=== PATIENT | male | born 1950 | race Caucasian/White ===

== ENCOUNTER → 2023-10-20 14:00 | Outpatient (REF) | payer MEDICARE, OTHER, SELFPAY | LOC: RAD 14:00 | PROVIDERS: ATTENDING PHYSICIAN Surgery Vascular Surgery | DX: I73.9 Peripheral vascular disease, unspecified (principal) | CPT/HCPCS: 93922; 93925 ==

== ENCOUNTER 2024-04-04 21:30 | Inpatient (IN) | payer MEDICARE, OTHER, SELFPAY ==
[2024-04-04] VITALS (8 sets, daily range): BP systolic 96–128; BP diastolic 46–104; BMI 31.3
[2024-04-04 17:29] LABS: ALT (SGPT) 15 U/L (0-50); AST (SGOT) 16 U/L (17-59); Albumin 4.1 g/dl (3.5-5.0); Alkaline Phosphatase 263 U/L (38-126); Calcium 9.1 mg/dl (8.4-10.2); Carbon Dioxide 21 mmol/L (22-30); Chloride 96 mmol/L (98-107); Glucose 169 mg/dl (70-99); NT-proBNP > 27000 pg/ml; Potassium 3.6 mmol/L (3.5-5.1); Sodium 134 mmol/L (135-145); Total Bilirubin 1.3 mg/dl (0.2-1.3); Total Protein 6.2 g/dl (6.3-8.2); eGFR 18.97
[2024-04-04 17:42] LABS: Blood Urea Nitrogen 172 mg/dl (9-20)
[2024-04-04 17:44] LABS: % Basophils 0.2 % (0-2); % Eosinophils 0.4 % (0-6); % Immature Granulocytes 0.4 % (0-0.5); % Lymphocytes 4.7 % (20.5-51.1); % Monocytes 7.8 % (1.7-9.3); % Neutrophils 86.5 % (42.2-75.2); Absolute Lymphocytes 0.2 10^3/uL (1.2-3.4); Absolute Monocytes 0.4 10^3/uL (0.1-0.6); Absolute Neutrophils 4.5 10^3/uL (1.4-6.5); Hematocrit 26.1 % (39.0-52.0); Hemoglobin 8.6 g/dL (13.0-18.0); Nucleated Red Blood Cells % 0 % (-); Red Blood Cell Count 2.69 10^6/uL (4.70-6.10); Red Cell Dist. Width 13.7 % (11.5-14.5); White Blood Cell Count 5.2 10^3/uL (4.8-10.8)
--- NOTE | 2024-04-04 17:53 | ED.GENMED ---
History of Present Illness
General
Chief Complaint: Breathing Problem
Source: patient and previous hospital records
Exam Limitations: none
Time Seen by Provider: 04/04/24 17:34
Nursing documentation reviewed up to this point in time: agreed with
History of Present Illness
History of Present Illness:
73-year-old male presents with fatigue shortness of breath weight gain of 12 to 15 pounds abdominal distention cough
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 Vieira
Past History
Past History
ED Past Medical History: COPD, HTN, IDDM and Other (Mild cardiomyopathy, arthritis, pneumonia, testicular cancer)
ED Past Surgical History: None
Social History
Tobacco: Former smoker
Alcohol: Occasional
Drug: None
Personal:
Living: with family
Employment: Employed
Family History
Family History: Hypertension
Review of Systems
Review of Systems
All Other Systems: Not applicable
Constitutional: Reports weight gain and fatigue; Denies fever
Respiratory: Reports cough and trouble breathing
ABD/GI: Reports no symptoms
: Reports no symptoms
Musculoskeletal: Reports no symptoms
Skin: Reports no symptoms
Neurological: Reports dizzy and weakness
Endocrine: Reports no symptoms
Hematologic/Lymphatic: Reports no symptoms
Phy Exam
Physical Exam
Physical Exam:
Physical Exam
General: 73-year-old male coughing chronically ill-appearing
Neck: No jaw
Heart: Regular with murmur
Lungs: Crackles in the base
Abdomen: Distended not
Neuro: alert and oriented. no focal neurological deficits
Skin: no rash
Psychiatric: Cooperative
Extremities: Pitting edema edema
Scores
Heart Failure Risk
Heart Failure Risk Score: Not Applicable
Course
Orders/Labs/Results
Orders:
Orders
04/04/24 Dinner
Cholesterol Lowering
At Your Request: Limited Participation
Does patient need a safe tray?: No
Cholesterol Lowering: Sodium, 2 Gram
04/04/24 16:41
Electrocardiogram (*1) Urgent
Reason for Study: Shortness of Breath
EKG- Treatment ONCE
04/04/24 16:55
Complete Blood Count/With Diff Urgent
Comprehensive Metabolic Panel Urgent
NT-proBNP Urgent
04/04/24 17:34
CR Chest - 2 Views Urgent
Comment:
Reason For Exam: sib
04/04/24 17:49
Bladder Scan- Treatment ONCE
Furosemide [Lasix] 80 mg IV NOW STA
04/04/24 20:32
Admit/Transfer Patient As Directed
Co-Sign Provider:
Level of Care: Inpatient admission
Assign to:: Telemetry
Physician / Group: Robin Zepeda
Diagnosis: acute on chronic heart failure
Reason for Telemetry: Acute Heart Failure
Date to Stop Telemetry: 04/07/24
Time to Stop Telemetry: 11:00
Reason for Hospitalization: acute on chronic heart failure
Expected length of stay greater than two midnights?: Yes
ELOS- Estimated Length of Stay in days: 3
I certify the patient meets the requirements for IP care: Yes
PRN Pain Medication Management As Directed
May give lesser potent ordered pain med per pt: Yes
preference::
Protocol:: Medication orders for pain may be administered in a
manner that supports deferring to patient preference
when the pt is:
- Requesting an ordered lesser potent pain medication.
Least to most potent pain medications are defined
as: acetaminophen < NSAID < tramadol < opioids
(morphine, oxycodone, hydromorphone).
- Requesting a lesser dose of the same medication IF
ORDERED.
- Requesting a less intrusive route of administration
if both routes are prescribed by the provider (PO <
IV).
04/04/24 20:35
Code Status As Directed
Resuscitation Status: Full Code
04/04/24 21:51
Albuterol Nebs [Ventolin Nebules] 2.5 mg INH R Q6HPRN PRN
04/04/24 21:51
CARDIOLOGY CONSULT Routine
Consulting Provider: Chrissy Vega
Was physician already notified: Yes
HF DIETARY CONSULT Routine
HF EDUCATOR CONSULT Routine
Comment:
Accucheck [Bedside Glucose Monitoring] As Directed
Frequency: AC&HS
Activity As Directed
Activity Level: Ambulate
Intake/ Output As Directed
Frequency: Per unit guidelines
Patient Education As Directed
Type: CHF folder
Comment: give on admission. Document in Interdisciplinary Education record
Sleep Apnea Assessment by RN As Directed
Comment:
Physician Instructions:
Vital Signs As Directed
Frequency: Other
Additional Instructions:: Q12 or per unit guidelines if more frequent.
Weight As Directed
Frequency: Daily
Type of Scale: Standing Scale
Comment: Daily morning weight. If unable to stand, use balanced bed scale.
Weight As Directed
Frequency: Once
Type of Scale: Standing Scale
Comment: Upon Admission. If unable to stand, use balanced bed scale.
Pulse Ox/cont/shift [RESP] Routine
Quantity: 1
Special Instructions: Daily pulse oximetry at rest. If greater than 92% at rest also obtain pulse oximetry
while ambulating as tolerated.
04/04/24 22:00
Digoxin [Lanoxin] 62.5 mcg PO HS
04/04/24 22:46
Hemoglobin A1c [Glycohemoglobin (HgbA1c)] Routine
04/05/24 06:00
Echo 2D MMode Color/Doppler IN AM
Reason for Study: heart failure
Basic Metabolic Panel IN AM
Cardiovascular Evaluation IN AM
Complete Blood Count/With Diff IN AM
04/05/24 08:00
Allopurinol [Zyloprim] 100 mg PO DAILY
Apixaban [Eliquis] 5 mg PO BID
Ascorbic Acid [Vitamin C] 500 mg PO DAILY
Carvedilol [Coreg] 25 mg PO BID
Cholecalciferol (Vitamin D3) [VITAMIN D3 (cholecalciferol)] 50 mcg PO BID
Furosemide [Lasix] 80 mg PO BID@0800,1600
Sacubitril 97/Valsartan 103 [Entresto 97 mg/103 mg] 1 tab PO BID
Zinc 50mg (Zinc Sulfate 220mg) [Zinc] 50 mg PO DAILY
[id number] [Breztri Aerosphere] 2 inh INH R BID
04/06/24 06:00
Basic Metabolic Panel IN AM
Complete Blood Count/With Diff IN AM
04/07/24 06:00
Basic Metabolic Panel IN AM
Complete Blood Count/With Diff IN AM
04/07/24 11:00
DC Protocol for Telemetry ONCE
Abnormal Lab Results
04/04/24
16:55
RBC 2.69 L 10^6/uL
(4.70-6.10)
Hgb 8.6 L g/dL
(13.0-18.0)
Hct 26.1 L %
(39.0-52.0)
MCV 97.0 H fL
(80.0-94.0)
MCH 32.0 H pg
(27.0-31.0)
Plt Count 85 L 10^3/uL
(130-400)
MPV 10.7 H fL
(7.4-10.4)
Absolute Lymphs (auto) 0.2 L 10^3/uL
(1.2-3.4)
Neutrophils % 86.5 H %
(42.2-75.2)
Lymphocytes % 4.7 L %
(20.5-51.1)
Sodium 134 L mmol/L
(135-145)
Chloride 96 L mmol/L
(98-107)
Carbon Dioxide 21 L mmol/L
(22-30)
BUN 172 H* mg/dl
(9-20)
Creatinine 3.3 H mg/dL
(0.7-1.3)
Glucose 169 H mg/dl
(70-99)
AST 16 L U/L
(17-59)
Alkaline Phosphatase 263 H U/L
(38-126)
Total Protein 6.2 L g/dl
(6.3-8.2)
04/04/24 16:55
04/04/24 16:55
Vital Signs
Initial and Last Documented VS:
Initial Vital Signs
Temp Pulse Resp BP Pulse Ox
98.6 F 80 18 112/52 93
04/04/24 16:38 04/04/24 16:38 04/04/24 16:38 04/04/24 16:38 04/04/24 16:38
Last Documented Vital Signs
Temp Pulse Resp BP Pulse Ox
97.9 F 80 20 96/58 100
04/04/24 21:55 04/04/24 22:50 04/04/24 21:55 04/04/24 21:55 04/04/24 21:55
MDM/Problems Addressed
Differential Diagnosis Includes:
Heart failure pneumonia symptomatic anemia renal insufficiency
MDM/Problems Addressed:
Shortness of breath weight gain
Chronic conditions affecting care: HTN, Cardiomyopathy, Arrhythmia and COPD
Acute Exacerbation and/or Progression of Chronic Illness: Cardiomyopathy, Arrhythmia and COPD
*Radiology
Radiology exam reviewed: preliminary read by ED provider
*Pulse Oximetry
Patient hypoxic: no
*EKG
Interpreted by ED Provider?: Yes
Interpretation: abnormal
Comparison EKG: no comparison EKG present
Heart Rate: 78
Rate: normal
Ischemia: non-specific ST changes
*School Of Nursing Director Interpretation
Rate: normal
Interpretation: normal
Heart Rate: 78
Rhythm: ventricular paced
*Critical Care Note
Total Time (30-74mins, 75-104mins- exclusive of procedures): 12
Data Reviewed
Review of Other/Old Records Reveals: Labs
Source: patient
Prescriptions/Medications Considered But Not Given:
Packed cells
Further Testing Considered But Not Given:
CT scan
Update Note
Update Note:
Update medically complex male presents volume overloaded labs are noted does have anemia, renal insufficiency, elevated proBNP chest x-ray pending will start diuretic, will require admission
Chest x-ray noted prior labs noted bladder scan noted
ED Attending Note
-
Portions of this chart may have been created with voice recognition software.� Occasional wrong word or��sound alike� substitutions may have occurred due to the inherent limitations of voice recognition software.
Discharge Plan
Departure
Patient Disposition: Admit
Date of Disposition: 04/04/24
Time of Disposition: 19:25
Admit to: Telemetry
Presentation/result/management discussed w/ accepting MD/DO: Hospitalist
Patient with high blood pressure during this ER visit?: Yes
Condition: Fair
Covid-19: Not Applicable
Discharge Problem:
HTN (hypertension), CKD (chronic kidney disease), Cardiomyopathy, Hyperlipidemia, Type 2 diabetes mellitus without complications, CKD (chronic kidney disease) stage 4, GFR 15-29 ml/min, Gout, Hypertensive heart and chronic kidney disease with heart
failure and stage 1 through stage 4 chronic kidney disease, or unspecified chronic kidney disease, Chronic systolic CHF (congestive heart failure), NICM (nonischemic cardiomyopathy), Anemia
Interventions
Interventions:
*Risk Screen - Suicide Last Done: 04/04/24 16:38
*General Assessment Last Done: 04/04/24 16:38
*Neglect/Abuse Screening Last Done: 04/04/24 16:38
*ED COVID-19 Vaccine History Last Done: 04/04/24 22:30
*Nursing Disposition Last Done: 04/04/24 22:00
ED- Cardiac Assessment Last Done: 04/04/24 17:18
ED- Pulmonary Assessment Last Done: 04/04/24 17:18
Discharge Date and Time
Discharge Date/Time: 04/04/24 22:01
[2024-04-04 17:56] LABS: Mean Platelet Volume 10.7 fL (7.4-10.4); Platelet Count 85 10^3/uL (130-400)
[2024-04-04] MEDS: LASIX 80 MG IV (18:01)
--- NOTE | 2024-04-04 19:44 | HPS.HSE ---
Addendum entered and electronically signed by Robin Zepeda DO 04/04/24 21:44:
Patient seen and examined independently. Agree with findings and plan as set forth by USHA Sarkar.
Patient is a 73y M with PMH significant for CHF, DM-II and CKD III who presents to ED complaining of 2-3 weeks of progressive shortness of breath, edema, abdominal distention and weight gain. Patient takes Lasix 80mg BID at home and has noted
that he is urinating less over the past few weeks. He is currently followed by a Issuing Operator in [place], [place] - though he was previously followed here by Dr. Vieira.
Ass:
Acute on Chronic HFrEF
Non-Ischemic Cardiomyopathy
KAYLEIGH on CKD III
Acute on Chronic Anemia
Benign Hypertension
Persistent Atrial Fibrillation
Ventricular Tachycardia
COPD
DM-II
Plan:
Admit for further evaluation and treatment.
IV Lasix BID and follow for effective diuresis.
Update Echo.
Cardiology evaluation for additional recommendations.
Continue other outpatient medications.
Follow glucose and cover with SSI as needed.
Update A1C.
Original Note:
Family Physician
-
Family Physician: NOT KNOW UNKNOWN - PT DOES
Chief Complaint
-
shortness of breath with exertion
History of Present Illness
Patient is a 73-year-old male with past medical history significant for type 2 diabetes, hyperlipidemia, chronic kidney disease stage 3, hypertension, hyperparathyroidism, a-fib, and gout who presented to [place] ED for shortness of breath on
exertion. Patient reports a 12-13 pound weight gain over the past 2 weeks and has noticed an increase in his abdominal girth. Patient denies any fever, chills, nausea, vomiting, chest pain, cough, constipation, diarrhea or urinary symptoms.
Medical History
Past Medical History
Past Medical History: Reports Other
Additional Past Medical History:
type 2 diabetes
hyperlipidemia
chronic kidney disease stage 3
hypertension
hyperparathyroidism
a-fib
gout
Past Surgical History: Reports Other
Additional Past Surgical History:
Cardiac ablation
Implanted medtronic ICD
partial colectomy
Social History
Tobacco: Former Smoker (40 pack year history, quit 30 years ago)
Alcohol: None
Drug: None
Personal:
Living: With Family
Employment: Retired
Family History
Family History: Not pertinent
Allergies / Home Medications
Allergies reflects when Allergies were last updated in [facility].
Home Medications with original date entered in [facility]
Allergy/Medication List:
Allergies
Allergy/AdvReac Type Severity Reaction Status Date / Time
No Known Allergies Allergy Verified 06/19/22 18:05
Home Medications
cholecalciferol (vitamin D3) 50 mcg (2,000 unit) tablet 2,000 unit PO BID Supplement 07/28/14
albuterol sulfate 2.5 mg/3 mL (0.083 %) solution for nebulization 2.5 mg inhalation Q6HPRN PRN sob 08/07/20
ascorbic acid (vitamin C) 500 mg tablet (Vitamin C) 500 mg PO DAILY Supplement 08/07/20
zinc sulfate 50 mg zinc (220 mg) tablet 50 mg PO DAILY Supplement ##0 08/07/20
carvedilol 25 mg tablet (Coreg) 25 mg PO BID Heart disease/condition 09/07/20
budesonide 160 mcg-glycopyr 9 mcg-formot 4.8 mcg/actuation HFA inhaler (Breztri Aerosphere) 2 inh inhalation R BID 08/19/22
albuterol sulfate 90 mcg/actuation aerosol inhaler 2 puff inhalation R BID 04/04/24
allopurinol 100 mg tablet 100 mg PO DAILY 04/04/24
apixaban 5 mg tablet (Eliquis) 5 mg PO BID 04/04/24
digoxin 62.5 mcg (0.0625 mg) tablet (Lanoxin) 62.5 mcg PO HS 04/04/24
flunisolide 25 mcg (0.025 %) nasal spray 1 spray intranasal DAILYPRN PRN allergy symptoms 04/04/24
furosemide 80 mg tablet 40 mg PO BID Fluid retention/Swelling 04/04/24
metolazone 5 mg tablet 5 mg PO DAILYPRN PRN edema/symptoms 04/04/24
sacubitril 97 mg-valsartan 103 mg tablet (Entresto) 1 tab PO BID 04/04/24
Review of Systems
-
History Source: Patient
Constitutional: Reports Weight Gain (12-13 pounds in 2 weeks)
EENT: Reports No Symptoms
Respiratory: Reports Trouble Breathing (shortness of breath)
Cardiac: Reports No Symptoms
Abdomen/GI: Reports No Symptoms
: Reports No Symptoms
Musculoskeletal: Reports No Symptoms
Skin: Reports No Symptoms
Neurological: Reports No Symptoms
Endocrine: Reports No Symptoms
Hematologic/Lymphatic: Reports No Symptoms
Psych: Reports No Symptoms
Physical Exam
Vital Signs
Vital Signs
Temp Pulse Resp BP Pulse Ox
98.6 F 73 19 119/104 98
04/04/24 16:38 04/04/24 19:00 04/04/24 19:00 04/04/24 19:00 04/04/24 18:45
Physical Exam
General: Well Developed, Well Nourished, No Apparent Distress and Conversant
HEENT: NormoCephalic, Moist mucous membranes, Atraumatic, [place] Conjunctivae, Nose Appears Normal and Ears Appear Normal
Respiratory: Clear, Wheezes, Crackles and Non Labored Respirations
Cardiac: S1/S2 and Regular Rhythm; No Murmur, Rub or Gallop
Breast: Deferred by me
GI: Soft, Non Tender, Non Distended and Normal Bowel Sounds; No Organomegaly
Rectal: Deferred by Provider
Genito-urinary: Deferred by me
Musculoskeletal: No Clubbing, No Cyanosis and No Edema
Skin: Warm and IV/Catheter Site; No Rash
Neuro: Awake, Alert, AO x 3 and Nonfocal/grossly intact
Hematologic/Lymphatic: No Lymphadenopathy
Psych: Calm and Intact Judgment/Insight
Laboratory Results
-
04/04/24 16:55
04/04/24 16:55
Laboratory Results
Total Bilirubin 1.3 mg/dl (0.2-1.3) 04/04/24 16:55
AST 16 U/L (17-59) L 04/04/24 16:55
ALT 15 U/L (0-50) 04/04/24 16:55
Alkaline Phosphatase 263 U/L (38-126) H 04/04/24 16:55
Data Reviewed
-
Diagnostic Radiology: Report Reviewed by me (CXR: Mild right basilar atelectasis and/or pneumonia.)
Medical Tests (Nuc Med, Echo, EKG etc): Report Reviewed by me (EKG: Ventricular-paced rhythm ABNORMAL ECG)
Lab Data: Labs Reviewed by me (hgb 8.6, Hct 26.1, BUN 172, Creat 3.3, BNP >02414)
Impression/Plan
-
IMPRESSION/PLAN:
#Acute on chronic heart failure
ECHO (11/08/2022) - Severely reduced left ventricular systolic function. Left ventricular ejection
fraction is 25-30% by visual estimate.
Stage III diastolic dysfunction suggestive of restrictive filling pattern and
increased filling pressures.
CXR: Mild right basilar atelectasis and/or pneumonia.
Patient reports 12-13 pound weight gain in last 2 weeks and increased abdominal girth
- Admit to telemetry
- Consult cardiology
- IV Lasix
- continue carvedilol, digoxin, and Entresto
#anemia
Hgb 8.6/Hct 26.1
denies any bleeding
- monitor BMP
#chronic kidney disease stage 3
BUN 172, Creat 3.3
#hypertension
- continue carvedilol
- hold PO furosemide
- IV furosemide
#a-fib
EKG: Ventricular-paced rhythm
ABNORMAL ECG
Medtronic ICD
- continue Eliquis, and carvedilol
#gout
- continue allopurinol
#type 2 diabetes
Patient reports used to be on insulin and corrected with weight loss and diet now
#hyperparathyroidism
#hyperlipidemia
Code Status: Full Code
DVT Prophylaxis: Eliquis
[2024-04-04 21:58] LABS: Glucose - Point of Care 145 mg/dl (70-99)
[2024-04-04] MEDS: LANOXIN 62.5 MCG PO (22:50)
[2024-04-04] MEDS: ELIQUIS 5 MG PO (23:02)
[2024-04-05] VITALS (9 sets, daily range): BP systolic 60–130; BP diastolic 43–69; BMI 31.3
[2024-04-05] MEDS: VENTOLIN NEBULES 2.5 MG INH ×2 (00:02→20:11)
--- NOTE | 2024-04-05 01:25 | TRANSFER ---
pt arrived from ED via stretcher accompanied by ED staff. pt ambulated from stretcher to bed with RW. pt AAOx3 upon arrival. BP soft at 96/58, other vital signs stable. oriented to room, call gabriel within reach. accompanied by spouse at bedside. POC
ongoing.
[2024-04-05 07:32] LABS: Glucose - Point of Care 107 mg/dl (70-99)
[2024-04-05] MEDS: SPIRIVA RESPIMAT 2.5 MCG 2 PUFF INH (07:41)
[2024-04-05] MEDS: SYMBICORT 160/4.5 MCG INHALER 2 PUFF INH ×2 (07:41→20:11)
--- NOTE | 2024-04-05 09:03 | CON.CAR ---
Addendum entered and electronically signed by Chrissy Vega MD 04/05/24 11:34:
I saw and examined the patient.
The CHEMICAL ENGINEERING PROFESSOR's note was reviewed and I agree with the note.
Comment: It was my pleasure to meet Mr. Downing who has a history of longstanding heart failure with reduced ejection fraction due to nonischemic cardiomyopathy, prior history of VT status post ICD, persistent atrial fibrillation that is
paroxysmal, intolerance to amiodarone, CKD 3B, COPD and PVCs who presents for worsening shortness of breath and weight gain. He endorses orthopnea, increased abdominal distention, poor appetite and lower extremity edema. He states he was taking
his home regimen of Lasix and even metolazone without any improvement. On physical exam he has wheezes at the bases bilaterally but a normal respiratory effort, regular rate and rhythm with a normal S1-S2, abdominal distention, nontender, 2-3+
pitting edema in the lower extremities.EKG shows sinus rhythm with ventricular pacing, chest x-ray shows cephalization of the pulmonary vasculature, labs shows acute on chronic kidney injury with a markedly elevated BUN and creatinine. proBNP is
elevated. Overall, he is in acute on chronic heart failure exacerbation with massive volume overload. We will attempt to mobilize fluid, but he is already likely in cardiorenal syndrome. Will need IV diuresis with close monitoring of his kidney
function. Will update an echo to ensure no changes Would recommend nephrology evaluation given rising creatinine and such markedly elevated BUN as may need to start preparing for HD for volume control. Will hold Entresto. He reports he was told
he was going in and out of atrial for fibrillation. Unfortunately he is intolerant to amiodarone. Kidney disease makes Tikosyn a poor option. Could consider an ablation as an outpatient. For now we will continue with rate controlling agents.
Will check a digoxin level and hold further dosing at this time given KAYLEIGH. Overall, this is a high risk situation given his severe cardiomyopathy and acute on chronic renal disease. .
Original Note:
Consultation
Consultation Request
Date/Time Consultation Requested: 04/04/24 10p
Date/Time Consultation Performed: 04/05/24 8:30a
Requesting Provider: USHA Sarkar
Performing Provider: USHA Nelson for Dr. Vega
Reason for Consultation: sob
Medical History
-
Chief Complaint: sob, weight gain
History of Present Illness:
Mr. 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
(director software Dr. Blaine Sanderson in [place]), COPD (former smoker), and PVCs s/p ablations, who presents to the ER with c/o worsened SOB and weight gain. He is admitted to the hospitalist service and we are consulted for SOB/HFrEF. He lives in [facility]
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 Vieira (last seen 08/2023). He has been taking Lasix 40mg BID at home w/o improvement of symptoms or weight, he also tried PRN Metolazone without improvement. He notes decreased urinary output as well.
Creatinine is 3.7 today. Last echo 10/2022 with LVEF 25 to 30%, mild-mod MR/AR, mod TR, PASP 60 to 65 mmHg. GDMT is limited by CKD3b/KAYLEIGH, hyperkalemia with aldosterone antagonists, he did not tolerate SGLT2 inhibitors, and he could not afford
Verquovo.
Past Medical History
Past Medical History: Other (as above)
Past Surgical History: Other (as above)
Social History
Tobacco: Former Smoker
Personal:
Living: With Family
Employment: Retired
Family History
Family History: Reviewed & Not Pertinent
Allergies / Home Medications
Allergy/AdvReac Type Severity Reaction Status Date / Time
No Known Allergies Allergy Verified 06/19/22 18:05
�Medication �Instructions �Recorded �Confirmed �Type
cholecalciferol (vitamin D3) 50 2,000 unit PO BID Supplement 07/28/14 04/04/24 History
mcg (2,000 unit) tablet
albuterol sulfate 2.5 mg/3 mL 2.5 mg inhalation Q6HPRN PRN sob 08/07/20 04/04/24 History
(0.083 %) solution for nebulization
ascorbic acid (vitamin C) 500 mg 500 mg PO DAILY Supplement 08/07/20 04/04/24 History
tablet (Vitamin C)
zinc sulfate 50 mg zinc (220 mg) 50 mg PO DAILY Supplement ##0 08/07/20 04/04/24 History
tablet
carvedilol 25 mg tablet (Coreg) 25 mg PO BID Heart 09/07/20 04/04/24 History
disease/condition
budesonide 160 mcg-glycopyr 9 2 inh inhalation R BID 08/19/22 04/04/24 History
mcg-formot 4.8 mcg/actuation HFA
inhaler (Breztri Aerosphere)
albuterol sulfate 90 mcg/actuation 2 puff inhalation R BID 04/04/24 04/04/24 History
aerosol inhaler
allopurinol 100 mg tablet 100 mg PO DAILY 04/04/24 04/04/24 History
apixaban 5 mg tablet (Eliquis) 5 mg PO BID 04/04/24 04/04/24 History
digoxin 62.5 mcg (0.0625 mg) 62.5 mcg PO HS 04/04/24 04/04/24 History
tablet (Lanoxin)
flunisolide 25 mcg (0.025 %) nasal 1 spray intranasal DAILYPRN PRN 04/04/24 04/04/24 History
spray allergy symptoms
furosemide 80 mg tablet 40 mg PO BID Fluid 04/04/24 04/04/24 History
retention/Swelling
metolazone 5 mg tablet 5 mg PO DAILYPRN PRN edema/symptoms 04/04/24 04/04/24 History
sacubitril 97 mg-valsartan 103 mg 1 tab PO BID 04/04/24 04/04/24 History
tablet (Entresto)
Review of Systems
-
History Source: Patient
All other systems: Negative unless noted
Physical Exam
Vital Signs
Temp Pulse Resp BP Pulse Ox
98.0 F 67 16 123/51 98
04/05/24 07:15 04/05/24 07:45 04/05/24 07:45 04/05/24 07:15 04/05/24 07:45
Lab Results
Ofq-B-Ntasogkybcl Pept > 06845 pg/ml 04/04/24 16:55
Physical Exam
General: Well Developed, Well Nourished and No Apparent Distress
HEENT: Normocephalic and Moist Mucous Membranes
Respiratory: Non Labored Respirations
Cardiac: S1/S2 and Regular Rhythm
Breast: Deferred by me
GI: Soft, Non Tender and Normal Bowel Sounds
Rectal: Deferred by Provider
Genito-urinary: No Costovertebral Tender
Musculoskeletal: No Clubbing, No Cyanosis and Edema (+2 edema b/l LE )
Skin: Warm
Neuro: AO x 3
Hematologic/Lymphatic: No Lymphadenopathy
Psych: Calm
Impression / Plan
-
HFrEF - acute on chronic.
- volume overloaded, LE edema, abdominal distention, weight gain, proBNP >27,000.
- agree with gentle IV diuresis due to KAYLEIGH/CKD3b (labs pending this am).
- fluid sodium restrictions, daily weights, I&Os.
- he was on Lasix 40mg PO BID at home with PRN Metolazone w/o improvement and c/o decreased urinary output.
NIDCM - EF 35%.
- volume overloaded, agree with gentle diuresis.
- MDT ICD in place.
COPD - acute exacerbation.
- per primary.
Afib - persistent.
- Vpaced on tele.
- stable on Coreg, digoxin, continue.
- did not tolerating Amiodarone previously.
- on Eliquis, continue.
CKD3b - acute KAYLEIGH on chronic.
- creatinine 3.3 on admit and labs pending for today.
- monitor closely.
Data Reviewed
-
EKG: Tracing Personally Visualized and interpreted (Vpaced 78 bpm )
Radiology: Report Reviewed by me (COPD exacerbation)
Medical Tests (Nuc Med, Echo etc): Report Reviewed by me (echo 10/2022 with LVEF 25 to 30%, mild-mod MR/AR, mod TR, PASP 60 to 65 mmHg)
Labs: Labs Reviewed by me
Old Records: Reviewed
[2024-04-05 09:47] LABS: % Basophils 0.2 % (0-2); % Eosinophils 0.7 % (0-6); % Immature Granulocytes 0.5 % (0-0.5); % Lymphocytes 6.5 % (20.5-51.1); % Monocytes 10.2 % (1.7-9.3); % Neutrophils 81.9 % (42.2-75.2); Absolute Lymphocytes 0.3 10^3/uL (1.2-3.4); Absolute Monocytes 0.4 10^3/uL (0.1-0.6); Absolute Neutrophils 3.6 10^3/uL (1.4-6.5); Hemoglobin 8.7 g/dL (13.0-18.0); Mean Corp Hgb Conc. 32.2 g/dL (33.0-37.0); Mean Corpuscular Hgb 31.6 pg (27.0-31.0); Mean Corpuscular Volume 98.2 fL (80.0-94.0); Mean Platelet Volume 11.2 fL (7.4-10.4); Nucleated Red Blood Cells % 0 % (-); Platelet Count 94 10^3/uL (130-400); Red Blood Cell Count 2.75 10^6/uL (4.70-6.10); Red Cell Dist. Width 13.9 % (11.5-14.5); White Blood Cell Count 4.3 10^3/uL (4.8-10.8)
[2024-04-05] MEDS: VITAMIN D3 (cholecalciferol) 50 MCG PO ×2 (10:07→20:35)
[2024-04-05] MEDS: ENTRESTO 97 MG/103 MG 1 TAB PO (10:07)
[2024-04-05] MEDS: ELIQUIS 5 MG PO ×2 (10:09→20:35)
[2024-04-05] MEDS: COREG 25 MG PO ×2 (10:09→20:35)
[2024-04-05] MEDS: ZYLOPRIM 100 MG PO (10:09)
[2024-04-05] MEDS: ZINC 50 MG PO (10:09)
[2024-04-05] MEDS: VITAMIN C 500 MG PO (10:09)
[2024-04-05] MEDS: FLUSH (NSS) 1 FLUSH IV (10:10)
[2024-04-05 10:46] LABS: Calcium 9.5 mg/dl (8.4-10.2); Carbon Dioxide 23 mmol/L (22-30); Chloride 95 mmol/L (98-107); Estimated Creatinine Clearance 21 ml/min; Glucose 148 mg/dl (70-99); HDL Cholesterol 26 mg/dl; LDL Cholesterol, Calculated 73 mg/dl; Potassium 3.8 mmol/L (3.5-5.1); Sodium 137 mmol/L (135-145); Total Cholesterol 117 mg/dl (50-199); Triglyceride 93 mg/dl (10-149); Very Low Density Lipoprotein 18 mg/dl (0-30); eGFR 17.67
[2024-04-05 11:03] LABS: Blood Urea Nitrogen 172 mg/dl (9-20)
--- NOTE | 2024-04-05 11:21 | W.PN.HOSP.TC ---
Today's Communication/Plan
-
HD preparations as per Nephro
cont diuresis, hold digoxin Entresto as per Cardio
daily weight I/O
duoneb R QID
Assessment / Plan
Assessment / Plan
Physical Exam
General: Well Developed, Well Nourished, No Apparent Distress and Conversant
HEENT: NormoCephalic, Moist mucous membranes, Atraumatic, [place] Conjunctivae, Nose Appears Normal and Ears Appear Normal
Respiratory: Non Labored Respirations, some mild wheezing noted on auscultation
Cardiac: S1/S2 and Regular Rhythm; No Murmur, Rub or Gallop
GI: Soft, Non Tender, Non Distended and Normal Bowel Sounds; No Organomegaly
Musculoskeletal: +2 pitting edema lower ext's
Neuro: AOx3
Psych: Calm and Intact Judgment/Insight
73y M with PMH significant for CHF, DM-II and CKD III who presents to ED complaining of 2-3 weeks of progressive shortness of breath, edema, abdominal distention and weight gain. Patient takes Lasix 80mg BID at home and has noted that he is
urinating less over the past few weeks. He is currently followed by a Stranding Machine Operator in [place], [place] - though he was previously followed here by Dr. Vieira.
#Acute on chronic heart failure
ECHO appreciated EF 30% mod severe TR ascending aorta dilatation 4.2 cm, per report ECHO largely unchanged from prior October 2022
CXR: Mild right basilar atelectasis and/or pneumonia.
Patient reports 12-13 pound weight gain in last 2 weeks and increased abdominal girth
- cont telemetry
- Consult cardiology appreciated cont coreg, hold digoxin Entresto d/t KAYLEIGH as below
- IV Lasix
#COPD
stable resp status on room air at rest
some wheezing noted on auscultation
Duoneb R QID
#anemia
H&H stable cont to monitor
#KAYLEIGH on CKD3
Nephro eval appreciated patient to start HD tomorrow IR to place catheter
#hypertension
- continue carvedilol
- hold PO furosemide
- IV furosemide
#a-fib
EKG: Ventricular-paced rhythm
ABNORMAL ECG
Medtronic ICD
- continue Eliquis, and carvedilol
#gout
- continue allopurinol
#type 2 diabetes
A1c 7.0
Low dose sliding scale
#hyperparathyroidism
#hyperlipidemia
Code Status: Full Code
DVT Prophylaxis: Eliquis
discussed with patient and his Sri
I spent a total of 50 minutes with the patient or on the floor. More than 50% of this time involved counseling and coordination of care.
Anticipated Discharge: 24 - 48 hours
Subjective/Interval History
-
Date of Service: April 05, 2024
No acute distress sitting up comfortably in chair. present during evaluation. Dyspnea with exertion persists
Objective Data
-
Labs:
Laboratory Results
04/05/24
08:45
WBC 4.3 L
Hgb 8.7 L
Hct 27.0 L
Plt Count 94 L
Sodium 137
Potassium 3.8
Chloride 95 L
Carbon Dioxide 23
BUN 172 H*
Creatinine 3.5 H
Glucose 148 H
Calcium 9.5
Vital Signs:
Vital Signs
Temp Pulse Resp BP Pulse Ox
98.0 F 67 16 123/51 98
04/05/24 07:15 04/05/24 07:45 04/05/24 07:45 04/05/24 07:15 04/05/24 07:45
I&O
04/04/24 04/05/24 04/06/24
06:59 06:59 06:59
Intake Total 240 / 240
Output Total 325 / 325
Balance -85 / -85
--- NOTE | 2024-04-05 12:01 | W.CON.NEPH ---
Consultation
-
Date/Time Consultation Requested: 04/05/2024 12:00
Date/Time Consultation Performed: 04/05/2024 12:00
Requesting Provider: Dr. Lee
Performing Provider: Dr. Teague
Reason for Consultation: Acute renal failure
Medical History
-
Chief Complaint: Acute kidney injury
History of Present Illness:
Mr. 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 Blaine Sanderson in [place]), COPD (former smoker), and PVCs s/p ablations, who presents to the ER with c/o worsened SOB and weight gain. He is admitted to the hospitalist service and we are consulted for SOB/HFrEF. He lives in [facility]
and has a careers counsellor there, but also sees Dr. Vieira (last seen 08/2023). He has been taking Lasix 40mg BID at home w/o improvement of symptoms or weight, he also tried PRN Metolazone without improvement. He notes decreased urinary output as well.
Creatinine is 3.5 today with associated BUN of 172.. Last echo 10/2022 with LVEF 25 to 30%, mild-mod MR/AR, mod TR, PASP 60 to 65 mmHg. Nephrology was asked to see the patient for his acute on chronic renal failure.
Past Medical History
CKD stage IV
COPD
Atrial fibrillation
Gout
Nonischemic cardiomyopathy with EF of 35 percent
History of ventricular tachycardia
Diabetes
Social History
Tobacco: Former Smoker
Alcohol: Occasional
Family History
No CKD
Allergies / Home Medications
Allergy/AdvReac Type Severity Reaction Status Date / Time
No Known Allergies Allergy Verified 06/19/22 18:05
�Medication �Instructions �Recorded �Confirmed �Type
cholecalciferol (vitamin D3) 50 2,000 unit PO BID Supplement 07/28/14 04/04/24 History
mcg (2,000 unit) tablet
albuterol sulfate 2.5 mg/3 mL 2.5 mg inhalation Q6HPRN PRN sob 08/07/20 04/04/24 History
(0.083 %) solution for nebulization
ascorbic acid (vitamin C) 500 mg 500 mg PO DAILY Supplement 08/07/20 04/04/24 History
tablet (Vitamin C)
zinc sulfate 50 mg zinc (220 mg) 50 mg PO DAILY Supplement ##0 08/07/20 04/04/24 History
tablet
carvedilol 25 mg tablet (Coreg) 25 mg PO BID Heart 09/07/20 04/04/24 History
disease/condition
budesonide 160 mcg-glycopyr 9 2 inh inhalation R BID 08/19/22 04/04/24 History
mcg-formot 4.8 mcg/actuation HFA
inhaler (Breztri Aerosphere)
albuterol sulfate 90 mcg/actuation 2 puff inhalation R BID 04/04/24 04/04/24 History
aerosol inhaler
allopurinol 100 mg tablet 100 mg PO DAILY 04/04/24 04/04/24 History
apixaban 5 mg tablet (Eliquis) 5 mg PO BID 04/04/24 04/04/24 History
digoxin 62.5 mcg (0.0625 mg) 62.5 mcg PO HS 04/04/24 04/04/24 History
tablet (Lanoxin)
flunisolide 25 mcg (0.025 %) nasal 1 spray intranasal DAILYPRN PRN 04/04/24 04/04/24 History
spray allergy symptoms
furosemide 80 mg tablet 40 mg PO BID Fluid 04/04/24 04/04/24 History
retention/Swelling
metolazone 5 mg tablet 5 mg PO DAILYPRN PRN edema/symptoms 04/04/24 04/04/24 History
sacubitril 97 mg-valsartan 103 mg 1 tab PO BID 04/04/24 04/04/24 History
tablet (Entresto)
Review of Systems
-
History Source: Patient
All other systems: Negative unless noted
Constitutional: Weight Gain
Respiratory: Other (Shortness of breath)
Abdomen/GI: Other (Abdominal distention)
: Other (Decreased urine output )
Physical Exam
Vital Signs
Vital Signs
Temp Pulse Resp BP Pulse Ox
98.0 F 67 16 123/51 98
04/05/24 07:15 04/05/24 07:45 04/05/24 07:45 04/05/24 07:15 04/05/24 07:45
Lab Results
04/05/24 08:45
04/05/24 08:45
WBC 4.3 10^3/uL (4.8-10.8) L 04/05/24 08:45
RBC 2.75 10^6/uL (4.70-6.10) L 04/05/24 08:45
Hgb 8.7 g/dL (13.0-18.0) L 04/05/24 08:45
Hct 27.0 % (39.0-52.0) L 04/05/24 08:45
Plt Count 94 10^3/uL (130-400) L 04/05/24 08:45
Sodium 137 mmol/L (135-145) 04/05/24 08:45
Potassium 3.8 mmol/L (3.5-5.1) 04/05/24 08:45
Chloride 95 mmol/L (98-107) L 04/05/24 08:45
Carbon Dioxide 23 mmol/L (22-30) 04/05/24 08:45
BUN 172 mg/dl (9-20) H* 04/05/24 08:45
Creatinine 3.5 mg/dL (0.7-1.3) H 04/05/24 08:45
eGFR 17.67 04/05/24 08:45
Glucose 148 mg/dl (70-99) H 04/05/24 08:45
Calcium 9.5 mg/dl (8.4-10.2) 04/05/24 08:45
Inb-A-Hatvxkadsxu Pept > 67323 pg/ml 04/04/24 16:55
Albumin 4.1 g/dl (3.5-5.0) 04/04/24 16:55
Physical Exam
General: AOx3, Nontoxic , NAD
HEENT: PERRL, EOMI, Anicteric, Conjunctivae Clear, Ear/Nose Intact, Hearing Normal, Oropharynx Clear/Moist, Dentition Intact, Facial Symmetry, Neck Supple, Neck: Trachea Midline, No JVD and No Thyromegaly, no Bruits
Respiratory: coarse to auscultation, wheezes bilaterally and with decreased breath sounds towards the bases bilaterally with normal lung excursion
Cardiac: S1/S2 and Regular Rate/Rhythm
Breast: Deferred by me
Abdomen: Soft, Nontender, distended, Normal Bowel Sounds and No Hepatosplenomegaly
Rectal: Deferred by Provider
Genito-urinary: No Costovertebral Tenderness
Extremities: No Clubbing, No Cyanosis and 2 plus pitting Edema
Skin: No Rash or open lesions
Neuro: Nonfocal/Grossly Intact, CN II-XII (Intact) and Strength (Musculoskeletal exam 5 out of 5 both upper and lower extremities), no asterixis
Hematologic/Lymphatic: No Cervical Lymphadenopathy, No Submandibular Lymphadenopathy and No Supraclavicular Lymphadenopathy
Psych: Mood/afflect pleasant, Insight/judgement good and Appropriate
Vascular: plus 1 pedal and radial pulses
Data Reviewed
-
Radiology: Image Personally Visualized and interpreted (Chest x-ray with no overt congestive heart failure right lower lobe consolidation versus atelectasis)
Labs: Labs Reviewed by me (BMP CBC)
Old Records: Reviewed (Reviewed previous creatinine of 2.0 from June 10, 2022)
Assessment/Plan
-
Impression:
Acute kidney
Congestive heart failure decompensation
Nonischemic cardiomyopathy with EF of 30%
History of ventricular tachycardia/ICD
Diabetes
COPD
CKD stage IV
Anemia
Plan
Patient with profound volume overload and uremia in setting of worsening renal failure
We can attempt IV diuresis but I do not have confidence that this will help enough
check bladder scah
Patient will require more urgent dialysis as patient is actively in congestive heart failure with renal failure and BUN in excess of 1 7
Will obtain stat INR and kidney and bladder ultrasound just in case he is obstructed
Will consult IR to place catheter today and dialyze first thing in the morning
[2024-04-05 12:05] LABS: Glucose - Point of Care 134 mg/dl (70-99)
[2024-04-05 12:37] LABS: Digoxin 0.6 ng/ml (0.8-2.0)
[2024-04-05] MEDS: LASIX 80 MG IV ×2 (13:01→17:34)
[2024-04-05] MEDS: DUONEB INH ×3 (13:33→20:10)
[2024-04-05 14:23] LABS: INR 1.75; PT 20.6 Sec (11.4-14.6)
--- NOTE | 2024-04-05 16:21 | PTCARENOTE ---
received from [facility] post HD cath placement. assisted to chair. dressing dry and intact to right neck. about 15 minutes later patient called nurse into room reporting nausea and noted to be dry heaving. blood noted on right neck dressing. dressing
reinforced. episode lasting about 5 minutes. call gabriel in reach and instructed to call if feeling nausea again. plan of care on going.
[2024-04-05 16:48] LABS: Glucose - Point of Care 121 mg/dl (70-99)
[2024-04-05] MEDS: FLUSH (NSS) 2 FLUSH IV (17:36)
[2024-04-05 18:06] LABS: Hepatitis B Surface Antigen Negative (Negative)
[2024-04-05 18:25] LABS: Hepatitis B Core Ab, Total Negative (Negative); Hepatitis B Surface Antibody Negative; Hepatitis C Antibody Negative (Negative)
[2024-04-05 21:59] LABS: Glucose - Point of Care 229 mg/dl (70-99)
[2024-04-06] VITALS (7 sets, daily range): BP systolic 109–143; BP diastolic 45–69; BMI 31.5
[2024-04-06] MEDS: ATIVAN 0.5 MG PO ×2 (01:23→13:04)
[2024-04-06 07:09] LABS: % Basophils 0.3 % (0-2); % Eosinophils 1.6 % (0-6); % Immature Granulocytes 0.5 % (0-0.5); % Lymphocytes 7.9 % (20.5-51.1); % Monocytes 11.1 % (1.7-9.3); % Neutrophils 78.6 % (42.2-75.2); Absolute Eosinophils 0.1 10^3/uL (0-0.7); Absolute Lymphocytes 0.3 10^3/uL (1.2-3.4); Absolute Monocytes 0.4 10^3/uL (0.1-0.6); Hemoglobin 8.1 g/dL (13.0-18.0); Mean Corp Hgb Conc. 32.4 g/dL (33.0-37.0); Mean Corpuscular Hgb 31.9 pg (27.0-31.0); Mean Corpuscular Volume 98.4 fL (80.0-94.0); Mean Platelet Volume 10.8 fL (7.4-10.4); Nucleated Red Blood Cells % 0 % (-); Platelet Count 82 10^3/uL (130-400); Red Blood Cell Count 2.54 10^6/uL (4.70-6.10); Red Cell Dist. Width 13.8 % (11.5-14.5); White Blood Cell Count 3.8 10^3/uL (4.8-10.8)
--- NOTE | 2024-04-06 07:19 | W.PN.HOSP.TC ---
Today's Communication/Plan
-
HD as per Nephro
ativan prn
glycemic control
scheduled Duoneb reduced to R BID, cont prn
Assessment / Plan
Assessment / Plan
Physical Exam
General: Well Developed, Well Nourished, No Apparent Distress and Conversant
HEENT: NormoCephalic, Moist mucous membranes, Atraumatic, [place] Conjunctivae, Nose Appears Normal and Ears Appear Normal
Respiratory: Non Labored Respirations, some mild wheezing noted on auscultation
Cardiac: S1/S2 and Regular Rhythm; No Murmur, Rub or Gallop
GI: Soft, Non Tender, Non Distended and Normal Bowel Sounds; No Organomegaly
Musculoskeletal: +2 pitting edema lower ext's
Neuro: AOx3
Psych: Calm and Intact Judgment/Insight
73y M with PMH significant for CHF, DM-II and CKD III who presents to ED complaining of 2-3 weeks of progressive shortness of breath, edema, abdominal distention and weight gain. Patient takes Lasix 80mg BID at home and has noted that he is
urinating less over the past few weeks. He is currently followed by a Chemist Organic in [place], [place] - though he was previously followed here by Dr. Vieira.
#Acute on chronic heart failure
ECHO appreciated EF 30% mod severe TR ascending aorta dilatation 4.2 cm, per report ECHO largely unchanged from prior October 2022
CXR: Mild right basilar atelectasis and/or pneumonia.
Patient reports 12-13 pound weight gain in last 2 weeks and increased abdominal girth
- cont telemetry
- Consult cardiology appreciated cont coreg, hold digoxin Entresto d/t KAYLEIGH as below
- IV Lasix
#COPD
stable resp status on room air at rest
wheezing resolved
cont duoneb prn
Duoneb R QID reduced to BID
#anemia
H&H stable cont to monitor
#KAYLEIGH on CKD3
Nephro eval appreciated patient started on dialysis 04/06
#hypertension
- continue carvedilol
-HD as above
#a-fib
EKG: Ventricular-paced rhythm
ABNORMAL ECG
Medtronic ICD
- continue Eliquis, and carvedilol
#gout
- continue allopurinol
#type 2 diabetes
A1c 7.0
Low dose sliding scale
#hyperparathyroidism
#hyperlipidemia
#Anxiety/insomnia
prn ativan
Code Status: Full Code
DVT Prophylaxis: Eliquis
discussed with patient and his Sri
I spent a total of 50 minutes with the patient or on the floor. More than 50% of this time involved counseling and coordination of care.
Anticipated Discharge: 24 - 48 hours
Subjective/Interval History
-
Date of Service: April 06, 2024
Anxious during dialysis. Otherwise reports improvement in breathing. Wheezing resolved.
Objective Data
-
Labs:
Laboratory Results
04/06/24
06:34
WBC 3.8 L
Hgb 8.1 L
Hct 25.0 L
Plt Count 82 L
Sodium Pending
Potassium Pending
Chloride Pending
Carbon Dioxide Pending
BUN Pending
Creatinine Pending
Glucose Pending
Calcium Pending
Vital Signs:
Vital Signs
Temp Pulse Resp BP Pulse Ox
97.9 F 62 20 125/69 97
04/06/24 03:12 04/06/24 03:12 04/06/24 03:12 04/06/24 03:12 04/06/24 03:12
I&O
04/05/24 04/06/24 04/07/24
06:59 06:59 06:59
Intake Total 240 / 240 500 / 500 480 / 480
Output Total 325 / 325 200 / 200 245 / 245
Balance -85 / -85 300 / 300 235 / 235
[2024-04-06 07:21] LABS: Calcium 9.3 mg/dl (8.4-10.2); Carbon Dioxide 21 mmol/L (22-30); Chloride 95 mmol/L (98-107); Estimated Creatinine Clearance 21 ml/min; Glucose 122 mg/dl (70-99); Magnesium 2.3 mg/dl (1.6-2.3); Phosphorus 8.4 mg/dl (2.5-4.5); Potassium 4.1 mmol/L (3.5-5.1); Sodium 135 mmol/L (135-145); eGFR 17.09
[2024-04-06] MEDS: SYMBICORT 160/4.5 MCG INHALER 2 PUFF INH ×2 (07:28→20:42)
[2024-04-06] MEDS: DUONEB 3 ML INH ×3 (07:28→20:41)
[2024-04-06 07:34] LABS: Blood Urea Nitrogen 177 mg/dl (9-20)
[2024-04-06 07:40] LABS: Glucose - Point of Care 135 mg/dl (70-99)
[2024-04-06] MEDS: NOVOLOG FLEXPEN-LOW RESISTANCE SC ×2 (08:27→16:46)
[2024-04-06] MEDS: ZINC 50 MG PO (08:34)
[2024-04-06] MEDS: VITAMIN C 500 MG PO (08:34)
[2024-04-06] MEDS: VITAMIN D3 (cholecalciferol) 50 MCG PO ×2 (08:34→20:22)
[2024-04-06] MEDS: COREG 25 MG PO ×2 (08:34→20:22)
[2024-04-06] MEDS: ELIQUIS 5 MG PO ×2 (08:34→20:22)
[2024-04-06] MEDS: ZYLOPRIM 100 MG PO (08:34)
[2024-04-06] MEDS: LASIX 80 MG IV (08:35)
--- NOTE | 2024-04-06 09:20 | PTCARENOTE ---
Pt assessed and medicated this morning. On assessment pt is AAOx3, VSS. Sitting in the chair, no respiratory distress sitting, distress only on ambulation per pt. Expiratory wheeze heard on auscultation. Heart rate regular, +2 edema on b/l LEs.
abdomen round/distended. Right IJ cath intact. Pt transferred to room 327 for HD today. Report given to FAHAD Figueroa.
[2024-04-06] MEDS: DUONEB INH (11:19)
[2024-04-06 11:21] LABS: Glucose - Point of Care 236 mg/dl (70-99)
[2024-04-06] MEDS: NOVOLOG FLEXPEN-LOW RESISTANCE 2 UNITS SC (11:48)
--- NOTE | 2024-04-06 12:16 | W.PN.NEPH.HD ---
Assessment
-
Patient seen on dialysis
Mannitol x 2 to be provided for disequilibrium prophylaxis
Low QB 200
Dialysis again tomorrow
Will try to ultrafiltrate as hemodynamically tolerated in setting of hypervolemia
Lasix discontinued
Progress Note - Hemodialysis
-
Date of Service: April 06, 2024
Duration: 30 minutes and 2 hours
Potassium Bath: 3
Calcium Bath: 2.5
Opti-Dialyzer: 160
Ultrafiltration: Other (1 kg as hemodynamically tolerated)
Blood Flow: 200
Dialysate Flow: Other (400)
Heparin: None
EPO: 4000
--- NOTE | 2024-04-06 12:34 | W.PN.CD ---
Addendum entered and electronically signed by Chrissy Vega MD 04/06/24 17:00:
I saw and examined the patient.
The MANAGER PEOPLE's note was reviewed and I agree with the note.
Comment: He had his first HD session today, only was able to tolerate 1 kg removal. He is quite anxious required some Ativan. Currently feeling much better. He thinks his breathing is feeling better. He is lethargic. He has a regular rate and
rhythm, CTA b/l, 2+ pitting edema b/l, abd distended but soft.
HFrEF, Acute on Chronic Kidney injury, COPD, AF: continue HD for volume control, continue BB, hold Entresto, continue Eliquis.
Original Note:
Today's Communication / Plan
-
Dialysis per nephrology
GDMT limited by his renal dysfunction
Impression / Plan
-
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
Dr. Blaine Sanderson in [place]), COPD (former smoker), and PVCs s/p ablations, who presents to the ER with c/o worsened SOB and weight gain.
Primary model home sales greeter: Dr. Vieira
HFrEF - acute on chronic
NIDCM (EF 35%)
-Volume overloaded, LE edema, abdominal distention, weight gain, proBNP >27,000.
-Volume will now be managed by nephrology, hemodialysis started today, 04/06/2024
-GDMT is limited in the setting of his renal disease
-Medtronic ICD in place
-Trend daily weight and I/O
-Heart failure education
COPD - acute exacerbation.
- per primary.
Afib - persistent.
-Vpaced on tele.
-Continue carvedilol, digoxin discontinued
-He did not tolerate amiodarone in the past
-On apixaban, 5 mg twice daily, he denies missed doses and abnormal bleeding
KAYLEIGH on CKD versus progression of CKD, now on hemodialysis in the setting of hypervolemia
SUBJECTIVE:
Denies chest pain, dizziness.
Seen on HD.
Physical Exam
Vital Signs/Labs
Vital Signs
Temp Pulse Resp BP Pulse Ox
98.6 F 60 18 109/45 94
04/06/24 11:07 04/06/24 11:07 04/06/24 11:07 04/06/24 11:07 04/06/24 11:07
04/05/24 04/06/24 04/07/24
06:59 06:59 06:59
Actual Weight 95.963 kg 96.757 kg
04/06/24 06:34
04/06/24 06:34
PT 20.6 Sec (11.4-14.6) H 04/05/24 12:57
INR 1.75 04/05/24 12:57
Magnesium 2.3 mg/dl (1.6-2.3) 04/06/24 06:34
Triglycerides 93 mg/dl (10-149) 04/05/24 08:45
LDL Cholesterol, Calc 73 mg/dl 04/05/24 08:45
VLDL Cholesterol, Calc 18 mg/dl (0-30) 04/05/24 08:45
HDL Cholesterol 26 mg/dl 04/05/24 08:45
Digoxin Cancelled 04/05/24 11:36
04/04/24
16:55
Sou-P-Dpkxnnvwrfd Pept > 30690
Physical Exam
Constitutional: No acute distress and Comfortable
EENT: Anicteric and Moist mucous membranes
Cardiovascular: Rhythm/rate is irregular, Pedal edema present and S1S2 is normal
Respiratory: Respiratory effort normal and Crackles Present
GI: Soft, Distention absent, Non tender and Normal bowel sounds
Neuro/Psych: AO x 3
Other: Skin (Warm and dry with bilateral lower extremity edema)
Data Reviewed
-
Date of Service: April 06, 2024
[2024-04-06] MEDS: MANNITOL 25% 12.5 GRAMS IV ×2 (12:57→13:58)
[2024-04-06] MEDS: RETACRIT 4000 UNITS IV (12:57)
[2024-04-06] MEDS: HEPARIN 2500 UNITS INTRACATH (14:25)
[2024-04-06] MEDS: ATIVAN 0.5 MG IV (14:33)
[2024-04-06 16:45] LABS: Glucose - Point of Care 109 mg/dl (70-99)
[2024-04-06 21:36] LABS: Glucose - Point of Care 172 mg/dl (70-99)
[2024-04-07 03:33] VITALS: BP 136/58
[2024-04-07 06:23] VITALS: BMI 30.9
[2024-04-07 07:00] VITALS: BP 112/48
[2024-04-07 07:12] LABS: % Basophils 0.3 % (0-2); % Eosinophils 1.8 % (0-6); % Immature Granulocytes 0.3 % (0-0.5); % Lymphocytes 9.5 % (20.5-51.1); % Monocytes 11.9 % (1.7-9.3); % Neutrophils 76.2 % (42.2-75.2); Absolute Eosinophils 0.1 10^3/uL (0-0.7); Absolute Lymphocytes 0.3 10^3/uL (1.2-3.4); Absolute Monocytes 0.4 10^3/uL (0.1-0.6); Absolute Neutrophils 2.5 10^3/uL (1.4-6.5); Hematocrit 24.8 % (39.0-52.0); Hemoglobin 8.2 g/dL (13.0-18.0); Mean Corp Hgb Conc. 33.1 g/dL (33.0-37.0); Mean Corpuscular Hgb 31.8 pg (27.0-31.0); Mean Corpuscular Volume 96.1 fL (80.0-94.0); Mean Platelet Volume 11.7 fL (7.4-10.4); Nucleated Red Blood Cells % 0 % (-); Platelet Count 90 10^3/uL (130-400); Red Blood Cell Count 2.58 10^6/uL (4.70-6.10); Red Cell Dist. Width 13.8 % (11.5-14.5); White Blood Cell Count 3.3 10^3/uL (4.8-10.8)
--- NOTE | 2024-04-07 07:15 | W.PN.HOSP.TC ---
Today's Communication/Plan
-
HD as per Nephro
ativan prn
Trazodone HS
OK to discontinue routine FS
Assessment / Plan
Assessment / Plan
Physical Exam
General: No acute distress, appears comfortable
HEENT: NormoCephalic, Moist mucous membranes, Atraumatic
Respiratory: Non Labored Respirations, clear to auscultation
Cardiac: S1/S2 and Regular Rhythm; No Murmur, Rub or Gallop
GI: Soft, Non Tender, Non Distended and Normal Bowel Sounds; No Organomegaly
Musculoskeletal: +2 pitting edema lower ext's
Neuro: AOx3
Psych: Calm and Intact Judgment/Insight
73y M with PMH significant for CHF, DM-II and CKD III who presents to ED complaining of 2-3 weeks of progressive shortness of breath, edema, abdominal distention and weight gain. Patient takes Lasix 80mg BID at home and has noted that he is
urinating less over the past few weeks. He is currently followed by a Balance Wheel Screw Hole Driller in [place], [place] - though he was previously followed here by Dr. Vieira.
#Acute on chronic heart failure
ECHO appreciated EF 30% mod severe TR ascending aorta dilatation 4.2 cm, per report ECHO largely unchanged from prior October 2022
CXR: Mild right basilar atelectasis and/or pneumonia.
Patient reports 12-13 pound weight gain in last 2 weeks and increased abdominal girth
- cont telemetry
- Consult cardiology appreciated cont coreg, hold digoxin Entresto d/t KAYLEIGH as below
- IV Lasix discontinued with start of HD, coreg to be held AM dialysis days as per Nephro (to support BP during UF)
#COPD
stable resp status on room air at rest
wheezing resolved
cont duoneb prn
Duoneb R QID reduced to BID
#anemia
H&H stable cont to monitor
#KAYLEIGH on CKD3
Nephro eval appreciated patient started on dialysis 04/06, daily back to back sessions so far
Tunnnel cath planned for 04/09
#hypertension
- continue carvedilol
-HD as above
#a-fib
EKG: Ventricular-paced rhythm
ABNORMAL ECG
Medtronic ICD
- continue Eliquis, and carvedilol
#gout
- continue allopurinol
#type 2 diabetes
A1c 7.0
Ok to discontinue routine Fingersticks and sliding scale.
#hyperparathyroidism
#hyperlipidemia
#Anxiety/insomnia
prn ativan anxiety
trazodone bedtime for sleep
PT/OT
Code Status: Full Code
DVT Prophylaxis: Eliquis
discussed with patient and his Sri
I spent a total of 50 minutes with the patient or on the floor. More than 50% of this time involved counseling and coordination of care.
Anticipated Discharge: 24 - 48 hours
Subjective/Interval History
-
Date of Service: April 07, 2024
Seen and examined at bedside in no acute distress resting comfortably in bed undergoing dialysis. Reported a significant amount of coughing at start of dialysis since improved as dialysis progresses. Further reports improvement in shortness of
breath. Poor sleep overnight. Sri present during evaluation.
Objective Data
-
Labs:
Laboratory Results
04/07/24
06:40
WBC 3.3 L
Hgb 8.2 L
Hct 24.8 L
Plt Count 90 L
Sodium Pending
Potassium Pending
Chloride Pending
Carbon Dioxide Pending
BUN Pending
Creatinine Pending
Glucose Pending
Calcium Pending
Vital Signs:
Vital Signs
Temp Pulse Resp BP Pulse Ox
99.1 F 61 18 136/58 97
04/07/24 03:33 04/07/24 03:33 04/07/24 03:33 04/07/24 03:33 04/07/24 03:33
I&O
04/06/24 04/07/24 04/08/24
06:59 06:59 06:59
Intake Total 500 / 500 1700 / 1700
Output Total 200 / 200 295 / 295
Balance 300 / 300 1405 / 1405
[2024-04-07 07:32] LABS: Calcium 9.3 mg/dl (8.4-10.2); Carbon Dioxide 23 mmol/L (22-30); Chloride 96 mmol/L (98-107); Estimated Creatinine Clearance 22 ml/min; Glucose 117 mg/dl (70-99); Magnesium 2.2 mg/dl (1.6-2.3); Potassium 4.4 mmol/L (3.5-5.1); Sodium 135 mmol/L (135-145)
[2024-04-07 07:36] LABS: Glucose - Point of Care 120 mg/dl (70-99)
[2024-04-07] MEDS: ATIVAN 0.5 MG PO (07:42)
[2024-04-07 07:44] LABS: Blood Urea Nitrogen 130 mg/dl (9-20)
[2024-04-07] MEDS: DUONEB 3 ML INH ×2 (07:52→19:21)
[2024-04-07] MEDS: SYMBICORT 160/4.5 MCG INHALER 2 PUFF INH ×2 (07:52→19:22)
[2024-04-07] MEDS: MANNITOL 25% 12.5 GRAMS IV ×2 (08:10→09:13)
[2024-04-07] MEDS: NOVOLOG FLEXPEN-LOW RESISTANCE SC ×3 (09:20→17:01)
--- NOTE | 2024-04-07 09:27 | W.PN.NEPH.HD ---
Assessment
-
Patient seen on dialysis
Systolic blood pressure around 100 at current UF
Mannitol x 2 given for disequilibrium prevention
Dialysis will be done again tomorrow
Will hold a.m. carvedilol on mornings of dialysis to support blood pressure during UF
Will likely have tunneled catheter placed on Monday
Progress Note - Hemodialysis
-
Date of Service: April 07, 2024
Duration: 30 minutes and 2 hours
Potassium Bath: 3
Calcium Bath: 2.5
Opti-Dialyzer: 160
Ultrafiltration: Other (1.5 kg as tolerated)
Blood Flow: 300
Dialysate Flow: Other (400)
Heparin: None
EPO: None
[2024-04-07] MEDS: COREG PO (10:07)
[2024-04-07] MEDS: HEPARIN 2500 UNITS INTRACATH (10:35)
[2024-04-07 11:15] VITALS: BP 137/76
[2024-04-07] MEDS: ELIQUIS 5 MG PO ×2 (11:19→22:03)
[2024-04-07] MEDS: ZINC 50 MG PO (11:20)
[2024-04-07] MEDS: ZYLOPRIM 100 MG PO (11:20)
[2024-04-07] MEDS: VITAMIN D3 (cholecalciferol) 50 MCG PO ×2 (11:20→22:04)
[2024-04-07] MEDS: VITAMIN C 500 MG PO (11:20)
[2024-04-07 11:36] LABS: Glucose - Point of Care 166 mg/dl (70-99)
--- NOTE | 2024-04-07 13:10 | W.PN.CD ---
Today's Communication / Plan
-
continue current medications
HD continues
planning for tunnel cath
Impression / Plan
-
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
Dr. Blaine Sanderson in [place]), COPD (former smoker), and PVCs s/p ablations, who presents to the ER with c/o worsened SOB and weight gain.
Primary musculoskeletal physiotherapist: Dr. Vieira
HFrEF - acute on chronic
NIDCM (EF 35%)
-Volume overloaded, LE edema, abdominal distention, weight gain, proBNP >27,000.
-Volume will now be managed by nephrology, hemodialysis started 04/06/2024
-GDMT is limited in the setting of his renal disease
-Medtronic ICD in place
-Trend daily weight and I/O
-Heart failure education
KAYLEIGH on CKD versus progression of CKD, now on hemodialysis in the setting of hypervolemia
-Some improvement in BUN and
Afib - persistent.
-Vpaced on tele.
-Continue carvedilol, digoxin discontinued
-He did not tolerate amiodarone in the past
-On apixaban, 5 mg twice daily, he denies missed doses and abnormal bleeding
copd
SUBJECTIVE:
Denies chest pain, dizziness. Neck hurts where line is in and from bed
Physical Exam
Vital Signs/Labs
Vital Signs
Temp Pulse Resp BP Pulse Ox
98.7 F 90 20 137/76 98
04/07/24 11:15 04/07/24 11:15 04/07/24 11:15 04/07/24 11:15 04/07/24 11:15
04/06/24 04/07/24 04/08/24
06:59 06:59 06:59
Actual Weight 96.757 kg 94.943 kg
04/07/24 06:40
04/07/24 06:40
PT 20.6 Sec (11.4-14.6) H 04/05/24 12:57
INR 1.75 04/05/24 12:57
Magnesium 2.2 mg/dl (1.6-2.3) 04/07/24 06:40
Triglycerides 93 mg/dl (10-149) 04/05/24 08:45
LDL Cholesterol, Calc 73 mg/dl 04/05/24 08:45
VLDL Cholesterol, Calc 18 mg/dl (0-30) 04/05/24 08:45
HDL Cholesterol 26 mg/dl 04/05/24 08:45
Digoxin Cancelled 04/05/24 11:36
04/04/24
16:55
Dfs-B-Xmhfxmyjtcp Pept > [id number]
Physical Exam
Constitutional: No acute distress
Cardiovascular: Rhythm & rate is regular, JVD pressure is normal, Systolic murmur absent, Diastolic murmur absent and Pedal edema present ( 1+ bl)
Respiratory: Respiratory effort normal, Crackles Absent, Rhonchi Absent and Wheeze Present (mild diffuse)
Neuro/Psych: AO x 3
Data Reviewed
-
Date of Service: April 07, 2024
EKG: Other (tele vpaced)
[2024-04-07 15:00] VITALS: BP 129/57
[2024-04-07 16:47] LABS: Glucose - Point of Care 145 mg/dl (70-99)
[2024-04-07 19:18] VITALS: BP 119/49
[2024-04-07 20:32] LABS: Glucose - Point of Care 211 mg/dl (70-99)
[2024-04-07] MEDS: DESYREL 25 MG PO (22:04)
[2024-04-07] MEDS: COREG 25 MG PO (22:05)
[2024-04-07] MEDS: ROBITUSSIN DM 5 ML PO (22:14)
[2024-04-07 23:41] VITALS: BP 124/52
[2024-04-08] VITALS (8 sets, daily range): BP systolic 113–134; BP diastolic 43–57; PULSE 69–72; O2SAT 97; BMI 31.4
[2024-04-08] MEDS: ATIVAN 0.5 MG PO (00:36)
[2024-04-08] MEDS: DUONEB 3 ML INH ×2 (07:29→20:08)
[2024-04-08] MEDS: SYMBICORT 160/4.5 MCG INHALER 2 PUFF INH ×2 (07:29→20:08)
[2024-04-08] MEDS: ZINC 50 MG PO (08:28)
[2024-04-08] MEDS: VITAMIN D3 (cholecalciferol) 50 MCG PO ×2 (08:29→20:37)
[2024-04-08] MEDS: VITAMIN C 500 MG PO (08:29)
[2024-04-08] MEDS: ZYLOPRIM 100 MG PO (08:29)
[2024-04-08] MEDS: ELIQUIS 5 MG PO ×2 (08:29→20:37)
[2024-04-08] MEDS: COREG PO (08:44)
--- NOTE | 2024-04-08 10:37 | CM ---
Patient seen at bedside.
IA completed.
Patient now on HD-dialysis today.
chemistry pending
planning for tunneled cath
DX: acute on chronic heart failure.
PMH: CHF, CKIII, anemia, HTN, AFIB
Patient lives in [place], [place] since 2019 with his and dog in a 2nd floor condo with 12 steps to enter
States that his is here now in the hospital.
PLOF: states he ambulated without a device, drives
DME: electric scooter (just received about 10 days ago), walker, nebulizer (does not recall vendor)
Await PT/OT evals
PCP: Federico Balderrama [place]
Pharmacy: [facility] --- [facility]
PLAN: Await PT/OT evals, will need to set up for outpatient dialysis
[2024-04-08] MEDS: MANNITOL 25% 12.5 GRAMS IV ×2 (12:22→13:50)
[2024-04-08 12:44] LABS: Hematocrit 24.4 % (39.0-52.0)
--- NOTE | 2024-04-08 12:57 | W.PN.CD ---
Today's Communication / Plan
-
Agree with renal replacement therapy
Continue meds
Will consider elective cardioversion, likely in 1 month
Impression / Plan
-
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
Primary production coordinator: Dr. Vieira; also has production coordinator in [place]
Acute on chronic HFrEF from a non-ischemic cardiomyopathy, LVEF 30% this admit (not too different than his baseline)
- Improving with HD
- Weight 99 kg => 96.5 kg, needs more fluid off
ESRD
- Renal replacement underway
Afib - persistent.
- Single cardioversion 08/20/2023
- Pt tells me that his [place] Card (who follows his ICD now) just informed him recently of the recurrence of AFib
- Tele and EKG is c/w underlying AFib
- Intolerant to Amio
- I am willing to proceed with elective cardioversion, likely in a month
- If 1-2 cardioversions per year hold sinus that is acceptable but if not I have asked him to see Dr. Gonsales to discuss AFib ablation
COPD
BiV ICD, secondary prevention as his ICD has treated rapid VT in the past
Subjective:
No CP, dyspnea, or palps
Physical Exam
Vital Signs/Labs
Vital Signs
Temp Pulse Resp BP Pulse Ox
98.0 F 63 16 117/43 97
04/08/24 07:30 04/08/24 07:34 04/08/24 07:34 04/08/24 07:30 04/08/24 07:34
04/07/24 04/08/24 04/09/24
06:59 06:59 06:59
Actual Weight 94.943 kg 96.479 kg
04/08/24 12:27
PT 20.6 Sec (11.4-14.6) H 04/05/24 12:57
INR 1.75 04/05/24 12:57
Magnesium 2.2 mg/dl (1.6-2.3) 04/07/24 06:40
Triglycerides 93 mg/dl (10-149) 04/05/24 08:45
LDL Cholesterol, Calc 73 mg/dl 04/05/24 08:45
VLDL Cholesterol, Calc 18 mg/dl (0-30) 04/05/24 08:45
HDL Cholesterol 26 mg/dl 04/05/24 08:45
Digoxin Cancelled 04/05/24 11:36
04/04/24
16:55
Rcw-H-Lusrgprwmdf Pept > [id number]
Physical Exam
Constitutional: No acute distress
Cardiovascular: Rhythm & rate is regular and Pedal edema present
Respiratory: Respiratory effort normal and Lungs clear to auscul.
GI: Soft and Distention absent
Neuro/Psych: AO x 3
Data Reviewed
-
Date of Service: April 08, 2024
[2024-04-08] MEDS: ROBITUSSIN DM 5 ML PO ×2 (13:01→20:37)
[2024-04-08 13:07] LABS: Blood Urea Nitrogen 97 mg/dl (9-20); Calcium 9.5 mg/dl (8.4-10.2); Carbon Dioxide 26 mmol/L (22-30); Chloride 96 mmol/L (98-107); Estimated Creatinine Clearance 22 ml/min; Glucose 140 mg/dl (70-99); Potassium 4.1 mmol/L (3.5-5.1); Sodium 135 mmol/L (135-145)
[2024-04-08] MEDS: RETACRIT 10000 UNITS IV (14:12)
--- NOTE | 2024-04-08 14:27 | W.PN.HOSP.TC ---
Today's Communication/Plan
-
cont hd
tunnel cath likely joyce
Assessment / Plan
Assessment / Plan
Physical Exam
General: No acute distress, appears comfortable
HEENT: NormoCephalic, Moist mucous membranes, Atraumatic
Respiratory: Non Labored Respirations, clear to auscultation
Cardiac: S1/S2 and Regular Rhythm; No Murmur, Rub or Gallop
GI: Soft, Non Tender, Non Distended and Normal Bowel Sounds; No Organomegaly
Musculoskeletal: +2 pitting edema lower ext's
Neuro: AOx3
Psych: Calm and Intact Judgment/Insight
73y M with PMH significant for CHF, DM-II and CKD III who presents to ED complaining of 2-3 weeks of progressive shortness of breath, edema, abdominal distention and weight gain. Patient takes Lasix 80mg BID at home and has noted that he is
urinating less over the past few weeks. He is currently followed by a Unit Operator in [place], [place] - though he was previously followed here by Dr. Vieira.
#Acute on chronic heart failure
ECHO appreciated EF 30% mod severe TR ascending aorta dilatation 4.2 cm, per report ECHO largely unchanged from prior October 2022
CXR: Mild right basilar atelectasis and/or pneumonia.
Patient reports 12-13 pound weight gain in last 2 weeks and increased abdominal girth
- cont telemetry
- Consult cardiology appreciated cont coreg, hold digoxin Entresto d/t KAYLEIGH as below
- IV Lasix discontinued with start of HD, coreg to be held AM dialysis days as per Nephro (to support BP during UF)
#COPD
stable resp status on room air at rest
wheezing resolved
cont duoneb prn
Duoneb R QID reduced to BID
#anemia
H&H stable cont to monitor
#KAYLEIGH on CKD3
Nephro eval appreciated patient started on dialysis 04/06, daily back to back sessions so far
Tunnnel cath planned for 04/09
#hypertension
- continue carvedilol
-HD as above
#a-fib
EKG: Ventricular-paced rhythm
ABNORMAL ECG
Medtronic ICD
- continue Eliquis, and carvedilol
-Will consider elective cardioversion, likely in 1 month
#gout
- continue allopurinol
#type 2 diabetes
A1c 7.0
Ok to discontinue routine Fingersticks and sliding scale.
#hyperparathyroidism
#hyperlipidemia
#Anxiety/insomnia
prn ativan anxiety
trazodone bedtime for sleep
PT/OT
Code Status: Full Code
DVT Prophylaxis: Eliquis
discussed with patient and his Sri
Anticipated Discharge: > 48 hours
Subjective/Interval History
-
Date of Service: April 08, 2024
no acute events
Objective Data
-
Labs:
Laboratory Results
04/08/24
12:27
Hgb 8.0 L
Hct 24.4 L
Sodium 135
Potassium 4.1
Chloride 96 L
Carbon Dioxide 26
BUN 97 H
Creatinine 3.4 H
Glucose 140 H
Calcium 9.5
Vital Signs:
Vital Signs
Temp Pulse Resp BP Pulse Ox
98.0 F 65 16 122/52 98
04/08/24 11:30 04/08/24 11:30 04/08/24 11:30 04/08/24 11:30 04/08/24 11:30
I&O
04/07/24 04/08/24 04/09/24
06:59 06:59 06:59
Intake Total 1700 / 1700 720 / 720
Output Total 295 / 295 200 / 200
Balance 1405 / 1405 520 / 520
Review of Systems
-
History Source: Patient
All other systems: Not reviewed unless documented
Data Reviewed
-
Labs: Labs Reviewed by me
[2024-04-08] MEDS: FERRLECIT 125 MG IV (15:07)
[2024-04-08] MEDS: HEPARIN 2500 UNITS INTRACATH (15:07)
--- NOTE | 2024-04-08 15:09 | W.PN.NEPH.HD ---
Assessment
-
tolerating treatment next treatment plan for Monday
will need a permcath with IR order for tomorrow
Progress Note - Hemodialysis
-
Date of Service: April 08, 2024
Duration: 2 hours ( two hours 45 minutes)
Potassium Bath: 3
Calcium Bath: 2.5
Opti-Dialyzer: 160
Blood Flow: 350
Dialysate Flow: 600
Heparin: bolus
EPO: 10,000 units
[2024-04-08] MEDS: COREG 25 MG PO (20:37)
--- NOTE | 2024-04-08 23:00 | PTCARENOTE ---
Patient with R IJ nontunnel HD cath, dressing previously changed by IV team. Patient with bleeding noted from insertion site, down body and onto gown. Patient previously had quick clot applied for same reason. IV team notified and at bedside for
quick clot and dressing change.
--- NOTE | 2024-04-08 23:02 | VATNOTE ---
right HD catheter bleeding from site down pt's chest. Bio patch that was applied earlier this miroslava was 1/2 soaked with blood. Dsg changed with 2 - Quik Clot applied this time.
[2024-04-09] VITALS (8 sets, daily range): BP systolic 60–123; BP diastolic 47–73; BMI 30.8
--- NOTE | 2024-04-09 | PTCARENOTE ---
~0000 Patient with 13 beat run of V. Tach on tele monitor, asymptomatic, vitals stable. PORTABLE MACHINE CUTTER made aware and order placed to check Mag in AM.
~0030 Patient ordered COVID swab from previous shift, attempted to obtain swab with HS medications but patient adamantly refused. Education about swab and rationale provided. Patient states he 'doesn't do that or any shots'.
[2024-04-09] MEDS: ATIVAN 0.5 MG PO (00:10)
[2024-04-09] MEDS: DESYREL 25 MG PO (00:10)
[2024-04-09] MEDS: ROBITUSSIN DM 5 ML PO ×2 (04:17→18:27)
[2024-04-09] MEDS: VENTOLIN NEBULES 2.5 MG INH (04:24)
[2024-04-09 06:33] LABS: Hematocrit 25.1 % (39.0-52.0); Hemoglobin 8.1 g/dL (13.0-18.0); Mean Corp Hgb Conc. 32.3 g/dL (33.0-37.0); Mean Corpuscular Volume 99.2 fL (80.0-94.0); Platelet Count 80 10^3/uL (130-400); Red Blood Cell Count 2.53 10^6/uL (4.70-6.10); Red Cell Dist. Width 13.7 % (11.5-14.5); White Blood Cell Count 3.2 10^3/uL (4.8-10.8)
[2024-04-09 06:56] LABS: ALT (SGPT) 15 U/L (0-50); AST (SGOT) 16 U/L (17-59); Albumin 3.7 g/dl (3.5-5.0); Alkaline Phosphatase 265 U/L (38-126); Blood Urea Nitrogen 63 mg/dl (9-20); Calcium 9.1 mg/dl (8.4-10.2); Carbon Dioxide 25 mmol/L (22-30); Chloride 97 mmol/L (98-107); Estimated Creatinine Clearance 27 ml/min; Glucose 118 mg/dl (70-99); Magnesium 2.1 mg/dl (1.6-2.3); Potassium 4.1 mmol/L (3.5-5.1); Sodium 136 mmol/L (135-145); Total Bilirubin 1.1 mg/dl (0.2-1.3); Total Protein 5.9 g/dl (6.3-8.2)
[2024-04-09] MEDS: SYMBICORT 160/4.5 MCG INHALER 2 PUFF INH ×2 (07:48→19:23)
[2024-04-09] MEDS: DUONEB 3 ML INH ×2 (07:48→19:23)
[2024-04-09] MEDS: COREG 25 MG PO ×2 (08:29→20:23)
[2024-04-09] MEDS: VITAMIN D3 (cholecalciferol) 50 MCG PO ×2 (08:30→20:22)
[2024-04-09] MEDS: ZINC 50 MG PO (08:30)
[2024-04-09] MEDS: VITAMIN C 500 MG PO (08:30)
[2024-04-09] MEDS: ZYLOPRIM 100 MG PO (08:30)
[2024-04-09] MEDS: ELIQUIS 5 MG PO ×2 (08:30→20:22)
--- NOTE | 2024-04-09 12:34 | W.PN.CD ---
Today's Communication / Plan
-
Agree with renal replacement therapy
Continue meds
Will consider elective cardioversion, likely in 1 month
Impression / Plan
-
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
Primary machine printer hose: Dr. Vieira; also has machine printer hose in [place]
Acute on chronic HFrEF from a non-ischemic cardiomyopathy, LVEF 30% this admit (not too different than his baseline)
- Improving with HD
- Weight 99 kg => 96.5 kg => 94.5 kg, needs more fluid off
ESRD
- Renal replacement therapy is underway
Afib - persistent.
- Single cardioversion 08/20/2023
- Pt tells me that his [place] Card (who follows his ICD now) just informed him recently of the recurrence of AFib
- Tele and EKG is c/w underlying AFib
- Intolerant to Amio
- I am willing to proceed with elective cardioversion, likely in a month
- If 1-2 cardioversions per year hold sinus that is acceptable but if not I have asked him to see Dr. Gonsales to discuss AFib ablation
COPD
BiV ICD, secondary prevention as his ICD has treated rapid VT in the past
Subjective:
No CP, dyspnea, or palps
Physical Exam
Vital Signs/Labs
Vital Signs
Temp Pulse Resp BP Pulse Ox
97.6 F 63 17 109/48 98
04/09/24 11:17 04/09/24 11:17 04/09/24 11:17 04/09/24 11:17 04/09/24 11:17
04/08/24 04/09/24 04/10/24
06:59 06:59 06:59
Actual Weight 96.479 kg 94.546 kg
04/09/24 05:38
04/09/24 05:38
PT 20.6 Sec (11.4-14.6) H 04/05/24 12:57
INR 1.75 04/05/24 12:57
Magnesium 2.1 mg/dl (1.6-2.3) 04/09/24 05:38
Triglycerides 93 mg/dl (10-149) 04/05/24 08:45
LDL Cholesterol, Calc 73 mg/dl 04/05/24 08:45
VLDL Cholesterol, Calc 18 mg/dl (0-30) 04/05/24 08:45
HDL Cholesterol 26 mg/dl 04/05/24 08:45
Digoxin Cancelled 04/05/24 11:36
04/04/24
16:55
Lqo-J-Hhumvueowah Pept > [id number]
Physical Exam
Constitutional: No acute distress
EENT: Anicteric
Cardiovascular: Rhythm & rate is regular and Pedal edema present
Respiratory: Respiratory effort normal and Crackles Absent
GI: Soft and Distention absent
Neuro/Psych: AO x 3
Data Reviewed
-
Date of Service: April 09, 2024
--- NOTE | 2024-04-09 14:20 | W.PN.HOSP.TC ---
Today's Communication/Plan
-
tunnel cath placement today
Assessment / Plan
Assessment / Plan
Physical Exam
General: No acute distress, appears comfortable
HEENT: NormoCephalic, Moist mucous membranes, Atraumatic
Respiratory: Non Labored Respirations, clear to auscultation
Cardiac: S1/S2 and Regular Rhythm; No Murmur, Rub or Gallop
GI: Soft, Non Tender, Non Distended and Normal Bowel Sounds; No Organomegaly
Musculoskeletal: +2 pitting edema lower ext's
Neuro: AOx3
Psych: Calm and Intact Judgment/Insight
73y M with PMH significant for CHF, DM-II and CKD III who presents to ED complaining of 2-3 weeks of progressive shortness of breath, edema, abdominal distention and weight gain. Patient takes Lasix 80mg BID at home and has noted that he is
urinating less over the past few weeks. He is currently followed by a Truck Driver Heavy in [place], [place] - though he was previously followed here by Dr. Vieira.
#Acute on chronic heart failure
ECHO appreciated EF 30% mod severe TR ascending aorta dilatation 4.2 cm, per report ECHO largely unchanged from prior October 2022
CXR: Mild right basilar atelectasis and/or pneumonia.
Patient reports 12-13 pound weight gain in last 2 weeks and increased abdominal girth
- cont telemetry
- Consult cardiology appreciated cont coreg, hold digoxin Entresto d/t KAYLEIGH as below
- IV Lasix discontinued with start of HD, coreg to be held AM dialysis days as per Nephro (to support BP during UF)
#COPD
stable resp status on room air at rest
wheezing resolved
cont duoneb prn
Duoneb R QID reduced to BID
#anemia
H&H stable cont to monitor
#KAYLEIGH on CKD3
Nephro eval appreciated patient started on dialysis 04/06, daily back to back sessions so far
Tunnnel cath planned for 04/09
#hypertension
- continue carvedilol
-HD as above
#a-fib
EKG: Ventricular-paced rhythm
ABNORMAL ECG
Medtronic ICD
- continue Eliquis, and carvedilol
-Will consider elective cardioversion, likely in 1 month
#gout
- continue allopurinol
#type 2 diabetes
A1c 7.0
Ok to discontinue routine Fingersticks and sliding scale.
#hyperparathyroidism
#hyperlipidemia
#Anxiety/insomnia
prn ativan anxiety
trazodone bedtime for sleep
PT/OT
Code Status: Full Code
DVT Prophylaxis: Eliquis
discussed with patient and his Sri
Anticipated Discharge: Within 24 hours
Subjective/Interval History
-
Date of Service: April 09, 2024
No acute events overnight
Objective Data
-
Labs:
Laboratory Results
04/09/24
05:38
WBC 3.2 L
Hgb 8.1 L
Hct 25.1 L
Plt Count 80 L
Sodium 136
Potassium 4.1
Chloride 97 L
Carbon Dioxide 25
BUN 63 H
Creatinine 2.8 H
Glucose 118 H
Calcium 9.1
Total Bilirubin 1.1
AST 16 L
ALT 15
Alkaline Phosphatase 265 H
Vital Signs:
Vital Signs
Temp Pulse Resp BP Pulse Ox
97.6 F 63 17 109/48 98
04/09/24 11:17 04/09/24 11:17 04/09/24 11:17 04/09/24 11:17 04/09/24 11:17
I&O
04/08/24 04/09/24 04/10/24
06:59 06:59 06:59
Intake Total 720 / 720 720 / 720
Output Total 200 / 200 100 / 100
Balance 520 / 520 620 / 620
Review of Systems
-
History Source: Patient
All other systems: Not reviewed unless documented
Data Reviewed
-
Diagnostic Radiology: Report Reviewed by me
Labs: Labs Reviewed by me
--- NOTE | 2024-04-09 15:52 | PTCARENOTE ---
Patient with a 9bt run of VT while in [facility] pre-procedure, asymptomatic. Dilip VÁSQUEZ made aware. As per Dr. Hill, no antibiotic needed at this time.
--- NOTE | 2024-04-09 16:19 | W.PN.NEPH.PH ---
Today's Communication / Plan
-
pc pending
Assessment/Plan
-
Impression:
Acute kidney
Congestive heart failure decompensation
Nonischemic cardiomyopathy with EF of 30%
History of ventricular tachycardia/ICD
Diabetes
COPD
CKD stage IV
Anemia
Plan
Patient with profound volume overload and uremia in setting of worsening renal failure
Completed third dialysis treatment on Monday
next treatment will be Monday
pc pending
see dialysis orders
-
-
Date of Service: April 09, 2024
CC / HPI / ROS
-
Chief Complaint:
acute kidney injury
History of Present Illness:
initiated hemodialysis
Review of Systems:
no chest pain or shortness of breath
Labs
-
Labs:
WBC 3.2 10^3/uL (4.8-10.8) L 04/09/24 05:38
RBC 2.53 10^6/uL (4.70-6.10) L 04/09/24 05:38
Hgb 8.1 g/dL (13.0-18.0) L 04/09/24 05:38
Hct 25.1 % (39.0-52.0) L 04/09/24 05:38
Plt Count 80 10^3/uL (130-400) L 04/09/24 05:38
Sodium 136 mmol/L (135-145) 04/09/24 05:38
Potassium 4.1 mmol/L (3.5-5.1) 04/09/24 05:38
Chloride 97 mmol/L (98-107) L 04/09/24 05:38
Carbon Dioxide 25 mmol/L (22-30) 04/09/24 05:38
BUN 63 mg/dl (9-20) H 04/09/24 05:38
Creatinine 2.8 mg/dL (0.7-1.3) H 04/09/24 05:38
eGFR 23.10 04/09/24 05:38
Glucose 118 mg/dl (70-99) H 04/09/24 05:38
Calcium 9.1 mg/dl (8.4-10.2) 04/09/24 05:38
Phosphorus 7.0 mg/dl (2.5-4.5) H 04/07/24 06:40
Dqx-U-Lgbuzsssxnm Pept > 07911 pg/ml 04/04/24 16:55
Albumin 3.7 g/dl (3.5-5.0) 04/09/24 05:38
Physical Exam
-
Vital Signs:
Vital Signs
Temp Pulse Resp BP Pulse Ox
98.0 F 70 17 123/55 96
04/09/24 16:07 04/09/24 16:07 04/09/24 16:07 04/09/24 16:07 04/09/24 16:07
Respiratory:: Bilateral: Coarse
Lung Excursion:: Normal
Abdomen:: Soft
Bowel Sounds:: Normal
Extremity Edema:: +2: Bilateral:
Lawson Catheter: Yes
[2024-04-10] VITALS (7 sets, daily range): BP systolic 107–127; BP diastolic 43–57; BMI 31.1
[2024-04-10] MEDS: DESYREL PO (00:05)
[2024-04-10] MEDS: ROBITUSSIN DM 5 ML PO ×3 (02:48→20:12)
[2024-04-10] MEDS: VENTOLIN NEBULES 2.5 MG INH ×2 (05:18→13:27)
[2024-04-10] MEDS: COREG PO (07:10)
[2024-04-10] MEDS: SYMBICORT 160/4.5 MCG INHALER 2 PUFF INH ×2 (07:18→19:38)
[2024-04-10] MEDS: DUONEB 3 ML INH ×2 (07:19→19:38)
[2024-04-10] MEDS: ELIQUIS 5 MG PO ×2 (07:31→20:12)
[2024-04-10] MEDS: ZYLOPRIM 100 MG PO (07:31)
[2024-04-10] MEDS: ZINC 50 MG PO (07:31)
[2024-04-10] MEDS: VITAMIN C 500 MG PO (07:31)
[2024-04-10] MEDS: VITAMIN D3 (cholecalciferol) 50 MCG PO ×2 (07:31→20:12)
[2024-04-10 09:04] LABS: Hematocrit 24.6 % (39.0-52.0); Hemoglobin 8.1 g/dL (13.0-18.0); Mean Corp Hgb Conc. 32.9 g/dL (33.0-37.0); Mean Corpuscular Hgb 32.3 pg (27.0-31.0); Mean Platelet Volume 11.5 fL (7.4-10.4); Platelet Count 94 10^3/uL (130-400); Red Blood Cell Count 2.51 10^6/uL (4.70-6.10); Red Cell Dist. Width 13.6 % (11.5-14.5); White Blood Cell Count 4.2 10^3/uL (4.8-10.8)
--- NOTE | 2024-04-10 09:23 | W.PN.CD ---
Today's Communication / Plan
-
Agree with renal replacement therapy
Continue meds
Will consider elective cardioversion, likely in 1 month
If 1-2 cardioversions per year hold sinus that is acceptable but if not I have asked him to see Dr. Gonsales to discuss AFib ablation
Impression / Plan
-
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
Primary tile conduit layer: Dr. Vieira; also has tile conduit layer in [place]
Acute on chronic HFrEF from a non-ischemic cardiomyopathy, LVEF 30% this admit (not too different than his baseline)
- Improving with HD
- Weight 99 kg => 96.5 kg => 94.5 kg, needs more fluid/volume off
ESRD => Renal replacement therapy is underway
Afib - persistent.
- Single cardioversion 08/20/2023
- Pt tells me that his [place] Card (who follows his ICD now) just informed him recently of the recurrence of AFib
- Tele and EKG is c/w underlying AFib
- Intolerant to Amio
- I am willing to proceed with elective cardioversion, likely in a month
- If 1-2 cardioversions per year hold sinus that is acceptable but if not I have asked him to see Dr. Gonsales to discuss AFib ablation
COPD
BiV ICD, secondary prevention as his ICD has treated rapid VT in the past
Subjective:
No CP, dyspnea, or palps
Physical Exam
Vital Signs/Labs
Vital Signs
Temp Pulse Resp BP Pulse Ox
98.9 F 65 14 124/55 97
04/10/24 07:10 04/10/24 07:23 04/10/24 07:23 04/10/24 07:10 04/10/24 07:10
04/09/24 04/10/24 04/11/24
06:59 06:59 06:59
Actual Weight 94.546 kg 95.436 kg
04/10/24 08:37
PT 20.6 Sec (11.4-14.6) H 04/05/24 12:57
INR 1.75 04/05/24 12:57
Magnesium 2.1 mg/dl (1.6-2.3) 04/09/24 05:38
Triglycerides 93 mg/dl (10-149) 04/05/24 08:45
LDL Cholesterol, Calc 73 mg/dl 04/05/24 08:45
VLDL Cholesterol, Calc 18 mg/dl (0-30) 04/05/24 08:45
HDL Cholesterol 26 mg/dl 04/05/24 08:45
Digoxin Cancelled 04/05/24 11:36
04/04/24
16:55
Vbb-V-Wgdxladbamj Pept > [id number]
Physical Exam
Constitutional: No acute distress
Cardiovascular: Rhythm & rate is regular and Pedal edema present
Respiratory: Respiratory effort normal and Lungs clear to auscul.
GI: Soft and Distention absent
Neuro/Psych: AO x 3
Data Reviewed
-
Date of Service: April 10, 2024
[2024-04-10 09:46] LABS: ALT (SGPT) 16 U/L (0-50); AST (SGOT) 21 U/L (17-59); Albumin 4.1 g/dl (3.5-5.0); Alkaline Phosphatase 254 U/L (38-126); Blood Urea Nitrogen 79 mg/dl (9-20); Calcium 9.6 mg/dl (8.4-10.2); Carbon Dioxide 22 mmol/L (22-30); Chloride 95 mmol/L (98-107); Estimated Creatinine Clearance 21 ml/min; Glucose 177 mg/dl (70-99); Potassium 4.3 mmol/L (3.5-5.1); Sodium 134 mmol/L (135-145); Total Bilirubin 1.1 mg/dl (0.2-1.3); Total Protein 6.5 g/dl (6.3-8.2); eGFR 17.67
--- NOTE | 2024-04-10 09:51 | W.PN.NEPH.HD ---
Assessment
-
Patient seen on dialysis
Systolic blood pressure 108 at current UF
Mannitol provided to support blood pressure
Next dialysis will be planned for Monday
Progress Note - Hemodialysis
-
Date of Service: April 10, 2024
Duration: 30 minutes and 3 hours
Potassium Bath: 3
Calcium Bath: 2.5
Opti-Dialyzer: 160
Ultrafiltration: Other (2 kg as hemodynamically tolerate)
Blood Flow: 400
Dialysate Flow: 600
Heparin: None
EPO: 10,000
[2024-04-10] MEDS: RETACRIT 10000 UNITS IV (11:28)
[2024-04-10] MEDS: HEPARIN 4300 UNITS INTRACATH (11:54)
--- NOTE | 2024-04-10 15:21 | CM ---
Spoke with patient bedside.
New HD to be set up.
Patient lives in [facility], however will be gong to sons home in [place] so he will have support with transportation.
Son: Scooby Downing
Address: [address] [place] [id number]
Discussed HD locations and options goal is to get back [facility].
Will fax clinicals to [facility] to obtain HD chair in the [place] area and eventual transfer to [place].
Clinicals faxed to [phone]
PT/OT recommending skilled rehab vs Home with services.
Patient would prefer home with home care.
Options discussed, would like [facility],referral via [facility]
Plan: home with VN and outptient HD once arranged
--- NOTE | 2024-04-10 16:04 | W.PN.HOSP.TC ---
Today's Communication/Plan
-
dc planning
Assessment / Plan
Assessment / Plan
Physical Exam
General: No acute distress, appears comfortable
HEENT: NormoCephalic, Moist mucous membranes, Atraumatic
Respiratory: Non Labored Respirations, clear to auscultation
Cardiac: S1/S2 and Regular Rhythm; No Murmur, Rub or Gallop
GI: Soft, Non Tender, Non Distended and Normal Bowel Sounds; No Organomegaly
Musculoskeletal: +2 pitting edema lower ext's
Neuro: AOx3
Psych: Calm and Intact Judgment/Insight
73y M with PMH significant for CHF, DM-II and CKD III who presents to ED complaining of 2-3 weeks of progressive shortness of breath, edema, abdominal distention and weight gain. Patient takes Lasix 80mg BID at home and has noted that he is
urinating less over the past few weeks. He is currently followed by a Energy Professional in [place], [place] - though he was previously followed here by Dr. Vieira.
#Acute on chronic heart failure
ECHO appreciated EF 30% mod severe TR ascending aorta dilatation 4.2 cm, per report ECHO largely unchanged from prior October 2022
CXR: Mild right basilar atelectasis and/or pneumonia.
Patient reports 12-13 pound weight gain in last 2 weeks and increased abdominal girth
- cont telemetry
- Consult cardiology appreciated cont coreg, hold digoxin Entresto d/t KAYLEIGH as below
- IV Lasix discontinued with start of HD, coreg to be held AM dialysis days as per Nephro (to support BP during UF)
#COPD
stable resp status on room air at rest
wheezing resolved
cont duoneb prn
Duoneb R QID reduced to BID
#anemia
H&H stable cont to monitor
#KAYLEIGH on CKD3
Nephro eval appreciated patient started on dialysis 04/06, daily back to back sessions so far
Tunnnel cathplaced 04/09
#hypertension
- continue carvedilol
-HD as above
#a-fib
EKG: Ventricular-paced rhythm
ABNORMAL ECG
Medtronic ICD
- continue Eliquis, and carvedilol
-Will consider elective cardioversion, likely in 1 month
#gout
- continue allopurinol
#type 2 diabetes
A1c 7.0
Ok to discontinue routine Fingersticks and sliding scale.
#hyperparathyroidism
#hyperlipidemia
#Anxiety/insomnia
prn ativan anxiety
trazodone bedtime for sleep
PT/OT
Code Status: Full Code
DVT Prophylaxis: Eliquis
discussed with patient and his Sri
Anticipated Discharge: Within 24 hours
Subjective/Interval History
-
Date of Service: April 10, 2024
no acute events
Objective Data
-
Labs:
Laboratory Results
04/10/24
08:37
WBC 4.2 L
Hgb 8.1 L
Hct 24.6 L
Plt Count 94 L
Sodium 134 L
Potassium 4.3
Chloride 95 L
Carbon Dioxide 22
BUN 79 H
Creatinine 3.5 H
Glucose 177 H
Calcium 9.6
Total Bilirubin 1.1
AST 21
ALT 16
Alkaline Phosphatase 254 H
Vital Signs:
Vital Signs
Temp Pulse Resp BP Pulse Ox
97.9 F 67 18 117/52 98
04/10/24 15:07 04/10/24 15:07 04/10/24 15:07 04/10/24 15:07 04/10/24 15:07
I&O
04/09/24 04/10/24 04/11/24
06:59 06:59 06:59
Intake Total 720 / 720 580 / 580
Output Total 100 / 100 50 / 50
Balance 620 / 620 530 / 530
Review of Systems
-
History Source: Patient
All other systems: Not reviewed unless documented
Data Reviewed
-
Diagnostic Radiology: Report Reviewed by me
Labs: Labs Reviewed by me
[2024-04-10] MEDS: TYLENOL 650 MG PO (17:00)
[2024-04-10] MEDS: COREG 25 MG PO (20:12)
[2024-04-10] MEDS: DESYREL 25 MG PO (21:27)
[2024-04-11] VITALS (7 sets, daily range): BP systolic 103–128; BP diastolic 40–60; PULSE 61; O2SAT 96; BMI 30.7
[2024-04-11] MEDS: ROBITUSSIN DM 5 ML PO ×3 (03:25→17:41)
[2024-04-11] MEDS: VENTOLIN NEBULES 2.5 MG INH (03:34)
--- NOTE | 2024-04-11 05:00 | PTCARENOTE ---
0435 patient with 11 beat run of VTach on tele monitoring, asymptomatic. BARREL COOPER made aware, order place to check mag in AM.
[2024-04-11 07:22] LABS: ALT (SGPT) 16 U/L (0-50); AST (SGOT) 16 U/L (17-59); Albumin 3.8 g/dl (3.5-5.0); Alkaline Phosphatase 294 U/L (38-126); Blood Urea Nitrogen 48 mg/dl (9-20); Calcium 9.4 mg/dl (8.4-10.2); Carbon Dioxide 28 mmol/L (22-30); Chloride 96 mmol/L (98-107); Estimated Creatinine Clearance 28 ml/min; Glucose 116 mg/dl (70-99); Magnesium 2.1 mg/dl (1.6-2.3); Sodium 136 mmol/L (135-145); Total Bilirubin 1.1 mg/dl (0.2-1.3); eGFR 24.13
[2024-04-11 07:25] LABS: Hematocrit 26.5 % (39.0-52.0); Hemoglobin 8.6 g/dL (13.0-18.0); Mean Corp Hgb Conc. 32.5 g/dL (33.0-37.0); Mean Corpuscular Hgb 31.7 pg (27.0-31.0); Mean Corpuscular Volume 97.8 fL (80.0-94.0); Mean Platelet Volume 11.2 fL (7.4-10.4); Platelet Count 92 10^3/uL (130-400); Red Blood Cell Count 2.71 10^6/uL (4.70-6.10); Red Cell Dist. Width 13.8 % (11.5-14.5); White Blood Cell Count 4.5 10^3/uL (4.8-10.8)
[2024-04-11] MEDS: ELIQUIS 5 MG PO ×2 (08:10→20:00)
[2024-04-11] MEDS: COREG 25 MG PO ×2 (08:11→20:00)
[2024-04-11] MEDS: ZYLOPRIM 100 MG PO (08:11)
[2024-04-11] MEDS: ZINC 50 MG PO (08:11)
[2024-04-11] MEDS: VITAMIN C 500 MG PO (08:11)
[2024-04-11] MEDS: VITAMIN D3 (cholecalciferol) 50 MCG PO ×2 (08:11→19:59)
[2024-04-11] MEDS: TYLENOL 650 MG PO ×2 (08:17→17:41)
[2024-04-11] MEDS: SYMBICORT 160/4.5 MCG INHALER 2 PUFF INH ×2 (08:18→19:19)
[2024-04-11] MEDS: DUONEB 3 ML INH ×2 (08:18→19:19)
--- NOTE | 2024-04-11 09:54 | CM ---
Addendum [facility] by [facility] 04/11/24 15:48:
[facility] called and reported that patient has received medical clearance for outpatient HD therapy
Addendum entered by [facility] 04/11/24 14:27:
Letter from [facility] HD Admissions given to patient. Letter identifies HD facility information and appointment time
Copy of letter placed in chart
Addendum entered by [facility] 04/11/24 14:12:
Texted Attending; requested a script for a Rolling Walker; PT will provide device at discharge
Addendum entered by [facility] 04/11/24 11:59:
Per Attending; patient can discharge after tomorrow's HD treatment pending [facility] medical clearance
Addendum entered by [facility] 04/11/24 11:26:
Received a call from Rama @ [facility] Admissions # [id number]; she reported that an HD chair is available @ [place], [place] location [address] CM discussed change in current HD schedule with patient
and is agreeable.
If Tray Room Worker approves short run of HD tomorrow, [facility] location, they can schedule HD treatment on Monday. Attending notified to address plan with Tray Room Worker
Plan: Possible discharge to son's home tomorrow after HD treatment; Home Health referral accepted by [facility]
Original Note:
Scene Painter spoke laura Matson @ [facility] HD via phone # [phone]; he has not reviewed the faxed clinicals yet; will follow up as soon as he can with an update on HD Chair placement
--- NOTE | 2024-04-11 11:01 | W.PN.NEPH.PH ---
Today's Communication / Plan
-
Dialysis tomorrow orders provided
Assessment/Plan
-
Impression:
Acute kidney
Congestive heart failure decompensation
Nonischemic cardiomyopathy with EF of 30%
History of ventricular tachycardia/ICD
Diabetes
COPD
CKD stage IV
Anemia
Plan
Discharge planning in progress possibly today or tomorrow
Will provide dialysis orders for tomorrow if patient is still here
Continuing to reduce dry weight as hemodynamically tolerate in setting of congestive heart failure decompensation
-
-
Date of Service: April 11, 2024
CC / HPI / ROS
-
Chief Complaint:
acute kidney injury
History of Present Illness:
initiated hemodialysis now on Monday schedule
Hemodynamically stable (am coreg in am)
Review of Systems:
no chest pain or shortness of breath
complains of cough
Labs
-
Labs:
WBC 4.5 10^3/uL (4.8-10.8) L 04/11/24 06:28
RBC 2.71 10^6/uL (4.70-6.10) L 04/11/24 06:28
Hgb 8.6 g/dL (13.0-18.0) L 04/11/24 06:28
Hct 26.5 % (39.0-52.0) L 04/11/24 06:28
Plt Count 92 10^3/uL (130-400) L 04/11/24 06:28
Sodium 136 mmol/L (135-145) 04/11/24 06:28
Potassium 4.0 mmol/L (3.5-5.1) 04/11/24 06:28
Chloride 96 mmol/L (98-107) L 04/11/24 06:28
Carbon Dioxide 28 mmol/L (22-30) 04/11/24 06:28
BUN 48 mg/dl (9-20) H 04/11/24 06:28
Creatinine 2.7 mg/dL (0.7-1.3) H 04/11/24 06:28
eGFR 24.13 04/11/24 06:28
Glucose 116 mg/dl (70-99) H 04/11/24 06:28
Calcium 9.4 mg/dl (8.4-10.2) 04/11/24 06:28
Phosphorus 7.0 mg/dl (2.5-4.5) H 04/07/24 06:40
Wvd-Z-Akgpyhexnzr Pept > 21121 pg/ml 04/04/24 16:55
Albumin 3.8 g/dl (3.5-5.0) 04/11/24 06:28
Physical Exam
-
Vital Signs:
Vital Signs
Temp Pulse Resp BP Pulse Ox
98.4 F 76 16 120/49 97
04/11/24 07:30 04/11/24 08:19 04/11/24 08:19 04/11/24 07:30 04/11/24 08:19
Cardiovascular:: Regular rate and rhythm
Respiratory:: Bilateral: Coarse
Lung Excursion:: Normal
Abdomen:: Nontender and Soft
Bowel Sounds:: Normal
Extremity Edema:: +1: Bilateral:
Lawson Catheter: No
--- NOTE | 2024-04-11 13:35 | W.PN.HOSP.TC ---
Today's Communication/Plan
-
hd tomorrow then clear for dc
Assessment / Plan
Assessment / Plan
Physical Exam
General: No acute distress, appears comfortable
HEENT: NormoCephalic, Moist mucous membranes, Atraumatic
Respiratory: Non Labored Respirations, clear to auscultation
Cardiac: S1/S2 and Regular Rhythm; No Murmur, Rub or Gallop
GI: Soft, Non Tender, Non Distended and Normal Bowel Sounds; No Organomegaly
Musculoskeletal: +2 pitting edema lower ext's
Neuro: AOx3
Psych: Calm and Intact Judgment/Insight
73y M with PMH significant for CHF, DM-II and CKD III who presents to ED complaining of 2-3 weeks of progressive shortness of breath, edema, abdominal distention and weight gain. Patient takes Lasix 80mg BID at home and has noted that he is
urinating less over the past few weeks. He is currently followed by a [employer] in [place], [place] - though he was previously followed here by Dr. Vieira.
#Acute on chronic heart failure
ECHO appreciated EF 30% mod severe TR ascending aorta dilatation 4.2 cm, per report ECHO largely unchanged from prior October 2022
CXR: Mild right basilar atelectasis and/or pneumonia.
Patient reports 12-13 pound weight gain in last 2 weeks and increased abdominal girth
- cont telemetry
- Consult cardiology appreciated cont coreg, hold digoxin Entresto d/t KAYLEIGH as below
- IV Lasix discontinued with start of HD, coreg to be held AM dialysis days as per Nephro (to support BP during UF)
#COPD
stable resp status on room air at rest
wheezing resolved
cont duoneb prn
Duoneb R QID reduced to BID
#anemia
H&H stable cont to monitor
#KAYLEIGH on CKD3
Nephro eval appreciated patient started on dialysis 04/06, daily back to back sessions so far
Tunnnel cathplaced Tue 04/09
#hypertension
- continue carvedilol
-HD as above
#a-fib
EKG: Ventricular-paced rhythm
ABNORMAL ECG
Medtronic ICD
- continue Eliquis, and carvedilol
-Will consider elective cardioversion, likely in 1 month
#gout
- continue allopurinol
#type 2 diabetes
A1c 7.0
Ok to discontinue routine Fingersticks and sliding scale.
#hyperparathyroidism
#hyperlipidemia
#Anxiety/insomnia
prn ativan anxiety
trazodone bedtime for sleep
PT/OT
Code Status: Full Code
DVT Prophylaxis: Eliquis
discussed with patient and his Sri
Anticipated Discharge: Within 24 hours
Subjective/Interval History
-
Date of Service: April 11, 2024
No acute events overnight
Objective Data
-
Labs:
Laboratory Results
04/11/24
06:28
WBC 4.5 L
Hgb 8.6 L
Hct 26.5 L
Plt Count 92 L
Sodium 136
Potassium 4.0
Chloride 96 L
Carbon Dioxide 28
BUN 48 H
Creatinine 2.7 H
Glucose 116 H
Calcium 9.4
Total Bilirubin 1.1
AST 16 L
ALT 16
Alkaline Phosphatase 294 H
Vital Signs:
Vital Signs
Temp Pulse Resp BP Pulse Ox
98.3 F 61 16 107/48 96
04/11/24 11:45 04/11/24 11:45 04/11/24 11:45 04/11/24 11:45 04/11/24 11:45
I&O
04/10/24 04/11/24 04/12/24
06:59 06:59 06:59
Intake Total 580 / 580 1440 / 1440
Output Total 50 / 50 400 / 400
Balance 530 / 530 1040 / 1040
Review of Systems
-
History Source: Patient
All other systems: Not reviewed unless documented
Data Reviewed
-
Diagnostic Radiology: Report Reviewed by me
Labs: Labs Reviewed by me
--- NOTE | 2024-04-11 16:21 | W.PN.CD ---
Today's Communication / Plan
-
- HD tomorrow
- Will try to optimize the QRS with reprogramming.
Impression / Plan
-
Background: 73M with longstanding HFrEF from a nonischemic dilated cardiomyopathy, previously treated for rapid VT by his defibrillator, MDT ICD, persistent atrial fibrillation on Eliquis (he did not tolerate amiodarone), CKD3b (perinatology physician
Blaine Sanderson in [place]), COPD (former smoker), and PVCs s/p ablations, who presents to the ER with c/o worsened SOB and weight gain.
Primary food service sales representatives: Dr. Vieira; also has food service sales representatives in [place]
Acute on chronic HFrEF from a non-ischemic cardiomyopathy, LVEF 30% this admit (not too different than his baseline)
- Improving with HD
- Weight 99 kg => 96.5 kg => 94.5 kg,
- HD plan for tomorrow
ESRD => Renal replacement therapy is underway
Afib - persistent.
- Single cardioversion 08/20/2023
- Pt tells me that his [place] Card (who follows his ICD now) just informed him recently of the recurrence of AFib
- Tele and EKG is c/w underlying AFib
- Intolerant to Amio
- with his HFrEF, he should consider AF ablation for additional atrial kick and ablation of the AVJ.
- AF ablation is shown to reduce the mortality and hospitalization to half in CHF group. Discuss with primary food service sales representatives. can be done by local food service sales representatives or by us.
COPD
BiV ICD, secondary prevention as his ICD has treated rapid VT in the past
- Can try to optimize with change in LV pacing timing to narrow the QRS.
Subjective:
No CP, dyspnea, or palps
Physical Exam
Vital Signs/Labs
Vital Signs
Temp Pulse Resp BP Pulse Ox
97.8 F 81 16 128/57 95
04/11/24 15:20 04/11/24 15:20 04/11/24 15:20 04/11/24 15:20 04/11/24 15:20
04/10/24 04/11/24 04/12/24
06:59 06:59 06:59
Actual Weight 95.436 kg 94.347 kg
04/11/24 06:28
04/11/24 06:28
PT 20.6 Sec (11.4-14.6) H 04/05/24 12:57
INR 1.75 04/05/24 12:57
Magnesium 2.1 mg/dl (1.6-2.3) 04/11/24 06:28
Triglycerides 93 mg/dl (10-149) 04/05/24 08:45
LDL Cholesterol, Calc 73 mg/dl 04/05/24 08:45
VLDL Cholesterol, Calc 18 mg/dl (0-30) 04/05/24 08:45
HDL Cholesterol 26 mg/dl 04/05/24 08:45
Digoxin Cancelled 04/05/24 11:36
04/04/24
16:55
Dyd-Y-Bwyyausojeg Pept > 92088
Physical Exam
Constitutional: No acute distress and Comfortable
EENT: Anicteric and Moist mucous membranes
Cardiovascular: Pedal edema is absent, JVD pressure is normal and Rhythm/rate is irregular (paced with frequent ventricular response to AF)
Respiratory: Respiratory effort normal and Crackles Present
GI: Soft, Non tender and Normal bowel sounds
Neuro/Psych: Alert, Oriented and AO x 3
Data Reviewed
-
Date of Service: April 11, 2024
Medical Decision Making: Reviewed Test Results, Independent Historian Assessment, Test Interpretation and Review of Case with other Provider
EKG: Tracing Personally Visualized and interpreted
Echo: Report Reviewed by me
Medical Tests (PFT, Pathology etc): Discussed with Patient and Discussed with Family
Labs: Labs Reviewed by me
Old Records: Reviewed
[2024-04-11] MEDS: DESYREL 25 MG PO (21:35)
[2024-04-11] MEDS: ATIVAN 0.5 MG PO (22:31)
[2024-04-12 03:52] VITALS: BP 114/54
[2024-04-12 06:00] VITALS: BMI 31.1
[2024-04-12] MEDS: DUONEB 3 ML INH (07:12)
[2024-04-12] MEDS: SYMBICORT 160/4.5 MCG INHALER 2 PUFF INH (07:12)
[2024-04-12 07:50] VITALS: BP 109/51
[2024-04-12] MEDS: VITAMIN C 500 MG PO (07:50)
[2024-04-12] MEDS: COREG 25 MG PO (07:50)
[2024-04-12] MEDS: ZINC 50 MG PO (07:52)
[2024-04-12] MEDS: VITAMIN D3 (cholecalciferol) 50 MCG PO (07:52)
[2024-04-12] MEDS: ZYLOPRIM 100 MG PO (07:52)
[2024-04-12] MEDS: ELIQUIS 5 MG PO (07:52)
[2024-04-12] MEDS: ROBITUSSIN DM 5 ML PO (08:00)
--- NOTE | 2024-04-12 10:23 | W.PN.NEPH.PH ---
Today's Communication / Plan
-
Abbreviated dialysis treatment today then okay for discharge with dialysis again tomorrow outpatient
Assessment/Plan
-
Impression:
Acute kidney
Congestive heart failure decompensation
Nonischemic cardiomyopathy with EF of 30%
History of ventricular tachycardia/ICD
Diabetes
COPD
CKD stage IV
Anemia
Plan
Discharge planning in progress possibly today
Dialysis today abbreviated treatment 2 hours then okay for discharge
-
-
Date of Service: April 12, 2024
CC / HPI / ROS
-
Chief Complaint:
acute kidney injury
History of Present Illness:
initiated hemodialysis now on Monday schedule
Hemodynamically stable (am coreg in am)
Review of Systems:
no chest pain or shortness of breath
complains of cough
Labs
-
Labs:
eGFR 24.13 04/11/24 06:28
Phosphorus 7.0 mg/dl (2.5-4.5) H 04/07/24 06:40
Rcd-I-Upqnmqsqiat Pept > 37984 pg/ml 04/04/24 16:55
Albumin 3.8 g/dl (3.5-5.0) 04/11/24 06:28
Physical Exam
-
Vital Signs:
Vital Signs
Temp Pulse Resp BP Pulse Ox
97.8 F 62 18 109/51 98
04/12/24 07:50 04/12/24 07:50 04/12/24 07:50 04/12/24 07:50 04/12/24 07:50
Cardiovascular:: Regular rate and rhythm
Respiratory:: Bilateral: Coarse
Lung Excursion:: Normal
Abdomen:: Nontender and Soft
Bowel Sounds:: Normal
Extremity Edema:: +1: Bilateral:
Lawson Catheter: No
[2024-04-12 10:56] VITALS: BP 138/69
--- NOTE | 2024-04-12 11:46 | W.PN.HOSP.TC ---
Addendum entered and electronically signed by Shay Whitfield MD 04/13/24 16:26:
[id number]
Original Note:
Today's Communication/Plan
-
short session HD today
HD tomorrow
F/u PCP, Cards, Nephro outpt
Assessment / Plan
Assessment / Plan
Physical Exam
General: No acute distress, appears comfortable
HEENT: NormoCephalic, Moist mucous membranes, Atraumatic
Respiratory: Non Labored Respirations, clear to auscultation
Cardiac: S1/S2 and Regular Rhythm; No Murmur, Rub or Gallop
GI: Soft, Non Tender, Non Distended and Normal Bowel Sounds; No Organomegaly
Musculoskeletal: +2 pitting edema lower ext's
Neuro: AOx3
Psych: Calm and Intact Judgment/Insight
73y M with PMH significant for CHF, DM-II and CKD III who presents to ED complaining of 2-3 weeks of progressive shortness of breath, edema, abdominal distention and weight gain. Patient takes Lasix 80mg BID at home and has noted that he is
urinating less over the past few weeks. He is currently followed by a [facility] in [place], [place] - though he was previously followed here by Dr. Vieira.
#Acute on chronic heart failure
ECHO appreciated EF 30% mod severe TR ascending aorta dilatation 4.2 cm, per report ECHO largely unchanged from prior October 2022
CXR: Mild right basilar atelectasis and/or pneumonia.
Patient reports 12-13 pound weight gain in last 2 weeks and increased abdominal girth
- cont telemetry
- Consult cardiology appreciated cont coreg, hold digoxin Entresto d/t KAYLEIGH as below
- IV Lasix discontinued with start of HD
-coreg
-hold entresto - defer outpatient cards
#COPD
stable resp status on room air at rest
wheezing resolved
cont duoneb prn
Duoneb R QID reduced to BID
#anemia
H&H stable cont to monitor
#KAYLEIGH on CKD3, now ESRD on HD
Nephro eval appreciated patient started on dialysis 04/06, daily back to back sessions so far
Tunnnel cathplaced Tue 04/09
#hypertension
- continue carvedilol
-HD as above
#a-fib
EKG: Ventricular-paced rhythm
ABNORMAL ECG
Medtronic ICD
- continue Eliquis, and carvedilol
-Will consider elective cardioversion, likely in 1 month
-F/u Dr. Vieira outpatient - confirmed with Dr. Gonsales today 04/12
#gout
- continue allopurinol
#type 2 diabetes
A1c 7.0
Ok to discontinue routine Fingersticks and sliding scale.
#hyperparathyroidism
#hyperlipidemia
#Anxiety/insomnia
prn ativan anxiety
trazodone bedtime for sleep
PT/OT
Code Status: Full Code
DVT Prophylaxis: Eliquis
More than 30 minutes spent in discharge including
Final examination of the patient
Summarizing hospital stay
Instructions for continuing care to all relevant caregivers
Preparation of discharge records, prescriptions, and referral forms
Total time spent (in minutes):
Anticipated Discharge: Today
Subjective/Interval History
-
Date of Service: April 12, 2024
No acute events overnight
Objective Data
-
Labs:
Laboratory Results
04/12/24
06:00
WBC Pending
Hgb Pending
Hct Pending
Plt Count Pending
Sodium Pending
Potassium Pending
Chloride Pending
Carbon Dioxide Pending
BUN Pending
Creatinine Pending
Glucose Pending
Calcium Pending
Vital Signs:
Vital Signs
Temp Pulse Resp BP Pulse Ox
98.0 F 69 18 138/69 98
04/12/24 10:56 04/12/24 10:56 04/12/24 10:56 04/12/24 10:56 04/12/24 10:56
I&O
04/11/24 04/12/24 04/13/24
06:59 06:59 06:59
Intake Total 1440 / 1440 1080 / 1080
Output Total 400 / 400 150 / 150
Balance 1040 / 1040 930 / 930
Review of Systems
-
History Source: Patient
All other systems: Not reviewed unless documented
Data Reviewed
-
Diagnostic Radiology: Report Reviewed by me
Labs: Labs Reviewed by me
[2024-04-12] MEDS: TYLENOL 650 MG PO (11:47)
--- NOTE | 2024-04-12 11:49 | W.DS.TRANS ---
DC Summary - Bag Builder
-
Discharge Instructions:
Sleep Apnea Risk Intermediate
Discharge Diagnosis/Procedures
#Acute on chronic heart failure
#ESRD with HD
Diet Low Cholesterol,Low Fat
Activity As tolerated
Blood Work blood work as per Renal
Instructions: *CBC Heart Failure Instructions
Stand-Alone Forms:
Changes to Home Medications: Yes
Discharge Medications:
DC Medications w/original date entered in [employer]
cholecalciferol (vitamin D3) 50 mcg (2,000 unit) tablet 2,000 unit PO BID Supplement 07/28/14
albuterol sulfate 2.5 mg/3 mL (0.083 %) solution for nebulization 2.5 mg inhalation Q6HPRN PRN sob 08/07/20
ascorbic acid (vitamin C) 500 mg tablet (Vitamin C) 500 mg PO DAILY Supplement 08/07/20
zinc sulfate 50 mg zinc (220 mg) tablet 50 mg PO DAILY Supplement ##0 08/07/20
carvedilol 25 mg tablet (Coreg) 25 mg PO BID Heart disease/condition 09/07/20
budesonide 160 mcg-glycopyr 9 mcg-formot 4.8 mcg/actuation HFA inhaler (Breztri Aerosphere) 2 inh inhalation R BID Lung/Breathing Issues 08/19/22
albuterol sulfate 90 mcg/actuation aerosol inhaler 2 puff inhalation R BID Lung/Breathing Issues 04/04/24
allopurinol 100 mg tablet 100 mg PO DAILY Gout 04/04/24
apixaban 5 mg tablet (Eliquis) 5 mg PO BID Blood Clot Prevention/Tx 04/04/24
flunisolide 25 mcg (0.025 %) nasal spray 1 spray intranasal DAILYPRN PRN allergy symptoms 04/04/24
sacubitril 97 mg-valsartan 103 mg tablet (Entresto) 1 tab PO BID Heart Failure 04/04/24
Home Medication Changes
Hold Entresto
Pending Results: No
[2024-04-12] MEDS: RETACRIT 10000 UNITS IV (13:20)
[2024-04-12 13:47] LABS: Hematocrit 25.6 % (39.0-52.0); Hemoglobin 7.9 g/dL (13.0-18.0); Mean Corp Hgb Conc. 30.9 g/dL (33.0-37.0); Mean Corpuscular Hgb 31.1 pg (27.0-31.0); Mean Corpuscular Volume 100.8 fL (80.0-94.0); Mean Platelet Volume 10.8 fL (7.4-10.4); Platelet Count 99 10^3/uL (130-400); Red Blood Cell Count 2.54 10^6/uL (4.70-6.10); Red Cell Dist. Width 14.1 % (11.5-14.5); White Blood Cell Count 4.2 10^3/uL (4.8-10.8)
[2024-04-12 13:54] LABS: Blood Urea Nitrogen 67 mg/dl (9-20); Calcium 9.4 mg/dl (8.4-10.2); Carbon Dioxide 26 mmol/L (22-30); Chloride 94 mmol/L (98-107); Estimated Creatinine Clearance 20 ml/min; Glucose 113 mg/dl (70-99); Potassium 4.2 mmol/L (3.5-5.1); Sodium 131 mmol/L (135-145); eGFR 16.53
--- NOTE | 2024-04-12 15:01 | CM ---
Addendum entered by Mel Alexander 04/12/24 15:49:
[facility]; [facility] Office
Fax#[phone]
Addendum entered by Mel Alexander 04/12/24 15:13:
Plan: Son's Home with [facility]; [facility]; and outpatient HD therapy
CM spoke with patient's son via phone; discharge plan explained; confirmed that family will transport home when ready to go
Addendum entered by Mel Alexander 04/12/24 15:06:
PT provided [facility] Walker
Original Note:
Met with patient at bedside to discuss discharge plan: Medical clearance for outpatient HD therapy approved; was provided Letter from [facility] yesterday; HD scheduled tomorrow @ [place] location; has transport home
IMM benefit explained; form signed @ [id number]
Plan: Discharge to son's home today after HD treatment
[2024-04-12 15:09] VITALS: BP 120/67
[2024-04-12] MEDS: HEPARIN 4300 UNITS INTRACATH (15:53)
--- NOTE | 2024-04-15 10:56 | W.HF.CON ---
Heart Failure
- LV Function
Left ventricular function study result: LV Ejection fraction </= 35%
Ejection Fraction Percentage: 30
- ARNI
Patient already on ARNI: Yes
- ACEI/ARB
Patient already on ACEI/ARB: No
Heart Failure ACEI/ARB Contraindication: Dialysis
- Beta Gabriela
Patient already on Evidence Based Beta Gabriela: Yes
- Mineralocorticord Receptor Antagonist
Patient already on MRA: No
Heart Failure MRA Contraindication: Cr > 2.5 in Men
- SGLT-2 Inhibitor
Patient already on SGLT-2 Inhibitor: No
Heart Failure SGLT-2 Inhibitor Contraindication: eGFR < 25
- Afib Anticoagulation
Patient already on Anticoagulation for Afib: Yes
- NYHA CHF Classification
NYHA CHF Classification Level: Class III - Symptoms w/ min exertion, interferes w/ nml daily activity
- ACC/AHA Stage
ACC/AHA Stage: Stage C: Symptomatic Heart Failure
== END 2024-04-12 17:17 | disposition home health service (06) | DRG 291 ==
LOC: 3 WEST ACU 21:30
PROVIDERS: Emergency Medicine; Internal Medicine Nephrology; Nurse Practitioner Family; Radiology Diagnostic Radiology; Radiology Vascular & Interventional Radiology; ADMITTING PHYSICIAN Hospitalist; ATTENDING PHYSICIAN Internal Medicine; CONSULT PHYSICIAN Internal Medicine Cardiovascular Disease; CONSULT PHYSICIAN Specialist; EMERGENCY PHYSICIAN Emergency Medicine
PROC: 05HM33Z Insertion of Infusion Device into Right Internal Jugular Vein, Percutaneous Approach (ICD-10-PCS; 2024-04-05)
PROC: B5131ZA Fluoroscopy of Right Jugular Veins using Low Osmolar Contrast, Guidance (ICD-10-PCS; 2024-04-05)
PROC: 5A1D70Z Performance of Urinary Filtration, Intermittent, Less than 6 Hours Per Day (ICD-10-PCS; 2024-04-06)
PROC: 02H633Z Insertion of Infusion Device into Right Atrium, Percutaneous Approach (ICD-10-PCS; 2024-04-09)
PROC: 0JH63XZ Insertion of Tunneled Vascular Access Device into Chest Subcutaneous Tissue and Fascia, Percutaneous Approach (ICD-10-PCS; 2024-04-09)
PROC: B5181ZA Fluoroscopy of Superior Vena Cava using Low Osmolar Contrast, Guidance (ICD-10-PCS; 2024-04-09)
DX: I13.2 Hypertensive heart and chronic kidney disease with heart failure and with stage 5 chronic kidney disease, or end stage renal disease (principal); I50.23 Acute on chronic systolic (congestive) heart failure; N18.6 End stage renal disease; N17.9 Acute kidney failure, unspecified; I48.19 Other persistent atrial fibrillation; I47.20 Ventricular tachycardia, unspecified; J44.0 Chronic obstructive pulmonary disease with (acute) lower respiratory infection; Z87.891 Personal history of nicotine dependence; D64.9 Anemia, unspecified; E11.22 Type 2 diabetes mellitus with diabetic chronic kidney disease; M10.9 Gout, unspecified; E21.3 Hyperparathyroidism, unspecified; E78.5 Hyperlipidemia, unspecified; F41.9 Anxiety disorder, unspecified; Z99.2 Dependence on renal dialysis
CPT/HCPCS: 36556; 36558; 51798; 71046; 76770; 76937; 77001; 80048; 80053; 80061; 80162; 82962; 83036; 83735; 83880; 84100; 85014; 85018; 85025; 85027; 85610; 86704; 86706; 86803; 87340; 93005; 93306; 94640; 96374; 97116; 97163; 97167; 97535; 99152; 99153; 99285; C1750; C1752; G0257; J2916; P9047; Q5106

== ENCOUNTER → 2024-09-13 07:41 | Outpatient (REF) | payer MEDICARE, OTHER, SELFPAY | LOC: RAD 07:41 | PROVIDERS: ATTENDING PHYSICIAN Surgery Vascular Surgery | DX: I73.9 Peripheral vascular disease, unspecified (principal); I65.21 Occlusion and stenosis of right carotid artery; N18.32 Chronic kidney disease, stage 3b; Z01.818 Encounter for other preprocedural examination | CPT/HCPCS: 93880; 93922; 93985 ==

== ENCOUNTER 2024-11-01 08:34 | Day surgery (SDC) | payer MEDICARE, OTHER, SELFPAY ==
[2024-11-01] VITALS (10 sets, daily range): BP systolic 97–105; BP diastolic 49–74; BMI 28.2
[2024-11-01] MEDS: BACTROBAN NASAL 1 GRAM NASAL (09:28)
[2024-11-01] MEDS: PERIDEX 0.12% ORAL RINSE 15 ML PO (09:28)
[2024-11-01 09:51] LABS: Hematocrit 34.7 % (39.0-52.0); Hemoglobin 11.5 g/dL (13.0-18.0); Mean Corp Hgb Conc. 33.1 g/dL (33.0-37.0); Mean Corpuscular Volume 100.3 fL (80.0-94.0); Platelet Count 110 10^3/uL (130-400); Red Cell Dist. Width 14.6 % (11.5-14.5)
[2024-11-01 10:07] LABS: INR 1.17; PT 15.2 Sec (11.4-14.6)
[2024-11-01 10:08] LABS: APTT 35.1 Sec (23.4-35.0)
[2024-11-01 10:11] LABS: Blood Urea Nitrogen 39 mg/dl (9-20); Calcium 8.6 mg/dl (8.4-10.2); Carbon Dioxide 30 mmol/L (22-30); Chloride 95 mmol/L (98-107); Estimated Creatinine Clearance 18 ml/min; Glucose 86 mg/dl (70-99); Potassium 4.0 mmol/L (3.5-5.1); Sodium 136 mmol/L (135-145); eGFR 16.53
--- NOTE | 2024-11-01 10:43 | W.SUR.PREOP ---
Pre-Operative Surgical Note
-
I have examined this patient prior to the performance of the scheduled procedure.
The patient's condition is unchanged from the time of the current History and
Physical and the patient is able to undergo the scheduled procedure.
[2024-11-01] MEDS: DILAUDID 0.5 MG IV (13:50)
[2024-11-01] MEDS: ZOFRAN 4 MG IV (13:50)
--- NOTE | 2024-11-01 14:35 | W.PA-PDMP ---
[place]-PDMP
-
Checked the [place]- Prescription Drug Monitoring Program website, no red flags identified; safe to proceed with prescription.
[2024-11-01] MEDS: TYLENOL 650 MG PO (15:21)
--- NOTE | 2024-11-01 15:39 | OR.RPT ---
Operative Report
Operative Report
PROCEDURE DATE: 11/01/2024
Preoperative diagnosis:
1. End-stage renal disease on hemodialysis.
2. AICD in place, left subclavian vein.
Postoperative diagnosis: Same
Procedure:
1. Right upper extremity radiocephalic arteriovenous fistula creation.
2. Right upper extremity brachiocephalic arteriovenous fistula creation.
3. Ligation of right upper extremity radiocephalic fistula.
Surgeon: Denzel
Harvest Supervisor: Ronal, required for all aspects of procedure including assistance with traction/countertraction, following a suture line, assistance with closure.
Complications: None
Anesthesia: General
Indications for procedure:
End-stage renal disease on hemodialysis. Required permanent access. Risk/benefits/alternatives of AV access creation were fully discussed. Patient had AICD in place via left subclavian access. Therefore we wish to avoid the left side for AV
access creation. Discussed right sided access. Patient understood all wished to proceed.
Description of procedure:
Patient was identified brought to the operating room placed on the table in supine position. Upon induction of anesthesia, I used an ultrasound probe to map of the right upper extremity veins myself. I confirmed that the cephalic vein in the
forearm appeared suitable as did the cephalic vein in the upper arm. The radial artery pulsation was palpable but weak, but I reviewed her preoperative ultrasound and that had demonstrated normal waveforms in the radial artery at the wrist.
Therefore I felt it was worth exploring. A longitudinal incision was made distal right upper extremity forearm/wrist on the radial aspect. This was carried through skin subcutaneous tissue.
A small lateral subcutaneous flap was raised and the cephalic vein was identified. It was carefully dissected away from surrounding structures take great care to avoid any injury to the structures. Any branches were ligated between silk ties and
then divided. Thus this allowed me to mobilize the vein. The vein appeared suitable in size. Once I mobilized the suitable segment, I deepened my dissection in the medial aspect of the incision through the fascial layer. Identified the radial
artery. I carefully dissected away from surrounding structures take great care to avoid any injury to structures. I passed a vessel loop around it proximally and distally. Note that the artery was small. The pulsation was also weak. But it was
palpable. However I decided it was worth proceeding and trying a radiocephalic fistula.
Next, I ligated the cephalic vein distally in my field with a silk tie and a clip. I then transected it. I distended the vein under heparinized saline. It distended very well. I passed the dilators using 2.5 mm, followed by 3 mm dilators which
passed without any difficulty whatsoever. I marked the anterior surface of the vein under distention to avoid any kinking or twisting.
Next, I gave the patient 3000 units of intravenous heparin. I now clamped the radial artery proximally and distally with Yasargil clips.. I made an arteriotomy with a Williams blade and extended using a micro Shipman scissor. The artery wall was
thickened especially in the posterior aspect. It was not a normal appearing artery. The inflow and I released my proximal clamp was reasonable. Was not phenomenal but was definitely reasonable. I therefore then spatulated the cephalic vein and
sewed an end to side anastomosis using a running 7-0 Prolene suture. I backbled the artery and then completed and tied down my suture line. Next I released the as ago clips. The thrill was weak. Was definitely patent, and I confirmed with
Doppler, but it was weak to me. I did not feel that this would be sustainable over the long-term nor would provide adequate flow volumes for achieving dialysis. Therefore I elected to proceed with brachiocephalic fistula creation.
A transverse incision was made in the proximal volar aspect of the forearm just distal to the antecubital fossa. This was carried through skin subcutaneous tissue. The antecubital extension of the cephalic vein was identified and carefully
dissected away from surrounding structures and great care to avoid any injury to structures. Any branches were ligated between silk ties and then divided. As such I was able to mobilize a suitable length of cephalic vein. Note the vein was of
very good size. Once I done this I then deepened my dissection in the medial aspect of the incision site through the fascial layer. The brachial artery was carefully identified and carefully dissected away from surrounding structures take great
care to avoid injury to structures. I passed a vessel loop around it proximally and distally. Next I gave the patient an additional 2000 units of intravenous heparin. I then ligated the cephalic vein distally in my field with a silk tie and a
clip. I then transected it. I distended under heparinized saline. It distended very well. I marked the anterior surface under distention to avoid any kinking or twisting. The vein was suitable size but just to be sure I ran a 3 mm dilator
through which passed without any difficulty whatsoever. Next I tightened my doubly Vesseloops on the artery proximally and distally. Of note it was an excellent pulsation in the artery and it was in normal to palpation artery. I then made an
arteriotomy with 11 blade extended using a Shipman scissor. I spatulated the cephalic vein and sewed an end to side anastomosis using a running 6-0 Prolene suture. Prior to completing and tying down my suture line I backbled and forebled the tetlin
artery. Next I released my bulldog clamp on the vein and then released my Vesseloops on the artery. There was an excellent thrill in the fistula. At this point I was very satisfied. I irrigated. I achieved and confirmed full hemostasis. I
confirmed good Doppler signals at the distal radial artery and ulnar arteries at the wrist. I then ligated the radiocephalic fistula outflow vein just beyond the anastomosis with a silk tie. We then closed that incision after irrigating and
confirming hemostasis with 3-0 Vicryl followed by 4-0 Monocryl subcuticular stitch running layers. We then closed the more proximal forearm incision (for brachiocephalic fistula) in layers using 3-0 Vicryl deep dermal layer followed by 4-0 Monocryl
subcuticular stitch. Dermabond was applied. The patient tolerated the procedure well. All sponge, needle, instrument counts were correct at the end of the case. The patient was transported to recovery room in stable condition.
== END 2024-11-01 16:00 | disposition home or self-care (01) ==
LOC: CATH 08:34
PROVIDERS: ATTENDING PHYSICIAN Surgery Vascular Surgery; REFERRING PHYSICIAN Internal Medicine Cardiovascular Disease
DX: I13.2 Hypertensive heart and chronic kidney disease with heart failure and with stage 5 chronic kidney disease, or end stage renal disease (principal); E11.22 Type 2 diabetes mellitus with diabetic chronic kidney disease; N18.6 End stage renal disease; I50.9 Heart failure, unspecified; Z99.2 Dependence on renal dialysis; E78.5 Hyperlipidemia, unspecified; I48.91 Unspecified atrial fibrillation; Z79.01 Long term (current) use of anticoagulants; Z95.0 Presence of cardiac pacemaker
CPT/HCPCS: 36821 ×2; 80048; 85027; 85610; 85730; 86850; 86900; 86901; 93005

== ENCOUNTER → 2024-12-20 07:01 | Outpatient (REF) | payer MEDICARE, OTHER, SELFPAY | LOC: RAD 07:01 | PROVIDERS: ATTENDING PHYSICIAN Registered Nurse; FAMILY PHYSICIAN Student in an Organized Health Care Education/Training Program | DX: Z99.2 Dependence on renal dialysis (principal); N18.6 End stage renal disease | CPT/HCPCS: 93990 ==

== ENCOUNTER → 2025-01-23 12:34 | Outpatient (REF) | payer MEDICARE, OTHER, SELFPAY | LOC: RAD 12:34 | PROVIDERS: ATTENDING PHYSICIAN Physician Assistant | DX: I73.9 Peripheral vascular disease, unspecified (principal) | CPT/HCPCS: 75635; Q9967 ==

== ENCOUNTER 2025-01-29 08:26 | Inpatient (IN) | payer MEDICARE, OTHER, SELFPAY ==
[2025-01-29] VITALS (9 sets, daily range): BP systolic 92–109; BP diastolic 42–71; BMI 26.9
[2025-01-29 08:44] LABS: Hematocrit 29.9 % (39.0-52.0); Hemoglobin 9.9 g/dL (13.0-18.0); Mean Corp Hgb Conc. 33.1 g/dL (33.0-37.0); Mean Corpuscular Volume 105.7 fL (80.0-94.0); Platelet Count 140 10^3/uL (130-400); Red Cell Dist. Width 14.7 % (11.5-14.5)
[2025-01-29 08:53] LABS: INR 1.18; PT 15.6 Sec (11.4-14.6)
[2025-01-29 08:54] LABS: APTT 32.9 Sec (23.4-35.0)
[2025-01-29] MEDS: BACTROBAN NASAL 1 GRAM NASAL (09:21)
[2025-01-29] MEDS: PERIDEX 0.12% ORAL RINSE 15 ML PO (09:21)
[2025-01-29] MEDS: NSS 500 IV (09:21)
[2025-01-29 09:58] LABS: Blood Urea Nitrogen 33 mg/dl (9-20); Calcium 8.5 mg/dl (8.4-10.2); Carbon Dioxide 30 mmol/L (22-30); Chloride 96 mmol/L (98-107); Estimated Creatinine Clearance 16 ml/min; Glucose 97 mg/dl (70-99); Potassium 4.6 mmol/L (3.5-5.1); Sodium 137 mmol/L (135-145); eGFR 14.53
[2025-01-29 13:21] LABS: B.E. - POC 3.1 mmol/L; Glucose - POC 91 mg/dl (70-99); HCO3 - POC 27 mmol/L (21-28); Hematocrit - POC 25 % PCV (42-52); Hemodilution- POC No; Hemoglobin Calculated - POC 8.5; Ionized Calcium - POC 0.97 mmol/L (1.15-1.33); Lactate - POC 0.39 mmol/L (0.36-0.75); O2 Saturation %Calculated-POC 99.9 % (94-98); PCO2 - POC 36 mmHg (35-48); PO2 - POC 261 mmHg (83-108); Potassium - POC 3.8 mmol/L (3.5-5.1); Sodium - POC 134 mmol/L (136-145); Specimen Type - POC Arterial; pH - POC 7.48 (7.35-7.45)
--- NOTE | 2025-01-29 14:34 | W.SUR.POST ---
Surgical Immediate Post Op
Note
Pre Op Diagnosis: PAD
Post Op Diagnosis: PAD
Procedure Performed: Right femoral endarterectomy with interposition vein graft
Primary Surgeon: Denzel
Secondary Surgeons: Ronal KERR
Anesthesia: General
Estimated Blood Loss: 15 cc
Fluids: See anesthesia flowsheet
Drains/Shunts: None
Specimens/Cultures: Right femoral plaque
Doppler/Duplex/Angio (Y/N): Y
Complications: none
Operative Findings: Doppler DP and PT signals
[2025-01-29 15:11] LABS: Hematocrit 28.6 % (39.0-52.0); Hemoglobin 9.6 g/dL (13.0-18.0); Mean Corp Hgb Conc. 33.6 g/dL (33.0-37.0); Mean Corpuscular Volume 106.3 fL (80.0-94.0); Platelet Count 142 10^3/uL (130-400); Red Cell Dist. Width 14.5 % (11.5-14.5)
[2025-01-29 15:28] LABS: Blood Urea Nitrogen 34 mg/dl (9-20); Calcium 7.9 mg/dl (8.4-10.2); Carbon Dioxide 27 mmol/L (22-30); Chloride 98 mmol/L (98-107); Estimated Creatinine Clearance 16 ml/min; Glucose 103 mg/dl (70-99); Potassium 4.7 mmol/L (3.5-5.1); Sodium 135 mmol/L (135-145); eGFR 14.53
[2025-01-29 15:29] LABS: Glucose - Point of Care 102 mg/dl (70-99)
--- NOTE | 2025-01-29 16:48 | OR.RPT ---
Operative Report
Operative Report
PROCEDURE DATE: 01/29/2025
Preoperative diagnosis: Chronic limb threatening ischemia right lower extremity.
Postoperative diagnosis: Same
Procedure: Right femoral endarterectomy with interposition common femoral to femoral bifurcation artery bypass with nonreversed ipsilateral greater saphenous vein conduit.
Surgeon: Denzel
Hand Collator: DEMETRIS Villeda, required for all aspects of procedure including assistance with traction/countertraction, following a suture line, assistance with closure.
Complications: None
Anesthesia: General
Indications for procedure:
Chronic limb-threatening ischemia with severe rest pain and ischemic changes to the foot. Risk/benefits/alternatives of revascularization all fully discussed. He understood all wished to proceed.
Description of procedure:
Patient was identified brought to the operating room placed on the table in supine position. After the adequate administration of anesthesia [] was prepped and draped in the standard surgical fashion. A standard preoperative timeout was undertaken
and everybody was in agreement the plan. A longitudinal incision was made in the right groin that was carried through the skin subcutaneous tissue with the electrocautery. Any crossing lymphatic type branches were ligated between silk ties and
divided. Of note in the deeper subcutaneous tissues there were somewhat matted lymph nodes, not severely hardened more rubbery in nature. One rather large 1 was overlying our field. I dissected this out and then ligated at its attachment to the
deeper tissues with a silk tie. I then transected it. This was sent for specimen. Now I dissected down to the level of the common femoral artery as it emerged from underneath inguinal ligament. The artery was very challenging to dissect and all
these tissues were somewhat scarred. I did note that there appeared to be 2 prior percutaneous suture closure sites. These were carefully dissected out and had created some scar tissue. In addition I suppose that there was some scarring secondary
to the inflammatory response from the plaque. The common femoral and femoral bifurcation vessels were severely calcified. The artery felt like wood. I could see once I started dissecting the common femoral artery out carefully with sharp
dissection, that the wall was significantly thinned. I had great concerns that standard endarterectomy would be feasible.
I did however dissect the common femoral to the bifurcation. The superficial femoral artery was dissected to a level about 3 or 4 cm beyond its origin where it softened. I passed a vessel loop around here after careful circumferential dissection.
I now dissected back to the origin of the profunda. There is a branch that emanated medially, and then there was the main profunda. The main profunda was then dissected to the first branch point. Now I controlled both of the main profunda
branches as well as the branch that emanated from the origin. These were all carefully circumferentially dissected and Vesseloops passed around these, but not tightened. Now I dissected back to the common femoral artery. Any small branches were
ligated between silk ties and divided to allow full mobilization. Again the artery felt like wood. At this point I dissected underneath the inguinal ligament to try to find a soft spot. A lateral branch which may have been the lateral circumflex
artery was ligated between silk ties and divided (I inspected the CAT scan and noted that there is very little flow in this artery). This allowed greater mobilization of the proximal common femoral/distal external iliac artery. The medial
circumflex iliac artery was carefully circumferentially dissected and controlled with a vessel loop. I now dissected cephalad to here. There was continuous calcified eccentric plaque throughout the artery even in the external iliac as far as I
could slide my finger out. However there was 1 small area where the artery somewhat softened and I noted would be clamped well. I carefully circumferentially dissected here and passed a vessel loop around it. I tested clamped it here and noted
obliteration of the pulse (there was a good pulse proximal to this area but not distally on the common femoral artery). Therefore I felt satisfied that the artery was controllable here.
Now that I had dissected out the femoral artery/femoral bifurcations, I turned my attention to the greater saphenous vein. Given the patient's risk factors, I had elected to likely dissect saphenous vein to use as a patch if needed. However now I
felt more inclined to use a saphenous vein as a conduit given the thinness of the arterial wall (the plaque was essentially shining through the thinned translucent arterial wall). Therefore I made a separate incision slightly medial and distal to
the existing incision through which the greater saphenous vein was identified and carefully dissected away from surrounding structures. Any branches were ligated between silk ties and clips and then divided. I mobilized that segment of saphenous
vein. I then mobilized it back up to my current incision in the groin. I left the proximal branches in place so as to not have to ligated right at the saphenofemoral junction. I did not transect the vein or ligated completely yet as I wished
first to and no/confirm the length of vein I would need.
At this point the patient was given 6000 units of intravenous heparin. Once this had circulated, I tightened my double looped Vesseloops on the profunda and branches, and placed a profunda clamp on the SFA. I then placed a Derra clamp on the
distal external iliac artery at that point that was somewhat softer that I had noted underneath inguinal ligament. I now made an arteriotomy in the mid common femoral artery with an 11 blade and tried to extend it with a Shipman scissor but the
plaque was completely heavy and made it difficult to open. However I was finally able to open it. Just to examine to see if an endarterectomy in the standard fashion would be feasible, I used a Motley to start an endarterectomy plane, but noted
that the plaque was severely thinning the arterial wall. Therefore I did not feel that the wall was sustainable. Now instead I extended the arteriotomy proximally. I noted where the artery became somewhat more normal (around or just distal to the
medial circumflex iliac artery) and transected the artery here. There was significant calcified posterior plaque still present there and I had to carefully endarterectomized that. I was able to do that nicely and have nice press cleaner healthy tissue
posteriorly. I removed any fine debris with fine forceps at that site. I then transected the artery distally essentially at the femoral bifurcation. The calcified artery/plaque was sent off for specimen. I now grasped the ring that I created at
the femoral bifurcation. I then used a Motley to create an endarterectomy plane here. I now performed eversion endarterectomy of the plaque out of the origin of the SFA and profunda arteries. There was still some residual posterior plaque in the
profunda about a centimeter more distally, but the remainder of the plaque all came out nicely. And the posterior plaque appeared nicely adherent. At this point I was very satisfied. The lumens were now nicely widely patent. And I had created a
distal sewing ring. At this point I then ligated the greater saphenous vein that I had exposed/mobilized. I ligated distally with a silk tie and a clip and then proximally with a silk suture ligature. I then transected approximately distally. I
distended under heparinized saline. Distended well. I used a [employer] valvulotome to valvulotomy eyes the vein so that I could maintain it in a nonreversed fashion. Now I spatulated the vein proximally and sewed an end-to-end anastomosis to the
common femoral artery. The common femoral artery was reasonably larger than the vein, but I spatulated the vein sufficiently to create a nice sewing ring. This was done with a running 5-0 Prolene suture. I completed and tied down the suture line.
I next placed a bulldog clamp on the vein graft. I then released the Derra clamp. There is now excellent pulsatile flow in the vein graft. A single 6-0 Prolene [id number] suture was placed on the anterior aspect of the suture line for full
hemostasis. I flushed out the graft. I then moved my bulldog clamp more proximally after I had marked the anterior surface of the vein. Avoid any kinking or twisting. Now I prepared for the distal anastomosis. The heel of the anastomosis would
be at the profunda. I therefore then used my Shipman scissor to spatulate/create a davila to sew onto the SFA. (By spatulating slightly to the SFA). I now spatulated the distal vein after trimming it. I then sewed an end-to-end anastomosis between
the vein to the femoral bifurcation using a running 5-0 Prolene suture. Prior to completing and tying down my suture line I backbled the [place] arteries which backbled well. I then flushed out the bypass graft by briefly releasing the bulldog
clamp. I now irrigated/flushed heparinized saline. I then completed and tied down the suture line. Now I released Vesseloops first on the profunda branches. I then released the bulldog clamp on the vein graft. Finally I released Vesseloops on
the profunda main artery branches as well as the SFA clamp. There is now excellent pulsatile flow through the SFA and profunda. Doppler confirmed excellent graft dependent signal. At this point I was very satisfied. I meticulously achieved
hemostasis. I then irrigated and confirmed full hemostasis. We then closed in layers closing the groin incision with running 2-0 Vicryl followed by 3-0 Vicryl deep dermal layer followed by 4-0 Monocryl subcuticular stitch. The separate adjacent
saphenectomy incision was closed with running 3-0 Vicryl deep followed by 4 Monocryl subcuticular stitch. Dermabond was applied. The patient tolerated procedure well. All sponge, needle, instrument counts were correct at the end of the case.
Upon completion he had a palpable right DP pulse on the foot.
--- NOTE | 2025-01-29 17:04 | CON.INTV ---
Consultation
Consultation Request
Date/Time Consultation Requested: 01/30/2024
Date/Time Consultation Performed: 01/29/2025
Requesting Provider: Dr. Mahoney
Performing Provider: Dr. Richar Keita
Reason for Consultation: Status post right femoral endarterectomy.
Medical History
-
History of Present Illness:
74-year-old man with complicated past medical history including peripheral vascular disease, chronic kidney disease on dialysis, hypertension, previous atrial fibrillation on anticoagulation,? COPD on inhalers admitted from the outpatient
electively for revascularization. Patient has history of chronic right lower lobe limb ischemia.
Underwent right femoral endarterectomy 01/29/2025y Dr. Mahoney. Subsequently transferred to the critical care unit for postoperative management.
Currently hemodynamically stable.
Patient reports that his pain is controlled.
He denies any shortness of breath.
Denies any cough or wheezing.
Past Medical History
Past Medical History: Other (See assessment and plan)
Social History
Tobacco: Former Smoker
Alcohol: None
Drug: None
Living: With Family
Family History
Family History: Reviewed & Not Pertinent
Allergies / Home Medications
Allergies
Allergy/AdvReac Type Severity Reaction Status Date / Time
vaccinations Allergy Severe Rash Uncoded 01/29/25 10:23
Home Medications
�Medication �Instructions �Recorded �Confirmed �Last Taken �Type
cholecalciferol (vitamin D3) 50 2,000 unit PO DAILY Supplement 07/28/14 01/29/25 01/28/25 08:00 History
mcg (2,000 unit) tablet
albuterol sulfate 2.5 mg/3 mL 2.5 mg inhalation Q6HPRN PRN sob 08/07/20 01/29/25 01/29/25 06:00 History
(0.083 %) solution for nebulization
ascorbic acid (vitamin C) 500 mg 500 mg PO DAILY Supplement 08/07/20 01/29/25 01/28/25 08:00 History
tablet (Vitamin C)
budesonide 160 mcg-glycopyr 9 2 inh inhalation R BID 08/19/22 01/29/25 08/19/22 07:00 History
mcg-formot 4.8 mcg/actuation HFA Lung/Breathing Issues
inhaler (Breztri Aerosphere)
albuterol sulfate 90 mcg/actuation 2 puff inhalation R BID 04/04/24 01/29/25 11/01/24 05:00 History
aerosol inhaler Lung/Breathing Issues
apixaban 5 mg tablet (Eliquis) 5 mg PO BID Blood Clot 04/04/24 01/29/25 01/26/25 08:00 History
Held on 11/01/24. Prevention/Tx
Instructions: Resume on
11/02/24.
sacubitril 97 mg-valsartan 103 mg 1 tab PO BID Heart Failure 04/04/24 01/29/25 01/28/25 20:00 History
tablet (Entresto)
metoprolol succinate 50 mg 50 mg PO HS 10/10/24 01/29/25 01/28/25 20:00 History
tablet,extended release 24 hr
zinc acetate 50 mg (zinc) capsule 50 mg PO DAILY 10/10/24 01/29/25 01/28/25 08:00 History
multivitamin 1 tab PO DAILY 01/29/25 01/29/25 01/28/25 08:00 History
sevelamer carbonate 800 mg tablet 800 mg PO TID 01/29/25 01/29/25 01/28/25 08:00 History
vitamin B complex-vitamin C-folic 1 tab PO DAILY 01/29/25 01/29/25 01/28/25 08:00 History
acid 0.8 mg tablet (Shira-Hanna)
Review of Systems
-
History Source: Patient
All other systems: Negative unless noted
Vitals / Labs / Diagnostic Testing
Vital Signs
Temp Pulse Resp BP Pulse Ox
97 F 80 14 109/46 99
01/29/25 16:05 01/29/25 16:30 01/29/25 16:30 01/29/25 16:30 01/29/25 16:25
Lab Data
01/29/25 14:58
01/29/25 14:58
Laboratory Results
01/29/25
08:35
PT 15.6 H
INR 1.18
APTT 32.9
Diagnostic Testing:
Physical Exam
-
HEENT: Normocephalic
Cardiovascular: S1/S2
Respiratory: Non-Labored Respirations
GI: Soft and Non Distended
Neurology: Awake and Alert
Skin: Warm
General: Comfortable
Assessment
-
74-year-old man with past medical history noted. History of chronic right lower extremity limb ischemia-admitted from the outpatient for right femoral endarterectomy. Procedure underwent without complication on 01/29/2025.
Critical care consulted for postoperative management.
Chronic limb threatening ischemia of the right lower extremity.
Right femoral endarterectomy with interposition common femoral to femoral bifurcation artery bypass with nonreversed ipsilateral greater saphenous vein conduit. 01/29/2025 Dr. Mahoney
Conditions present prior admission:
Peripheral arterial disease
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
Right carotid stenosis
Type 2 diabetes
Hyperlipidemia
Chronic kidney disease
Hypertension
Obesity
Heart failure systolic
ICD in place
Hyperparathyroidism
History of DVT
Atrial fibrillation-status post cardioversion in 2022.
Previous history of cardiac ablation
Gout
? COPD-on Breztri
Former smoker
Assessment and plan:
Postoperative surgical intensive care unit monitoring
Supplemental oxygen as needed
Incentive spirometry
Aspiration precautions
Nebulizers if needed-currently not bronchospastic
Okay to restart--Inhalers. Usually on Breztri-does not follow-up locally
Incision intact without hematoma.
Right lower extremity peripheral pulses present. Distal extremity feels warm
Continue analgesia with as needed narcotics. Monitor respiratory status closely.
Neuro and vascular checks per protocol
Vascular surgery following-correspondence and operative notes reviewed
Monitor blood pressure
Restart outpatient medication
Dialysis per nephrology
Follow hemoglobin-patient has chronic anemia from chronic kidney disease. Stable
Follow blood sugars
Insulin supplementation as needed
DVT prophylaxis
Early nutrition
Early mobilization
-
Continue critical care ICU monitoring.
--- NOTE | 2025-01-29 17:22 | PTCARENOTE ---
Pt received from PACU to ICU bed 3372. Pt AAOx3. Vpaced. LE vascular checks WNL. B/L PT and DP pulses present with doppler. BP via left radial a-line.
[2025-01-29] MEDS: RENVELA 800 MG PO (18:02)
[2025-01-29] MEDS: SYMBICORT 160/4.5 MCG INHALER 2 PUFF INH (19:34)
--- NOTE | 2025-01-29 20:00 | PTCARENOTE ---
resumed care of pt sitting up in bed with at bedside, AAOx3, HR in the 80's 100% Vpaced on the monitor. POX 99% on 4LO2 NC. Lungs dec. + bowel, round abd. Pt anuric. Right chest wall HD cath in place. Right groin/ right knee surgical site
C/D/I. Neurovascular checks as documented. Right great toe wound, dressing applied. Left radial Quin in place. Left forearm int capped. Pt reports pain at tolerable level at this time. Pt using I/S as directed. No issues to report at this time.
Vital signs stable. Call gabriel in reach. will continue to monitor.
[2025-01-29] MEDS: ENTRESTO 97 MG/103 MG 1 TAB PO (20:03)
[2025-01-29] MEDS: HEPARIN 5000 UNITS SC (20:04)
[2025-01-29] MEDS: TOPROL XL 50 MG PO (21:27)
[2025-01-29 22:58] LABS: Glucose - Point of Care 255 mg/dl (70-99)
[2025-01-30] VITALS (27 sets, daily range): BP systolic 81–117; BP diastolic 36–63; BMI 27.8
[2025-01-30] MEDS: NOVOLOG FLEXPEN-MODERATE RESISTANCE 5 UNITS SC (00:06)
--- NOTE | 2025-01-30 00:23 | PTCARENOTE ---
Pt dosing off intermittently. Pt reports pain at tolerable level, continues to deny need for pain medication. Pt repositioned per comfort. Neurovascular checks as documented. Oxygen removed per pt request, pOX 94% on RA. Pt understands if drops when
sleeping will reapply. NO other changes in assessment noted at this time. Will continue to monitor.
[2025-01-30] MEDS: TYLENOL 650 MG PO (01:32)
[2025-01-30 03:49] LABS: Hematocrit 27.9 % (39.0-52.0); Hemoglobin 9.4 g/dL (13.0-18.0); Mean Corp Hgb Conc. 33.7 g/dL (33.0-37.0); Mean Corpuscular Volume 105.7 fL (80.0-94.0); Platelet Count 144 10^3/uL (130-400); Red Cell Dist. Width 14.5 % (11.5-14.5)
[2025-01-30 03:58] LABS: INR 1.17; PT 15.4 Sec (11.4-14.6)
[2025-01-30 03:59] LABS: APTT 32.3 Sec (23.4-35.0)
--- NOTE | 2025-01-30 04:03 | PTCARENOTE ---
Pt having trouble sleeping. Pt frustrated with wires and limited ability to move around in bed. Pt also reports starving. G bath provided, linens changed. Box lunch provided. Emotional support provided. Am lab work obtained. Pt positioned in bed
per comfort. Neurovascular checks remain unchanged and as documented. Call gabriel in reach. Will continue to monitor.
[2025-01-30 04:16] LABS: Blood Urea Nitrogen 43 mg/dl (9-20); Calcium 8.0 mg/dl (8.4-10.2); Carbon Dioxide 23 mmol/L (22-30); Chloride 98 mmol/L (98-107); Estimated Creatinine Clearance 13 ml/min; Glucose 146 mg/dl (70-99); Potassium 5.3 mmol/L (3.5-5.1); Sodium 134 mmol/L (135-145); eGFR 11.73
[2025-01-30] MEDS: ROXICODONE 5 MG PO (05:15)
[2025-01-30] MEDS: NOVOLOG FLEXPEN-MODERATE RESISTANCE 1 UNITS SC (07:37)
[2025-01-30 07:45] LABS: Glucose - Point of Care 187 mg/dl (70-99)
--- NOTE | 2025-01-30 08:11 | W.PN.VS ---
Addendum entered and electronically signed by Jose Martin Mahoney MD 01/31/25 08:04:
Seen and examined with DEMETRIS Smyth yesterday. Late entry. Agree with findings as noted below. Patient had flat right groin. Dressing c/d/i. Palp DP pulse, foot warm. Improving chronic ischemic changes. 1st toe stable.
Plan/ As discussed and noted below.
Original Note:
Today's Communication / Plan
-
Patient seen and examined at bedside with Dr. Jose Martin Mahoney, below plan reviewed with attending.
Assessment/Plan
-
Assessment: 74 year old male POD#1 Right femoral endarterectomy with interposition common femoral to femoral bifurcation artery bypass with nonreversed ipsilateral greater saphenous vein conduit.
Plan:
DC arterial line
Appreciate hot saw operator recommendations
Appreciate skip tender recommendations for HD management
DVT prophylaxis
GI prophylaxis
Continue neurovascular checks
Continue ICU level care today
Subjective Data
-
Date of Service: January 30, 2025
Patient seen and examined at bedside, reports well managed post operative pain. Denies nausea, vomiting, fever, and chills. Reports right foot with no rest pain and feels better than pre-op.
Objective Data
-
Vital Signs
Temp Pulse Resp BP Pulse Ox
98.2 F 79 11 105/63 98
01/30/25 03:41 01/30/25 08:00 01/30/25 08:00 01/30/25 07:23 01/30/25 08:00
Intake and Output
01/29/25 01/30/25 01/31/25
06:59 06:59 06:59
Intake Total 860 / 860 240 / 240
Output Total 0 / 0
Balance 860 / 860 240 / 240
Intake:
Oral fluids 720 / 720 240 / 240
IV fluids (Total) 140 / 140
NSS 140 / 140
IV piggybacks 0 / 0
Output:
Urine, Voided 0 / 0
Lab Results
01/30/25 03:31
01/30/25 03:31
Calcium 8.0 mg/dl (8.4-10.2) L 01/30/25 03:31
Physical Exam
-
No apparent distress, resting in bed comfortably
No tachycardia
No dyspnea on room air
ABD non tender, non distended
Right femoral endarterectomy dressing clean, dry, and intact, no evidence of hematoma or edema
Right foot warm, +1 palpable DP
[2025-01-30] MEDS: SYMBICORT 160/4.5 MCG INHALER 2 PUFF INH ×2 (08:28→20:37)
[2025-01-30] MEDS: SPIRIVA RESPIMAT 2.5 MCG 2 PUFF INH (08:28)
[2025-01-30] MEDS: HEPARIN SC (09:28)
--- NOTE | 2025-01-30 09:30 | PTCARENOTE ---
L radial arterial line removed per vascular team order. Manual pressure applied for 20 minutes. No bleeding or hematoma noted at site. Patient undergoing HD treatment. VSS, No complaints of pain. Vascular checks ongoing, pulses present with doppler.
Patient ate 100% of breakfast, in good spirits.
[2025-01-30] MEDS: NEPHROCAP 1 CAPSULE PO (09:31)
[2025-01-30] MEDS: PROTONIX 20 MG PO (09:31)
[2025-01-30] MEDS: ENTRESTO 97 MG/103 MG 1 TAB PO ×2 (09:31→21:46)
[2025-01-30] MEDS: ZINC 50 MG PO (09:32)
[2025-01-30] MEDS: THERAGRAN 1 TABLET PO (09:32)
[2025-01-30] MEDS: VITAMIN C 500 MG PO (09:32)
[2025-01-30] MEDS: RENVELA 800 MG PO ×3 (09:32→17:47)
[2025-01-30] MEDS: VITAMIN D3 (cholecalciferol) 50 MCG PO (09:32)
--- NOTE | 2025-01-30 09:34 | W.CON.NEPH ---
Consultation
-
Date/Time Consultation Requested: 01/29/25 1133
Date/Time Consultation Performed: 01/30/25 0945
Requesting Provider: Jose Martin Cash
Performing Provider: Jeanne Escobar
Reason for Consultation: ESRD
Medical History
-
Chief Complaint: CLI
History of Present Illness:
Mr. Downing is a 74 yo male with longstanding HFrEF from a nonischemic dilated cardiomyopathy on enteresto,h/o VT s/p ICD, persistent atrial fibrillation on Eliquis (he did not tolerate Amiodarone), ESRD on HD TTS through CVC at [facility],
[place], new AVF 3m old, COPD (former smoker), admitted electively for revascularization of right leg CLI. He underwent right femoral endarterectomy 01/29/2025y Dr. Mahoney. Subsequently transferred to the critical care unit for postoperative
care. He remains hemodynamically stable. Offers no CP or sob. No nausea or vomiting. No fever or chills. No abd pain or diarrhea. Patient reports that his pain is controlled. Pt reports AVF was accessed with one needle but infiltrated now, CVC
remains in use. Last HD was 2 days ago.
.
Past Medical History
ESRD
COPD
Atrial fibrillation
Gout
Nonischemic cardiomyopathy with EF of 35 percent
History of ventricular tachycardia
Diabetes
PVD
Hyperphosphatemia
Past Surgical History: Other (AVF r UE, s/p Right femoral endarterectomy with interposition common femoral to femoral bifurcation artery bypass with nonreversed ipsilateral greater saphenous vein conduit. 01/29/2025 Dr. Mahoney)
Social History
Tobacco: Former Smoker
Alcohol: None
Drug: None
Living: With Family
Family History
No CKD
Allergies / Home Medications
Allergy/AdvReac Type Severity Reaction Status Date / Time
vaccinations Allergy Severe Rash Uncoded 01/29/25 10:23
�Medication �Instructions �Recorded �Confirmed �Type
cholecalciferol (vitamin D3) 50 2,000 unit PO DAILY Supplement 07/28/14 01/29/25 History
mcg (2,000 unit) tablet
albuterol sulfate 2.5 mg/3 mL 2.5 mg inhalation Q6HPRN PRN sob 08/07/20 01/29/25 History
(0.083 %) solution for nebulization
ascorbic acid (vitamin C) 500 mg 500 mg PO DAILY Supplement 08/07/20 01/29/25 History
tablet (Vitamin C)
budesonide 160 mcg-glycopyr 9 2 inh inhalation R BID 08/19/22 01/29/25 History
mcg-formot 4.8 mcg/actuation HFA Lung/Breathing Issues
inhaler (Breztri Aerosphere)
albuterol sulfate 90 mcg/actuation 2 puff inhalation R BID 04/04/24 01/29/25 History
aerosol inhaler Lung/Breathing Issues
apixaban 5 mg tablet (Eliquis) 5 mg PO BID Blood Clot 04/04/24 01/29/25 History
Held on 11/01/24. Prevention/Tx
Instructions: Resume on
11/02/24.
sacubitril 97 mg-valsartan 103 mg 1 tab PO BID Heart Failure 04/04/24 01/29/25 History
tablet (Entresto)
metoprolol succinate 50 mg 50 mg PO HS 10/10/24 01/29/25 History
tablet,extended release 24 hr
zinc acetate 50 mg (zinc) capsule 50 mg PO DAILY 10/10/24 01/29/25 History
multivitamin 1 tab PO DAILY 01/29/25 01/29/25 History
sevelamer carbonate 800 mg tablet 800 mg PO TID 01/29/25 01/29/25 History
vitamin B complex-vitamin C-folic 1 tab PO DAILY 01/29/25 01/29/25 History
acid 0.8 mg tablet (Shira-Hanna)
Review of Systems
-
All other systems: Negative unless noted
Physical Exam
Vital Signs
Vital Signs
Temp Pulse Resp BP Pulse Ox
98.2 F 83 16 105/63 95
01/30/25 03:41 01/30/25 08:31 01/30/25 08:31 01/30/25 07:23 01/30/25 08:31
Lab Results
WBC 4.8 10^3/uL (4.8-10.8) 01/30/25 03:
RBC 2.64 10^6/uL (4.70-6.10) L 01/30/25 03:31
Hgb 9.4 g/dL (13.0-18.0) L 01/30/25 03:31
Hct 27.9 % (39.0-52.0) L 01/30/25 03:31
Plt Count 144 10^3/uL (130-400) 01/30/25 03:31
Sodium 134 mmol/L (135-145) L 01/30/25 03:31
Potassium 5.3 mmol/L (3.5-5.1) H 01/30/25 03:31
Chloride 98 mmol/L (98-107) 01/30/25 03:31
Carbon Dioxide 23 mmol/L (22-30) 01/30/25 03:31
BUN 43 mg/dl (9-20) H 01/30/25 03:31
Creatinine 4.9 mg/dL (0.7-1.3) H* 01/30/25 03:
eGFR 11.73 01/30/25 03:31
Glucose 146 mg/dl (70-99) H 01/30/25 03:31
Calcium 8.0 mg/dl (8.4-10.2) L 01/30/25 03:31
Physical Exam
General: Awake, Alert, Oriented, AOx3 and No Distress
HEENT: EOMI, Anicteric, Conjunctivae Clear and Facial Symmetry
Respiratory: Clear, Normal Excursion and Nonlabored Respirations
Cardiac: S1/S2 and Regular Rate/Rhythm
Breast: Deferred by me
Abdomen: Soft, Nontender and Nondistended
Musculoskeletal: Edema (trace) and Other (right GT discoloration, 3rd toe tip ulcer )
Skin: No Rash
Neuro: Nonfocal/Grossly Intact
Psych: Mood/afflect pleasant, Insight/judgement good and Appropriate
Vascular Access: AVF and CVC
Data Reviewed
-
Labs: Labs Reviewed by me and Discussed with Patient
Assessment/Plan
-
Impression:
Chronic limb threatening ischemia of the right lower extremity.
Right femoral endarterectomy with interposition common femoral to femoral bifurcation artery bypass with nonreversed ipsilateral greater saphenous vein conduit. 01/29/2025 Dr. Mahoney
Peripheral arterial disease
ESRD on dialysis [facility]
Right carotid stenosis
Type 2 diabetes
Hyperlipidemia
Hypertension
Nonischemic cardiomyopathy with EF of 30%
History of ventricular tachycardia/ICD
History of DVT
Atrial fibrillation-status post cardioversion in 2022.
Previous history of cardiac ablation
Gout
COPD
Right UE AVF 10/2024
Hyperphosphatemia
Plan
A/w CLI s/p elective right femoral endarterectomy 01/29
hemodynamically stable
HD today as per schedule
renal diet and FR for ESRD
will use CVC since AVF seem infiltrated recently at out pt
resume phos binders
d/w pt
--- NOTE | 2025-01-30 10:10 | W.PN.NEPH.HD ---
Assessment
-
pt seen during HD
vitals stable
UF limited by soft BPs
using CVC for now
right UE AVF reportedly only recently accessed with 1 needle at HD unit and has infiltration so avoiding use
Progress Note - Hemodialysis
-
Date of Service: January 30, 2025
Duration: 30 minutes and 3 hours
Potassium Bath: 2
Calcium Bath: 2.5
Opti-Dialyzer: 160
Ultrafiltration: Other (1.5-2kg)
Blood Flow: 400
Dialysate Flow: 600
Heparin: no
EPO: 4000
--- NOTE | 2025-01-30 11:32 | W.PN.INTV ---
Today's Communication / Plan
Recommendations
Continue postoperative care
Dialysis today
Monitor daily hemoglobin
Neurovascular checks per protocol
ICU level for now-reevaluate in the afternoon after dialysis
Assessment
-
74-year-old man with past medical history noted. History of chronic right lower extremity limb ischemia-admitted from the outpatient for right femoral endarterectomy. Procedure underwent without complication on 01/29/2025.
Critical care consulted for postoperative management.
Chronic limb threatening ischemia of the right lower extremity.
Right femoral endarterectomy with interposition common femoral to femoral bifurcation artery bypass with nonreversed ipsilateral greater saphenous vein conduit. 01/29/2025 Dr. Mahoney
Conditions present prior admission:
Peripheral arterial disease
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
Right carotid stenosis
Type 2 diabetes
Hyperlipidemia
Chronic kidney disease
Hypertension
Obesity
Heart failure systolic
ICD in place
Hyperparathyroidism
History of DVT
Atrial fibrillation-status post cardioversion in 2022.
Previous history of cardiac ablation
Gout
? COPD-on Breztri
Former smoker
Assessment and plan:
Postoperative day 1
Hemodynamically stable overnight.
Pain is controlled
Right distal extremity is warm, distal pulses present.
-
Continue postoperative care
Increase activity when able
Incentive spirometry
-
? COPD-no evidence for acute exacerbation.
Nebulizers if needed-currently not bronchospastic
Continue--Inhalers. Usually on Breztri-does not follow-up locally
Incision intact without hematoma.
Right lower extremity peripheral pulses present. Distal extremity feels warm
Continue analgesia with as needed narcotics. Monitor respiratory status closely.
Neuro and vascular checks per protocol
Vascular surgery following-correspondence and operative notes reviewed
Hemodynamically stable
Restart outpatient medication
Dialysis per nephrology-undergoing dialysis 01/30/2025.
Follow hemoglobin-patient has chronic anemia from chronic kidney disease. Stable
Follow blood sugars
Insulin supplementation as needed
DVT prophylaxis
ICU monitoring for now,-Will reevaluate after dialysis for possible transfer to floors
Subjective Dataa
Subjective Data
Date of Service:
Date of Service: January 30, 2025
Chief Complaint: [employer] Professional Follow Up (Status post right femoral endarterectomy)
Subjective:
Patient offers no new complaints from
No significant pain
Denies shortness of breath
About to get dialysis.
Review of Systems
General: Fever (n)
Cardiopulmonary: Dyspnea (none at rest)
GI: Abdominal Pain (n) and Nausea (n)
Neuro: Headache (n)
Objective Data
Data Reviewed
Vital Signs / I&O / Oxygen:
Vital Signs
Temp Pulse Resp BP Pulse Ox
98.2 F 86 18 117/54 95
01/30/25 03:41 01/30/25 10:15 01/30/25 10:15 01/30/25 10:15 01/30/25 08:31
Intake and Output
01/29/25 01/30/25 01/31/25
06:59 06:59 06:59
Intake Total 860 / 860 240 / 240
Output Total 0 / 0
Balance 860 / 860 240 / 240
SaO2 95
Nasal Cannula flow liters per 2
minute
Physical Exam
General: Comfortable
HEENT: Normocephalic
Cardiovascular: S1-S2
Respiratory: Non-Labored Respirations
GI: Soft and Non Distended
Neurology: Awake and Alert
Skin: Warm and Other (Right femoral endarterectomy dressing is clean. Right foot is warm. Distal pulses palpable)
Labs/Micro/Reports
Lab Data
01/30/25 03:31
01/30/25 03:31
Laboratory Results
01/30/25
03:31
PT 15.4 H
INR 1.17
APTT 32.3
[2025-01-30 11:55] LABS: Glucose - Point of Care 138 mg/dl (70-99)
[2025-01-30] MEDS: NOVOLOG FLEXPEN-MODERATE RESISTANCE SC ×2 (12:20→17:32)
[2025-01-30] MEDS: RETACRIT 4000 UNITS IV (12:21)
[2025-01-30] MEDS: COLACE 100 MG PO (13:38)
[2025-01-30] MEDS: SENOKOT 8.6 MG PO (13:38)
--- NOTE | 2025-01-30 14:36 | PTCARENOTE ---
Patient OOB to chair with standby assist. Q1 neurovasc checks ongoing. Physical assessment unchanged from previous. Patient resting comfortably in chair watching television. HD done this morning, 1.5L removed.
--- NOTE | 2025-01-30 14:51 | CM ---
Initial assessment completed with patient who lives with his son and D-I-L in a 2 story home plus in-law suite in [place]. Patient lives in the in-law suite and has no steps from the back of the home. 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
ambulation, does not drive. He has and occasionally uses a standard walker, rollator and 4 prong cane. He does have HH services for RN and PT through [facility]. He has been on hemodialysis since last February. His chair time is on @ 5:30am at
[facility] in [facility]. He does have a HC-POA. Was in the [place] and has VA benefits. No psychiatric hospitalizations. PCP is Dr. Dara Medrano. Pharmacy is [facility] in [place]. Discharge POC: Anticipate resumption of [facility] RN, PT.
[2025-01-30 17:31] LABS: Glucose - Point of Care 127 mg/dl (70-99)
[2025-01-30] MEDS: ULTRAM 50 MG PO (17:47)
--- NOTE | 2025-01-30 18:21 | PTCARENOTE ---
Patient resting comfortably in chair, eating dinner and watching television. Assessment unchanged. Care ongoing.
--- NOTE | 2025-01-30 21:15 | PTCARENOTE ---
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 RA Sat 97%. SBP continues to be labile in 80s, KFlahertyNP aware, EDGE SAWYER to order IVF bolus/Rafa gtt. care ongoing.
--- NOTE | 2025-01-30 21:41 | W.PN.UPDATE ---
Update Note
Progress Note Update
Patient continues with hypotension SBP 80s and MAP 50s. Will hold nighttime antihypertensive, Toprol. Had dialysis today with removal of fluid. Give IVF bolus 250cc and xiomy gtt prn for MAP >65. Dr. Palmer, vascular surgeon updated on
hypotension and agreed with plan.
[2025-01-30] MEDS: ELIQUIS 5 MG PO (21:45)
[2025-01-30] MEDS: NSS 250 IV (21:45)
[2025-01-30] MEDS: COLACE PO (21:46)
[2025-01-30] MEDS: SENOKOT PO (21:46)
[2025-01-31] VITALS (44 sets, daily range): BP systolic 74–126; BP diastolic 38–66; PULSE 80; O2SAT 100; BMI 28.3
[2025-01-31 00:17] LABS: Glucose - Point of Care 117 mg/dl (70-99)
[2025-01-31] MEDS: NOVOLOG FLEXPEN-MODERATE RESISTANCE SC ×4 (00:26→17:26)
[2025-01-31] MEDS: NEO-SYNEPHRINE 250 IV (01:08)
--- NOTE | 2025-01-31 01:10 | PTCARENOTE ---
pt SBP 80s despite 250cc NSS bolus, xiomy gtt started per order. no further changes in assessment.
--- NOTE | 2025-01-31 04:43 | PTCARENOTE ---
KFlahertyNP aware of ongoing hypotension/need for increases in Rafa gtt. otherwise no changes in pt assessment.
[2025-01-31 04:58] LABS: Hematocrit 30.1 % (39.0-52.0); Hemoglobin 9.8 g/dL (13.0-18.0); Mean Corp Hgb Conc. 32.6 g/dL (33.0-37.0); Mean Corpuscular Volume 105.2 fL (80.0-94.0); Platelet Count 147 10^3/uL (130-400); Red Cell Dist. Width 14.9 % (11.5-14.5)
[2025-01-31 05:36] LABS: Blood Urea Nitrogen 34 mg/dl (9-20); Calcium 8.8 mg/dl (8.4-10.2); Carbon Dioxide 27 mmol/L (22-30); Chloride 97 mmol/L (98-107); Estimated Creatinine Clearance 16 ml/min; Glucose 113 mg/dl (70-99); Potassium 4.9 mmol/L (3.5-5.1); Sodium 135 mmol/L (135-145); eGFR 14.53
[2025-01-31 06:31] LABS: Glucose - Point of Care 146 mg/dl (70-99)
[2025-01-31] MEDS: SPIRIVA RESPIMAT 2.5 MCG 2 PUFF INH (07:22)
[2025-01-31] MEDS: SYMBICORT 160/4.5 MCG INHALER 2 PUFF INH ×2 (07:23→20:44)
--- NOTE | 2025-01-31 09:03 | PTCARENOTE ---
Discussed the plan of care and reviewed the events overnight regarding hypotension requiring 250ml fluid bolus then initiating Rafa-synephrine for MAP>65. Reviewed Ultrasound results from yesterday and BP parameters were adjusted. Pt is aware of the
plan of care.
--- NOTE | 2025-01-31 09:42 | W.PN.NEPH.PH ---
Today's Communication / Plan
-
HD tomorrow
Assessment/Plan
-
Impression:
Chronic limb threatening ischemia of the right lower extremity.
Right femoral endarterectomy with interposition common femoral to femoral bifurcation artery bypass with nonreversed ipsilateral greater saphenous vein conduit. 01/29/2025 Dr. Mahoney
Peripheral arterial disease
ESRD on dialysis [facility]
Right carotid stenosis
Type 2 diabetes
Hyperlipidemia
Hypertension
Nonischemic cardiomyopathy with EF of 30%
History of ventricular tachycardia/ICD
History of DVT
Atrial fibrillation-status post cardioversion in 2022.
Previous history of cardiac ablation
Gout
COPD
Right UE AVF 10/2024
Hyperphosphatemia
Plan
A/w CLI s/p elective right femoral endarterectomy 01/29
HD tomorrow
resting AVF
stop entresto
accept SBP > 90 on cuff
wean pressors
-
-
Date of Service: January 31, 2025
CC / HPI / ROS
-
Chief Complaint:
ESRD
History of Present Illness:
tolerated HD yesterday
BP low, now on pressors
hgb stable 9.8
Review of Systems:
no CP/SOB
Labs
-
Labs:
WBC 9.2 10^3/uL (4.8-10.8) 01/31/25 04:20
RBC 2.86 10^6/uL (4.70-6.10) L 01/31/25 04:20
Hgb 9.8 g/dL (13.0-18.0) L 01/31/25 04:20
Hct 30.1 % (39.0-52.0) L 01/31/25 04:20
Plt Count 147 10^3/uL (130-400) 01/31/25 04:20
Sodium 135 mmol/L (135-145) 01/31/25 04:20
Potassium 4.9 mmol/L (3.5-5.1) 01/31/25 04:20
Chloride 97 mmol/L (98-107) L 01/31/25 04:20
Carbon Dioxide 27 mmol/L (22-30) 01/31/25 04:20
BUN 34 mg/dl (9-20) H 01/31/25 04:20
Creatinine 4.1 mg/dL (0.7-1.3) H* 01/31/25 04:20
eGFR 14.53 01/31/25 04:20
Glucose 113 mg/dl (70-99) H 01/31/25 04:20
Calcium 8.8 mg/dl (8.4-10.2) 01/31/25 04:20
Physical Exam
-
Vital Signs:
Vital Signs
Temp Pulse Resp BP Pulse Ox
98.3 F 72 23 97/49 97
01/31/25 08:00 01/31/25 07:31 01/31/25 07:31 01/31/25 07:31 01/31/25 07:26
Cardiovascular:: Regular rate and rhythm
Respiratory:: Bilateral: Coarse
Lung Excursion:: Normal
Abdomen:: Nontender and Soft
Bowel Sounds:: Normal
Extremity Edema:: +1: Bilateral:
[2025-01-31] MEDS: COLACE 100 MG PO ×2 (10:18→21:11)
[2025-01-31] MEDS: SENOKOT 8.6 MG PO ×2 (10:18→21:11)
[2025-01-31] MEDS: ULTRAM 50 MG PO (10:18)
[2025-01-31] MEDS: VITAMIN C 500 MG PO (10:18)
[2025-01-31] MEDS: ZINC 50 MG PO (10:19)
[2025-01-31] MEDS: VITAMIN D3 (cholecalciferol) 50 MCG PO (10:19)
[2025-01-31] MEDS: NEPHROCAP 1 CAPSULE PO (10:19)
[2025-01-31] MEDS: THERAGRAN 1 TABLET PO (10:20)
[2025-01-31] MEDS: ELIQUIS 5 MG PO ×2 (10:20→21:11)
[2025-01-31] MEDS: PROTONIX 20 MG PO (10:20)
[2025-01-31] MEDS: RENVELA 800 MG PO ×3 (10:20→17:26)
[2025-01-31] MEDS: ENTRESTO 97 MG/103 MG PO (10:23)
[2025-01-31] MEDS: TYLENOL 650 MG PO ×3 (12:20→21:44)
[2025-01-31 12:21] LABS: Glucose - Point of Care 122 mg/dl (70-99)
--- NOTE | 2025-01-31 12:43 | W.PN.INTV ---
Today's Communication / Plan
Recommendations
Wean down Rafa-Synephrine
Continue neurovascular checks
Follow hemoglobin
Follow electrolytes
Dialysis as able
Analgesia will continue
Maintain ICU monitoring
Assessment
-
74-year-old man with past medical history noted. History of chronic right lower extremity limb ischemia-admitted from the outpatient for right femoral endarterectomy. Procedure underwent without complication on 01/29/2025.
Critical care consulted for postoperative management.
Chronic limb threatening ischemia of the right lower extremity.
Right femoral endarterectomy with interposition common femoral to femoral bifurcation artery bypass with nonreversed ipsilateral greater saphenous vein conduit. 01/29/2025 Dr. Mahoney
Conditions present prior admission:
Peripheral arterial disease
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
Right carotid stenosis
Type 2 diabetes
Hyperlipidemia
Chronic kidney disease
Hypertension
Obesity
Heart failure systolic
ICD in place
Hyperparathyroidism
History of DVT
Atrial fibrillation-status post cardioversion in 2022.
Previous history of cardiac ablation
Gout
? COPD-on Breztri
Former smoker
Assessment and plan:
Postoperative day 2
Unfortunately developed hypotension overnight-required starting of vasopressors.
Currently on low-dose Rafa-Synephrine.
All antihypertensive on hold
Hypotension occurred after dialysis
Bolus of 250 mL of crystalloids were given
Blood pressure slowly recovering.
Maintain ICU monitoring while on pressors.
-
Pain is controlled
Right distal extremity is warm, distal pulses present.
-
Continue postoperative care
Increase activity when able
Incentive spirometry
-
? COPD-no evidence for acute exacerbation.
Nebulizers if needed-currently not bronchospastic
Continue--Inhalers. Usually on Breztri-follows up at [facility].
Incision intact without hematoma.
Right lower extremity peripheral pulses present. Distal extremity feels warm
Continue analgesia with as needed narcotics. Monitor respiratory status closely.
Neuro and vascular checks per protocol
Vascular surgery following-correspondence and operative notes reviewed
Dialysis per nephrology-undergoing dialysis 01/30/2025.
Hypotension postdialysis.
Follow hemoglobin-patient has chronic anemia from chronic kidney disease. Stable
Follow blood sugars
Insulin supplementation as needed
DVT prophylaxis
ICU monitoring for now
-
Critical care statement: A total of 31 minutes of critical care time was provided for this patient today. This includes management of unstable vital signs, evaluation of the patient at bedside, reviewing the patient's pertinent medical records
including ventilator settings, arterial blood gases, radiographs, microbiology, laboratory evaluations and discussion with primary team, critical care nursing, and respiratory therapy.
Subjective Dataa
Subjective Data
Date of Service:
Date of Service: January 31, 2025
Chief Complaint: [employer] Supervisor Follow Up (Status post right femoral endarterectomy)
Subjective:
Patient offers no complaints this morning
Sitting out of the chair
Denies shortness of breath or chest pain.
Review of Systems
General: Fever (n)
Cardiopulmonary: Dyspnea (none at resst)
GI: Abdominal Pain (n) and Nausea
Neuro: Headache (n)
Objective Data
Data Reviewed
Vital Signs / I&O / Oxygen:
Vital Signs
Temp Pulse Resp BP Pulse Ox
97.4 F 83 13 115/63 96
01/31/25 12:18 01/31/25 12:00 01/31/25 11:00 01/31/25 12:00 01/31/25 11:41
Intake and Output
01/30/25 01/31/25 02/01/25
06:59 06:59 06:59
Intake Total 860 / 860 908 / 908 382.5 / 382.5
Output Total 0 / 0
Balance 860 / 860 908 / 908 382.5 / 382.5
SaO2 96
Nasal Cannula flow liters per 2
minute
Physical Exam
General: Comfortable
HEENT: Normocephalic
Cardiovascular: S1-S2
Respiratory: Non-Labored Respirations
GI: Soft and Non Distended
Neurology: Awake and Alert
Skin: Warm and Other (Right femoral endarterectomy dressing is clean. Right foot is warm. Distal pulses palpable)
Labs/Micro/Reports
Lab Data
01/31/25 04:20
01/31/25 04:20
Microbiology
01/29/25 18:45 Nose MRSA Screen - Final
No Methicillin Resistant Staphylococcus aureus isolated.
--- NOTE | 2025-01-31 15:02 | W.PN.VS ---
Today's Communication / Plan
-
.
Assessment/Plan
-
Assessment: 74 year old male POD#2 Right femoral endarterectomy with interposition common femoral to femoral bifurcation artery bypass with nonreversed ipsilateral greater saphenous vein conduit.
I reviewed his carotid duplex which suggests evidence of LSCA disease - peripheral cuff has been on the left because the RUE has a restriction due to HD access. May explain low BP readings. No evidence of bleeding
Plan:
HD per nephrology
PT/OT/OOB
Home meds
Diet
Wean Rafa off to achieve a SBP goal of greater than 90 mmHg
Remove groin dressing tomorrow
Subjective Data
-
Date of Service: January 31, 2025
Seen and examined earlier this AM
Comfortable
Notes from overnight reviewed
Pt on Rafa this AM for low BP
No complaints this AM
Pain well controlled
Nurse reported that 1.5 L removed at HD yesterday
Objective Data
-
Vital Signs
Temp Pulse Resp BP Pulse Ox
97.4 F 96 20 110/66 96
01/31/25 12:18 01/31/25 12:30 01/31/25 12:30 01/31/25 12:30 01/31/25 11:41
Intake and Output
01/30/25 01/31/25 02/01/25
06:59 06:59 06:59
Intake Total 860 / 860 908 / 908 622.5 / 622.5
Output Total 0 / 0
Balance 860 / 860 908 / 908 622.5 / 622.5
Intake:
Oral fluids 720 / 720 640 / 640 600 / 600
IV fluids (Total) 140 / 140 18 / 18 22.5 / 22.5
NSS 140 / 140
Rafa 18 / 18 22.5 / 22.5
IV piggybacks 0 / 0 250 / 250
Output:
Urine, Voided 0 / 0
Lab Results
01/31/25 04:20
01/31/25 04:20
Calcium 8.8 mg/dl (8.4-10.2) 01/31/25 04:20
Physical Exam
-
Sitting in chair
at bedside
Right toes with dry gangrene at tips
Foot warm. Dopp signalsintact right foot
Right groin soft. Clean/dry
--- NOTE | 2025-01-31 16:19 | W.PN.UPDATE ---
Update Note
Progress Note Update
Clinically stable. Rafa-Synephrine has been discontinued.
Patient asymptomatic.
Extremities warm with present distal pulses.
Will transfer to telemetry.
Critical care team will sign off
[2025-01-31 17:20] LABS: Glucose - Point of Care 141 mg/dl (70-99)
--- NOTE | 2025-01-31 18:05 | PTCARENOTE ---
Rafa-synephrine able to be tapered off approximately noon. Held entresto this morning per Dr. Marin. Good appetite, no BM, reports some flatus. PRN tramadol & tylenol provided for incision pain with movement. LE pulses obtained via doppler. worked with
PT today. Up in chair for several hours. Plan for HD tomorrow. Call gabriel within reach. Patient calls appropriately.
--- NOTE | 2025-01-31 18:59 | PTCARENOTE ---
Pt with 9bt run VT. Christina KERR notified. Pt asymptomatic. Orders obtained.
[2025-01-31 20:00] LABS: Blood Urea Nitrogen 44 mg/dl (9-20); Calcium 8.7 mg/dl (8.4-10.2); Carbon Dioxide 26 mmol/L (22-30); Chloride 94 mmol/L (98-107); Estimated Creatinine Clearance 14 ml/min; Glucose 118 mg/dl (70-99); Magnesium 2.0 mg/dl (1.6-2.3); Potassium 4.7 mmol/L (3.5-5.1); Sodium 131 mmol/L (135-145); eGFR 12.02
[2025-01-31 21:42] LABS: Glucose - Point of Care 125 mg/dl (70-99)
[2025-01-31] MEDS: TOPROL XL PO (21:44)
--- NOTE | 2025-01-31 23:08 | PTCARENOTE ---
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
[2025-02-01] VITALS (26 sets, daily range): BP systolic 84–111; BP diastolic 40–76; BMI 29.0
[2025-02-01 04:41] LABS: Hematocrit 27.4 % (39.0-52.0); Hemoglobin 8.9 g/dL (13.0-18.0)
[2025-02-01 05:03] LABS: Carbon Dioxide 24 mmol/L (22-30); Chloride 97 mmol/L (98-107); Potassium 4.9 mmol/L (3.5-5.1); Sodium 131 mmol/L (135-145)
[2025-02-01] MEDS: SPIRIVA RESPIMAT 2.5 MCG 2 PUFF INH (07:29)
[2025-02-01] MEDS: SYMBICORT 160/4.5 MCG INHALER 2 PUFF INH ×2 (07:29→18:16)
[2025-02-01 07:38] LABS: Glucose - Point of Care 97 mg/dl (70-99)
[2025-02-01] MEDS: NOVOLOG FLEXPEN-MODERATE RESISTANCE SC ×3 (07:56→17:50)
[2025-02-01] MEDS: FLEXBUMIN 25% FOR HEMODIALYSIS 12.5 GRAMS IV (08:17)
[2025-02-01] MEDS: MANNITOL 25% 12.5 GRAMS IV (08:17)
--- NOTE | 2025-02-01 08:49 | W.PN.NEPH.HD ---
Assessment
-
Seen on HD. no new complaints. VSS, BP low but stable. off pressors and off entresto.
access ok
Progress Note - Hemodialysis
-
Date of Service: February 01, 2025
Duration: 30 minutes and 3 hours
Potassium Bath: 2
Calcium Bath: 2.5
Opti-Dialyzer: 160
Ultrafiltration: Other (2kg)
Blood Flow: 400
Dialysate Flow: 600
Heparin: 0
EPO: 6000 units
[2025-02-01] MEDS: NEPHROCAP 1 CAPSULE PO (08:53)
[2025-02-01] MEDS: COLACE 100 MG PO ×2 (08:53→20:16)
[2025-02-01] MEDS: ZINC 50 MG PO (08:54)
[2025-02-01] MEDS: VITAMIN D3 (cholecalciferol) 50 MCG PO (08:54)
[2025-02-01] MEDS: RENVELA 800 MG PO ×3 (08:54→17:48)
[2025-02-01] MEDS: THERAGRAN 1 TABLET PO (08:54)
[2025-02-01] MEDS: ELIQUIS 5 MG PO ×2 (08:54→20:16)
[2025-02-01] MEDS: VITAMIN C 500 MG PO (08:54)
[2025-02-01] MEDS: SENOKOT 8.6 MG PO ×2 (08:54→20:16)
[2025-02-01] MEDS: RETACRIT 6000 UNITS IV (09:46)
[2025-02-01] MEDS: HEPARIN 4300 UNITS INTRACATH (11:22)
[2025-02-01] MEDS: TYLENOL 650 MG PO ×3 (12:07→22:33)
[2025-02-01 12:34] LABS: Glucose - Point of Care 78 mg/dl (70-99)
--- NOTE | 2025-02-01 13:18 | W.PN.VS ---
Today's Communication / Plan
-
no changes
Assessment/Plan
-
Assessment: 74 year old male POD#3 Right femoral endarterectomy with interposition common femoral to femoral bifurcation artery bypass with nonreversed ipsilateral greater saphenous vein conduit.
I reviewed his carotid duplex which suggests evidence of LSCA disease - peripheral cuff has been on the left because the RUE has a restriction due to HD access. May explain low BP readings. No evidence of bleeding
Plan:
HD per nephrology
PT/OT/OOB
Home meds
Diet
MAPS > 60
Subjective Data
-
Date of Service: February 01, 2025
Pt seen and examined at bedside. NAEO
Objective Data
-
Vital Signs
Temp Pulse Resp BP Pulse Ox
98 F 73 13 100/51 96
02/01/25 11:06 02/01/25 11:30 02/01/25 11:30 02/01/25 11:30 02/01/25 08:00
Intake and Output
01/31/25 02/01/25 02/02/25
06:59 06:59 06:59
Intake Total 908 / 908 1262.5 / 1262.5 240 / 240
Output Total 0 / 0
Balance 908 / 908 1262.5 / 1262.5 240 / 240
Intake:
Oral fluids 640 / 640 1240 / 1240 240 / 240
IV fluids (Total) 18 / 18 22.5 / 22.5
Rafa 18 / 18 22.5 / 22.5
IV piggybacks 250 / 250
Output:
Urine, Voided 0 / 0
Lab Results
02/01/25 04:21
02/01/25 04:21
Calcium 8.7 mg/dl (8.4-10.2) 01/31/25 19:28
Magnesium 2.0 mg/dl (1.6-2.3) 01/31/25 19:28
Magnesium Cancelled 01/31/25 19:28
Physical Exam
-
Gen: NAD, AO3
Groin: incision C/D/I
RLE: triphasic PT signal
--- NOTE | 2025-02-01 16:14 | PTCARENOTE ---
Patient transferred from ICU to room 2119 via wheelchair. Report called to receiving RN Yecenia. Belongings packed and sent with patient.
[2025-02-01 17:52] LABS: Glucose - Point of Care 149 mg/dl (70-99)
[2025-02-01 21:46] LABS: Glucose - Point of Care 93 mg/dl (70-99)
[2025-02-01] MEDS: TOPROL XL PO (22:49)
--- NOTE | 2025-02-01 22:49 | PTCARENOTE ---
Pt ordered Toprol XL 5omg at HS. BP 103/45 HR 86. RESIDENTIAL ADVISOR notified. Order for HOLD parameters placed. Medication held as per provider order.
[2025-02-02] MEDS: ULTRAM 50 MG PO ×2 (00:28→08:40)
[2025-02-02 02:55] VITALS: BP 113/50
[2025-02-02 06:27] LABS: Hematocrit 28.2 % (39.0-52.0); Hemoglobin 9.0 g/dL (13.0-18.0); Mean Corp Hgb Conc. 31.9 g/dL (33.0-37.0); Mean Corpuscular Volume 108.5 fL (80.0-94.0); Platelet Count 119 10^3/uL (130-400); Red Cell Dist. Width 14.8 % (11.5-14.5)
[2025-02-02 07:01] LABS: Blood Urea Nitrogen 35 mg/dl (9-20); Calcium 8.5 mg/dl (8.4-10.2); Carbon Dioxide 26 mmol/L (22-30); Chloride 97 mmol/L (98-107); Estimated Creatinine Clearance 16 ml/min; Glucose 101 mg/dl (70-99); Magnesium 1.9 mg/dl (1.6-2.3); Potassium 4.3 mmol/L (3.5-5.1); Sodium 135 mmol/L (135-145); eGFR 14.96
[2025-02-02 07:19] LABS: Glucose - Point of Care 97 mg/dl (70-99)
[2025-02-02] MEDS: NOVOLOG FLEXPEN-MODERATE RESISTANCE SC ×3 (07:20→17:52)
[2025-02-02 07:40] VITALS: BP 114/44
[2025-02-02] MEDS: SPIRIVA RESPIMAT 2.5 MCG 2 PUFF INH (08:10)
[2025-02-02] MEDS: SYMBICORT 160/4.5 MCG INHALER 2 PUFF INH ×2 (08:11→18:06)
[2025-02-02] MEDS: ELIQUIS 5 MG PO ×2 (08:16→20:32)
[2025-02-02] MEDS: RENVELA 800 MG PO ×3 (08:16→18:44)
[2025-02-02] MEDS: THERAGRAN 1 TABLET PO (08:16)
[2025-02-02] MEDS: COLACE 100 MG PO ×2 (08:16→20:32)
[2025-02-02] MEDS: NEPHROCAP 1 CAPSULE PO (08:17)
[2025-02-02] MEDS: SENOKOT 8.6 MG PO ×2 (08:17→20:33)
[2025-02-02] MEDS: ZINC 50 MG PO (08:17)
[2025-02-02] MEDS: VITAMIN D3 (cholecalciferol) 50 MCG PO (08:18)
[2025-02-02] MEDS: VITAMIN C 500 MG PO (08:18)
[2025-02-02 11:15] VITALS: BP 107/59
[2025-02-02 11:46] LABS: Glucose - Point of Care 108 mg/dl (70-99)
--- NOTE | 2025-02-02 13:31 | W.PN.NEPH.PH ---
Today's Communication / Plan
-
next HD monday
Assessment/Plan
-
Impression:
Chronic limb threatening ischemia of the right lower extremity.
Right femoral endarterectomy with interposition common femoral to femoral bifurcation artery bypass with nonreversed ipsilateral greater saphenous vein conduit. 01/29/2025 Dr. Mahoney
Peripheral arterial disease
ESRD on dialysis [facility]
Right carotid stenosis
Type 2 diabetes
Hyperlipidemia
Hypertension
Nonischemic cardiomyopathy with EF of 30%
History of ventricular tachycardia/ICD
History of DVT
Atrial fibrillation-status post cardioversion in 2022.
Previous history of cardiac ablation
Gout
COPD
Right UE AVF 10/2024
Hyperphosphatemia
Plan
A/w CLI s/p elective right femoral endarterectomy 01/29
HD monday
resting AVF
no entresto
accept SBP > 90 on cuff
no midodrine needed
dc planning
-
-
Date of Service: February 02, 2025
CC / HPI / ROS
-
Chief Complaint:
ESRD
History of Present Illness:
tolerated HD yesterday
BP stable
hgb stable 9.0
Review of Systems:
no CP/SOB
Labs
-
Labs:
WBC 4.3 10^3/uL (4.8-10.8) L 02/02/25 06:06
RBC 2.60 10^6/uL (4.70-6.10) L 02/02/25 06:06
Hgb 9.0 g/dL (13.0-18.0) L 02/02/25 06:06
Hct 28.2 % (39.0-52.0) L 02/02/25 06:06
Plt Count 119 10^3/uL (130-400) L 02/02/25 06:06
Sodium 135 mmol/L (135-145) 02/02/25 06:06
Potassium 4.3 mmol/L (3.5-5.1) 02/02/25 06:06
Chloride 97 mmol/L (98-107) L 02/02/25 06:06
Carbon Dioxide 26 mmol/L (22-30) 02/02/25 06:06
BUN 35 mg/dl (9-20) H 02/02/25 06:06
Creatinine 4.0 mg/dL (0.7-1.3) H 02/02/25 06:06
eGFR 14.96 02/02/25 06:06
Glucose 101 mg/dl (70-99) H 02/02/25 06:06
Calcium 8.5 mg/dl (8.4-10.2) 02/02/25 06:06
Physical Exam
-
Vital Signs:
Vital Signs
Temp Pulse Resp BP Pulse Ox
98.3 F 78 16 107/59 95
02/02/25 11:15 02/02/25 11:15 02/02/25 11:15 02/02/25 11:15 02/02/25 11:15
Cardiovascular:: Regular rate and rhythm
Respiratory:: Bilateral: Coarse
Lung Excursion:: Normal
Abdomen:: Nontender and Soft
Bowel Sounds:: Normal
Extremity Edema:: +1: Bilateral:
[2025-02-02 15:25] VITALS: BP 112/57
[2025-02-02 17:49] LABS: Glucose - Point of Care 133 mg/dl (70-99)
--- NOTE | 2025-02-02 18:01 | PTCARENOTE ---
Patient asking for something for anxiety. states he cant seem to settle down and has taken ativan before in the hospital. Pt states he has not been sleeping. TT sent to [facility].
--- NOTE | 2025-02-02 18:37 | W.PN.VS ---
Today's Communication / Plan
-
dc planning
Assessment/Plan
-
Assessment: 74 year old male POD#3 Right femoral endarterectomy with interposition common femoral to femoral bifurcation artery bypass with nonreversed ipsilateral greater saphenous vein conduit.
I reviewed his carotid duplex which suggests evidence of LSCA disease - peripheral cuff has been on the left because the RUE has a restriction due to HD access. May explain low BP readings. No evidence of bleeding
Plan:
HD per nephrology
PT/OT/OOB
Home meds
Diet
MAPS > 60
Subjective Data
-
Date of Service: February 02, 2025
NAEO. downgraded to floor.
Objective Data
-
Vital Signs
Temp Pulse Resp BP Pulse Ox
97.8 F 79 16 112/57 95
02/02/25 15:25 02/02/25 15:25 02/02/25 15:25 02/02/25 15:25 02/02/25 15:25
Intake and Output
02/01/25 02/02/25 02/03/25
06:59 06:59 06:59
Intake Total 1262.5 / 1262.5 480 / 480 480 / 480
Output Total 0 / 0
Balance 1262.5 / 1262.5 480 / 480 480 / 480
Intake:
Oral fluids 1240 / 1240 480 / 480 480 / 480
IV fluids (Total) 22.5 / 22.5
Rafa 22.5 / 22.5
Output:
Urine, Voided 0 / 0
Other:
Number of approximated MODERATE 1
amounts of urine
Lab Results
02/02/25 06:06
02/02/25 06:06
Calcium 8.5 mg/dl (8.4-10.2) 02/02/25 06:06
Magnesium 1.9 mg/dl (1.6-2.3) 02/02/25 06:06
Physical Exam
-
Gen: NAD, AO3
Groin: incision C/D/I
RLE: triphasic PT signal
[2025-02-02] MEDS: XANAX 0.5 MG PO (18:44)
[2025-02-02 19:10] VITALS: BP 111/51
[2025-02-02] MEDS: ANCEF 5 IV (20:31)
[2025-02-02 21:39] LABS: Glucose - Point of Care 140 mg/dl (70-99)
[2025-02-02] MEDS: TOPROL XL PO (22:20)
[2025-02-02 23:00] VITALS: BP 109/54
[2025-02-03] VITALS (8 sets, daily range): BP systolic 94–130; BP diastolic 49–57; PULSE 84; O2SAT 96; BMI 28.7
[2025-02-03 08:12] LABS: Glucose - Point of Care 112 mg/dl (70-99)
[2025-02-03] MEDS: SPIRIVA RESPIMAT 2.5 MCG 2 PUFF INH (08:38)
[2025-02-03] MEDS: SYMBICORT 160/4.5 MCG INHALER 2 PUFF INH ×2 (08:38→20:31)
--- NOTE | 2025-02-03 09:33 | W.PN.NEPH.PH ---
Today's Communication / Plan
-
No acute need for dialysis today
Assessment/Plan
-
Impression:
Chronic limb threatening ischemia of the right lower extremity.
Right femoral endarterectomy with interposition common femoral to femoral bifurcation artery bypass with nonreversed ipsilateral greater saphenous vein conduit. 01/29/2025 Dr. Mahoney
Peripheral arterial disease
ESRD on dialysis [facility]
Right carotid stenosis
Type 2 diabetes
Hyperlipidemia
Hypertension
Nonischemic cardiomyopathy with EF of 30%
History of ventricular tachycardia/ICD
History of DVT
Atrial fibrillation-status post cardioversion in 2022.
Previous history of cardiac ablation
Gout
COPD
Right UE AVF 10/2024
Hyperphosphatemia
Plan
A/w CLI s/p elective right femoral endarterectomy 01/29
HD monday
resting AVF
no entresto
accept SBP > 90 on cuff
no midodrine needed
dc planning
-
-
Date of Service: February 03, 2025
CC / HPI / ROS
-
Chief Complaint:
ESRD
History of Present Illness:
tolerated HD yesterday
BP stable
hgb stable 9.0
Review of Systems:
no CP/SOB
Labs
-
Labs:
WBC 4.3 10^3/uL (4.8-10.8) L 02/02/25 06:06
RBC 2.60 10^6/uL (4.70-6.10) L 02/02/25 06:06
Hgb 9.0 g/dL (13.0-18.0) L 02/02/25 06:06
Hct 28.2 % (39.0-52.0) L 02/02/25 06:06
Plt Count 119 10^3/uL (130-400) L 02/02/25 06:06
Sodium 135 mmol/L (135-145) 02/02/25 06:06
Potassium 4.3 mmol/L (3.5-5.1) 02/02/25 06:06
Chloride 97 mmol/L (98-107) L 02/02/25 06:06
Carbon Dioxide 26 mmol/L (22-30) 02/02/25 06:06
BUN 35 mg/dl (9-20) H 02/02/25 06:06
Creatinine 4.0 mg/dL (0.7-1.3) H 02/02/25 06:06
eGFR 14.96 02/02/25 06:06
Glucose 101 mg/dl (70-99) H 02/02/25 06:06
Calcium 8.5 mg/dl (8.4-10.2) 02/02/25 06:06
Physical Exam
-
Vital Signs:
Vital Signs
Temp Pulse Resp BP Pulse Ox
98.4 F 102 16 94/49 96
02/03/25 06:12 02/03/25 08:41 02/03/25 08:41 02/03/25 06:12 02/03/25 08:41
Cardiovascular:: Regular rate and rhythm
Respiratory:: Bilateral: Coarse
Lung Excursion:: Normal
Abdomen:: Nontender and Soft
Bowel Sounds:: Normal
Extremity Edema:: +1: Bilateral:
[2025-02-03] MEDS: NOVOLOG FLEXPEN-MODERATE RESISTANCE SC ×2 (09:42→17:08)
[2025-02-03] MEDS: THERAGRAN 1 TABLET PO (09:43)
[2025-02-03] MEDS: VITAMIN D3 (cholecalciferol) 50 MCG PO (09:43)
[2025-02-03] MEDS: RENVELA 800 MG PO ×3 (09:43→17:40)
[2025-02-03] MEDS: ZINC 50 MG PO (09:43)
[2025-02-03] MEDS: NEPHROCAP 1 CAPSULE PO (09:43)
[2025-02-03] MEDS: COLACE 100 MG PO ×2 (09:44→19:41)
[2025-02-03] MEDS: ELIQUIS 5 MG PO ×2 (09:44→19:41)
[2025-02-03] MEDS: VITAMIN C 500 MG PO (09:44)
[2025-02-03] MEDS: SENOKOT 8.6 MG PO ×2 (09:44→19:41)
--- NOTE | 2025-02-03 10:25 | W.PN.VS ---
Addendum entered and electronically signed by Jose Martin Mahoney MD 02/03/25 10:33:
Seen and examined with DEMETRIS Smyth. Agree with findings as noted below. Exam is stable/improved. Right lower extremity groin incision and thigh incision clean dry and intact. No hematoma. No erythema. No cellulitis. Right foot warm with weak
palpable DP unchanged with good Doppler signal. Stable superficial right first toe dry gangrene. Plan/as discussed and noted below. While we have been holding antihypertensives due to slightly low blood pressure (asymptomatic), BP measurements
may not be completely reliable due to possible inflow disease on the left subclavian artery. In addition heart rate slightly elevated and therefore may need to reinitiate beta-blockade therapy. Dispo planning.
Original Note:
Today's Communication / Plan
-
Patient seen and examined at bedside with Dr. Jose Martin Mahoney M.D., below plan reviewed with attending
Assessment/Plan
-
Assessment: 74 year old male POD#4 Right femoral endarterectomy with interposition common femoral to femoral bifurcation artery bypass with nonreversed ipsilateral greater saphenous vein conduit.
I reviewed his carotid duplex which suggests evidence of LSCA disease - peripheral cuff has been on the left because the RUE has a restriction due to HD access. May explain low BP readings. No evidence of bleeding
Plan:
HD per nephrology
PT/OT/OOB
Diet
MAPS > 60
Patient endorses concern for discharge to home given fatigue following surgery will ask physical therapy to reevaluate for recommendation for possible rehab/snf
Case management for disposition planning
Subjective Data
-
Date of Service: February 03, 2025
Patient seen evaluated bedside, reports well-managed postoperative pain. Does endorse feeling fatigued, but overall doing well. Denies nausea, vomiting, fever, and chills.
Objective Data
-
Vital Signs
Temp Pulse Resp BP Pulse Ox
98.4 F 102 16 94/49 96
02/03/25 06:12 02/03/25 08:41 02/03/25 08:41 02/03/25 06:12 02/03/25 08:41
Intake and Output
02/02/25 02/03/25 02/04/25
06:59 06:59 06:59
Intake Total 480 / 480 960 / 960
Balance 480 / 480 960 / 960
Intake:
Oral fluids 480 / 480 960 / 960
Other:
Number of approximated MODERATE 1
amounts of urine
Lab Results
02/02/25 06:06
02/02/25 06:06
Calcium 8.5 mg/dl (8.4-10.2) 02/02/25 06:06
Magnesium 1.9 mg/dl (1.6-2.3) 02/02/25 06:06
Physical Exam
-
Gen: NAD, AO3
Groin: incision C/D/I, well-approximated
RLE: triphasic PT signal, right hallux dry gangrene stable, mild erythema around calf, +1 edema per patient vastly proved from yesterday
--- NOTE | 2025-02-03 11:11 | W.PN.CD ---
Addendum entered and electronically signed by Marco Duffy MD 02/03/25 12:12:
I saw and examined the patient independently. Majority of MDM performed by me.
The NETWORKING ENGINEER's note was reviewed and I agree with the note.
Comment: 74 yo male with NICM EF 30-35%, chronic HFrEF is admitted post op from vascular surgery. We are consulted for med mgmt in setting of hypotension. Entresto has been held. BP is better. Patient denies dizziness or chest pain. Exam with RRR,
III/ systolic murmur LLSB, 1+ RLE edema. Tele: V paced.
NICM EF 30-35%. Meds limited by BP. Hold entresto. Continue Toprol XL 25mg bid. Trend BP.
Chronic HFrEF. Volume by HD/UF, planned for tomorrow.
Original Note:
Today's Communication / Plan
-
Resume metoprolol and monitor
Volume is managed by HD
Impression / Plan
-
74 y/o male (patient of Dr. Vieira) with HFrEF, NICM EF 32%, AFIB on Eliquis (CV 2022, off amiodarone due to intolerance), VT, biV ICD, PVC s/p ablations, ESRD on HD, COPD, moderate to severe TR, and PAD who is s/p right femoral endarterectomy with
interposition vein graft 01/29/25- Dr. Mahoney. We are consulted regarding his CM GDMT with BP's on low end post-op.
PAD:
-s/p right femoral endarterectomy with interposition vein graft 01/29/25- Dr. Mahoney.
-post-op management per vascular surgery
HFrEF: chronic
-volume managed by HD, which he will get again tomorrow
NICM EF 32%:
-per my review of vascular note, he has evidence for left subclavian artery disease, but cannot check on right due to HD access, and he has severe LE PAD. This may explain low BP readings. He denies any dizziness. He is off Entresto at this time.
BB has been held for BP's, but now resumed at 25 mg PO BID. Continue metoprolol and monitor.
-updated echo as below
-BIV ICD in place
AFIB, likely now permanent:
-on Eliquis for OAC
-rate-controlled
-continue metoprolol and monitor
VT:
-resume metoprolol, ICD in place. Intolerant to amiodarone per chart.
ESRD:
-on HD and nephro following. Getting HD tomorrow.
Data:
Echo 01/31/25: EF is 32%. Global hypokinesis. Dilated RV with reduced systolic function. Mild aortic stenosis. Mild aortic regurgitation. Moderate to severe tricuspid regurgitation. Moderate to severely elevated estimated PASP at 57 compared to
prior from March mmHg. Compared to prior from Apr 05, 2024, no significant change.
Physical Exam
Vital Signs/Labs
Vital Signs
Temp Pulse Resp BP Pulse Ox
98.4 F 102 16 94/49 96
02/03/25 06:12 02/03/25 08:41 02/03/25 08:41 02/03/25 06:12 02/03/25 08:41
02/02/25 02/03/25 02/04/25
06:59 06:59 06:59
Actual Weight 88.082 kg
02/02/25 06:06
02/02/25 06:06
PT 15.4 Sec (11.4-14.6) H 01/30/25 03:31
INR 1.17 01/30/25 03:31
APTT 32.3 Sec (23.4-35.0) 01/30/25 03:31
Magnesium 1.9 mg/dl (1.6-2.3) 02/02/25 06:06
Physical Exam
Constitutional: No acute distress
EENT: Anicteric
Cardiovascular: Rhythm & rate is regular
Respiratory: Respiratory effort normal and Lungs clear to auscul.
Neuro/Psych: AO x 3
Other: Skin (RLE dressing CDI)
Data Reviewed
-
Date of Service: February 03, 2025
EKG: Other (EKG is ordered and pending)
Echo: Report Reviewed by me (as noted)
Labs: Labs Reviewed by me
[2025-02-03] MEDS: TOPROL XL 25 MG PO ×2 (11:23→19:44)
[2025-02-03 11:24] LABS: Glucose - Point of Care 206 mg/dl (70-99)
[2025-02-03] MEDS: ULTRAM 50 MG PO (11:31)
[2025-02-03] MEDS: NOVOLOG FLEXPEN-MODERATE RESISTANCE 3 UNITS SC (11:38)
[2025-02-03] MEDS: TYLENOL 650 MG PO (13:18)
--- NOTE | 2025-02-03 13:23 | CM ---
Reviewed the chart notes and spoke with the patient and spouse at the bedside. Patient and spouse interested in short term rehab. Permission received to sent referrals via [facility]. No precert required. CM continues to be available to
patient/family and is monitoring medical plan for needs at discharge.
Plan: Discharge to SNF/rehab once bed secured. No precert required.
[2025-02-03] MEDS: ROXICODONE 5 MG PO (16:01)
[2025-02-03 17:04] LABS: Glucose - Point of Care 123 mg/dl (70-99)
--- NOTE | 2025-02-03 18:54 | PTCARENOTE ---
Pt c/o pain and increased swelling to RLE. callisthenics instructor vascular, Dr. Lawson, notified. RLE elevated with pillows. Care ongoing.
[2025-02-03] MEDS: ANCEF 5 IV (20:07)
[2025-02-03 21:30] LABS: Glucose - Point of Care 113 mg/dl (70-99)
[2025-02-04] MEDS: DILAUDID 0.5 MG IV ×2 (02:21→16:39)
[2025-02-04 03:00] VITALS: BP 117/58
--- NOTE | 2025-02-04 03:09 | PTCARENOTE ---
Pt c/o 01/01 pain to right groin (surgical incision site). Dilaudid 0.5 mg given for pain; pt vomited small amount of emesis; call center recruiter provider, Gill Lucero notified. Trimethobenzamide ordered for nausea; VSS; Care ongoing;
[2025-02-04 06:00] VITALS: BMI 27.6
[2025-02-04] MEDS: ROXICODONE 5 MG PO ×2 (06:02→13:02)
[2025-02-04 07:00] VITALS: BP 104/45
[2025-02-04 08:00] LABS: Glucose - Point of Care 157 mg/dl (70-99)
[2025-02-04] MEDS: SPIRIVA RESPIMAT 2.5 MCG 2 PUFF INH (08:06)
[2025-02-04] MEDS: SYMBICORT 160/4.5 MCG INHALER 2 PUFF INH ×2 (08:06→20:01)
--- NOTE | 2025-02-04 08:20 | W.PN.VS ---
Today's Communication / Plan
-
Below plan reviewed with on-call attending
Assessment/Plan
-
Assessment: 74 year old male POD#5 Right femoral endarterectomy with interposition common femoral to femoral bifurcation artery bypass with nonreversed ipsilateral greater saphenous vein conduit.
I reviewed his carotid duplex which suggests evidence of LSCA disease - peripheral cuff has been on the left because the RUE has a restriction due to HD access. May explain low BP readings. No evidence of bleeding
Plan:
HD per nephrology, appreciate recommendations
PT/OT/OOB
Diet
MAPS > 60
PT and case management recommendations rehab, case management following for placement
Appreciate cardiology recommendations for dosing of beta-sheela in light of presumed hypotension. However, BP measurements may not be completely reliable due to possible inflow disease from left subclavian artery.
Given concern for fluctuating ongoing right lower extremity, will obtain peripheral venous exam to rule out DVT and obtain right groin exam to rule out abscess collection given patient was reportedly complaining of increased right groin pain,
currently he denies.
Subjective Data
-
Date of Service: February 04, 2025
Patient seen and examined at bedside, currently on HD, reports eagerness for discharge to next steps as current bed exacerbates his chronic back pain. Nursing staff noted he was complaining of right groin pain overnight currently endorses mild
discomfort at right groin but otherwise offers no other complaints other than chronic back pain. Denies nausea, vomiting, fever, chills, lightheadedness, and dizziness.
Objective Data
-
Vital Signs
Temp Pulse Resp BP Pulse Ox
98.5 F 76 18 89/47 95
02/04/25 03:00 02/04/25 08:09 02/04/25 08:09 02/04/25 08:03 02/04/25 08:09
Intake and Output
02/03/25 02/04/25 02/05/25
06:59 06:59 06:59
Intake Total 960 / 960 700 / 700
Balance 960 / 960 700 / 700
Intake:
Oral fluids 960 / 960 700 / 700
Other:
Number of immeasurable emeses? 1
Calcium 8.5 mg/dl (8.4-10.2) 02/02/25 06:06
Magnesium 1.9 mg/dl (1.6-2.3) 02/02/25 06:06
Physical Exam
-
Gen: NAD, AO3, currently on HD circuit via tunnel catheter
Groin: incision C/D/I, well-approximated
RLE: DP signal, right hallux dry gangrene stable, mild erythema around calf, +1 edema
[2025-02-04 08:25] LABS: Hematocrit 28.2 % (39.0-52.0); Hemoglobin 9.5 g/dL (13.0-18.0)
[2025-02-04 08:41] LABS: Carbon Dioxide 24 mmol/L (22-30); Chloride 96 mmol/L (98-107); Potassium 5.4 mmol/L (3.5-5.1); Sodium 133 mmol/L (135-145)
[2025-02-04] MEDS: RETACRIT 10000 UNITS IV (09:07)
--- NOTE | 2025-02-04 09:31 | W.PN.NEPH.HD ---
Assessment
-
Tolerating dialysis and ultrafiltration with midodrine
Progress Note - Hemodialysis
-
Date of Service: February 04, 2025
Duration: 30 minutes and 3 hours
Potassium Bath: 2
Calcium Bath: 2.5
Opti-Dialyzer: 160
Ultrafiltration: Other (2kg)
Blood Flow: 400
Dialysate Flow: 600
Heparin: 0
EPO: 6000 units
[2025-02-04] MEDS: NOVOLOG FLEXPEN-MODERATE RESISTANCE 1 UNITS SC ×2 (09:54→17:36)
--- NOTE | 2025-02-04 10:26 | W.PN.CD ---
Today's Communication / Plan
-
Note was created on 02/04/2025 before 10 AM but not signed until now 02/05/2025 at 0849 hrs
Resume Entresto tomorrow but hold AM of HD as we had just done in the office
Impression / Plan
-
74 y/o male (patient of Dr. Vieira) with HFrEF, NICM EF 32%, AFIB on Eliquis (CV 2022, off amiodarone due to intolerance), VT, biV ICD, PVC s/p ablations, ESRD on HD, COPD, moderate to severe TR, and PAD who is s/p right femoral endarterectomy with
interposition vein graft 01/29/25- Dr. Mahoney. We are consulted regarding his CM GDMT with BP's on low end post-op.
Possible hypotension
- Vascular notes: 'BP measurements may not be completely reliable due to possible inflow disease from left subclavian artery.'
- Challenging situation, as long as he seems clinically well perfuseda and tolerates HD we will try and resume meds, hold AM doses of some meds morning of HD
- See below
PAD:
-s/p right femoral endarterectomy with interposition vein graft 01/29/25- Dr. Mahoney.
-post-op management per vascular surgery
HFrEF: chronic
-volume managed by HD, which he will get again tomorrow
NICM EF 32%:
-per my review of vascular note, he has evidence for left subclavian artery disease, but cannot check on right due to HD access, and he has severe LE PAD. This may explain low BP readings. He denies any dizziness. He is off Entresto at this time.
BB has been held for BP's, but now resumed at 25 mg PO BID. Continue metoprolol and monitor.
-updated echo as below
-BIV ICD in place
AFib, likely now permanent:
-on Eliquis for OAC
-rate-controlled
-continue metoprolol and monitor
VT:
-resume metoprolol, ICD in place. Intolerant to amiodarone per chart.
ESRD:
-on HD and nephro following. Getting HD tomorrow.
Subjective:
No CP or dyspnea. No dizziness.
Data:
Echo 01/31/25: EF is 32%. Global hypokinesis. Dilated RV with reduced systolic function. Mild aortic stenosis. Mild aortic regurgitation. Moderate to severe tricuspid regurgitation. Moderate to severely elevated estimated PASP at 57 compared to
prior from March mmHg. Compared to prior from Apr 05, 2024, no significant change.
Physical Exam
Vital Signs/Labs
Vital Signs
Temp Pulse Resp BP Pulse Ox
98.0 F 76 18 89/47 95
02/04/25 07:00 02/04/25 08:09 02/04/25 08:09 02/04/25 08:03 02/04/25 08:09
02/03/25 02/04/25 02/05/25
06:59 06:59 06:59
Actual Weight 88.082 kg 84.595 kg
02/04/25 08:04
02/04/25 08:04
PT 15.4 Sec (11.4-14.6) H 01/30/25 03:31
INR 1.17 01/30/25 03:31
APTT 32.3 Sec (23.4-35.0) 01/30/25 03:31
Magnesium 1.9 mg/dl (1.6-2.3) 02/02/25 06:06
Physical Exam
Constitutional: No acute distress
Respiratory: Respiratory effort normal and Lungs clear to auscul.
GI: Soft
Data Reviewed
-
Date of Service: February 04, 2025
[2025-02-04 11:00] VITALS: BP 103/67
--- NOTE | 2025-02-04 11:03 | CM ---
Reviewed the chart notes. Patient currently being dialyzed. Additional referrals sent in [facility]. CM continues to be available to patient/family and is monitoring medical plan for needs at discharge.
Plan: Discharge to SNF/rehab once a bed is secured. No precert required.
[2025-02-04 11:22] LABS: Mean Corp Hgb Conc. 33.5 g/dL (33.0-37.0); Mean Corpuscular Volume 106.0 fL (80.0-94.0); Nucleated Red Blood Cells % 0 % (-); Platelet Count 131 10^3/uL (130-400); Red Cell Dist. Width 15.1 % (11.5-14.5)
[2025-02-04 11:24] LABS: Glucose - Point of Care 110 mg/dl (70-99)
[2025-02-04] MEDS: VITAMIN C 500 MG PO (14:25)
[2025-02-04] MEDS: ZINC 50 MG PO (14:25)
[2025-02-04] MEDS: THERAGRAN 1 TABLET PO (14:26)
[2025-02-04] MEDS: RENVELA PO ×2 (14:26→17:37)
[2025-02-04] MEDS: NEPHROCAP 1 CAPSULE PO (14:26)
[2025-02-04] MEDS: VITAMIN D3 (cholecalciferol) 50 MCG PO (14:27)
[2025-02-04] MEDS: ELIQUIS 5 MG PO ×2 (14:27→20:06)
[2025-02-04] MEDS: TOPROL XL 25 MG PO ×2 (14:27→20:05)
[2025-02-04] MEDS: COLACE 100 MG PO ×2 (14:28→20:05)
[2025-02-04] MEDS: SENOKOT 8.6 MG PO ×2 (14:28→20:06)
[2025-02-04] MEDS: NOVOLOG FLEXPEN-MODERATE RESISTANCE SC (14:29)
[2025-02-04] MEDS: RENVELA 800 MG PO (14:30)
[2025-02-04 15:00] VITALS: BP 96/51
[2025-02-04 17:29] LABS: Glucose - Point of Care 156 mg/dl (70-99)
[2025-02-04 19:25] VITALS: BP 98/35
[2025-02-04] MEDS: ANCEF 5 IV (20:02)
[2025-02-04] MEDS: TYLENOL 650 MG PO (20:11)
[2025-02-04 21:52] LABS: Glucose - Point of Care 123 mg/dl (70-99)
[2025-02-04 23:20] VITALS: BP 85/33
[2025-02-05] VITALS (19 sets, daily range): BP systolic 0–124; BP diastolic 39–85; BMI 28.5
[2025-02-05] MEDS: TUMS CHEWABLE TABLET 200 MG PO (01:33)
[2025-02-05] MEDS: SPIRIVA RESPIMAT 2.5 MCG 2 PUFF INH (07:44)
[2025-02-05] MEDS: SYMBICORT 160/4.5 MCG INHALER 2 PUFF INH ×2 (07:45→19:27)
--- NOTE | 2025-02-05 07:51 | W.PN.UPDATE ---
Update Note
Progress Note Update
Seen and evaluated. Since yesterday he has had increased pain in the right groin/proximal thigh. Noted redness as well. This is all new as of yesterday. Patient notes pain when he flexes his hip as well. On his exam, he does have some
tenderness in the right groin. It is relatively flat. Some mild induration but no large hematoma or swelling. It is reddened around the area though.
CT scan images reviewed. Patent interposition bypass graft. He has a fluid pocket in the saphenectomy site. No enhancement to suggest that is an actual abscess at this time. Overlying the endarterectomy site/interposition bypass graft site,
there is some fluid with some air stranding but this could be postoperative as well.
Plan/ Based on erythema/cellulitis and CT findings and discomfort/pain that is new, would recommend washout. I did review his pathology of the lymph node that was biopsied and it was benign. However he did have significant lymphadenopathy which
could result in lymphatic drainage/seroma that could be contributing to potentially groin infection. Regardless I discussed with them washout, I discussed the alternative no washout just IV antibiotics which likely would not quell this infection.
In addition then runs the risk of vein graft infection down the line. He understands all wishes to proceed. Plan washout today.
[2025-02-05 08:03] LABS: Glucose - Point of Care 130 mg/dl (70-99)
[2025-02-05] MEDS: RENVELA PO ×2 (08:18→12:21)
[2025-02-05] MEDS: VITAMIN D3 (cholecalciferol) PO (08:19)
[2025-02-05] MEDS: ZINC PO (08:19)
[2025-02-05] MEDS: THERAGRAN PO (08:19)
[2025-02-05] MEDS: VITAMIN C PO (08:19)
[2025-02-05] MEDS: COLACE 100 MG PO ×2 (08:20→20:27)
[2025-02-05] MEDS: ENTRESTO 49 MG/51 MG PO ×2 (08:20→22:35)
[2025-02-05] MEDS: TOPROL XL 25 MG PO ×2 (08:20→20:25)
[2025-02-05] MEDS: SENOKOT PO (08:23)
[2025-02-05] MEDS: NEPHROCAP 1 CAPSULE PO (08:36)
[2025-02-05] MEDS: NOVOLOG FLEXPEN-MODERATE RESISTANCE SC ×2 (08:49→17:03)
[2025-02-05] MEDS: ROXICODONE 5 MG PO ×2 (09:45→17:02)
[2025-02-05 10:37] LABS: Hematocrit 28.4 % (39.0-52.0); Hemoglobin 9.5 g/dL (13.0-18.0); Mean Corp Hgb Conc. 33.5 g/dL (33.0-37.0); Mean Corpuscular Volume 103.3 fL (80.0-94.0); Platelet Count 114 10^3/uL (130-400); Red Cell Dist. Width 15.1 % (11.5-14.5)
--- NOTE | 2025-02-05 10:47 | W.PN.CD ---
Today's Communication / Plan
-
- For groin washout today.
- Relatively stable from a cardiac standpoint; continue current cardiac medications.
Impression / Plan
-
74 y/o male (patient of Dr. Vieira) with HFrEF, NICM EF 32%, AFIB on Eliquis (CV 2022, off amiodarone due to intolerance), VT, biV ICD, PVC s/p ablations, ESRD on HD, COPD, moderate to severe TR, and PAD who is s/p right femoral endarterectomy with
interposition vein graft 01/29/25- Dr. Mahoney. We are consulted regarding his CM GDMT with BP's on low end post-op.
Possible hypotension
- Vascular notes: 'BP measurements may not be completely reliable due to possible inflow disease from left subclavian artery.'
- Challenging situation, as long as he seems clinically well perfuseda and tolerates HD, continue current cardiac medications.
PAD:
-s/p right femoral endarterectomy with interposition vein graft 01/29/25- Dr. Mahoney.
-post-op management per vascular surgery
- For groin washout today.
Chronic HFrEF/NICM (EF 30-35%):
-He has evidence for left subclavian artery disease, but cannot check on right due to HD access, and he has severe LE PAD. This may explain low BP readings. He denies any dizziness.
-BIV ICD in place
- Continue volume management via HD.
- Relatively stable from a cardiac standpoint; continue current cardiac medications.
AFib, likely now permanent:
-on Eliquis for OAC; hold as needed for procedures.
- Remains rate-controlled
-continue metoprolol succinate.
VT:
- Continue metoprolol, ICD in place. Intolerant to amiodarone per chart.
Moderate to severe TR:
- Volume management via HD.
ESRD:
-on HD and nephro following. Getting HD tomorrow.
Subjective:
No cardiac complaints this a.m.
Data:
Echo 01/31/25: EF is 32%. Global hypokinesis. Dilated RV with reduced systolic function. Mild aortic stenosis. Mild aortic regurgitation. Moderate to severe tricuspid regurgitation. Moderate to severely elevated estimated PASP at 57 compared to
prior from March mmHg. Compared to prior from Apr 05, 2024, no significant change.
Physical Exam
Vital Signs/Labs
Vital Signs
Temp Pulse Resp BP Pulse Ox
98.4 F 83 16 107/45 95
02/05/25 08:00 02/05/25 09:41 02/05/25 08:00 02/05/25 09:41 02/05/25 09:41
02/04/25 02/05/25 02/06/25
06:59 06:59 06:59
Actual Weight 84.595 kg 87.628 kg
02/05/25 10:17
PT 15.4 Sec (11.4-14.6) H 01/30/25 03:31
INR 1.17 01/30/25 03:31
APTT 32.3 Sec (23.4-35.0) 01/30/25 03:31
Magnesium 1.9 mg/dl (1.6-2.3) 02/02/25 06:06
Physical Exam
Constitutional: No acute distress and Comfortable
EENT: Anicteric
Cardiovascular: Rhythm & rate is regular, Pedal edema is absent, Systolic murmur present (2/6) and S1S2 is normal
Respiratory: Respiratory effort normal and Lungs clear to auscul.
GI: Soft
Neuro/Psych: AO x 3
Other: Skin (Warm)
Data Reviewed
-
Date of Service: February 05, 2025
EKG: Tracing Personally Visualized and interpreted (Telemetry: Paced.)
Echo: Report Reviewed by me (EF 32%; moderate to severe TR.)
Medical Tests (PFT, Pathology etc): Discussed with Patient
Labs: Labs Reviewed by me
[2025-02-05 10:58] LABS: Blood Urea Nitrogen 39 mg/dl (9-20); Calcium 9.6 mg/dl (8.4-10.2); Carbon Dioxide 23 mmol/L (22-30); Chloride 95 mmol/L (98-107); Estimated Creatinine Clearance 13 ml/min; Glucose 98 mg/dl (70-99); Potassium 4.4 mmol/L (3.5-5.1); Sodium 132 mmol/L (135-145); eGFR 11.73
[2025-02-05 12:12] LABS: Glucose - Point of Care 112 mg/dl (70-99)
--- NOTE | 2025-02-05 14:14 | W.SUR.POST ---
Surgical Immediate Post Op
Note
Pre Op Diagnosis: cellulitis
Post Op Diagnosis: same
Procedure Performed: Right groin washout, VAC placement
Primary Surgeon: Denzel
Secondary Surgeons: Ronal KERR
Anesthesia: LMA
Estimated Blood Loss: 10cc
Fluids: see anesthesia flow sheet
Drains/Shunts: HORACIO drain
Specimens/Cultures: swab cultures
Doppler/Duplex/Angio (Y/N): N
Complications: none
Operative Findings: clear straw colored fluid sent for cultures
--- NOTE | 2025-02-05 14:32 | CM ---
Reviewed the chart notes. Patient had right groin washout and VAC placement today. Updated HD flow and serologies placed in [facility]. CM continues to be available to patient/family and is monitoring medical plan for needs at discharge.
Plan: Discharge to SNF/rehab once medically stable and facility found with HD on site or willing to transport to HD center.
--- NOTE | 2025-02-05 15:10 | OR.RPT ---
Operative Report
Operative Report
PROCEDURE DATE: 02/05/2025
Preoperative diagnosis: Cellulitis/fluid collection right groin status post femoral endarterectomy/interposition graft placement. Concern for infection.
Postoperative diagnosis: Same
Procedure:
1. Washout right groin surgical site.
2. Pulse lavage irrigation with 3 L saline solution.
3. Closure of deeper tissues with placement of more superficial wound VAC right groin, and placement of drain in saphenectomy bed.
Surgeon: Denzel
Dust Collector Operator: DEMETRIS Villeda, required for all aspects of procedure including assistance with traction/countertraction, assistance with wound VAC placement.
Complications: None
Anesthesia: General
Indications for procedure:
Patient with cellulitis/fluid collection right groin on CT scan, worsened symptoms of pain and redness that came on somewhat abruptly over the course of the last 24 to 48 hours. Was doing fine initially postoperatively. CT scan demonstrated a
fluid collection in the saphenectomy bed, and some soft tissue changes which could be postoperative but could also be consistent with a infection. Risk/benefits/alternatives of washout were discussed. I recommended it. Patient understood all and
wished to proceed.
Description of procedure:
Patient was identified brought to the operating room placed on the table in supine position. After the adequate administration of anesthesia he was prepped and draped in the standard surgical fashion. A standard preoperative timeout was undertaken
and everybody was in agreement the plan. The right groin incision was opened using a Metzenbaum scissor to cut out the layered Vicryl sutures. As soon as I cut out the deep dermal layer, there was a hampton of pressurized serous fluid. No purulence
was noted. Seem to decompress mostly from the saphenectomy site. In the deeper subcutaneous space the saphenectomy incision (skin closed) did undermine/tunnel to connect to this groin incision. To be sure I also cut out the deeper suture layers.
I then was able to visualize the bypass graft. This looked fine. There is no evidence of pseudoaneurysm or bleeding. Excellent pulsation was noted in the bypass graft and the SFA/profunda beyond it. Tissues here looked relatively healthy. Of
note, the patient had had bulky subcutaneous lymphadenopathy. I had some concern that maybe this was leading to the serous drainage, and/or could have created an infection here. While there is no purulent material, culture swabs were sent. (Of
note I also had preoperatively reviewed the pathology report of the lymph node that I had sent during the initial operation which was benign). At this point pulse lavage was used to irrigate 3 L of saline solution through the groin surgical site as
well as into the saphenectomy bed contiguously. After this I confirmed full hemostasis. No significant bleeding had been identified. I now placed a round large Delvis drain in the saphenectomy bed through a separate skin stab incision adjacent to
the saphenectomy incision site. The drain was secured to the skin with a nylon suture. I then closed the soft tissue that connected the saphenectomy incision site to the groin incision site with 2-0 Vicryl [id number] suture. As such the
round Delvis drain was isolated to the saphenectomy site. Now I used interrupted 2-0 Vicryl to reapproximate the tissues/lymphatic layer overlying the bypass graft. Once I completed this, in the superficial subcutaneous tissue we applied a wound
VAC. Dressings were placed over this and the wound VAC was connected to suction. The Delvis drain was connected to bulb suction. The patient tolerated the procedure well. He was transported to recovery room in stable condition.
--- NOTE | 2025-02-05 15:50 | WOUNDNOTE ---
WOC RN Note: Confirmed with Mary Villeda Vascular LOG CHIPPER OPERATOR that the vascular team will be changing the vac on Monday. Mary stated wound measurement 11x1x0.25cm. Plan is SNF transfer as per CM note.
--- NOTE | 2025-02-05 16:04 | W.PN.NEPH.PH ---
Today's Communication / Plan
-
HD tomorrow
Assessment/Plan
-
Impression:
Chronic limb threatening ischemia of the right lower extremity.
Right femoral endarterectomy with interposition common femoral to femoral bifurcation artery bypass with nonreversed ipsilateral greater saphenous vein conduit. 01/29/2025 Dr. Mahoney
Peripheral arterial disease
ESRD on dialysis [facility]
Right carotid stenosis
Type 2 diabetes
Hyperlipidemia
Hypertension
Nonischemic cardiomyopathy with EF of 30%
History of ventricular tachycardia/ICD
History of DVT
Atrial fibrillation-status post cardioversion in 2022.
Previous history of cardiac ablation
Gout
COPD
Right UE AVF 10/2024
Hyperphosphatemia
Plan
A/w CLI s/p elective right femoral endarterectomy 01/29
s/p wash out today
HD tomorrow
resting AVF
no entresto
soft BP, accept SBP > 90 on cuff
abx per surg
-
-
Date of Service: February 05, 2025
CC / HPI / ROS
-
Chief Complaint:
ESRD
History of Present Illness:
tolerated HD yesterday
BP soft
s/p wash out of groin
hgb stable 9.5, wbc up at 13.3
Review of Systems:
no CP/SOB
Labs
-
Labs:
WBC 13.3 10^3/uL (4.8-10.8) H 02/05/25 10:17
RBC 2.75 10^6/uL (4.70-6.10) L 02/05/25 10:17
Hgb 9.5 g/dL (13.0-18.0) L 02/05/25 10:17
Hct 28.4 % (39.0-52.0) L 02/05/25 10:17
Plt Count 114 10^3/uL (130-400) L 02/05/25 10:17
Sodium 132 mmol/L (135-145) L 02/05/25 10:17
Potassium 4.4 mmol/L (3.5-5.1) 02/05/25 10:17
Chloride 95 mmol/L (98-107) L 02/05/25 10:17
Carbon Dioxide 23 mmol/L (22-30) 02/05/25 10:17
BUN 39 mg/dl (9-20) H 02/05/25 10:17
Creatinine 4.9 mg/dL (0.7-1.3) H* 02/05/25 10:17
eGFR 11.73 02/05/25 10:17
Glucose 98 mg/dl (70-99) 02/05/25 10:17
Calcium 9.6 mg/dl (8.4-10.2) 02/05/25 10:17
Physical Exam
-
Vital Signs:
Vital Signs
Temp Pulse Resp BP Pulse Ox
99.0 F 80 21 112/49 96
02/05/25 15:25 02/05/25 15:40 02/05/25 15:40 02/05/25 15:40 02/05/25 15:40
Cardiovascular:: Regular rate and rhythm
Respiratory:: Bilateral: Coarse
Lung Excursion:: Normal
Abdomen:: Nontender and Soft
Bowel Sounds:: Normal
Extremity Edema:: +2: Right: and None: Left:
Lawson Catheter: No
Other Findings::
gangrene GT of right foot
[2025-02-05] MEDS: RENVELA 800 MG PO (17:02)
[2025-02-05 17:06] LABS: Glucose - Point of Care 117 mg/dl (70-99)
[2025-02-05] MEDS: ANCEF 5 IV (20:25)
[2025-02-05] MEDS: SENOKOT 8.6 MG PO (20:27)
[2025-02-05 22:04] LABS: Glucose - Point of Care 178 mg/dl (70-99)
[2025-02-06] VITALS (8 sets, daily range): BP systolic 97–106; BP diastolic 43–56; PULSE 69–71; O2SAT 94–97; BMI 29.0
[2025-02-06] MEDS: TYLENOL 650 MG PO ×4 (04:20→16:10)
--- NOTE | 2025-02-06 07:36 | W.PN.CD ---
Today's Communication / Plan
-
- s/p return to OR 02/05/25 -Washout right groin surgical site., Closure of deeper tissues with placement of more superficial wound VAC right groin, and placement of drain in saphenectomy bed.
-post-op management per vascular surgery
BP appears stable
patientis back on Eliquis
Post op care per vacular surgery
Volume control/HD per nephrology
await AM labs [facility] are pending
Impression / Plan
-
74 y/o male (patient of Dr. Vieira) with HFrEF, NICM EF 32%, AFIB on Eliquis (CV 2022, off amiodarone due to intolerance), VT, biV ICD, PVC s/p ablations, ESRD on HD, COPD, moderate to severe TR, and PAD who is s/p right femoral endarterectomy with
interposition vein graft 01/29/25- Dr. Mahoney. We are consulted regarding his CM GDMT with BP's on low end post-op.
Possible hypotension
- Vascular notes: 'BP measurements may not be completely reliable due to possible inflow disease from left subclavian artery.'
- Challenging situation, as long as he seems clinically well perfuseda and tolerates HD, continue current cardiac medications.
PAD:
-s/p right femoral endarterectomy with interposition vein graft 01/29/25- Dr. Mahoney.
- s/p return to OR 02/05/25 -Washout right groin surgical site., Closure of deeper tissues with placement of more superficial wound VAC right groin, and placement of drain in saphenectomy bed.
-post-op management per vascular surgery
Chronic HFrEF/NICM (EF 30-35%):
-He has evidence for left subclavian artery disease, but cannot check on right due to HD access, and he has severe LE PAD. This may explain low BP readings. He denies any dizziness.
-BIV ICD in place
- Continue volume management via HD.
- Relatively stable from a cardiac standpoint; continue current cardiac medications.
AFib, likely now permanent:
-on Eliquis for OAC;
- Remains rate-controlled
-continue metoprolol succinate.
VT:
- Continue metoprolol, ICD in place. Intolerant to amiodarone per chart.
Moderate to severe TR:
- Volume management via HD.
ESRD:
-on HD and nephro following. Getting HD tomorrow.
Subjective:
No cardiac complaints this a.m.
Data:
Echo 01/31/25: EF is 32%. Global hypokinesis. Dilated RV with reduced systolic function. Mild aortic stenosis. Mild aortic regurgitation. Moderate to severe tricuspid regurgitation. Moderate to severely elevated estimated PASP at 57 compared to
prior from March mmHg. Compared to prior from Apr 05, 2024, no significant change.
Physical Exam
Vital Signs/Labs
Vital Signs
Temp Pulse Resp BP Pulse Ox
98.4 F 67 18 100/49 98
02/06/25 03:00 02/06/25 03:00 02/06/25 03:00 02/06/25 03:00 02/06/25 03:00
02/05/25 02/06/25 02/07/25
06:59 06:59 06:59
Actual Weight 87.628 kg 88.904 kg
PT 15.4 Sec (11.4-14.6) H 01/30/25 03:31
INR 1.17 01/30/25 03:31
APTT 32.3 Sec (23.4-35.0) 01/30/25 03:31
Magnesium 1.9 mg/dl (1.6-2.3) 02/02/25 06:06
Physical Exam
Constitutional: No acute distress
Cardiovascular: Rhythm/rate is irregular and Other (Left upper chest ICD)
Respiratory: Wheeze Absent and Rhonchi Absent
GI: Soft and Non tender
Neuro/Psych: Alert and Oriented
Data Reviewed
-
Date of Service: February 06, 2025
Medical Decision Making: Reviewed Test Results
Echo: Report Reviewed by me
X-Ray/CT/US/MRI/NUC/PET: Report Reviewed by me
Medical Tests (PFT, Pathology etc): Image Personally Visualized and interpreted
Labs: Labs Reviewed by me
[2025-02-06 07:38] LABS: Glucose - Point of Care 149 mg/dl (70-99)
[2025-02-06] MEDS: SYMBICORT 160/4.5 MCG INHALER 2 PUFF INH ×2 (07:41→18:08)
[2025-02-06] MEDS: SPIRIVA RESPIMAT 2.5 MCG 2 PUFF INH (07:41)
[2025-02-06] MEDS: MANNITOL 25% 12.5 GRAMS IV (08:38)
[2025-02-06 08:39] LABS: Hematocrit 28.4 % (39.0-52.0); Hemoglobin 9.9 g/dL (13.0-18.0); Mean Corp Hgb Conc. 34.9 g/dL (33.0-37.0); Mean Corpuscular Volume 103.3 fL (80.0-94.0); Platelet Count 107 10^3/uL (130-400); Red Cell Dist. Width 14.7 % (11.5-14.5)
[2025-02-06] MEDS: FLEXBUMIN 25% FOR HEMODIALYSIS 12.5 GRAMS IV (08:39)
[2025-02-06] MEDS: RETACRIT 6000 UNITS IV (08:40)
[2025-02-06] MEDS: NOVOLOG FLEXPEN-MODERATE RESISTANCE SC ×3 (08:40→18:47)
[2025-02-06] MEDS: SENOKOT PO ×2 (08:42→19:45)
[2025-02-06] MEDS: COLACE PO ×2 (08:42→19:45)
[2025-02-06] MEDS: TOPROL XL PO (08:42)
[2025-02-06] MEDS: RENVELA 800 MG PO ×3 (08:43→18:24)
[2025-02-06] MEDS: ELIQUIS 5 MG PO ×2 (08:44→19:45)
[2025-02-06] MEDS: THERAGRAN 1 TABLET PO (08:44)
[2025-02-06] MEDS: VITAMIN D3 (cholecalciferol) 50 MCG PO (08:45)
[2025-02-06 09:12] LABS: Blood Urea Nitrogen 59 mg/dl (9-20); Calcium 10.1 mg/dl (8.4-10.2); Carbon Dioxide 22 mmol/L (22-30); Chloride 94 mmol/L (98-107); Estimated Creatinine Clearance 10 ml/min; Glucose 159 mg/dl (70-99); Potassium 5.0 mmol/L (3.5-5.1); Sodium 133 mmol/L (135-145); eGFR 8.68
--- NOTE | 2025-02-06 10:09 | W.PN.VS ---
Addendum entered and electronically signed by Jose Martin Mahoney MD 02/06/25 14:17:
Seen and examined with OIL EXPELLER OPERATOR's earlier this a.m. This is a late entry. Agree with findings and plan as discussed and noted below.
Original Note:
Today's Communication / Plan
-
Patient seen and examined at bedside with Dr. Jose Martin Mahoney M.D., below plan reviewed with attending.
Assessment/Plan
-
Assessment: 74 year old male POD#6 Right femoral endarterectomy with interposition common femoral to femoral bifurcation artery bypass with nonreversed ipsilateral greater saphenous vein conduit.
POD #1 Washout right groin surgical site. Pulse lavage irrigation with 3 L saline solution. Closure of deeper tissues with placement of more superficial wound VAC right groin, and placement of drain in saphenectomy bed.
I reviewed his carotid duplex which suggests evidence of LSCA disease - peripheral cuff has been on the left because the RUE has a restriction due to HD access. May explain low BP readings. No evidence of bleeding
Plan:
HD per nephrology, appreciate recommendations
PT/OT/OOB
PT and case management recommendations rehab, case management following for placement
Appreciate cardiology recommendations for monitoring of hypotension on cardiac medications
Continue wound VAC
Home oral anticoagulation restarted this a.m.
Likely will be cleared for discharge to rehab tomorrow following wound VAC change
Continue antibiotics, wound cultures from the OR pending
Subjective Data
-
Date of Service: February 06, 2025
Patient seen and examined at bedside, offers no complaints. Reports vast improvement in right groin pain following washout of fluid collection yesterday in operating room. Currently on HD circuit.
Objective Data
-
Vital Signs
Temp Pulse Resp BP Pulse Ox
97.7 F 81 16 84/44 95
02/06/25 07:20 02/06/25 07:42 02/06/25 07:42 02/06/25 08:41 02/06/25 07:42
Intake and Output
02/05/25 02/06/25 02/07/25
06:59 06:59 06:59
Intake Total 460 / 460 1160 / 1160
Output Total 160 / 160
Balance 460 / 460 1000 / 1000
Intake:
Oral fluids 460 / 460 960 / 960
IV fluids (Total) 200 / 200
NSS 200 / 200
Output:
Drain Output (Total) 160 / 160
Right Upper Leg Marco A-Shelley 160 / 160
Right Wound Vac 0 / 0
Other:
Number of unmeasured liquid
stools
Rectum 1
Lab Results
02/06/25 08:18
02/06/25 08:18
Calcium 10.1 mg/dl (8.4-10.2) 02/06/25 08:18
Magnesium 1.9 mg/dl (1.6-2.3) 02/02/25 06:06
Physical Exam
-
No apparent distress, resting in bed comfortably
No tachycardia
No dyspnea on room air
Right groin wound VAC holding suction, dressing clean, dry, and intact
Right foot warm, Doppler DP signal
--- NOTE | 2025-02-06 10:12 | W.PN.NEPH.HD ---
Assessment
-
pt seen during HD
vitals stable
BP soft end, try as much as possible, sig over EDW
likely UF tomorrow
CVC functions well
renal diet and FR reviewed with pt
Progress Note - Hemodialysis
-
Date of Service: February 06, 2025
Duration: 30 minutes and 3 hours
Potassium Bath: 2
Calcium Bath: 2.5
Opti-Dialyzer: 160
Ultrafiltration: Other (3-3.5kg)
Blood Flow: 400
Dialysate Flow: 600
Heparin: no
EPO: 6000
--- NOTE | 2025-02-06 10:47 | CM ---
Reviewed the chart notes and spoke with the patient while on HD. Reviewed the facilities willing to accept, two would need transportation to HD site in [place], one has on site HD services. Patient will review with spouse. Explained that CM
may need to send referrals closer to that had on-site HD services. Patient with wound vac to groin. CM continues to be available to patient/family and is monitoring medical plan for needs at discharge.
Plan: Discharge to SNF/rehab once a bed is secured. No precert required.
[2025-02-06 11:46] LABS: Glucose - Point of Care 147 mg/dl (70-99)
[2025-02-06] MEDS: NEPHROCAP 1 CAPSULE PO (12:43)
[2025-02-06] MEDS: ZINC 50 MG PO (12:43)
[2025-02-06] MEDS: VITAMIN C 500 MG PO (12:43)
--- NOTE | 2025-02-06 16:15 | PTCARENOTE ---
Pt with pink blood noted on toilet paper after having BM. No blood noted in the toilet bowel. Pt denies hemmorhoids. No active bleeding or external hemmorhoids noted upon assessment. Pt noted to have some scratches and a sacral slit upon assessment.
Pressure offloading techniques and pressure ulcer prevention instruction provided to pt. Arun Villeda Journeyman Molder aware.
[2025-02-06] MEDS: ZOSYN 50 IV (18:25)
[2025-02-06] MEDS: ULTRAM 50 MG PO (18:31)
[2025-02-06 18:47] LABS: Glucose - Point of Care 144 mg/dl (70-99)
[2025-02-06] MEDS: TOPROL XL 25 MG PO (19:45)
[2025-02-06] MEDS: ROXICODONE 5 MG PO (21:16)
[2025-02-06 21:46] LABS: Glucose - Point of Care 174 mg/dl (70-99)
[2025-02-07] VITALS (7 sets, daily range): BP systolic 81–102; BP diastolic 35–44; PULSE 85; BMI 28.6
[2025-02-07] MEDS: TYLENOL 650 MG PO ×3 (01:27→15:36)
[2025-02-07] MEDS: ZOSYN 50 IV ×2 (05:40→19:59)
[2025-02-07] MEDS: SPIRIVA RESPIMAT 2.5 MCG 2 PUFF INH (07:18)
[2025-02-07] MEDS: SYMBICORT 160/4.5 MCG INHALER 2 PUFF INH ×2 (07:18→21:13)
[2025-02-07 07:42] LABS: Glucose - Point of Care 135 mg/dl (70-99)
[2025-02-07] MEDS: COLACE PO ×2 (07:52→20:09)
[2025-02-07] MEDS: NOVOLOG FLEXPEN-MODERATE RESISTANCE SC ×2 (07:52→16:25)
[2025-02-07] MEDS: SENOKOT PO ×2 (07:53→20:12)
[2025-02-07] MEDS: TOPROL XL PO ×2 (07:53→20:12)
--- NOTE | 2025-02-07 08:27 | W.PN.CD ---
Today's Communication / Plan
-
some aymptomatic lower BP readings which have been difficult to assess due to PAD and subclavian stenosis
Entresto dose adjusted. Monitor BP.
Plan for ICD interrogation
Impression / Plan
-
74 y/o male (patient of Dr. Vieira) with HFrEF, NICM EF 32%, AFIB on Eliquis (CV 2022, off amiodarone due to intolerance), VT, biV ICD, PVC s/p ablations, ESRD on HD, COPD, moderate to severe TR, and PAD who is s/p right femoral endarterectomy with
interposition vein graft 01/29/25- Dr. Mahoney. We are consulted regarding his CM GDMT with BP's on low end post-op.
Possible hypotension
- Vascular notes: 'BP measurements may not be completely reliable due to possible inflow disease from left subclavian artery.'
- Challenging situation, as long as he seems clinically well perfuseda and tolerates HD, continue current cardiac medications.
PAD:
-s/p right femoral endarterectomy with interposition vein graft 01/29/25- Dr. Mahoney.
- s/p return to OR 02/05/25 -Washout right groin surgical site., Closure of deeper tissues with placement of more superficial wound VAC right groin, and placement of drain in saphenectomy bed.
-post-op management per vascular surgery
Chronic HFrEF/NICM (EF 30-35%):
-He has evidence for left subclavian artery disease, but cannot check on right due to HD access, and he has severe LE PAD. This may explain low BP readings. He denies any dizziness.
-BIV ICD in place
- Continue volume management via HD.
AFib, likely now permanent:
-on Eliquis for OAC;
- Remains rate-controlled
-continue metoprolol succinate.
VT:
- Continue metoprolol, ICD in place. Intolerant to amiodarone per chart.
ICD - ? abnormal pace spikes. also at times ? electrical artifact. plan for device interrogation
Moderate to severe TR:
- Volume management via HD.
ESRD:
-on HD and nephro following. Getting HD tomorrow.
Subjective:
No cardiac complaints this a.m.
Data:
Echo 01/31/25: EF is 32%. Global hypokinesis. Dilated RV with reduced systolic function. Mild aortic stenosis. Mild aortic regurgitation. Moderate to severe tricuspid regurgitation. Moderate to severely elevated estimated PASP at 57 compared to
prior from March mmHg. Compared to prior from Apr 05, 2024, no significant change.
Physical Exam
Vital Signs/Labs
Vital Signs
Temp Pulse Resp BP Pulse Ox
97.9 F 61 16 94/44 93
02/07/25 07:50 02/07/25 07:53 02/07/25 07:50 02/07/25 07:53 02/07/25 07:50
02/06/25 02/07/25 02/08/25
06:59 06:59 06:59
Actual Weight 88.904 kg 87.685 kg
PT 15.4 Sec (11.4-14.6) H 01/30/25 03:31
INR 1.17 01/30/25 03:31
APTT 32.3 Sec (23.4-35.0) 01/30/25 03:31
Magnesium 1.9 mg/dl (1.6-2.3) 02/02/25 06:06
Physical Exam
Constitutional: No acute distress
Cardiovascular: Rhythm & rate is regular
Respiratory: Wheeze Absent and Rhonchi Absent
GI: Soft and Non tender
Neuro/Psych: Alert
Other: Other (right leg wrapped)
Data Reviewed
-
Date of Service: February 07, 2025
Medical Decision Making: Reviewed Test Results
Medical Tests (PFT, Pathology etc): Report Reviewed by me
Labs: Labs Reviewed by me
[2025-02-07] MEDS: ENTRESTO 49 MG/51 MG PO ×2 (08:43→20:10)
[2025-02-07] MEDS: VITAMIN D3 (cholecalciferol) 50 MCG PO (08:44)
[2025-02-07] MEDS: NEPHROCAP 1 CAPSULE PO (08:44)
[2025-02-07] MEDS: THERAGRAN 1 TABLET PO (08:44)
[2025-02-07] MEDS: RENVELA 800 MG PO ×2 (08:44→17:08)
[2025-02-07] MEDS: ELIQUIS 5 MG PO ×2 (08:44→20:01)
[2025-02-07] MEDS: ZINC 50 MG PO (08:45)
[2025-02-07] MEDS: VITAMIN C 500 MG PO (08:45)
--- NOTE | 2025-02-07 09:43 | W.PN.VS ---
Addendum entered and electronically signed by Murray Lawson III, MD 02/07/25 11:57:
This patient was seen and examined in collaboration with USHA Colon. I agree with the history and physical exam as well as the assessment and plan.
Clinically looks well
Change VAC today
Follow-up on cultures
Antibiotics
Dialysis today
Signed:
Murray Lawson III, MD
Vascular Surgery
[facility]
Original Note:
Today's Communication / Plan
-
Seen and assessed with Dr. Lawson
Assessment/Plan
-
Assessment: 74 year old male POD#7 Right femoral endarterectomy with interposition common femoral to femoral bifurcation artery bypass with nonreversed ipsilateral greater saphenous vein conduit.
POD #2 Washout right groin surgical site. Pulse lavage irrigation with 3 L saline solution. Closure of deeper tissues with placement of more superficial wound VAC right groin, and placement of drain in saphenectomy bed.
I reviewed his carotid duplex which suggests evidence of LSCA disease - peripheral cuff has been on the left because the RUE has a restriction due to HD access. May explain low BP readings. No evidence of bleeding
Plan:
HD per nephrology, appreciate recommendations
PT/OT/OOB
Case management for SNF placement (difficulties finding placement with HD)
Appreciate cardiology recommendations for monitoring of hypotension on cardiac medications
Continue wound VAC, I will return to change later today versus remove and apply wet-to-dry dressing if transferring to SNF
Culture resulted, working on outpatient PO antibiotic plan
Will likely be cleared for discharge today
Subjective Data
-
Date of Service: February 07, 2025
Patient seen at bedside this a.m. with Dr. Lawson. Patient offers no complaints this time. No events overnight. Resting comfortably in bed.
Objective Data
-
Vital Signs
Temp Pulse Resp BP Pulse Ox
97.9 F 61 16 94/44 93
02/07/25 07:50 02/07/25 07:53 02/07/25 07:50 02/07/25 07:53 02/07/25 07:50
Intake and Output
02/06/25 02/07/25 02/08/25
06:59 06:59 06:59
Intake Total 1160 / 1160 50 / 50 170 / 170
Output Total 160 / 160 150 / 150 40 / 40
Balance 1000 / 1000 -100 / -100 130 / 130
Intake:
Oral fluids 960 / 960 120 / 120
IV fluids (Total) 200 / 200
NSS 200 / 200
IV piggybacks 50 / 50 50 / 50
Output:
Drain Output (Total) 160 / 160 150 / 150 40 / 40
Right Upper Leg Marco A-Shelley 160 / 160 150 / 150 40 / 40
Right Wound Vac 0 / 0
Calcium 10.1 mg/dl (8.4-10.2) 02/06/25 08:18
Magnesium 1.9 mg/dl (1.6-2.3) 02/02/25 06:06
Physical Exam
-
No apparent distress, resting in bed comfortably
No tachycardia
No dyspnea on room air
Right groin wound VAC holding suction, dressing clean, dry, and intact
Right foot warm, Doppler DP signal
HORACIO drain with scant serous fluid
[2025-02-07 10:09] LABS: Hematocrit 29.9 % (39.0-52.0); Hemoglobin 9.7 g/dL (13.0-18.0); Mean Corp Hgb Conc. 32.4 g/dL (33.0-37.0); Mean Corpuscular Volume 105.3 fL (80.0-94.0); Platelet Count 101 10^3/uL (130-400); Red Cell Dist. Width 14.9 % (11.5-14.5)
[2025-02-07 10:39] LABS: Blood Urea Nitrogen 53 mg/dl (9-20); Calcium 9.5 mg/dl (8.4-10.2); Carbon Dioxide 26 mmol/L (22-30); Chloride 95 mmol/L (98-107); Estimated Creatinine Clearance 14 ml/min; Glucose 120 mg/dl (70-99); Potassium 4.5 mmol/L (3.5-5.1); Sodium 135 mmol/L (135-145); eGFR 12.02
--- NOTE | 2025-02-07 11:25 | CON.ID ---
Addendum entered and electronically signed by Steve Bella DO 02/07/25 13:18:
I personally performed a history and physical exam of the patient and discussed management with the resident. I reviewed the resident's note and agree with the documented findings and plan of care HPI/CC.
Continue with zosyn while inpatient.
Transition to oral Cefpodoxime 200mg qpm and Doxycycline 100mg BID on Discharge. Would treat with a 10-14 day course of abx.
Original Note:
Consultation
-
Date/Time Consultation Requested: 02/07/2025 09:54
Date/Time Consultation Performed: 02/07/2025 11:26
Requesting Provider: Mary Villeda
Performing Provider: Dr. Steve Bella, Dr. Ford Patel
Reason for Consultation: Antibiotic Plan
Chief Complaint / Past History
Chief Complaint
Right Lower Extremity possible Infection following vascular surgery
History of Present Illness
74-year-old male postop day 7 for right femoral endarterectomy with interposition common femoral to femoral bifurcation artery bypass alongside and postop day 2 washout of right groin surgical site with pulse lavage irrigation and placement of
superficial wound VAC placement of drain and saphenectomy bed. No artificial hardware involved, patient's own [place] vein was harvested for the procedure on. He has a history of peripheral vascular disease, chronic kidney disease on dialysis,
hypertension, previous A-fib. He has received 1 dose of Zosyn starting yesterday. He has had some leukocytosis that started around 02/05/2025. Wound cultures from washout on 02/05/2025 preliminarily grew Serratia marcescens with Anaerobic
cultures pending. Has not had any fevers.
Past History
Additional Past Medical History:
Peripheral arterial disease
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
Right carotid stenosis
Type 2 diabetes
Hyperlipidemia
Hypertension
Obesity
Heart failure systolic
ICD in place
Hyperparathyroidism
Atrial fibrillation-status post cardioversion in 2022.
Gout
COPD-on Breztri
Additional Past Surgical History:
Right femoral endarterectomy with interposition common femoral to femoral bifurcation artery bypass with nonreversed ipsilateral greater saphenous vein conduit (01/29/2025)
Right groin washout, VAC placement (02/05/2025)
Cardiac Ablation
Implanted Medtronic ICD
Partial Colectomy
Allergy History:
vaccinations Allergy (Severe, Uncoded 01/29/25 10:23)
Rash
Medications Reviewed: Yes
Current Antibiotics:
Zosyn 2.25gm Q12H
Social History
Tobacco: Former Smoker (40 pack year history, quit 30 years ago)
Alcohol: None
Drug: None
Personal:
Living: With Family
Employment: Retired
Family History
Family History: Not Pertinent
Review of Systems
Review of Systems
General: Negative Fever or Chills
Cardiovascular: Negative Chest Pain
Respiratory: Negative Dyspnea
Gasteroenterology: Negative Nausea or Vomiting
Vital Signs
Temp Pulse Resp BP Pulse Ox
97.9 F 85 16 83/37 93
02/07/25 07:50 02/07/25 10:13 02/07/25 07:50 02/07/25 10:13 02/07/25 07:50
Physical Exam
Physical Exam
Constitutional: No Acute Distress, Comfortable and Non-toxic
Head: Normocephalic
Cardiovascular: Regular Rate and S1/S2; Negative S3/S4 or Peripheral Edema
Pulmonary: Clear, Symmetric and Non Labored
Gastrointestinal: Soft, Tender and Non Distended
Extremities: Other (Right lower extremity wrapped in MICHAEL bandages. Peripheral pulses palpable, drain in place draining Yellow/reddish fluid)
Musculoskeletal: Other (Right distal hallux dry gangrene noted)
Skin: Warm and Dry
Neurological: Awake, Alert, Oriented and AO x 3
Psychological: Calm
.
Lab / Diagnostic Study Results
02/07/25 09:50
02/07/25 09:50
Abs Immat Gran (auto) 0.1 10^3/uL (0-0.05) H 02/04/25 08:04
Absolute Neuts (auto) 9.1 10^3/uL (1.4-6.5) H 02/04/25 08:04
Absolute Lymphs (auto) 0.4 10^3/uL (1.2-3.4) L 02/04/25 08:04
Absolute Monos (auto) 1.0 10^3/uL (0.1-0.6) H 02/04/25 08:04
Absolute Basos (auto) 0.0 10^3/uL (0-0.2) 02/04/25 08:04
Immature Gran % 0.8 % (0-0.5) H 02/04/25 08:04
Neutrophils % 85.2 % (42.2-75.2) H 02/04/25 08:04
Lymphocytes % 3.9 % (20.5-51.1) L 02/04/25 08:04
Monocytes % 9.8 % (1.7-9.3) H 02/04/25 08:04
Eosinophils % 0.1 % (0-6) 02/04/25 08:04
Basophils % 0.2 % (0-2) 02/04/25 08:04
PT 15.4 Sec (11.4-14.6) H 01/30/25 03:31
INR 1.17 01/30/25 03:31
Microbiology Results
Micro:
02/05/25 13:45 Wound Culture - Preliminary
Groin - Right Serratia marcescens
Gram Stain - Preliminary
02/05/25 13:45 Anaerobic Culture - Preliminary
Groin - Right Culture pending. Anaerobic cultures are examined after 3
days incubation. Additional information to follow.
01/29/25 18:45 MRSA Screen - Final
Nose No Methicillin Resistant Staphylococcus aureus isolated.
Imaging:
02/04/2025 CT Abd Aorta Angio W/ Run Off: Status post common femoral/femoral artery endarterectomy, now widely patent in this region. There is new overlying anterior right groin subcutaneous edema, gas and fluid, with partially loculated fluid
collection spanning over approximately 6.0 x 6.4 x 16.8 cm. No well-defined/thick barry. There is otherwise generalized right thigh subcutaneous edema, new from prior and likely postoperative. Otherwise stable appearance of extensive atherosclerotic
calcifications throughout the right lower extremity arterial system as previously described.
02/04/2025 US Groin: Technically limited exam which reveals a large hypoechoic fluid collection in the right inguinal region. This is worrisome for abscess. Given the technical limitations of this exam, consider CT pelvis for more complete evaluation
01/23/2025 CT Abd Aorta Angio W/ Run Off: Heavily calcified, ectatic infrarenal abdominal aorta measuring up to 2.1 cm. Extensive calcified plaque at the origin of the SMA likely causing significant stenosis. JOANNA appears to be occluded at its origin
with distal reconstitution. Heavily calcified iliac arteries. Focal stenosis within the proximal external iliac artery secondary to calcified and noncalcified plaque. Bulky calcified plaque within the common femoral artery extending into the
proximal SFA causing severe stenosis and/or focal occlusion. Eccentric calcified plaque within the distal SFA which may cause mild stenosis. Patent trifurcation below the knee with three-vessel runoff, noting limited evaluation of the infrapopliteal
vessels secondary to extensive calcification. Left leg: Bulky calcified plaque within the proximal common iliac artery causing severe stenosis. Extensive calcified plaque within the SFA and popliteal arteries with likely mild multifocal narrowing
within the distal SFA and popliteal artery. Patent trifurcation below the knee with possible three-vessel runoff, noting limited evaluation secondary to extensive calcified plaque within the infrapopliteal vessels.
Assessment / Plan
#Chronic right limb ischemia, s/p right femoral endarterectomy with common femoral to femoral bifurcation artery bypass(01/29/2025)
#Right groin washout and VAC placement (02/05/2025) with seroma noted
#Leukocytosis
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
#Right carotid stenosis
#Type 2 diabetes
#Hyperlipidemia
#Hypertension
#ICD in place
Plan:
No Fevers noted but increased leukocytosis since 02/05
Cultures from washout Preliminarily grew Serratia Marcescens
Anaerobic cultures pending
Trend WBC and Temp Curve
Will Continue Zosyn while admitted
Switch to Cefpodoxime 200mg qpm and Doxycycline 100mg BID on Discharge
--- NOTE | 2025-02-07 11:30 | PTCARENOTE ---
Pt hypotensive manual BP 82/40 following Midodrine administration. Pt c/o feeling tired but denies other symptoms. Dr Duffy notified.
[2025-02-07 12:43] LABS: Glucose - Point of Care 159 mg/dl (70-99)
[2025-02-07] MEDS: NOVOLOG FLEXPEN-MODERATE RESISTANCE 1 UNITS SC (13:20)
[2025-02-07] MEDS: RENVELA PO ×2 (13:21→13:24)
--- NOTE | 2025-02-07 14:35 | W.PN.NEPH.PH ---
Today's Communication / Plan
-
Extra session of ultrafiltration
Assessment/Plan
-
Impression:
Chronic limb threatening ischemia of the right lower extremity.
Right femoral endarterectomy with interposition common femoral to femoral bifurcation artery bypass with nonreversed ipsilateral greater saphenous vein conduit. 01/29/2025 Dr. Mahoney
Peripheral arterial disease
ESRD on dialysis [facility]
Right carotid stenosis
Type 2 diabetes
Hyperlipidemia
Hypertension
Nonischemic cardiomyopathy with EF of 30%
History of ventricular tachycardia/ICD
History of DVT
Atrial fibrillation-status post cardioversion in 2022.
Previous history of cardiac ablation
Gout
COPD
Right UE AVF 10/2024
Hyperphosphatemia
Plan
A/w CLI s/p elective right femoral endarterectomy 01/29
s/p wash out 02/06
Extra ultrafiltration today and then dialysis again on Monday
resting AVF
no entresto
soft BP, accept SBP > 90 on cuff
-
-
Date of Service: February 07, 2025
CC / HPI / ROS
-
Chief Complaint:
ESRD
History of Present Illness:
tolerated HD yesterday
BP soft
s/p wash out of groin
hgb stable 9.5, wbc up at 13.3
Review of Systems:
no CP/SOB
Labs
-
Labs:
WBC 13.6 10^3/uL (4.8-10.8) H 02/07/25 09:50
RBC 2.84 10^6/uL (4.70-6.10) L 02/07/25 09:50
Hgb 9.7 g/dL (13.0-18.0) L 02/07/25 09:50
Hct 29.9 % (39.0-52.0) L 02/07/25 09:50
Plt Count 101 10^3/uL (130-400) L 02/07/25 09:50
Sodium 135 mmol/L (135-145) 02/07/25 09:50
Potassium 4.5 mmol/L (3.5-5.1) 02/07/25 09:50
Chloride 95 mmol/L (98-107) L 02/07/25 09:50
Carbon Dioxide 26 mmol/L (22-30) 02/07/25 09:50
BUN 53 mg/dl (9-20) H 02/07/25 09:50
Creatinine 4.8 mg/dL (0.7-1.3) H* 02/07/25 09:50
eGFR 12.02 02/07/25 09:50
Glucose 120 mg/dl (70-99) H 02/07/25 09:50
Calcium 9.5 mg/dl (8.4-10.2) 02/07/25 09:50
Physical Exam
-
Vital Signs:
Vital Signs
Temp Pulse Resp BP Pulse Ox
98 F 85 16 83/37 95
02/07/25 11:15 02/07/25 11:30 02/07/25 11:15 02/07/25 11:30 02/07/25 11:15
Cardiovascular:: Regular rate and rhythm
Respiratory:: Bilateral: Coarse
Lung Excursion:: Normal
Abdomen:: Nontender and Soft
Bowel Sounds:: Normal
Extremity Edema:: +2: Right: and None: Left:
Lawson Catheter: No
Other Findings::
gangrene GT of right foot
--- NOTE | 2025-02-07 14:54 | CM ---
Reviewed the chart notes. Sent an additional referral to [facility]. Referral is in review. CM continues to be available to patient/family and is monitoring medical plan for needs at discharge.
Plan: Discharge to SNF/rehab once bed secured. No precert required.
[2025-02-07 16:10] LABS: Glucose - Point of Care 130 mg/dl (70-99)
--- NOTE | 2025-02-07 16:25 | PTCARENOTE ---
Pt with run of Vtach, asymptomatic. Dr Duffy made aware. Care ongoing.
[2025-02-07] MEDS: FLEXBUMIN 25% FOR HEMODIALYSIS 12.5 GRAMS IV ×2 (17:12→18:21)
[2025-02-07] MEDS: ROXICODONE 5 MG PO (20:01)
[2025-02-07 21:52] LABS: Glucose - Point of Care 130 mg/dl (70-99)
[2025-02-07] MEDS: DILAUDID 0.5 MG IV (23:06)
[2025-02-08 03:47] VITALS: BP 97/42
[2025-02-08] MEDS: ZOSYN 50 IV ×2 (05:49→17:54)
[2025-02-08] MEDS: ROXICODONE 5 MG PO ×2 (06:15→18:04)
[2025-02-08 07:00] VITALS: BP 94/36
[2025-02-08 07:06] LABS: Hematocrit 27.8 % (39.0-52.0); Hemoglobin 9.5 g/dL (13.0-18.0); Mean Corp Hgb Conc. 34.2 g/dL (33.0-37.0); Mean Corpuscular Volume 103.7 fL (80.0-94.0); Platelet Count 90 10^3/uL (130-400); Red Cell Dist. Width 14.8 % (11.5-14.5)
[2025-02-08 07:25] LABS: Glucose - Point of Care 135 mg/dl (70-99)
[2025-02-08 07:36] LABS: Blood Urea Nitrogen 62 mg/dl (9-20); Calcium 9.3 mg/dl (8.4-10.2); Carbon Dioxide 24 mmol/L (22-30); Chloride 91 mmol/L (98-107); Estimated Creatinine Clearance 11 ml/min; Glucose 107 mg/dl (70-99); Magnesium 2.0 mg/dl (1.6-2.3); Potassium 4.6 mmol/L (3.5-5.1); Sodium 134 mmol/L (135-145); eGFR 9.78
[2025-02-08] MEDS: NOVOLOG FLEXPEN-MODERATE RESISTANCE SC ×2 (08:00→17:18)
--- NOTE | 2025-02-08 08:18 | W.PN.VS ---
Addendum entered and electronically signed by Lila Whitmore MD 02/08/25 11:48:
Agree with below. No complaints. Groin incision with mild erythema, vac in place.
Continue abx, PT/OT/dispo planning
Original Note:
Today's Communication / Plan
-
Discussed with Dr. Whitmore
Assessment/Plan
-
Assessment: 74 year old male s/p Right femoral endarterectomy with interposition common femoral to femoral bifurcation artery bypass with nonreversed ipsilateral greater saphenous vein conduit.
s/p Washout right groin surgical site. Pulse lavage irrigation with 3 L saline solution. Closure of deeper tissues with placement of more superficial wound VAC right groin, and placement of drain in saphenectomy bed.
I reviewed his carotid duplex which suggests evidence of LSCA disease - peripheral cuff has been on the left because the RUE has a restriction due to HD access. May explain low BP readings. No evidence of bleeding
Plan:
HD per nephrology, appreciate recommendations
PT/OT/OOB
Case management for SNF placement (difficulties finding placement with HD)
Appreciate cardiology recommendations for monitoring of hypotension on cardiac medications
Continue wound VAC, next change Monday
Will switch antibiotics to p.o. on discharge
Ready for discharge when placement found
Subjective Data
-
Date of Service: February 08, 2025
Patient seen sitting up to the chair this morning. no events overnight. VAC intact with no leak.
Objective Data
-
Vital Signs
Temp Pulse Resp BP Pulse Ox
97.5 F 75 18 97/42 93
02/08/25 03:47 02/08/25 03:47 02/08/25 03:47 02/08/25 03:47 02/08/25 03:47
Intake and Output
02/07/25 02/08/25 02/09/25
06:59 06:59 06:59
Intake Total 1050 / 1050 1435 / 1435
Output Total 150 / 150
Balance 900 / 900 1347 / 1347
Intake:
Oral fluids 1000 / 1000 1285 / 1285
IV piggybacks 50 / 50 150 / 150
Output:
Drain Output (Total) 150 / 150
Right Upper Leg Marco A-Shelley 150 / 150
Lab Results
02/08/25 06:04
02/08/25 06:04
Calcium 9.3 mg/dl (8.4-10.2) 02/08/25 06:04
Magnesium 2.0 mg/dl (1.6-2.3) 02/08/25 06:04
Physical Exam
-
No apparent distress, resting in bed comfortably
No tachycardia
No dyspnea on room air
Right groin wound VAC holding suction, dressing clean, dry, and intact
Right foot warm, Doppler DP signal
HOARCIO drain with serous fluid, 20 cc overnight
[2025-02-08] MEDS: TOPROL XL PO (08:20)
[2025-02-08] MEDS: SPIRIVA RESPIMAT 2.5 MCG 2 PUFF INH (08:23)
[2025-02-08] MEDS: SYMBICORT 160/4.5 MCG INHALER 2 PUFF INH ×2 (08:23→17:48)
[2025-02-08] MEDS: DILAUDID 0.5 MG IV (09:28)
[2025-02-08] MEDS: COLACE 100 MG PO (09:34)
[2025-02-08] MEDS: THERAGRAN 1 TABLET PO (09:35)
[2025-02-08] MEDS: SENOKOT 8.6 MG PO (09:35)
[2025-02-08] MEDS: NEPHROCAP 1 CAPSULE PO (09:35)
[2025-02-08] MEDS: ELIQUIS 5 MG PO ×2 (09:36→20:13)
[2025-02-08] MEDS: RENVELA 800 MG PO ×2 (09:36→17:55)
[2025-02-08] MEDS: VITAMIN D3 (cholecalciferol) 50 MCG PO (09:36)
[2025-02-08] MEDS: VITAMIN C 500 MG PO (09:36)
[2025-02-08] MEDS: ZINC 50 MG PO (09:36)
--- NOTE | 2025-02-08 10:12 | W.PN.ID1 ---
Date of Service
Date of Service: February 08, 2025
Today's Communication
Continue antibiotics.
Assessment / Plan
#Chronic right limb ischemia, s/p right femoral endarterectomy with common femoral to femoral bifurcation artery bypass (01/29/2025)
#Right groin washout and VAC placement (02/05/2025) with seroma noted
#Leukocytosis
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
#Right carotid stenosis
#Type 2 diabetes
#Hyperlipidemia
#Hypertension
#ICD in place
Plan:
No Fevers noted but increased leukocytosis since 02/05
Cultures from washout with Serratia marcescens
Anaerobic cultures pending
Trend WBC and Temp Curve
Will Continue Zosyn while inpatient
Likely transition to Cefpodoxime 200mg qpm and Doxycycline 100mg BID on Discharge

Chief Complaint
-: Other (right groin infected seroma)
Subjective / Review of Systems
Patient seen and examined. Still notes some right groin tenderness.
Vital Signs / Physical Exam
Vital Signs
Vital Signs
Temp Pulse Resp BP Pulse Ox
97.5 F 75 18 94/36 93
02/08/25 03:47 02/08/25 03:47 02/08/25 03:47 02/08/25 08:20 02/08/25 03:47
Physical Exam
Constitutional: No Acute Distress, Comfortable and Non-toxic
Cardiovascular: S1/S2; Negative S3/S4
Pulmonary: Non Labored
Gastrointestinal: Soft and Non Tender
Wound: Other (Right groin wound with VAC in place. Positive surrounding tenderness to touch. Mild erythema. Right mid thigh HORACIO with serous drainage.)
Neurological: Awake and Alert
Psychological: Calm
Objective Data
Lab Data
Lab Results
02/08/25 06:04
02/08/25 06:04
PT 15.4 Sec (11.4-14.6) H 01/30/25 03:31
INR 1.17 01/30/25 03:31
APTT 32.3 Sec (23.4-35.0) 01/30/25 03:31
Estimated Creat Clear 11 ml/min 02/08/25 06:04
Most recent labs reviewed.
Micro Results:
02/05/25 13:45 Wound Culture - Preliminary
Groin - Right Serratia marcescens
Gram Stain - Preliminary
02/05/25 13:45 Anaerobic Culture - Preliminary
Groin - Right Culture pending. Anaerobic cultures are examined after 3
days incubation. Additional information to follow.
01/29/25 18:45 MRSA Screen - Final
Nose No Methicillin Resistant Staphylococcus aureus isolated.
Imaging:
02/04/2025 CT Abd Aorta Angio W/ Run Off: Status post common femoral/femoral artery endarterectomy, now widely patent in this region. There is new overlying anterior right groin subcutaneous edema, gas and fluid, with partially loculated fluid
collection spanning over approximately 6.0 x 6.4 x 16.8 cm. No well-defined/thick barry. There is otherwise generalized right thigh subcutaneous edema, new from prior and likely postoperative. Otherwise stable appearance of extensive atherosclerotic
calcifications throughout the right lower extremity arterial system as previously described.
02/04/2025 US Groin: Technically limited exam which reveals a large hypoechoic fluid collection in the right inguinal region. This is worrisome for abscess. Given the technical limitations of this exam, consider CT pelvis for more complete evaluation
01/23/2025 CT Abd Aorta Angio W/ Run Off: Heavily calcified, ectatic infrarenal abdominal aorta measuring up to 2.1 cm. Extensive calcified plaque at the origin of the SMA likely causing significant stenosis. JOANNA appears to be occluded at its origin
with distal reconstitution. Heavily calcified iliac arteries. Focal stenosis within the proximal external iliac artery secondary to calcified and noncalcified plaque. Bulky calcified plaque within the common femoral artery extending into the
proximal SFA causing severe stenosis and/or focal occlusion. Eccentric calcified plaque within the distal SFA which may cause mild stenosis. Patent trifurcation below the knee with three-vessel runoff, noting limited evaluation of the infrapopliteal
vessels secondary to extensive calcification. Left leg: Bulky calcified plaque within the proximal common iliac artery causing severe stenosis. Extensive calcified plaque within the SFA and popliteal arteries with likely mild multifocal narrowing
within the distal SFA and popliteal artery. Patent trifurcation below the knee with possible three-vessel runoff, noting limited evaluation secondary to extensive calcified plaque within the infrapopliteal vessels.
--- NOTE | 2025-02-08 11:37 | W.PN.NEPH.HD ---
Assessment
-
Tolerating treatment ultrafiltration 2 L close to dry weight
Progress Note - Hemodialysis
-
Date of Service: February 08, 2025
Duration: 30 minutes and 3 hours
Potassium Bath: 2
Calcium Bath: 2.5
Opti-Dialyzer: 160
Ultrafiltration: Other (3-3.5kg)
Blood Flow: 400
Dialysate Flow: 600
Heparin: no
EPO: 6000
[2025-02-08 12:41] LABS: Glucose - Point of Care 174 mg/dl (70-99)
[2025-02-08 12:45] VITALS: BP 159/54
[2025-02-08] MEDS: RETACRIT 4000 UNITS IV (12:48)
[2025-02-08] MEDS: NOVOLOG FLEXPEN-MODERATE RESISTANCE 1 UNITS SC (13:27)
[2025-02-08] MEDS: RENVELA PO (13:53)
--- NOTE | 2025-02-08 14:59 | W.PN.CD ---
Today's Communication / Plan
-
try dosing entresto on non-HD days
OK to give Toprol XL, as long as SBP over 90
Impression / Plan
-
74 y/o male (patient of Dr. Vieira) with HFrEF, NICM EF 32%, AFIB on Eliquis (CV 2022, off amiodarone due to intolerance), VT, biV ICD, PVC s/p ablations, ESRD on HD, COPD, moderate to severe TR, and PAD who is s/p right femoral endarterectomy with
interposition vein graft 01/29/25- Dr. Mahoney. We are consulted regarding his CM GDMT with BP's on low end post-op.
Possible hypotension
- Vascular notes: 'BP measurements may not be completely reliable due to possible inflow disease from left subclavian artery.'
- Challenging situation, as long as he seems clinically well perfused and tolerates HD, continue current cardiac medications.
PAD:
-s/p right femoral endarterectomy with interposition vein graft 01/29/25- Dr. Mahoney.
- s/p return to OR 02/05/25 -Washout right groin surgical site., Closure of deeper tissues with placement of more superficial wound VAC right groin, and placement of drain in saphenectomy bed.
-post-op management per vascular surgery
Chronic HFrEF/NICM (EF 30-35%):
-He has evidence for left subclavian artery disease, but cannot check on right due to HD access, and he has severe LE PAD. This may explain low BP readings. He denies any dizziness.
-BIV ICD in place
- Continue volume management via HD.
-try dosing entresto on non-HD days
-OK to give Toprol XL, as long as SBP over 90
AFib, likely now permanent:
-on Eliquis for OAC;
- Remains rate-controlled
-continue metoprolol succinate.
VT:
- Continue metoprolol, ICD in place. Intolerant to amiodarone per chart.
Moderate to severe TR:
- Volume management via HD.
ESRD:
-on HD and nephro following. Getting HD tomorrow.
Data:
Echo 01/31/25: EF is 32%. Global hypokinesis. Dilated RV with reduced systolic function. Mild aortic stenosis. Mild aortic regurgitation. Moderate to severe tricuspid regurgitation. Moderate to severely elevated estimated PASP at 57 compared to
prior from March mmHg. Compared to prior from Apr 05, 2024, no significant change.
Physical Exam
Vital Signs/Labs
Vital Signs
Temp Pulse Resp BP Pulse Ox
98.3 F 78 15 159/54 90
02/08/25 12:45 02/08/25 12:45 02/08/25 12:45 02/08/25 12:45 02/08/25 12:45
02/07/25 02/08/25 02/09/25
06:59 06:59 06:59
Actual Weight 87.685 kg
02/08/25 06:04
02/08/25 06:04
PT 15.4 Sec (11.4-14.6) H 01/30/25 03:31
INR 1.17 01/30/25 03:31
APTT 32.3 Sec (23.4-35.0) 01/30/25 03:31
Magnesium 2.0 mg/dl (1.6-2.3) 02/08/25 06:04
Physical Exam
Constitutional: No acute distress and Comfortable
EENT: Moist mucous membranes
Cardiovascular: Rhythm & rate is regular, Pedal edema is absent, JVD present and Systolic murmur present
Respiratory: Respiratory effort normal
Neuro/Psych: AO x 3
Data Reviewed
-
Date of Service: February 08, 2025
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
Labs: Labs Reviewed by me
[2025-02-08 15:44] VITALS: BP 94/45
[2025-02-08 16:36] LABS: Glucose - Point of Care 129 mg/dl (70-99)
[2025-02-08 19:30] VITALS: BP 94/61
[2025-02-08] MEDS: XANAX 0.5 MG PO (20:12)
[2025-02-08] MEDS: TOPROL XL 25 MG PO (20:13)
[2025-02-08] MEDS: ULTRAM 50 MG PO (20:23)
[2025-02-08] MEDS: SENOKOT PO (21:11)
[2025-02-08] MEDS: COLACE PO (21:11)
--- NOTE | 2025-02-08 21:24 | PTCARENOTE ---
Received pt on 2L nc O2, tachypneic, reporting increasing effort to breathe, VSS taken O2 97 % on 2L, bp 90/60 HR 78, sitting in bed. STERILIZATION TECHNICIAN and RT notified, assessed PT @ bedside and with pt and his agreeing he felt is was more pain and anxiety
related. Pt given PRN Ultram and Xanax, repositioned with waffle cushion under buttocks and heels. Pt educated this shift as well as previous evening shift to avoid sitting in bed at 90 degree due to increase pressure in the sacral area and risk of
pressure injuries. Pt reports due to his COPD he needs to be sitting higher. Pt is able to shift weight when in bed and able to ambulate with RW, has been assisted in/out of recliner in room with waffle cushion placed. Pt was receptive @ this time
to allow for repositioning in bed, care ongoing and reinforcement of repositioning.
[2025-02-08 21:41] LABS: Glucose - Point of Care 142 mg/dl (70-99)
[2025-02-08 23:18] VITALS: BP 94/50
[2025-02-09] VITALS (7 sets, daily range): BP systolic 92–102; BP diastolic 40–67
[2025-02-09] MEDS: ZOSYN 50 IV ×2 (05:56→17:42)
--- NOTE | 2025-02-09 05:58 | PTCARENOTE ---
Pt assisted throughout shift with repositioning. Pt continues to refuse interventions @ times wanting to sit up @ 90 degree in bed. Pt remains GUILLEN and wants to remove O2 he reports when he sits up his O2 goes up. Pt encouraged to wear O2 @ this time
to help prevent further distress
--- NOTE | 2025-02-09 06:09 | W.PN.UPDATE ---
Update Note
Progress Note Update
Last evening patient was c/o sob which appeared to be made worse by the buttock pain he states was from a rash. is concerned about bedsores. He is repositioned frequently, medicated cream applied to area and he has an air cushion on his chair.
Consult to wound ostomy nurse for further evaluation. Xanax was helpful for anxiety and tramadol offered for pain.
--- NOTE | 2025-02-09 06:18 | PTCARENOTE ---
Pt refused daily weight at this time, reporting he is comfortable and does not want to get out of bed.
[2025-02-09 07:03] LABS: Hematocrit 27.9 % (39.0-52.0); Hemoglobin 9.2 g/dL (13.0-18.0); Mean Corp Hgb Conc. 33.0 g/dL (33.0-37.0); Mean Corpuscular Volume 104.1 fL (80.0-94.0); Platelet Count 91 10^3/uL (130-400); Red Cell Dist. Width 15.0 % (11.5-14.5)
[2025-02-09 07:23] LABS: Glucose - Point of Care 138 mg/dl (70-99)
[2025-02-09 07:30] LABS: Blood Urea Nitrogen 40 mg/dl (9-20); Calcium 9.2 mg/dl (8.4-10.2); Carbon Dioxide 26 mmol/L (22-30); Chloride 94 mmol/L (98-107); Estimated Creatinine Clearance 16 ml/min; Glucose 105 mg/dl (70-99); Potassium 3.9 mmol/L (3.5-5.1); Sodium 132 mmol/L (135-145); eGFR 14.53
[2025-02-09] MEDS: SPIRIVA RESPIMAT 2.5 MCG 2 PUFF INH (07:37)
[2025-02-09] MEDS: SYMBICORT 160/4.5 MCG INHALER 2 PUFF INH ×2 (07:38→19:25)
[2025-02-09] MEDS: NOVOLOG FLEXPEN-MODERATE RESISTANCE SC ×2 (07:45→17:18)
--- NOTE | 2025-02-09 07:46 | W.PN.VS ---
Today's Communication / Plan
-
as above
Assessment/Plan
-
Assessment: 74 year old male s/p Right femoral endarterectomy with interposition common femoral to femoral bifurcation artery bypass with nonreversed ipsilateral greater saphenous vein conduit.
s/p Washout right groin surgical site. Pulse lavage irrigation with 3 L saline solution. Closure of deeper tissues with placement of more superficial wound VAC right groin, and placement of drain in saphenectomy bed.
Plan:
HD per nephrology, appreciate recommendations
PT/OT/OOB
Case management for SNF placement (difficulties finding placement with HD)
Appreciate cardiology recommendations for monitoring of hypotension on cardiac medications
Continue wound VAC, next change Monday
Will switch antibiotics to p.o. on discharge
Ready for discharge when placement found
Subjective Data
-
Date of Service: February 09, 2025
No acute events. No complaints this am
Objective Data
-
Vital Signs
Temp Pulse Resp BP Pulse Ox
98.5 F 79 16 93/40 96
02/09/25 03:06 02/09/25 03:06 02/09/25 07:41 02/09/25 03:06 02/09/25 07:41
Intake and Output
02/08/25 02/09/25 02/10/25
06:59 06:59 06:59
Intake Total 1435 / 1435 680 / 680
Output Total
Balance 1347 / 1347 655 / 655
Intake:
Oral fluids 1285 / 1285 580 / 580
IV piggybacks 150 / 150 100 / 100
Output:
Drain Output (Total)
Right Upper Leg Marco A-Shelley
Other:
Number of approximated LARGE 1
amounts of urine
Lab Results
02/09/25 06:06
02/09/25 06:06
Calcium 9.2 mg/dl (8.4-10.2) 02/09/25 06:06
Magnesium 2.0 mg/dl (1.6-2.3) 02/08/25 06:04
Physical Exam
-
NAD
Erythema around groin decreasing
+dp signal
HORACIO serous
[2025-02-09] MEDS: THERAGRAN 1 TABLET PO (08:26)
[2025-02-09] MEDS: NEPHROCAP 1 CAPSULE PO (08:26)
[2025-02-09] MEDS: VITAMIN C 500 MG PO (08:26)
[2025-02-09] MEDS: ELIQUIS 5 MG PO ×2 (08:26→20:13)
[2025-02-09] MEDS: VITAMIN D3 (cholecalciferol) 50 MCG PO (08:26)
[2025-02-09] MEDS: COLACE 100 MG PO ×2 (08:26→20:13)
[2025-02-09] MEDS: ZINC 50 MG PO (08:26)
[2025-02-09] MEDS: SENOKOT 8.6 MG PO ×2 (08:26→20:18)
[2025-02-09] MEDS: RENVELA 800 MG PO ×3 (08:27→17:43)
[2025-02-09] MEDS: TOPROL XL 25 MG PO ×2 (08:27→20:13)
[2025-02-09] MEDS: ENTRESTO 49 MG/51 MG 1 TAB PO ×2 (08:49→20:26)
--- NOTE | 2025-02-09 10:34 | W.PN.ID1 ---
Date of Service
Date of Service: February 09, 2025
Today's Communication
Continue antibiotics per
Assessment / Plan
#Chronic right limb ischemia, s/p right femoral endarterectomy with common femoral to femoral bifurcation artery bypass (01/29/2025)
#Right groin washout and VAC placement (02/05/2025) with seroma noted
#Leukocytosis
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
#Right carotid stenosis
#Type 2 diabetes
#Hyperlipidemia
#Hypertension
#ICD in place
Plan:
No Fevers noted but increased leukocytosis since 02/05
Cultures from washout with Serratia marcescens
Anaerobic cultures pending
Trend WBC and Temp Curve
--> Continue Zosyn (d#4) while inpatient
- transition to Cefpodoxime 200mg qpm and Doxycycline 100mg BID on Discharge

Chief Complaint
-: Other (right groin infected seroma)
Subjective / Review of Systems
Review of Systems: No Fever and No Chills
Vital Signs / Physical Exam
Vital Signs
Vital Signs
Temp Pulse Resp BP Pulse Ox
97.9 F 65 16 94/47 96
02/09/25 07:05 02/09/25 08:27 02/09/25 07:41 02/09/25 08:27 02/09/25 07:41
Physical Exam
Constitutional: No Acute Distress, Comfortable and Non-toxic
Eyes: No Conjunctival Hemorrhage and Sclera Anicteric
Cardiovascular: S1/S2; Negative S3/S4
Pulmonary: Clear; Negative Wheezes, Rales or Rhonchi
Gastrointestinal: Soft
Wound: Other (Right groin wound with VAC in place. Decreasing erythema. Right mid thigh HORACIO with serous drainage.)
Neurological: Awake and Alert
Psychological: Calm
Objective Data
Lab Data
Lab Results
02/09/25 06:06
02/09/25 06:06
PT 15.4 Sec (11.4-14.6) H 01/30/25 03:31
INR 1.17 01/30/25 03:31
APTT 32.3 Sec (23.4-35.0) 01/30/25 03:31
Estimated Creat Clear 16 ml/min 02/09/25 06:06
Most recent labs reviewed.
Micro Results:
02/05/25 13:45 Anaerobic Culture - Preliminary
Groin - Right Culture pending. Anaerobic cultures are examined after 3
days incubation. Additional information to follow.
02/05/25 13:45 Wound Culture - Preliminary
Groin - Right Serratia marcescens
Gram Stain - Preliminary
01/29/25 18:45 MRSA Screen - Final
Nose No Methicillin Resistant Staphylococcus aureus isolated.
Imaging:
02/04/2025 CT Abd Aorta Angio W/ Run Off: Status post common femoral/femoral artery endarterectomy, now widely patent in this region. There is new overlying anterior right groin subcutaneous edema, gas and fluid, with partially loculated fluid
collection spanning over approximately 6.0 x 6.4 x 16.8 cm. No well-defined/thick barry. There is otherwise generalized right thigh subcutaneous edema, new from prior and likely postoperative. Otherwise stable appearance of extensive atherosclerotic
calcifications throughout the right lower extremity arterial system as previously described.
02/04/2025 US Groin: Technically limited exam which reveals a large hypoechoic fluid collection in the right inguinal region. This is worrisome for abscess. Given the technical limitations of this exam, consider CT pelvis for more complete evaluation
01/23/2025 CT Abd Aorta Angio W/ Run Off: Heavily calcified, ectatic infrarenal abdominal aorta measuring up to 2.1 cm. Extensive calcified plaque at the origin of the SMA likely causing significant stenosis. JOANNA appears to be occluded at its origin
with distal reconstitution. Heavily calcified iliac arteries. Focal stenosis within the proximal external iliac artery secondary to calcified and noncalcified plaque. Bulky calcified plaque within the common femoral artery extending into the
proximal SFA causing severe stenosis and/or focal occlusion. Eccentric calcified plaque within the distal SFA which may cause mild stenosis. Patent trifurcation below the knee with three-vessel runoff, noting limited evaluation of the infrapopliteal
vessels secondary to extensive calcification. Left leg: Bulky calcified plaque within the proximal common iliac artery causing severe stenosis. Extensive calcified plaque within the SFA and popliteal arteries with likely mild multifocal narrowing
within the distal SFA and popliteal artery. Patent trifurcation below the knee with possible three-vessel runoff, noting limited evaluation secondary to extensive calcified plaque within the infrapopliteal vessels.
[2025-02-09 11:57] LABS: Glucose - Point of Care 207 mg/dl (70-99)
[2025-02-09] MEDS: NOVOLOG FLEXPEN-MODERATE RESISTANCE 3 UNITS SC (12:16)
[2025-02-09] MEDS: RENVELA PO (12:17)
--- NOTE | 2025-02-09 12:40 | W.PN.CD ---
Today's Communication / Plan
-
continue current regimen for entresto and Toprol XL
please call us with additional questions
Impression / Plan
-
74 y/o male (patient of Dr. Vieira) with HFrEF, NICM EF 32%, AFIB on Eliquis (CV 2022, off amiodarone due to intolerance), VT, biV ICD, PVC s/p ablations, ESRD on HD, COPD, moderate to severe TR, and PAD who is s/p right femoral endarterectomy with
interposition vein graft 01/29/25- Dr. Mahoney. We are consulted regarding his CM GDMT with BP's on low end post-op.
Possible hypotension
- Vascular notes: 'BP measurements may not be completely reliable due to possible inflow disease from left subclavian artery.'
- Challenging situation, as long as he seems clinically well perfused and tolerates HD, continue current cardiac medications.
PAD:
-s/p right femoral endarterectomy with interposition vein graft 01/29/25- Dr. Mahoney.
- s/p return to OR 02/05/25 -Washout right groin surgical site., Closure of deeper tissues with placement of more superficial wound VAC right groin, and placement of drain in saphenectomy bed.
-post-op management per vascular surgery
Chronic HFrEF/NICM (EF 30-35%):
-He has evidence for left subclavian artery disease, but cannot check on right due to HD access, and he has severe LE PAD. This may explain low BP readings. He denies any dizziness.
-BIV ICD in place
- Continue volume management via HD.
-dosing entresto on non-HD days
-OK to give Toprol XL, as long as SBP over 90
AFib, likely now permanent:
-on Eliquis for OAC;
- Remains rate-controlled
-continue metoprolol succinate.
VT:
- Continue metoprolol, ICD in place. Intolerant to amiodarone per chart.
Moderate to severe TR:
- Volume management via HD.
ESRD:
-on HD and nephro following. Getting HD tomorrow.
Data:
Echo 01/31/25: EF is 32%. Global hypokinesis. Dilated RV with reduced systolic function. Mild aortic stenosis. Mild aortic regurgitation. Moderate to severe tricuspid regurgitation. Moderate to severely elevated estimated PASP at 57 compared to
prior from March mmHg. Compared to prior from Apr 05, 2024, no significant change.
Physical Exam
Vital Signs/Labs
Vital Signs
Temp Pulse Resp BP Pulse Ox
98.2 F 78 16 102/50 98
02/09/25 11:59 02/09/25 11:59 02/09/25 11:59 02/09/25 11:59 02/09/25 11:59
02/09/25 06:06
02/09/25 06:06
PT 15.4 Sec (11.4-14.6) H 01/30/25 03:31
INR 1.17 01/30/25 03:31
APTT 32.3 Sec (23.4-35.0) 01/30/25 03:31
Magnesium 2.0 mg/dl (1.6-2.3) 02/08/25 06:04
Physical Exam
Constitutional: No acute distress
EENT: Moist mucous membranes
Cardiovascular: Rhythm & rate is regular, Pedal edema present, JVD present and Systolic murmur present
Respiratory: Respiratory effort normal and Lungs clear to auscul.
Neuro/Psych: AO x 3
Data Reviewed
-
Date of Service: February 09, 2025
EKG: Other (Tele: Technical Specialist, PVC's)
Labs: Labs Reviewed by me
[2025-02-09] MEDS: ROXICODONE 5 MG PO (14:52)
[2025-02-09] MEDS: XANAX 0.5 MG PO (14:54)
--- NOTE | 2025-02-09 15:03 | W.PN.NEPH.PH ---
Today's Communication / Plan
-
No acute need for dialysis today
Assessment/Plan
-
Impression:
Chronic limb threatening ischemia of the right lower extremity.
Right femoral endarterectomy with interposition common femoral to femoral bifurcation artery bypass with nonreversed ipsilateral greater saphenous vein conduit. 01/29/2025 Dr. Mahoney
Peripheral arterial disease
ESRD on dialysis [facility]
Right carotid stenosis
Type 2 diabetes
Hyperlipidemia
Hypertension
Nonischemic cardiomyopathy with EF of 30%
History of ventricular tachycardia/ICD
History of DVT
Atrial fibrillation-status post cardioversion in 2022.
Previous history of cardiac ablation
Gout
COPD
Right UE AVF 10/2024
Hyperphosphatemia
Plan
A/w CLI s/p elective right femoral endarterectomy 01/29
s/p wash out 02/06= wound VAC
resting AVF
no entresto
soft BP, accept SBP > 90 on cuff= midodrine
No acute need for dialysis today
-
-
Date of Service: February 09, 2025
CC / HPI / ROS
-
Chief Complaint:
ESRD
History of Present Illness:
tolerated HD yesterday
BP soft
s/p wash out of groin
hgb stable 9.5, wbc up at 13.3
Review of Systems:
no CP/SOB
Labs
-
Labs:
WBC 13.0 10^3/uL (4.8-10.8) H 02/09/25 06:06
RBC 2.68 10^6/uL (4.70-6.10) L 02/09/25 06:06
Hgb 9.2 g/dL (13.0-18.0) L 02/09/25 06:06
Hct 27.9 % (39.0-52.0) L 02/09/25 06:06
Plt Count 91 10^3/uL (130-400) L 02/09/25 06:06
Sodium 132 mmol/L (135-145) L 02/09/25 06:06
Potassium 3.9 mmol/L (3.5-5.1) 02/09/25 06:06
Chloride 94 mmol/L (98-107) L 02/09/25 06:06
Carbon Dioxide 26 mmol/L (22-30) 02/09/25 06:06
BUN 40 mg/dl (9-20) H 02/09/25 06:06
Creatinine 4.1 mg/dL (0.7-1.3) H* 02/09/25 06:06
eGFR 14.53 02/09/25 06:06
Glucose 105 mg/dl (70-99) H 02/09/25 06:06
Calcium 9.2 mg/dl (8.4-10.2) 02/09/25 06:06
Physical Exam
-
Vital Signs:
Vital Signs
Temp Pulse Resp BP Pulse Ox
98.2 F 78 16 102/50 98
02/09/25 11:59 02/09/25 11:59 02/09/25 11:59 02/09/25 11:59 02/09/25 11:59
Cardiovascular:: Regular rate and rhythm
Respiratory:: Bilateral: Coarse
Lung Excursion:: Normal
Abdomen:: Nontender and Soft
Bowel Sounds:: Normal
Extremity Edema:: +2: Right: and None: Left:
Lawson Catheter: No
Other Findings::
gangrene GT of right foot
[2025-02-09 17:10] LABS: Glucose - Point of Care 149 mg/dl (70-99)
[2025-02-09 22:28] LABS: Glucose - Point of Care 134 mg/dl (70-99)
[2025-02-10] MEDS: ROXICODONE 5 MG PO ×3 (00:22→20:34)
[2025-02-10] MEDS: XANAX 0.5 MG PO (00:22)
[2025-02-10] MEDS: PROTONIX 40 MG PO (00:45)
[2025-02-10 03:42] VITALS: BP 95/44
[2025-02-10] MEDS: ZOSYN 50 IV (05:58)
--- NOTE | 2025-02-10 06:24 | PTCARENOTE ---
Wound vac container changed @ 0530; output from old container 500ml;
[2025-02-10 06:28] LABS: Hematocrit 26.4 % (39.0-52.0); Hemoglobin 8.6 g/dL (13.0-18.0); Mean Corp Hgb Conc. 32.6 g/dL (33.0-37.0); Mean Corpuscular Volume 106.5 fL (80.0-94.0); Platelet Count 88 10^3/uL (130-400); Red Cell Dist. Width 14.9 % (11.5-14.5)
[2025-02-10 06:51] LABS: Blood Urea Nitrogen 57 mg/dl (9-20); Calcium 9.0 mg/dl (8.4-10.2); Carbon Dioxide 25 mmol/L (22-30); Chloride 92 mmol/L (98-107); Estimated Creatinine Clearance 12 ml/min; Glucose 114 mg/dl (70-99); Potassium 4.2 mmol/L (3.5-5.1); Sodium 130 mmol/L (135-145); eGFR 10.92
[2025-02-10 07:20] VITALS: BP 80/35
--- NOTE | 2025-02-10 07:29 | PTCARENOTE ---
pt very weak and unable to stand this morning; unable to obtain weight; care ongoing;
[2025-02-10 07:45] LABS: Glucose - Point of Care 130 mg/dl (70-99)
[2025-02-10] MEDS: NOVOLOG FLEXPEN-MODERATE RESISTANCE SC (07:59)
[2025-02-10] MEDS: SYMBICORT 160/4.5 MCG INHALER 2 PUFF INH ×2 (08:27→18:13)
[2025-02-10] MEDS: SPIRIVA RESPIMAT 2.5 MCG 2 PUFF INH (08:27)
[2025-02-10] MEDS: TOPROL XL 25 MG PO (08:46)
[2025-02-10] MEDS: ELIQUIS 5 MG PO ×2 (08:47→20:21)
[2025-02-10] MEDS: VITAMIN D3 (cholecalciferol) 50 MCG PO (08:47)
[2025-02-10] MEDS: VITAMIN C 500 MG PO (08:47)
[2025-02-10] MEDS: ENTRESTO 49 MG/51 MG 1 TAB PO (08:47)
[2025-02-10] MEDS: COLACE 100 MG PO ×2 (08:47→20:21)
[2025-02-10] MEDS: NEPHROCAP 1 CAPSULE PO (08:47)
[2025-02-10] MEDS: ZINC 50 MG PO (08:47)
[2025-02-10] MEDS: SENOKOT 8.6 MG PO ×2 (08:48→20:21)
[2025-02-10] MEDS: RENVELA 800 MG PO ×3 (08:48→17:57)
[2025-02-10] MEDS: THERAGRAN 1 TABLET PO (08:48)
--- NOTE | 2025-02-10 09:23 | W.PN.NEPH.PH ---
Today's Communication / Plan
-
Dialysis to be scheduled for tomorrow
Assessment/Plan
-
Impression:
Chronic limb threatening ischemia of the right lower extremity.
Right femoral endarterectomy with interposition common femoral to femoral bifurcation artery bypass with nonreversed ipsilateral greater saphenous vein conduit. 01/29/2025 Dr. Mahoney
Peripheral arterial disease
ESRD on dialysis [facility]
Right carotid stenosis
Type 2 diabetes
Hyperlipidemia
Hypertension
Nonischemic cardiomyopathy with EF of 30%
History of ventricular tachycardia/ICD
History of DVT
Atrial fibrillation-status post cardioversion in 2022.
Previous history of cardiac ablation
Gout
COPD
Right UE AVF 10/2024
Hyperphosphatemia
Plan
A/w CLI s/p elective right femoral endarterectomy 01/29
s/p wash out 02/06= wound VAC
states his mental status is off today
resting AVF
no entresto
soft BP, accept SBP > 90 on cuff= midodrine
Dialysis to be scheduled for tomorrow
-
-
Date of Service: February 10, 2025
CC / HPI / ROS
-
Chief Complaint:
ESRD
History of Present Illness:
ESRD on Monday schedule
BP soft on midodrine
s/p wash out of groin
hgb down to 8 point, wbc up at 15
Review of Systems:
no CP/SOB
Mental status off by appears anxious
Labs
-
Labs:
WBC 15.1 10^3/uL (4.8-10.8) H 02/10/25 06:12
RBC 2.48 10^6/uL (4.70-6.10) L 02/10/25 06:12
Hgb 8.6 g/dL (13.0-18.0) L 02/10/25 06:12
Hct 26.4 % (39.0-52.0) L 02/10/25 06:12
Plt Count 88 10^3/uL (130-400) L 02/10/25 06:12
Sodium 130 mmol/L (135-145) L 02/10/25 06:12
Potassium 4.2 mmol/L (3.5-5.1) 02/10/25 06:12
Chloride 92 mmol/L (98-107) L 02/10/25 06:12
Carbon Dioxide 25 mmol/L (22-30) 02/10/25 06:12
BUN 57 mg/dl (9-20) H 02/10/25 06:12
Creatinine 5.2 mg/dL (0.7-1.3) H* 02/10/25 06:12
eGFR 10.92 02/10/25 06:12
Glucose 114 mg/dl (70-99) H 02/10/25 06:12
Calcium 9.0 mg/dl (8.4-10.2) 02/10/25 06:12
Physical Exam
-
Vital Signs:
Vital Signs
Temp Pulse Resp BP Pulse Ox
97.9 F 75 18 90/42 94
02/10/25 07:20 02/10/25 08:47 02/10/25 08:30 02/10/25 08:47 02/10/25 08:30
Cardiovascular:: Regular rate and rhythm
Respiratory:: Bilateral: Coarse
Lung Excursion:: Normal
Abdomen:: Nontender and Soft
Bowel Sounds:: Normal
Extremity Edema:: +2: Right: and None: Left:
Lawson Catheter: No
Other Findings::
gangrene GT of right foot
--- NOTE | 2025-02-10 09:56 | W.PN.ID1 ---
Date of Service
Date of Service: February 10, 2025
Today's Communication
Change zosyn to rocephin.
Assessment / Plan
#Chronic right limb ischemia, s/p right femoral endarterectomy with common femoral to femoral bifurcation artery bypass (01/29/2025)
#Right groin washout and VAC placement (02/05/2025) with seroma noted
#Leukocytosis
#ESRD-HD
#Right carotid stenosis
#Type 2 diabetes
#Hyperlipidemia
#Hypertension
#ICD in place
Plan:
Leukocytosis persists.
Cultures from washout with Serratia marcescens
Anaerobic cultures negative.
reports some confusion today. ?related to zosyn
Change zosyn to ceftriaxone and observe.
--> eventual transition to Cefpodoxime 200mg qpm and Doxycycline 100mg BID on Discharge
Follow WBC / temps.

Chief Complaint
-: Other (right groin infected seroma)
Subjective / Review of Systems
Patient seen and examined. present at the bedside and notes that the patient seems somewhat confused today. Also notes ongoing discomfort in the right groin area.
Vital Signs / Physical Exam
Vital Signs
Vital Signs
Temp Pulse Resp BP Pulse Ox
97.9 F 75 18 90/42 94
02/10/25 07:20 02/10/25 08:47 02/10/25 08:30 02/10/25 08:47 02/10/25 08:30
Physical Exam
Constitutional: No Acute Distress, Comfortable and Non-toxic
Eyes: Sclera Anicteric
Cardiovascular: S1/S2; Negative S3/S4
Pulmonary: Non Labored
Gastrointestinal: Soft and Non Tender
Extremities: Edema (B/L LE's; R>L)
Wound: Other (right groin area with VAC in place. Surrounding induration without sig change.)
Neurological: Awake and Alert
Psychological: Calm
Objective Data
Lab Data
Lab Results
02/10/25 06:12
02/10/25 06:12
PT 15.4 Sec (11.4-14.6) H 01/30/25 03:31
INR 1.17 01/30/25 03:31
APTT 32.3 Sec (23.4-35.0) 01/30/25 03:31
Estimated Creat Clear 12 ml/min 02/10/25 06:12
Most recent labs reviewed.
Micro Results:
02/10/25 09:11 Blood Culture - Pending
Blood/Venous
02/05/25 13:45 Wound Culture - Final
Groin - Right Serratia marcescens
Gram Stain - Final
02/05/25 13:45 Anaerobic Culture - Final
Groin - Right NO ANAEROBES ISOLATED
01/29/25 18:45 MRSA Screen - Final
Nose No Methicillin Resistant Staphylococcus aureus isolated.
Wound/abscess/other Cult Final 02/05/25
Few Serratia marcescens
Organism 1 Serratia marcescens
1. Serratia marcescens
M.I.C. RX
--------- ---
Amoxicillin/Potas. Clavulanate >16/8 R
Ampicillin >16 R
Ampicillin/Sulbactam >16/8 R
Aztreonam <=4 S
Cefazolin >16 R
Cefepime <=2 S
Ceftazidime <=1 S
Ceftriaxone <=1 S
Ertapenem <=0.5 S
Ciprofloxacin <=0.25 S
Gentamicin <=2 S
Meropenem <=1 S
Piperacillin/Tazobactam <=8 S
Tetracycline <=4 S
Tobramycin <=2 S
Trimethoprim/Sulfamethoxazole <=2/38 S
Imaging:
02/04/2025 CT Abd Aorta Angio W/ Run Off: Status post common femoral/femoral artery endarterectomy, now widely patent in this region. There is new overlying anterior right groin subcutaneous edema, gas and fluid, with partially loculated fluid
collection spanning over approximately 6.0 x 6.4 x 16.8 cm. No well-defined/thick barry. There is otherwise generalized right thigh subcutaneous edema, new from prior and likely postoperative. Otherwise stable appearance of extensive atherosclerotic
calcifications throughout the right lower extremity arterial system as previously described.
02/04/2025 US Groin: Technically limited exam which reveals a large hypoechoic fluid collection in the right inguinal region. This is worrisome for abscess. Given the technical limitations of this exam, consider CT pelvis for more complete evaluation
01/23/2025 CT Abd Aorta Angio W/ Run Off: Heavily calcified, ectatic infrarenal abdominal aorta measuring up to 2.1 cm. Extensive calcified plaque at the origin of the SMA likely causing significant stenosis. JOANNA appears to be occluded at its origin
with distal reconstitution. Heavily calcified iliac arteries. Focal stenosis within the proximal external iliac artery secondary to calcified and noncalcified plaque. Bulky calcified plaque within the common femoral artery extending into the
proximal SFA causing severe stenosis and/or focal occlusion. Eccentric calcified plaque within the distal SFA which may cause mild stenosis. Patent trifurcation below the knee with three-vessel runoff, noting limited evaluation of the infrapopliteal
vessels secondary to extensive calcification. Left leg: Bulky calcified plaque within the proximal common iliac artery causing severe stenosis. Extensive calcified plaque within the SFA and popliteal arteries with likely mild multifocal narrowing
within the distal SFA and popliteal artery. Patent trifurcation below the knee with possible three-vessel runoff, noting limited evaluation secondary to extensive calcified plaque within the infrapopliteal vessels.
--- NOTE | 2025-02-10 10:10 | W.PN.VS ---
Today's Communication / Plan
-
Discussed with Dr Lawson
Assessment/Plan
-
Assessment: 74 year old male s/p Right femoral endarterectomy with interposition common femoral to femoral bifurcation artery bypass with nonreversed ipsilateral greater saphenous vein conduit.
s/p Washout right groin surgical site. Pulse lavage irrigation with 3 L saline solution. Closure of deeper tissues with placement of more superficial wound VAC right groin, and placement of drain in saphenectomy bed.
Plan:
HD per nephrology, appreciate recommendations
PT/OT/OOB
Case management for SNF placement (difficulties finding placement with HD)
Appreciate cardiology recommendations for monitoring of hypotension on cardiac medications
Continue wound VAC, I will change later today
Will switch antibiotics to p.o. on discharge
Blood cultures this am
Subjective Data
-
Date of Service: February 10, 2025
Pt seen at bedside this am with present. Pt seems to be at his baseline. VAC intact, no leak. No events overnight.
Objective Data
-
Vital Signs
Temp Pulse Resp BP Pulse Ox
97.9 F 75 18 90/42 94
02/10/25 07:20 02/10/25 08:47 02/10/25 08:30 02/10/25 08:47 02/10/25 08:30
Intake and Output
02/09/25 02/10/25 02/11/25
06:59 06:59 06:59
Intake Total 680 / 680 315 / 315
Output Total
Balance 655 / 655 315 / 315
Intake:
Oral fluids 580 / 580 240 / 240
IV fluids (Total)
IV piggybacks 100 / 100 50 / 50
Output:
Drain Output (Total)
Right Upper Leg Marco A-Shelley
Other:
Number of approximated LARGE 1
amounts of urine
Lab Results
02/10/25 06:12
02/10/25 06:12
Calcium 9.0 mg/dl (8.4-10.2) 02/10/25 06:12
Magnesium 2.0 mg/dl (1.6-2.3) 02/08/25 06:04
Physical Exam
-
No apparent distress, resting in bed comfortably
No tachycardia
No dyspnea on room air
Right groin wound VAC holding suction, dressing clean, dry, and intact- 500cc output since Monday morning
Right foot warm, Doppler DP signal
HORACIO drain with no output in 24hrs
[2025-02-10 11:55] VITALS: BP 91/35
[2025-02-10 11:59] LABS: Glucose - Point of Care 163 mg/dl (70-99)
[2025-02-10] MEDS: NOVOLOG FLEXPEN-MODERATE RESISTANCE 1 UNITS SC ×2 (12:26→17:57)
[2025-02-10] MEDS: STERILE WATER FOR INJECTION 10 ML IV (12:27)
[2025-02-10] MEDS: ROCEPHIN 1000 MG IV (12:27)
--- NOTE | 2025-02-10 12:40 | CM ---
Reviewed the chart notes and spoke with the patient's spouse at the bedside. Patient more lethargic per spouse. Spouse requested a referral be sent to [facility]. Referral placed in [facility]. CM continues to be available to
patient/family and is monitoring medical plan for needs at discharge.
Plan: Discharge to SNF/rehab once medically stable and bed secured. Patient is a dialysis patient.
--- NOTE | 2025-02-10 14:50 | W.PN.UPDATE ---
Update Note
Progress Note Update
Wound vac changed at bedside. Pt tolerated well. 7x1x1. Serous drainage
[2025-02-10 15:55] VITALS: BP 89/46
--- NOTE | 2025-02-10 16:04 | WOUNDNOTE ---
R 3RD TOE
--- NOTE | 2025-02-10 16:05 | WOUNDNOTE ---
GLUTEAL CLEFT DISTAL
--- NOTE | 2025-02-10 16:10 | WOUNDNOTE ---
[facility] RN note: Patient admitted for R femoral endarterectomy with vein graft.
See H&P for complete history.
PMH: PAD, smoker, COPD, A Fib, CHF, DVT, necrotic R toe tip.
Wound Location and type/assessment: Patient admitted with: Mild MASD on buttocks and distal gluteal cleft with tiny open area, very uncomfortable reports patient. R groin s/p washout and vac placement, dressing changed today by COOLING PIPE INSPECTOR Mary Villeda,
vascular following. R great toe tip with dry necrotic area, tiny necrotic tip on 3rd toe.
Appetite: Good.
Pressure redistribution devices in place: On Accumax, air overlay placed in rm, nurse Raven will apply. Using air cushion.
Plan: Calazime and sacral silicone foam applied. Offloading, patient turns self slowly. Can use purple wedge. Painted necrotic areas on R toes with Betadine. Heels are intact.
Will confirm orders with hospitalist and updated nurse. Defer to vascular for R groin vac needs.
Updated care plan and will follow as needed.
Note to case management of equipment requested for discharge:
Recommend follow up with vascular upon discharge.
[2025-02-10 16:40] LABS: Glucose - Point of Care 171 mg/dl (70-99)
[2025-02-10 19:49] VITALS: BP 82/35
[2025-02-10] MEDS: TOPROL XL PO (20:22)
[2025-02-10] MEDS: ENTRESTO 49 MG/51 MG PO (20:34)
[2025-02-10 23:51] VITALS: BP 105/37
[2025-02-11] LABS: Glucose - Point of Care 160 mg/dl (70-99)
[2025-02-11 03:37] VITALS: BP 100/42
[2025-02-11 04:38] VITALS: BMI 29.2
[2025-02-11] MEDS: ULTRAM 50 MG PO ×2 (04:55→21:30)
[2025-02-11] MEDS: XANAX 0.5 MG PO ×3 (04:55→21:30)
--- NOTE | 2025-02-11 07:02 | W.PN.UPDATE ---
Update Note
Progress Note Update
Sbp in 80s. parameters placed to entresto. 10mg midodrine given. After midodrine bp did come up to low 100s.
[2025-02-11] MEDS: NOVOLOG FLEXPEN-MODERATE RESISTANCE SC ×3 (07:30→17:44)
[2025-02-11] MEDS: SPIRIVA RESPIMAT 2.5 MCG 2 PUFF INH (08:12)
[2025-02-11] MEDS: SYMBICORT 160/4.5 MCG INHALER 2 PUFF INH ×2 (08:13→19:58)
[2025-02-11 08:30] VITALS: BP 107/49
[2025-02-11] MEDS: FLEXBUMIN 25% FOR HEMODIALYSIS 12.5 GRAMS IV ×2 (08:33→09:40)
[2025-02-11] MEDS: MANNITOL 25% 12.5 GRAMS IV ×2 (08:34→09:40)
[2025-02-11] MEDS: RETACRIT 10000 UNITS IV (08:35)
[2025-02-11 08:39] LABS: Hematocrit 27.3 % (39.0-52.0); Hemoglobin 9.0 g/dL (13.0-18.0); Mean Corp Hgb Conc. 33.0 g/dL (33.0-37.0); Mean Corpuscular Volume 105.0 fL (80.0-94.0); Platelet Count 100 10^3/uL (130-400); Red Cell Dist. Width 15.2 % (11.5-14.5)
--- NOTE | 2025-02-11 08:53 | W.PN.NEPH.HD ---
Addendum entered and electronically signed by Maximino Teague DO 02/11/25 09:01:
Of note patient does have subclavian stenosis:vascular has previously stated that his systolic blood pressure is likely 20 points higher than manual blood pressure
Original Note:
Assessment
-
Patient seen on dialysis
He remains confused withdrawn lethargic
Systolic blood pressure only at 88
UF goal decreased
Unfortunately his dry weight is around 81.5 and his current weight is 89.6
If we are unable to correct his hemodynamic instability dialysis will no longer be feasible
This was discussed with his at bedside
I reviewed his most recent echocardiogram from a few weeks prior which showed a stable EF of 30%
Infectious workup currently in progress
Zosyn renally dose
Remains on high-dose midodrine
Progress Note - Hemodialysis
-
Date of Service: February 11, 2025
Duration: 30 minutes and 3 hours
Potassium Bath: 3
Calcium Bath: 2.5
Opti-Dialyzer: 160
Ultrafiltration: Other (Attempting to titrate)
Blood Flow: 400
Dialysate Flow: 600
Heparin: None
EPO: 10,000
[2025-02-11 09:00] LABS: Blood Urea Nitrogen 74 mg/dl (9-20); Calcium 9.2 mg/dl (8.4-10.2); Carbon Dioxide 22 mmol/L (22-30); Chloride 92 mmol/L (98-107); Estimated Creatinine Clearance 10 ml/min; Glucose 120 mg/dl (70-99); Potassium 4.4 mmol/L (3.5-5.1); Sodium 130 mmol/L (135-145); eGFR 8.36
--- NOTE | 2025-02-11 09:07 | W.PN.VS ---
Addendum entered and electronically signed by Murray Lawson III, MD 02/11/25 13:35:
This patient was seen and examined in collaboration with USHA Colon. I agree with the history and physical exam as well as the assessment and plan.
Signed:
Murray Lawson III, MD
Vascular Surgery
[facility]
Original Note:
Today's Communication / Plan
-
Seen and assessed with Dr Lawson
Assessment/Plan
-
Assessment: 74 year old male s/p Right femoral endarterectomy with interposition common femoral to femoral bifurcation artery bypass with nonreversed ipsilateral greater saphenous vein conduit.
s/p Washout right groin surgical site. Pulse lavage irrigation with 3 L saline solution. Closure of deeper tissues with placement of more superficial wound VAC right groin, and placement of drain in saphenectomy bed.
Plan:
HD per nephrology, appreciate recommendations
PT/OT/OOB
Case management for SNF placement (difficulties finding placement with HD)
Appreciate cardiology recommendations
Continue wound VAC, I will change tomorrow
Will switch antibiotics to p.o. on discharge
Blood cultures pending
Subjective Data
-
Date of Service: February 11, 2025
Pt seen at bedside this am with Dr Lawson. Pt currently on HD. No events overnight. VAC intact, no leak.
Objective Data
-
Vital Signs
Temp Pulse Resp BP Pulse Ox
98.6 F 81 16 88/49 95
02/11/25 03:37 02/11/25 08:18 02/11/25 08:18 02/11/25 08:05 02/11/25 08:18
Intake and Output
02/10/25 02/11/25 02/12/25
06:59 06:59 06:59
Intake Total 795 / 795 240 / 240
Output Total 70 / 70
Balance 795 / 795 170 / 170
Intake:
Oral fluids 720 / 720 240 / 240
IV fluids (Total)
IV piggybacks 50 /
Output:
Drain Output (Total)
Right Upper Leg Marco A-Shelley
Lab Results
02/11/25 08:24
02/11/25 08:24
Calcium 9.2 mg/dl (8.4-10.2) 02/11/25 08:24
Magnesium 2.0 mg/dl (1.6-2.3) 02/08/25 06:04
Physical Exam
-
No apparent distress, resting in bed comfortably
No tachycardia
No dyspnea on room air
Right groin wound VAC holding suction, dressing clean, dry, and intact- 300cc output since yesterday morning
Right foot warm, Doppler DP signal
HORACIO drain with 70cc in 24 hrs serous fluid
[2025-02-11] MEDS: HEPARIN 4300 UNITS INTRACATH (11:19)
--- NOTE | 2025-02-11 11:30 | W.PN.ID1 ---
Date of Service
Date of Service: February 11, 2025
Today's Communication
Continue antibiotics.
Assessment / Plan
#Chronic right limb ischemia, s/p right femoral endarterectomy with common femoral to femoral bifurcation artery bypass (01/29/2025)
#Right groin washout and VAC placement (02/05/2025) with seroma noted
#Leukocytosis
#ESRD-HD
#Right carotid stenosis
#Type 2 diabetes
#Hyperlipidemia
#Hypertension
#ICD in place
Plan:
Leukocytosis persists.
Cultures from washout with Serratia marcescens
Anaerobic cultures negative.
reports some ongoing confusion. ?related to zosyn
- zosyn changed to ceftriaxone 02/10/25
--> eventual transition to Cefpodoxime 200mg qpm and Doxycycline 100mg BID on Discharge
Follow WBC / temps.

Chief Complaint
-: Other (right groin infected seroma)
Subjective / Review of Systems
Review of Systems: No Fever and No Chills
Vital Signs / Physical Exam
Vital Signs
Vital Signs
Temp Pulse Resp BP Pulse Ox
98.7 F 90 16 107/49 93
02/11/25 08:30 02/11/25 08:30 02/11/25 08:30 02/11/25 08:30 02/11/25 08:30
Physical Exam
Constitutional: No Acute Distress, Comfortable and Non-toxic
Eyes: Sclera Anicteric
Cardiovascular: S1/S2; Negative S3/S4
Pulmonary: Non Labored
Gastrointestinal: Soft and Non Tender
Extremities: Edema (B/L LE's; R>L)
Wound: Other (right groin area with VAC in place. Surrounding induration without sig change.)
Neurological: Awake and Alert
Psychological: Calm
Objective Data
Lab Data
Lab Results
02/11/25 08:24
02/11/25 08:24
PT 15.4 Sec (11.4-14.6) H 01/30/25 03:31
INR 1.17 01/30/25 03:31
APTT 32.3 Sec (23.4-35.0) 01/30/25 03:31
Estimated Creat Clear 10 ml/min 02/11/25 08:24
Most recent labs reviewed.
Micro Results:
02/10/25 09:11 Blood Culture - Preliminary
Blood/Venous No Growth in 24 hours- Final report to follow
02/05/25 13:45 Wound Culture - Final
Groin - Right Serratia marcescens
Gram Stain - Final
02/05/25 13:45 Anaerobic Culture - Final
Groin - Right NO ANAEROBES ISOLATED
01/29/25 18:45 MRSA Screen - Final
Nose No Methicillin Resistant Staphylococcus aureus isolated.
Wound/abscess/other Cult Final 02/05/25
Few Serratia marcescens
Organism 1 Serratia marcescens
1. Serratia marcescens
M.I.C. RX
--------- ---
Amoxicillin/Potas. Clavulanate >16/8 R
Ampicillin >16 R
Ampicillin/Sulbactam >16/8 R
Aztreonam <=4 S
Cefazolin >16 R
Cefepime <=2 S
Ceftazidime <=1 S
Ceftriaxone <=1 S
Ertapenem <=0.5 S
Ciprofloxacin <=0.25 S
Gentamicin <=2 S
Meropenem <=1 S
Piperacillin/Tazobactam <=8 S
Tetracycline <=4 S
Tobramycin <=2 S
Trimethoprim/Sulfamethoxazole <=2/38 S
Imaging:
02/04/2025 CT Abd Aorta Angio W/ Run Off: Status post common femoral/femoral artery endarterectomy, now widely patent in this region. There is new overlying anterior right groin subcutaneous edema, gas and fluid, with partially loculated fluid
collection spanning over approximately 6.0 x 6.4 x 16.8 cm. No well-defined/thick barry. There is otherwise generalized right thigh subcutaneous edema, new from prior and likely postoperative. Otherwise stable appearance of extensive atherosclerotic
calcifications throughout the right lower extremity arterial system as previously described.
02/04/2025 US Groin: Technically limited exam which reveals a large hypoechoic fluid collection in the right inguinal region. This is worrisome for abscess. Given the technical limitations of this exam, consider CT pelvis for more complete evaluation
01/23/2025 CT Abd Aorta Angio W/ Run Off: Heavily calcified, ectatic infrarenal abdominal aorta measuring up to 2.1 cm. Extensive calcified plaque at the origin of the SMA likely causing significant stenosis. JOANNA appears to be occluded at its origin
with distal reconstitution. Heavily calcified iliac arteries. Focal stenosis within the proximal external iliac artery secondary to calcified and noncalcified plaque. Bulky calcified plaque within the common femoral artery extending into the
proximal SFA causing severe stenosis and/or focal occlusion. Eccentric calcified plaque within the distal SFA which may cause mild stenosis. Patent trifurcation below the knee with three-vessel runoff, noting limited evaluation of the infrapopliteal
vessels secondary to extensive calcification. Left leg: Bulky calcified plaque within the proximal common iliac artery causing severe stenosis. Extensive calcified plaque within the SFA and popliteal arteries with likely mild multifocal narrowing
within the distal SFA and popliteal artery. Patent trifurcation below the knee with possible three-vessel runoff, noting limited evaluation secondary to extensive calcified plaque within the infrapopliteal vessels.
Care Review
Total Time Spent with Patient (in minutes): Continue antibiotics
--- NOTE | 2025-02-11 11:40 | CM ---
Reviewed the chart notes and spoke with the patient and his spouse at the bedside. Informed spouse [facility] declined patient due to HD. Provided the referral list with responses to the patient's spouse to review. Again discussed with the
patient's spouse that it is not the medical complexity of the patient, but the fact that he is a dialysis patient that is the barrier. CM continues to be available to patient/family and is monitoring medical plan for needs at discharge.
Plan: Discharge when medically stable and HD bed secured.
[2025-02-11 11:48] VITALS: BP 97/46
[2025-02-11 11:55] LABS: Hepatitis B Surface Antigen Negative (Negative)
[2025-02-11] MEDS: SENOKOT 8.6 MG PO ×2 (12:16→20:44)
[2025-02-11] MEDS: NEPHROCAP 1 CAPSULE PO (12:16)
[2025-02-11] MEDS: ZINC 50 MG PO (12:16)
[2025-02-11] MEDS: ROXICODONE 5 MG PO (12:16)
[2025-02-11] MEDS: COLACE 100 MG PO ×2 (12:16→20:44)
[2025-02-11] MEDS: THERAGRAN 1 TABLET PO (12:16)
[2025-02-11] MEDS: RENVELA 800 MG PO (12:17)
[2025-02-11] MEDS: TOPROL XL 25 MG PO (12:17)
[2025-02-11] MEDS: RENVELA PO ×2 (12:17→18:13)
[2025-02-11] MEDS: VITAMIN D3 (cholecalciferol) 50 MCG PO (12:17)
[2025-02-11] MEDS: ELIQUIS 5 MG PO ×2 (12:17→20:44)
[2025-02-11] MEDS: VITAMIN C 500 MG PO (12:18)
[2025-02-11] MEDS: STERILE WATER FOR INJECTION 10 ML IV (12:18)
[2025-02-11] MEDS: ROCEPHIN 1000 MG IV (12:19)
[2025-02-11 12:23] LABS: Glucose - Point of Care 132 mg/dl (70-99)
[2025-02-11] MEDS: DILAUDID 0.5 MG IV (14:06)
[2025-02-11] MEDS: FLUSH (NSS) 1 FLUSH IV (14:07)
[2025-02-11] MEDS: PROTONIX 40 MG PO (14:30)
[2025-02-11] MEDS: TUMS CHEWABLE TABLET 400 MG PO (14:30)
[2025-02-11 15:10] VITALS: BP 95/41
[2025-02-11 17:18] LABS: Glucose - Point of Care 145 mg/dl (70-99)
[2025-02-11] MEDS: TOPROL XL PO (20:45)
[2025-02-11 21:33] LABS: Glucose - Point of Care 129 mg/dl (70-99)
--- NOTE | 2025-02-11 23:10 | PTCARENOTE ---
Pt's BP was 80/40 manually @2000. 5mg Midodrine administered. Repeat BP @1040 was 82/38 HR 75. SECURITY SYSTEMS ADMINISTRATOR notified. New orders given. 5mg Midodrine Now dose administered.
[2025-02-11 23:30] VITALS: BP 82/38
[2025-02-12] VITALS (9 sets, daily range): BP systolic 82–105; BP diastolic 37–46; PULSE 74; BMI 27.9
--- NOTE | 2025-02-12 02:39 | DOWNTIME ---
There was a [employer] Client Still Operator Helper Downtime on 02/12/2025 from 0100 to 02/12/2025 at 0215. Downtime documentation of patient's care, including medication administrations, has been reconciled in the electronic record per guidelines. Refer to the
patient's paper chart under the miscellaneous tab to see printed paper medication records and downtime forms.
--- NOTE | 2025-02-12 03:35 | PTCARENOTE ---
Pt had 23 beats of vtach on surveillance monitor. pt asymptomatic. BP 82/39. TILE DECORATOR notified. New orders given. Midodrine 10 mg administered. Care ongoing.
--- NOTE | 2025-02-12 03:36 | W.PN.UPDATE ---
Update Note
Progress Note Update
RN reports 23 beat VT. Pt has aicd. No complaints. Will check labs. BP remains low 80s/30s. Has not been able to receive BB due to hypotension. Does He need ATC midodrine? Defer to renal and cardiology.
[2025-02-12 04:12] LABS: Hematocrit 26.0 % (39.0-52.0); Hemoglobin 8.7 g/dL (13.0-18.0); Mean Corp Hgb Conc. 33.5 g/dL (33.0-37.0); Mean Corpuscular Volume 104.4 fL (80.0-94.0); Nucleated Red Blood Cells % 0 % (-); Platelet Count 96 10^3/uL (130-400); Red Cell Dist. Width 15.6 % (11.5-14.5)
[2025-02-12 04:32] LABS: Magnesium 2.1 mg/dl (1.6-2.3)
[2025-02-12 04:35] LABS: Albumin 3.3 g/dl (3.5-5.0); Blood Urea Nitrogen 44 mg/dl (9-20); Calcium 9.4 mg/dl (8.4-10.2); Carbon Dioxide 23 mmol/L (22-30); Chloride 95 mmol/L (98-107); Estimated Creatinine Clearance 15 ml/min; Glucose 107 mg/dl (70-99); Potassium 4.0 mmol/L (3.5-5.1); Sodium 132 mmol/L (135-145); eGFR 13.35
[2025-02-12] MEDS: SPIRIVA RESPIMAT 2.5 MCG 2 PUFF INH (07:54)
[2025-02-12] MEDS: SYMBICORT 160/4.5 MCG INHALER 2 PUFF INH ×2 (07:55→19:38)
[2025-02-12 08:14] LABS: Glucose - Point of Care 128 mg/dl (70-99)
[2025-02-12] MEDS: COLACE 100 MG PO ×2 (08:14→20:32)
[2025-02-12] MEDS: NEPHROCAP 1 CAPSULE PO (08:14)
[2025-02-12] MEDS: PROTONIX 40 MG PO (08:14)
[2025-02-12] MEDS: ZINC 50 MG PO (08:14)
[2025-02-12] MEDS: SENOKOT 8.6 MG PO ×2 (08:14→20:32)
[2025-02-12] MEDS: THERAGRAN 1 TABLET PO (08:14)
[2025-02-12] MEDS: VITAMIN D3 (cholecalciferol) 50 MCG PO (08:14)
[2025-02-12] MEDS: VITAMIN C 500 MG PO (08:14)
[2025-02-12] MEDS: ELIQUIS 5 MG PO ×2 (08:14→20:32)
[2025-02-12] MEDS: TOPROL XL 25 MG PO ×2 (08:14→20:32)
[2025-02-12] MEDS: RENVELA 800 MG PO (08:14)
[2025-02-12] MEDS: NOVOLOG FLEXPEN-MODERATE RESISTANCE SC ×3 (08:15→16:53)
[2025-02-12] MEDS: ENTRESTO 49 MG/51 MG PO (08:15)
--- NOTE | 2025-02-12 09:52 | W.PN.ID1 ---
Date of Service
Date of Service: February 12, 2025
Today's Communication
Continue antibiotics. See below�
Assessment / Plan
#Chronic right limb ischemia, s/p right femoral endarterectomy with common femoral to femoral bifurcation artery bypass (01/29/2025)
#Right groin washout and VAC placement (02/05/2025) with seroma noted
#Leukocytosis
#ESRD-HD
#Right carotid stenosis
#Type 2 diabetes
#Hyperlipidemia
#Hypertension
#ICD in place
Plan:
Leukocytosis improved today.
Cultures from washout with Serratia marcescens
Anaerobic cultures negative.
reports some ongoing confusion. ?related to zosyn
- zosyn changed to ceftriaxone 02/10/25
-> Transition to Cefpodoxime 200mg qpm and Doxycycline 100mg BID at D/C. Continue with antibiotics through 02/19/2025

Chief Complaint
-: Other (right groin infected seroma)
Subjective / Review of Systems
Review of Systems: No Fever and No Chills
Vital Signs / Physical Exam
Vital Signs
Vital Signs
Temp Pulse Resp BP Pulse Ox
98.8 F 79 16 91/38 96
02/12/25 07:15 02/12/25 08:14 02/12/25 07:55 02/12/25 08:15 02/12/25 07:55
Physical Exam
Constitutional: No Acute Distress, Comfortable and Non-toxic
Cardiovascular: S1/S2; Negative S3/S4
Pulmonary: Non Labored
Gastrointestinal: Soft and Non Tender
Extremities: Edema (B/L LE's; R>L) and Other (Right thigh HORACIO in place with scant serous fluid.)
Wound: Other (right groin area with VAC in place. Surrounding induration stable.)
Psychological: Calm
Objective Data
Lab Data
Lab Results
02/12/25 03:51
02/12/25 03:51
PT 15.4 Sec (11.4-14.6) H 01/30/25 03:31
INR 1.17 01/30/25 03:31
APTT 32.3 Sec (23.4-35.0) 01/30/25 03:31
Estimated Creat Clear 15 ml/min 02/12/25 03:51
Most recent labs reviewed.
Micro Results:
02/10/25 09:11 Blood Culture - Preliminary
Blood/Venous No Growth in 48 hours- Final report to follow
02/05/25 13:45 Wound Culture - Final
Groin - Right Serratia marcescens
Gram Stain - Final
02/05/25 13:45 Anaerobic Culture - Final
Groin - Right NO ANAEROBES ISOLATED
01/29/25 18:45 MRSA Screen - Final
Nose No Methicillin Resistant Staphylococcus aureus isolated.
Wound/abscess/other Cult Final 02/05/25
Few Serratia marcescens
Organism 1 Serratia marcescens
1. Serratia marcescens
M.I.C. RX
--------- ---
Amoxicillin/Potas. Clavulanate >16/8 R
Ampicillin >16 R
Ampicillin/Sulbactam >16/8 R
Aztreonam <=4 S
Cefazolin >16 R
Cefepime <=2 S
Ceftazidime <=1 S
Ceftriaxone <=1 S
Ertapenem <=0.5 S
Ciprofloxacin <=0.25 S
Gentamicin <=2 S
Meropenem <=1 S
Piperacillin/Tazobactam <=8 S
Tetracycline <=4 S
Tobramycin <=2 S
Trimethoprim/Sulfamethoxazole <=2/38 S
Imaging:
02/04/2025 CT Abd Aorta Angio W/ Run Off: Status post common femoral/femoral artery endarterectomy, now widely patent in this region. There is new overlying anterior right groin subcutaneous edema, gas and fluid, with partially loculated fluid
collection spanning over approximately 6.0 x 6.4 x 16.8 cm. No well-defined/thick barry. There is otherwise generalized right thigh subcutaneous edema, new from prior and likely postoperative. Otherwise stable appearance of extensive atherosclerotic
calcifications throughout the right lower extremity arterial system as previously described.
02/04/2025 US Groin: Technically limited exam which reveals a large hypoechoic fluid collection in the right inguinal region. This is worrisome for abscess. Given the technical limitations of this exam, consider CT pelvis for more complete evaluation
01/23/2025 CT Abd Aorta Angio W/ Run Off: Heavily calcified, ectatic infrarenal abdominal aorta measuring up to 2.1 cm. Extensive calcified plaque at the origin of the SMA likely causing significant stenosis. JOANNA appears to be occluded at its origin
with distal reconstitution. Heavily calcified iliac arteries. Focal stenosis within the proximal external iliac artery secondary to calcified and noncalcified plaque. Bulky calcified plaque within the common femoral artery extending into the
proximal SFA causing severe stenosis and/or focal occlusion. Eccentric calcified plaque within the distal SFA which may cause mild stenosis. Patent trifurcation below the knee with three-vessel runoff, noting limited evaluation of the infrapopliteal
vessels secondary to extensive calcification. Left leg: Bulky calcified plaque within the proximal common iliac artery causing severe stenosis. Extensive calcified plaque within the SFA and popliteal arteries with likely mild multifocal narrowing
within the distal SFA and popliteal artery. Patent trifurcation below the knee with possible three-vessel runoff, noting limited evaluation secondary to extensive calcified plaque within the infrapopliteal vessels.
--- NOTE | 2025-02-12 10:30 | W.PN.VS ---
Today's Communication / Plan
-
Seen and assessed with Dr Mahoney
Assessment/Plan
-
Assessment: 74 year old male s/p Right femoral endarterectomy with interposition common femoral to femoral bifurcation artery bypass with nonreversed ipsilateral greater saphenous vein conduit.
s/p Washout right groin surgical site. Pulse lavage irrigation with 3 L saline solution. Closure of deeper tissues with placement of more superficial wound VAC right groin, and placement of drain in saphenectomy bed.
Plan:
CT ab/pelvis w/wo r/o collection
CT chest w/o r/o pleural effusion
HD per nephrology, appreciate recommendations
PT/OT/OOB
Case management for SNF placement (difficulties finding placement with HD)
Appreciate cardiology recommendations
Continue wound VAC, next change Monday
Will switch antibiotics to p.o. on discharge - WBC normalized today
Blood cultures still negative
Subjective Data
-
Date of Service: February 12, 2025
Pt seen at bedside this am with Dr Mahoney. Pt complains of fatigue, discomfort, hospital stay in general. No events overnight.
Objective Data
-
Vital Signs
Temp Pulse Resp BP Pulse Ox
98.8 F 79 16 91/38 96
02/12/25 07:15 02/12/25 08:14 02/12/25 07:55 02/12/25 08:15 02/12/25 07:55
Intake and Output
02/11/25 02/12/25 02/13/25
06:59 06:59 06:59
Intake Total 240 / 240 720 / 720
Output Total
Balance 170 / 170 692 / 692
Intake:
Oral fluids 240 / 240 720 / 720
Output:
Drain Output (Total)
Right Upper Leg Marco A-Shelley
Lab Results
02/12/25 03:51
02/12/25 03:51
Calcium 9.4 mg/dl (8.4-10.2) 02/12/25 03:51
Magnesium 2.1 mg/dl (1.6-2.3) 02/12/25 03:51
Albumin 3.3 g/dl (3.5-5.0) L 02/12/25 03:51
Physical Exam
-
No apparent distress, resting in bed
No tachycardia
Dyspneic on exertion
Right groin wound VAC holding suction, dressing clean, dry, and intact- 500cc output since Monday- container changed
VAC changed, wound bed w fibrinous tissue, serous fluid
Right foot warm, Doppler DP signal
HORACIO drain with 28cc in 24 hrs serous fluid
[2025-02-12] MEDS: ULTRAM 50 MG PO (10:50)
[2025-02-12] MEDS: XANAX 0.5 MG PO (10:51)
[2025-02-12 12:03] LABS: Glucose - Point of Care 129 mg/dl (70-99)
[2025-02-12] MEDS: ROCEPHIN 1000 MG IV (12:55)
[2025-02-12] MEDS: STERILE WATER FOR INJECTION 10 ML IV (12:55)
--- NOTE | 2025-02-12 13:08 | HPS.HSE ---
Family Physician
-
Family Physician: Dara Medrano MD
Chief Complaint
-
hypotension
History of Present Illness
74-year-old male past medical history of PAD/chronic right limb ischemia status post right femoral endarterectomy with common femoral to femoral bifurcation artery bypass on 01/29 and subsequent right groin washout with VAC placement on 02/05 with
seroma noted, left subclavian artery stenosis, right carotid artery stenosis, ESRD on hemodialysis Monday, , Monday with right upper extremity fistula, hyperphosphatemia, type 2 diabetes, hyperlipidemia, hypertension, nonischemic
cardiomyopathy with EF of 30%, ventricular tachycardia ICD, history of DVT, atrial fibrillation status post cardioversion in 2022 and ablation, gout, COPD, to be transferred to our service for medical management.
Patient originally came to the hospital on 01/29 for right femoral endarterectomy with interposition of common femoral to femoral bifurcation artery bypass with nonreversed ipsilateral greater saphenous vein conduit. He was being seen by nephrology
for dialysis. He subsequently developed hypotension and was on pressors for some period of time. Blood pressure cuff was placed on the left due to hemodialysis access. He had a prior carotid duplex which suggested left subclavian artery
explaining low blood pressures on that side. He was also seen by cardiology due to history of nonischemic cardiomyopathy. On 02/05 he was noted to have increased pain in the right groin/proximal thigh and redness which is new and had a CT scan
which showed fluid and stranding and patient underwent washout on 02/05 with placement of wound VAC. He was started on Zosyn. He was subsequently seen by infectious disease who noted that cultures from the washout grew Serratia Marcescens. Zosyn
was later changed to Rocephin due to confusion.
Since that time he has had continued hypotension being treated with midodrine.
Medical History
Past Medical History
Past Medical History: Reports Other (PAD/chronic right limb ischemia status post right femoral endarterectomy with common femoral to femoral bifurcation artery bypass on 01/29 and subsequent right groin washout with VAC placement on 02/05 with seroma
noted, left subclavian artery stenosis, right carotid artery stenosis, ESRD on hemodial)
Past Surgical History: Reports Other (PAD/chronic right limb ischemia status post right femoral endarterectomy with common femoral to femoral bifurcation artery bypass on 01/29 and subsequent right groin washout with VAC placement on 02/05, fistula,
ICD)
Social History
Tobacco: Non-smoker
Alcohol: None
Drug: None
Family History
Family History: Not pertinent
Allergies / Home Medications
Allergies reflects when Allergies were last updated in [employer].
Home Medications with original date entered in [employer] [facility]
Allergy/Medication List:
Allergies
Allergy/AdvReac Type Severity Reaction Status Date / Time
vaccinations Allergy Severe Rash Uncoded 01/29/25 10:23
Home Medications
cholecalciferol (vitamin D3) 50 mcg (2,000 unit) tablet 2,000 unit PO DAILY Supplement 07/28/14
albuterol sulfate 2.5 mg/3 mL (0.083 %) solution for nebulization 2.5 mg inhalation Q6HPRN PRN sob 08/07/20
ascorbic acid (vitamin C) 500 mg tablet (Vitamin C) 500 mg PO DAILY Supplement 08/07/20
budesonide 160 mcg-glycopyr 9 mcg-formot 4.8 mcg/actuation HFA inhaler (Breztri Aerosphere) 2 inh inhalation R BID Lung/Breathing Issues 08/19/22
albuterol sulfate 90 mcg/actuation aerosol inhaler 2 puff inhalation R BID Lung/Breathing Issues 04/04/24
apixaban 5 mg tablet (Eliquis) 5 mg PO BID Blood Clot Prevention/Tx 04/04/24
sacubitril 97 mg-valsartan 103 mg tablet (Entresto) 1 tab PO BID Heart Failure 04/04/24
metoprolol succinate 50 mg tablet,extended release 24 hr 50 mg PO HS Blood Pressure 10/10/24
zinc acetate 50 mg (zinc) capsule 50 mg PO DAILY Supplement 10/10/24
multivitamin 1 tab PO DAILY Supplement 01/29/25
sevelamer carbonate 800 mg tablet 800 mg PO TID Kidney Disease 01/29/25
vitamin B complex-vitamin C-folic acid 0.8 mg tablet (Shira-Hanna) 1 tab PO DAILY Supplement 01/29/25
oxycodone 5 mg tablet 5 mg PO Q8HPRN PRN moderate pain #10 tabs 01/30/25
Review of Systems
-
History Source: Patient
A 12 point ROS was completed and negative except as noted: Yes
Constitutional: Reports No Symptoms
EENT: Reports No Symptoms
Respiratory: Reports No Symptoms
Cardiac: Reports No Symptoms
Abdomen/GI: Reports No Symptoms
: Reports No Symptoms
Musculoskeletal: Reports No Symptoms
Skin: Reports No Symptoms
Neurological: Reports No Symptoms
Endocrine: Reports No Symptoms
Hematologic/Lymphatic: Reports No Symptoms
Psych: Reports No Symptoms
Physical Exam
Vital Signs
Vital Signs
Temp Pulse Resp BP Pulse Ox
98.1 F 68 15 98/39 92
02/12/25 11:50 02/12/25 11:50 02/12/25 11:50 02/12/25 11:50 02/12/25 11:50
Physical Exam
General: Well Developed, Well Nourished and No Apparent Distress
HEENT: NormoCephalic, Moist mucous membranes and Atraumatic
Respiratory: Clear
Cardiac: S1/S2 and Regular Rhythm; No Murmur or Rub
GI: Soft, Non Tender, Non Distended and Normal Bowel Sounds; No Organomegaly
Rectal: Deferred by Provider
Musculoskeletal: No Clubbing, No Cyanosis and No Edema
Skin: No Rash
Neuro: Nonfocal/grossly intact
Laboratory Results
-
02/12/25 03:51
02/12/25 03:51
Laboratory Results
PT 15.4 Sec (11.4-14.6) H 01/30/25 03:31
INR 1.17 01/30/25 03:31
APTT 32.3 Sec (23.4-35.0) 01/30/25 03:31
Data Reviewed
-
Lab Data: Labs Reviewed by me
Old Records: Reviewed
Impression/Plan
-
IMPRESSION:
PLAN:
# Chronic PAD/right leg ischemia status post right femoral endarterectomy with common femoral to femoral bifurcation artery bypass on 01/29
- Continue Eliquis
# Subsequent postoperative cellulitis/seroma status post washout on 02/05 with wound VAC
-Operative cultures grew Serratia marcescens on 02/05
-CT chest abdomen pelvis today shows postoperative soft tissue gas in the anterior right groin, no new well-defined fluid collection, circumferential subcutaneous edema about the right thigh, mild abdominal pelvic ascites, small bilateral pleural
effusions,
- Anaerobic cultures negative
- Blood cultures negative
- Initially on Zosyn currently on ceftriaxone
-ID following
- Plan to discharge on cefpodoxime, doxycycline as per ID
- Continue oxycodone, tramadol, Dilaudid
# Ongoing hypotension in the setting of ESRD/left subclavian artery stenosis
- Continue midodrine
- hold Entresto
- Clinically well-perfused and tolerating hemodialysis so low blood pressure may not be entirely accurate
- Cardiology recommended continuing Entresto
Left subclavian artery stenosis
Right carotid artery stenosis
ESRD on hemodialysis Monday, , Monday with right upper extremity fistula
Hyperphosphatemia
- Due for dialysis tomorrow
- Continue sevelamer
- Does not make urine
Chronic anemia of renal disease
- Hemoglobin of 8.7 appearing stable
Chronic thrombocytopenia
- Likely reactive from infection
Nonischemic cardiomyopathy/HFrEF
- EF of 30
- Continue Entresto with hold parameters, did not receive today
- Continue metoprolol
- Patient with increased weight despite hemodialysis
Ventricular tachycardia status post ICD
- Had 23 beats of V. tach last night given midodrine
Essential hypertension
Type 2 diabetes
- Insulin sliding scale
Hyperlipidemia
History of DVT
Atrial fibrillation status post cardioversion/ablation
COPD
- Continue albuterol, tiotropium, budesonide
- O2 saturation has been 92 to 93%
Gout
Anxiety
- Continue Xanax
Full code
DVT prophylaxis�Eliquis
Renal diet
[2025-02-12] MEDS: RENVELA PO ×2 (14:29→18:37)
--- NOTE | 2025-02-12 15:35 | W.PN.NEPH.PH ---
Today's Communication / Plan
-
Dialysis tomorrow
Assessment/Plan
-
Impression:
Chronic limb threatening ischemia of the right lower extremity.
Right femoral endarterectomy with interposition common femoral to femoral bifurcation artery bypass with nonreversed ipsilateral greater saphenous vein conduit. 01/29/2025 Dr. Mahoney
Peripheral arterial disease
ESRD on dialysis [facility]
Right carotid stenosis
Type 2 diabetes
Hyperlipidemia
Hypertension
Nonischemic cardiomyopathy with EF of 30%
History of ventricular tachycardia/ICD
History of DVT
Atrial fibrillation-status post cardioversion in 2022.
Previous history of cardiac ablation
Gout
COPD
Right UE AVF 10/2024
Hyperphosphatemia
Plan
A/w CLI s/p elective right femoral endarterectomy 01/29
s/p wash out 02/06= wound VAC
states his mental status is off today
resting AVF
off entresto
soft BP, accept SBP > 90 on cuff= midodrine
Dialysis to be scheduled for tomorrow
-
-
Date of Service: February 12, 2025
CC / HPI / ROS
-
Chief Complaint:
ESRD
History of Present Illness:
ESRD on Monday schedule
BP soft on midodrine
s/p wash out of groin
hgb down to 8 point, wbc up at 15
Review of Systems:
no CP/SOB
Labs
-
Labs:
WBC 9.3 10^3/uL (4.8-10.8) 02/12/25 03:51
RBC 2.49 10^6/uL (4.70-6.10) L 02/12/25 03:51
Hgb 8.7 g/dL (13.0-18.0) L 02/12/25 03:51
Hct 26.0 % (39.0-52.0) L 02/12/25 03:51
Plt Count 96 10^3/uL (130-400) L 02/12/25 03:51
Sodium 132 mmol/L (135-145) L 02/12/25 03:51
Potassium 4.0 mmol/L (3.5-5.1) 02/12/25 03:51
Chloride 95 mmol/L (98-107) L 02/12/25 03:51
Carbon Dioxide 23 mmol/L (22-30) 02/12/25 03:51
BUN 44 mg/dl (9-20) H 02/12/25 03:51
Creatinine 4.4 mg/dL (0.7-1.3) H* 02/12/25 03:51
eGFR 13.35 02/12/25 03:51
Glucose 107 mg/dl (70-99) H 02/12/25 03:51
Calcium 9.4 mg/dl (8.4-10.2) 02/12/25 03:51
Albumin 3.3 g/dl (3.5-5.0) L 02/12/25 03:51
Physical Exam
-
Vital Signs:
Vital Signs
Temp Pulse Resp BP Pulse Ox
98.1 F 68 15 98/39 92
02/12/25 11:50 02/12/25 11:50 02/12/25 11:50 02/12/25 11:50 02/12/25 11:50
Cardiovascular:: Regular rate and rhythm
Respiratory:: Bilateral: Coarse
Lung Excursion:: Normal
Abdomen:: Nontender and Soft
Bowel Sounds:: Normal
Extremity Edema:: +2: Right: and None: Left:
Lawson Catheter: No
Other Findings::
gangrene GT of right foot
[2025-02-12 16:42] LABS: Glucose - Point of Care 109 mg/dl (70-99)
[2025-02-12] MEDS: ENTRESTO 49 MG/51 MG 1 TAB PO (20:43)
[2025-02-12 22:04] LABS: Glucose - Point of Care 104 mg/dl (70-99)
[2025-02-13] MEDS: ULTRAM 50 MG PO ×3 (01:44→18:07)
[2025-02-13 03:34] VITALS: BP 96/48
[2025-02-13 06:00] VITALS: BMI 28.0
[2025-02-13 07:00] VITALS: BP 86/46
[2025-02-13] MEDS: NOVOLOG FLEXPEN-MODERATE RESISTANCE SC ×3 (07:30→17:29)
[2025-02-13 07:31] LABS: Glucose - Point of Care 90 mg/dl (70-99)
[2025-02-13] MEDS: ELIQUIS 5 MG PO ×2 (07:35→19:42)
[2025-02-13] MEDS: TYLENOL 650 MG PO (07:37)
[2025-02-13] MEDS: VITAMIN C 500 MG PO (07:38)
[2025-02-13] MEDS: COLACE 100 MG PO (07:38)
[2025-02-13] MEDS: VITAMIN D3 (cholecalciferol) 50 MCG PO (07:38)
[2025-02-13] MEDS: THERAGRAN 1 TABLET PO (07:38)
[2025-02-13] MEDS: PROTONIX 40 MG PO (07:39)
[2025-02-13] MEDS: RENVELA 800 MG PO ×2 (07:39→18:07)
[2025-02-13] MEDS: SENOKOT 8.6 MG PO (07:39)
[2025-02-13] MEDS: NEPHROCAP 1 CAPSULE PO (07:39)
[2025-02-13] MEDS: ZINC 50 MG PO (07:39)
[2025-02-13] MEDS: TOPROL XL PO (08:00)
[2025-02-13] MEDS: SYMBICORT 160/4.5 MCG INHALER 2 PUFF INH ×2 (08:14→19:35)
[2025-02-13] MEDS: SPIRIVA RESPIMAT 2.5 MCG 2 PUFF INH (08:14)
--- NOTE | 2025-02-13 08:59 | W.PN.HOSP.TC ---
Today's Communication/Plan
-
see bold
Assessment / Plan
Assessment / Plan
HPI: 74-year-old male past medical history of PAD/chronic right limb ischemia status post right femoral endarterectomy with common femoral to femoral bifurcation artery bypass on 01/29 and subsequent right groin washout with VAC placement on 02/05
with seroma noted, left subclavian artery stenosis, right carotid artery stenosis, ESRD on hemodialysis Monday, , Monday with right upper extremity fistula, hyperphosphatemia, type 2 diabetes, hyperlipidemia, hypertension, nonischemic
cardiomyopathy with EF of 30%, ventricular tachycardia ICD, history of DVT, atrial fibrillation status post cardioversion in 2022 and ablation, gout, COPD, to be transferred to our service for medical management.
Patient originally came to the hospital on 01/29 for right femoral endarterectomy with interposition of common femoral to femoral bifurcation artery bypass with nonreversed ipsilateral greater saphenous vein conduit. He was being seen by nephrology
for dialysis. He subsequently developed hypotension and was on pressors for some period of time. Blood pressure cuff was placed on the left due to hemodialysis access. He had a prior carotid duplex which suggested left subclavian artery
explaining low blood pressures on that side. He was also seen by cardiology due to history of nonischemic cardiomyopathy. On 02/05 he was noted to have increased pain in the right groin/proximal thigh and redness which is new and had a CT scan
which showed fluid and stranding and patient underwent washout on 02/05 with placement of wound VAC. He was started on Zosyn. He was subsequently seen by infectious disease who noted that cultures from the washout grew Serratia Marcescens. Zosyn
was later changed to Rocephin due to confusion.
Since that time he has had continued hypotension being treated with midodrine prn.
# Chronic PAD/right leg ischemia status post right femoral endarterectomy with common femoral to femoral bifurcation artery bypass on 01/29
- Continue Eliquis
# Subsequent postoperative cellulitis/seroma status post washout on 02/05 with wound VAC
-Operative cultures grew Serratia marcescens on 02/05
-CT chest abdomen pelvis today shows postoperative soft tissue gas in the anterior right groin, no new well-defined fluid collection, circumferential subcutaneous edema about the right thigh, mild abdominal pelvic ascites, small bilateral pleural
effusions,
- Anaerobic cultures negative. Blood cultures negative
- Appreciate ID input, initially on Zosyn currently on ceftriaxone
- Plan to discharge on cefpodoxime, doxycycline as per ID
- Continue oxycodone, tramadol, Dilaudid
# Ongoing hypotension in the setting of ESRD/left subclavian artery stenosis
- Clinically well-perfused and tolerating hemodialysis so low blood pressure may not be entirely accurate
- Cardiology recommended continuing Entresto
- Make midodrine standing 5 mg 3 times daily
Left subclavian artery stenosis
Right carotid artery stenosis
ESRD on hemodialysis Monday, , Monday with right upper extremity fistula
Hyperphosphatemia
- Due for dialysis tomorrow
- Continue sevelamer
- Does not make urine
Chronic anemia of renal disease
- Hemoglobin of 8.7 appearing stable
Chronic thrombocytopenia
- Likely reactive from infection
Nonischemic cardiomyopathy/HFrEF
Ventricular tachycardia status post ICD
- 01/31 echo EF 32%, mod-sev TR
- Had 23 beats of V. tach 02/11
- Continue Toprol XL/Entresto as per cardiology, keep magnesium greater than 2, potassium greater than 4
Type 2 diabetes
- Insulin sliding scale
Hyperlipidemia
History of DVT
Atrial fibrillation status post cardioversion/ablation
- Continue Eliquis
COPD
- Continue albuterol, tiotropium, budesonide
- O2 saturation has been 92 to 93%
Gout
Anxiety
-Decrease Xanax dose secondary to somnolence and hypotension
DVT prophylaxis�Eliquis
Full code
Updated at bedside 02/13
Total time spent to see the patient on the floor, examine the patient, review data and lab results, discuss treatment plan with patient, nursing staff around 51 minutes.
Physical Exam
General: Appears somnolent, no acute distress
HEENT: Normocephalic, Atraumatic, EOMI, MMM
Respiratory: Clear to Auscultation bilaterally
Cardiac: Normal S1/S2, Regular Rate and Rhythm
GI: Soft, Nontender, Nondistended, Normal Bowel Sounds
: Right groin with wound VAC noted
Extremities: No Clubbing, Cyanosis
Bilateral lower extremity edema, right greater than left
Neuro: Nonfocal/Grossly Intact
Anticipated Discharge: 24 - 48 hours
Subjective/Interval History
-
Date of Service: February 13, 2025
Patient appears somnolent, he just took his pain meds. He reports his pain is tolerable with the pain medication. Denies chest pain, denies shortness of breath. No fever, no vomiting.
Objective Data
-
Labs:
Laboratory Results
02/13/25
06:00
WBC Pending
Hgb Pending
Hct Pending
Plt Count Pending
Sodium Pending
Potassium Pending
Chloride Pending
Carbon Dioxide Pending
BUN Pending
Creatinine Pending
Glucose Pending
Calcium Pending
Vital Signs:
Vital Signs
Temp Pulse Resp BP Pulse Ox
97.6 F 81 18 86/46 98
02/13/25 07:00 02/13/25 07:00 02/13/25 07:00 02/13/25 08:30 02/13/25 07:00
I&O
02/12/25 02/13/25 02/14/25
06:59 06:59 06:59
Intake Total 720 / 720 400 / 400
Output Total 65 / 65
Balance 692 / 692 335 / 335
--- NOTE | 2025-02-13 09:05 | W.PN.VS ---
Addendum entered and electronically signed by Jose Martin Mahoney MD 02/13/25 09:21:
Seen and examined with [employer]. Agree with findings as noted below. Per , patient having slight increased pain since he has been sitting in the chair in the right groin. His exam is unchanged really. His right groin VAC is in place. No
significant erythema. No large swelling or pulsatile mass. Thigh/leg/foot stable. Plan/as discussed and noted below. I reviewed CT scan findings with the patient and his . Discussed that there is no drainable additional collection at this
point. No obvious continued infection source. Continues to drain from the VAC, but may have slowed slightly. All serous drainage. Continue antibiotics. Based on his medical risk factors unfortunately he is high risk for continued wound healing
issues as well as wound complications.
Original Note:
Today's Communication / Plan
-
Patient seen and examined at bedside with Dr. Jose Martin Mahoney, below plan reviewed with attending.
Assessment/Plan
-
Assessment: 74 year old male s/p Right femoral endarterectomy with interposition common femoral to femoral bifurcation artery bypass with nonreversed ipsilateral greater saphenous vein conduit.
s/p Washout right groin surgical site. Pulse lavage irrigation with 3 L saline solution. Closure of deeper tissues with placement of more superficial wound VAC right groin, and placement of drain in saphenectomy bed.
Plan:
No evidence of Mireya collection on CT abdomen pelvis obtained yesterday, continue appreciate infectious disease recommendations
HD per nephrology, appreciate recommendations
Given patient's medical complexities appreciate hospitalist team taking over as primary, will continue to follow
PT/OT/OOB
Case management for SNF placement (difficulties finding placement with HD)
Appreciate cardiology recommendations, updated cardiology (Dr. Vieira) via [facility] text regarding patient's run of V. tach prior night, instructed that there is no further medical management required as he has an ICD and has known V. tach history
Continue wound VAC, next change Monday
Blood cultures still negative
Reviewed with neurology via [facility] text regarding 's report of patient's baseline tremor worsening, neurologist Dr. Newton indicated this would be an outpatient follow-up and will place recommendation on discharge instruction when patient has
placement at SNF
Subjective Data
-
Date of Service: February 13, 2025
Patient seen and examined at bedside, reports pain at right groin awaiting as needed pain medication. Denies nausea, fever, chills, and emesis. at bedside endorsing patient's baseline tremor seems to be exacerbated.
Objective Data
-
Vital Signs
Temp Pulse Resp BP Pulse Ox
97.6 F 81 18 86/46 98
02/13/25 07:00 02/13/25 07:00 02/13/25 07:00 02/13/25 08:30 02/13/25 07:00
Intake and Output
02/12/25 02/13/25 02/14/25
06:59 06:59 06:59
Intake Total 720 / 720 400 / 400
Output Total
Balance 692 / 692 335 / 335
Intake:
Oral fluids 720 / 720 400 / 400
Output:
Drain Output (Total)
Right Upper Leg Marco A-Shelley
Calcium 9.4 mg/dl (8.4-10.2) 02/12/25 03:51
Magnesium 2.1 mg/dl (1.6-2.3) 02/12/25 03:51
Albumin 3.3 g/dl (3.5-5.0) L 02/12/25 03:51
Physical Exam
-
No apparent distress, resting in bed
No tachycardia
Dyspneic on exertion
Right groin wound VAC holding suction, dressing clean, dry, and intact- 100cc output since canister change yesterday
Right foot warm, Doppler DP signal
HORACIO drain with serous fluid
[2025-02-13 09:45] VITALS: BP 93/45
[2025-02-13 11:00] VITALS: BP 92/39
[2025-02-13 11:38] LABS: Glucose - Point of Care 102 mg/dl (70-99)
--- NOTE | 2025-02-13 11:45 | CM ---
Addendum entered by Tre Carlisle 02/13/25 12:07:
Received call from [facility], confirmed that facility does not have HD onsite
Left message w/ spouse to update
Original Note:
Chart reviewed. Cont wound vac, next change is Monday. HD tomorrow. Plan is for patient to d/c to SNF w/ HD onsite.
Spoke w/ spouse, reviewed SNF referrals. Spouse aware of some of the accepting facilities. Spouse prefers [facility] in [place] as it is close to her and she would like to see patient every day. At this time, there is no response in
[facility]. CM informed spouse a call will be made to SNF, however, she would need to explore some of the other facilities that have accepted. Spouse stated [facility] can be a second option if needed. Spouse stated patient is not ready to d/c
stating surgery is monitoring for pain and any drainage. Will confirm d/c readiness w/ hospitalist.
CM placed call to [facility], left message for a call back
Plan: SNF w/ HD onsite
--- NOTE | 2025-02-13 12:20 | W.PN.ID1 ---
Date of Service
Date of Service: February 13, 2025
Today's Communication
Continue antibiotics. See below�
Assessment / Plan
#Chronic right limb ischemia, s/p right femoral endarterectomy with common femoral to femoral bifurcation artery bypass (01/29/2025)
#Right groin washout and VAC placement (02/05/2025) with seroma noted
#Leukocytosis
#ESRD-HD
#Right carotid stenosis
#Type 2 diabetes
#Hyperlipidemia
#Hypertension
#ICD in place
Plan:
Leukocytosis improved today.
Cultures from washout with Serratia marcescens
Anaerobic cultures negative.
Continue ceftriaxone (d#8 abx) while inpatient
-> Transition to Cefpodoxime 200mg qpm and Doxycycline 100mg BID at D/C. Continue with antibiotics through 02/19/2025
Little more to offer from a Infectious Disease standpoint.
Will see again at your request.

Chief Complaint
-: Other (right groin infected seroma)
Subjective / Review of Systems
Review of Systems: No Fever and No Chills
Vital Signs / Physical Exam
Vital Signs
Vital Signs
Temp Pulse Resp BP Pulse Ox
97.9 F 68 18 92/39 95
02/13/25 11:00 02/13/25 11:00 02/13/25 11:00 02/13/25 11:00 02/13/25 11:00
Physical Exam
Constitutional: No Acute Distress, Comfortable and Non-toxic
Cardiovascular: S1/S2; Negative S3/S4
Pulmonary: Non Labored
Gastrointestinal: Soft and Non Tender
Extremities: Edema (B/L LE's; R>L) and Other (Right thigh HORACIO in place with scant serous fluid.)
Wound: Other (right groin area with VAC in place. Surrounding induration stable.)
Neurological: Other (Somnolent)
Psychological: Calm
Objective Data
Lab Data
PT 15.4 Sec (11.4-14.6) H 01/30/25 03:31
INR 1.17 01/30/25 03:31
APTT 32.3 Sec (23.4-35.0) 01/30/25 03:31
Estimated Creat Clear 15 ml/min 02/12/25 03:51
Most recent labs reviewed.
Micro Results:
02/10/25 09:11 Blood Culture - Preliminary
Blood/Venous No Growth in 72 hours- Final report to follow
02/05/25 13:45 Wound Culture - Final
Groin - Right Serratia marcescens
Gram Stain - Final
02/05/25 13:45 Anaerobic Culture - Final
Groin - Right NO ANAEROBES ISOLATED
01/29/25 18:45 MRSA Screen - Final
Nose No Methicillin Resistant Staphylococcus aureus isolated.
Wound/abscess/other Cult Final 02/05/25
Few Serratia marcescens
Organism 1 Serratia marcescens
1. Serratia marcescens
M.I.C. RX
--------- ---
Amoxicillin/Potas. Clavulanate >16/8 R
Ampicillin >16 R
Ampicillin/Sulbactam >16/8 R
Aztreonam <=4 S
Cefazolin >16 R
Cefepime <=2 S
Ceftazidime <=1 S
Ceftriaxone <=1 S
Ertapenem <=0.5 S
Ciprofloxacin <=0.25 S
Gentamicin <=2 S
Meropenem <=1 S
Piperacillin/Tazobactam <=8 S
Tetracycline <=4 S
Tobramycin <=2 S
Trimethoprim/Sulfamethoxazole <=2/38 S
Imaging:
02/04/2025 CT Abd Aorta Angio W/ Run Off: Status post common femoral/femoral artery endarterectomy, now widely patent in this region. There is new overlying anterior right groin subcutaneous edema, gas and fluid, with partially loculated fluid
collection spanning over approximately 6.0 x 6.4 x 16.8 cm. No well-defined/thick barry. There is otherwise generalized right thigh subcutaneous edema, new from prior and likely postoperative. Otherwise stable appearance of extensive atherosclerotic
calcifications throughout the right lower extremity arterial system as previously described.
02/04/2025 US Groin: Technically limited exam which reveals a large hypoechoic fluid collection in the right inguinal region. This is worrisome for abscess. Given the technical limitations of this exam, consider CT pelvis for more complete evaluation
01/23/2025 CT Abd Aorta Angio W/ Run Off: Heavily calcified, ectatic infrarenal abdominal aorta measuring up to 2.1 cm. Extensive calcified plaque at the origin of the SMA likely causing significant stenosis. JOANNA appears to be occluded at its origin
with distal reconstitution. Heavily calcified iliac arteries. Focal stenosis within the proximal external iliac artery secondary to calcified and noncalcified plaque. Bulky calcified plaque within the common femoral artery extending into the
proximal SFA causing severe stenosis and/or focal occlusion. Eccentric calcified plaque within the distal SFA which may cause mild stenosis. Patent trifurcation below the knee with three-vessel runoff, noting limited evaluation of the infrapopliteal
vessels secondary to extensive calcification. Left leg: Bulky calcified plaque within the proximal common iliac artery causing severe stenosis. Extensive calcified plaque within the SFA and popliteal arteries with likely mild multifocal narrowing
within the distal SFA and popliteal artery. Patent trifurcation below the knee with possible three-vessel runoff, noting limited evaluation secondary to extensive calcified plaque within the infrapopliteal vessels.
[2025-02-13 12:50] LABS: Blood Urea Nitrogen 60 mg/dl (9-20); Calcium 9.5 mg/dl (8.4-10.2); Carbon Dioxide 22 mmol/L (22-30); Chloride 93 mmol/L (98-107); Estimated Creatinine Clearance 11 ml/min; Glucose 107 mg/dl (70-99); Potassium 3.8 mmol/L (3.5-5.1); Sodium 130 mmol/L (135-145); eGFR 9.20
[2025-02-13 12:51] LABS: Hematocrit 26.9 % (39.0-52.0); Hemoglobin 9.0 g/dL (13.0-18.0); Mean Corp Hgb Conc. 33.5 g/dL (33.0-37.0); Mean Corpuscular Volume 101.5 fL (80.0-94.0); Platelet Count 124 10^3/uL (130-400); Red Cell Dist. Width 15.3 % (11.5-14.5)
[2025-02-13] MEDS: MANNITOL 25% 12.5 GRAMS IV ×2 (12:54→14:34)
[2025-02-13] MEDS: RETACRIT 10000 UNITS IV (12:54)
[2025-02-13] MEDS: FLEXBUMIN 25% FOR HEMODIALYSIS 12.5 GRAMS IV ×2 (13:12→14:34)
--- NOTE | 2025-02-13 14:05 | W.PN.NEPH.HD ---
Assessment
-
Seen on dialysis lower blood pressures are normal despite midodrine, albumin and mannitol. UF only 1 L. His weight is 1 kg less than he was postdialysis on Monday. He is otherwise asymptomatic
Progress Note - Hemodialysis
-
Date of Service: February 13, 2025
Duration: 30 minutes and 3 hours
Potassium Bath: 3
Calcium Bath: 2.5
Opti-Dialyzer: 160
Ultrafiltration: Other (Attempting to titrate)
Blood Flow: 400
Dialysate Flow: 600
Heparin: None
EPO: 10,000
[2025-02-13] MEDS: ROCEPHIN 1000 MG IV (14:09)
[2025-02-13] MEDS: STERILE WATER FOR INJECTION 10 ML IV (14:09)
[2025-02-13 15:07] VITALS: BP 97/53
[2025-02-13 16:51] LABS: Glucose - Point of Care 90 mg/dl (70-99)
[2025-02-13] MEDS: RENVELA PO (17:31)
[2025-02-13] MEDS: SENOKOT PO (19:36)
[2025-02-13] MEDS: COLACE PO (19:36)
[2025-02-13] MEDS: TOPROL XL 25 MG PO (19:41)
[2025-02-13 21:48] LABS: Glucose - Point of Care 144 mg/dl (70-99)
[2025-02-13 23:00] VITALS: BP 98/62
[2025-02-14] VITALS (8 sets, daily range): BP systolic 89–128; BP diastolic 38–99; PULSE 73; BMI 28.0
[2025-02-14] MEDS: ULTRAM 50 MG PO ×3 (04:25→20:30)
[2025-02-14] MEDS: TYLENOL 650 MG PO ×2 (06:32→20:29)
--- NOTE | 2025-02-14 07:28 | W.PN.VS ---
Addendum entered and electronically signed by Jose Martin Mahoney MD 02/14/25 09:40:
Seen and examined with DEMETRIS Smyth. Agree with findings as noted below. Continues to note a little bit of discomfort in the right groin/just superiorly in the skin overlying the inguinal ligament region. Exam remains relatively benign. A little bit
of indurated skin there. However no large hematoma. No erythema. Thigh swelling looks better. VAC in place. HORACIO serous drainage. Only 20 cc recorded low volume. VAC drainage also has been slowing down. Palpable DP pulse, foot warm. Stable
dry gangrene right first toe. Plan/as discussed and noted below.
Original Note:
Today's Communication / Plan
-
Patient seen and examined at chair side with Dr. Jose Martin Mahoney, below plan reviewed with attending.
Assessment/Plan
-
Assessment: 74 year old male s/p Right femoral endarterectomy with interposition common femoral to femoral bifurcation artery bypass with nonreversed ipsilateral greater saphenous vein conduit.
s/p Washout right groin surgical site. Pulse lavage irrigation with 3 L saline solution. Closure of deeper tissues with placement of more superficial wound VAC right groin, and placement of drain in saphenectomy bed.
Plan:
HD per nephrology, appreciate recommendations
Given patient's medical complexities appreciate hospitalist team taking over as primary, will continue to follow
PT/OT/OOB
Case management for SNF placement (difficulties finding placement with HD)
Continue wound VAC, will be changed today by this provider
Blood cultures remain without growth
A.m. labs pending, will review once finalized.
Subjective Data
-
Date of Service: February 14, 2025
Patient seen and examined at chair side, endorses mild pain at wound VAC site. Denies nausea, vomiting, fever, and chills.
Objective Data
-
Vital Signs
Temp Pulse Resp BP Pulse Ox
97.5 F 46 18 92/58 95
02/14/25 03:00 02/14/25 03:00 02/14/25 03:00 02/14/25 03:00 02/14/25 03:00
Intake and Output
02/13/25 02/14/25 02/15/25
06:59 06:59 06:59
Intake Total 400 / 400 300 / 300
Output Total
Balance 335 / 335 280 / 280 -20 / 20
Intake:
Oral fluids 400 / 400 300 / 300
Output:
Drain Output (Total)
Right Upper Leg Marco A-Shelley
Calcium 9.5 mg/dl (8.4-10.2) 02/13/25 12:02
Magnesium 2.1 mg/dl (1.6-2.3) 02/12/25 03:51
Albumin 3.3 g/dl (3.5-5.0) L 02/12/25 03:51
Physical Exam
-
No apparent distress, resting in bed
No tachycardia
Dyspneic on exertion, currently at rest and with no evidence of dyspnea
Right groin wound VAC holding suction, dressing clean, dry, and intact- 100cc output over past 24 hours, for a total of 200 cc since canister change on 02/12/25, appears to be decreasing in output, erythema noted at right incision nearly resolved
Right foot warm, palpable DP, hallux dry gangrene stable
HORACIO drain with serous fluid
[2025-02-14] MEDS: SYMBICORT 160/4.5 MCG INHALER 2 PUFF INH ×2 (07:45→20:59)
[2025-02-14] MEDS: SPIRIVA RESPIMAT 2.5 MCG 2 PUFF INH (07:45)
[2025-02-14 07:48] LABS: Hematocrit 26.3 % (39.0-52.0); Hemoglobin 9.2 g/dL (13.0-18.0); Mean Corp Hgb Conc. 35.0 g/dL (33.0-37.0); Mean Corpuscular Volume 100.8 fL (80.0-94.0); Platelet Count 125 10^3/uL (130-400); Red Cell Dist. Width 15.5 % (11.5-14.5)
[2025-02-14 08:03] LABS: Blood Urea Nitrogen 33 mg/dl (9-20); Calcium 9.3 mg/dl (8.4-10.2); Carbon Dioxide 24 mmol/L (22-30); Chloride 94 mmol/L (98-107); Estimated Creatinine Clearance 18 ml/min; Glucose 97 mg/dl (70-99); Magnesium 1.9 mg/dl (1.6-2.3); Potassium 3.5 mmol/L (3.5-5.1); Sodium 130 mmol/L (135-145); eGFR 16.43
[2025-02-14 08:15] LABS: Glucose - Point of Care 110 mg/dl (70-99)
[2025-02-14] MEDS: NOVOLOG FLEXPEN-MODERATE RESISTANCE SC ×3 (08:17→16:55)
[2025-02-14] MEDS: VITAMIN C 500 MG PO (08:19)
[2025-02-14] MEDS: VITAMIN D3 (cholecalciferol) 50 MCG PO (08:19)
[2025-02-14] MEDS: ZINC 50 MG PO (08:19)
[2025-02-14] MEDS: THERAGRAN 1 TABLET PO (08:20)
[2025-02-14] MEDS: ENTRESTO 49 MG/51 MG PO ×2 (08:20→20:19)
[2025-02-14] MEDS: ELIQUIS 5 MG PO ×2 (08:20→20:24)
[2025-02-14] MEDS: RENVELA 800 MG PO ×3 (08:20→17:52)
[2025-02-14] MEDS: PROTONIX 40 MG PO (08:20)
[2025-02-14] MEDS: TOPROL XL PO ×2 (08:20→20:19)
[2025-02-14] MEDS: NEPHROCAP 1 CAPSULE PO (08:20)
[2025-02-14] MEDS: SENOKOT PO ×2 (08:21→20:25)
[2025-02-14] MEDS: COLACE PO ×2 (08:21→20:24)
--- NOTE | 2025-02-14 08:54 | W.PN.HOSP.TC ---
Today's Communication/Plan
-
Discharge planning
Assessment / Plan
Assessment / Plan
HPI: 74-year-old male past medical history of PAD/chronic right limb ischemia status post right femoral endarterectomy with common femoral to femoral bifurcation artery bypass on 01/29 and subsequent right groin washout with VAC placement on 02/05
with seroma noted, left subclavian artery stenosis, right carotid artery stenosis, ESRD on hemodialysis Monday, , Monday with right upper extremity fistula, hyperphosphatemia, type 2 diabetes, hyperlipidemia, hypertension, nonischemic
cardiomyopathy with EF of 30%, ventricular tachycardia ICD, history of DVT, atrial fibrillation status post cardioversion in 2022 and ablation, gout, COPD, to be transferred to our service for medical management.
Patient originally came to the hospital on 01/29 for right femoral endarterectomy with interposition of common femoral to femoral bifurcation artery bypass with nonreversed ipsilateral greater saphenous vein conduit. He was being seen by nephrology
for dialysis. He subsequently developed hypotension and was on pressors for some period of time. Blood pressure cuff was placed on the left due to hemodialysis access. He had a prior carotid duplex which suggested left subclavian artery
explaining low blood pressures on that side. He was also seen by cardiology due to history of nonischemic cardiomyopathy. On 02/05 he was noted to have increased pain in the right groin/proximal thigh and redness which is new and had a CT scan
which showed fluid and stranding and patient underwent washout on 02/05 with placement of wound VAC. He was started on Zosyn. He was subsequently seen by infectious disease who noted that cultures from the washout grew Serratia Marcescens. Zosyn
was later changed to Rocephin due to confusion.
Since that time he has had continued hypotension being treated with midodrine prn.
# Chronic PAD/right leg ischemia status post right femoral endarterectomy with common femoral to femoral bifurcation artery bypass on 01/29
- Continue Eliquis
# Subsequent postoperative cellulitis/seroma status post washout on 02/05 with wound VAC
-Operative cultures grew Serratia marcescens on 02/05
-CT chest abdomen pelvis today shows postoperative soft tissue gas in the anterior right groin, no new well-defined fluid collection, circumferential subcutaneous edema about the right thigh, mild abdominal pelvic ascites, small bilateral pleural
effusions,
- Anaerobic cultures negative. Blood cultures negative
- Appreciate ID input, initially on Zosyn currently on ceftriaxone
- Plan to discharge on cefpodoxime, doxycycline as per ID
- Continue oxycodone, tramadol, Dilaudid
# Ongoing hypotension in the setting of ESRD/left subclavian artery stenosis
- Clinically well-perfused and tolerating hemodialysis so low blood pressure may not be entirely accurate
- Cardiology recommended continuing Entresto
- Made midodrine standing 5 mg 3 times daily
Left subclavian artery stenosis
Right carotid artery stenosis
ESRD on hemodialysis Monday, , Monday with right upper extremity fistula
Hyperphosphatemia
- Due for dialysis tomorrow
- Continue sevelamer
- Does not make urine
Chronic anemia of renal disease
- Hemoglobin stable
Chronic thrombocytopenia
- Likely reactive from infection
Nonischemic cardiomyopathy/HFrEF
Ventricular tachycardia status post ICD
- 01/31 echo EF 32%, mod-sev TR
- Had 23 beats of V. tach 02/11
- Continue Toprol XL/Entresto as per cardiology, keep magnesium greater than 2, potassium greater than 4
Type 2 diabetes
- Insulin sliding scale
Hyperlipidemia
History of DVT
Atrial fibrillation status post cardioversion/ablation
- Continue Eliquis
COPD
- Continue albuterol, tiotropium, budesonide
- O2 saturation has been 92 to 93%
Gout
Anxiety
-Decreased Xanax dose secondary to somnolence and hypotension
DVT prophylaxis�Eliquis
Full code
Updated at bedside 02/13
Total time spent to see the patient on the floor, examine the patient, review data and lab results, discuss treatment plan with patient, nursing staff around 41 minutes.
Physical Exam
General: No acute distress
HEENT: Normocephalic, Atraumatic, EOMI, MMM
Respiratory: Clear to Auscultation bilaterally
Cardiac: Normal S1/S2, Regular Rate and Rhythm
GI: Soft, Nontender, Nondistended, Normal Bowel Sounds
: Right groin with wound VAC noted
Extremities: No Clubbing, Cyanosis
Bilateral lower extremity edema, right greater than left
Neuro: Nonfocal/Grossly Intact
Anticipated Discharge: Within 24 hours
Subjective/Interval History
-
Date of Service: February 14, 2025
Patient reports his right groin pain is 3 out of 10 in intensity. Denies chest pain, denies shortness of breath. No fever, no vomiting. Less somnolent today.
Objective Data
-
Labs:
Laboratory Results
02/14/25
07:12
WBC 10.9 H
Hgb 9.2 L
Hct 26.3 L
Plt Count 125 L
Sodium 130 L
Potassium 3.5
Chloride 94 L
Carbon Dioxide 24
BUN 33 H
Creatinine 3.7 H
Glucose 97
Calcium 9.3
Vital Signs:
Vital Signs
Temp Pulse Resp BP Pulse Ox
97.5 F 84 16 89/38 95
02/14/25 03:00 02/14/25 08:20 02/14/25 07:49 02/14/25 08:20 02/14/25 07:49
I&O
02/13/25 02/14/25 02/15/25
06:59 06:59 06:59
Intake Total 400 / 400 300 / 300
Output Total 65 / 65 20 / 20 20
Balance 335 / 335 280 / 280 -20 / -20
--- NOTE | 2025-02-14 09:26 | CM ---
Spoke w/ spouse this morning as a follow up from discussion yesterday regarding SNF. CM re confirmed that [facility] does not offer HD on site and unable to accommodate HD patients. Spouse was upset at this because facility is close to her
home, spouse upset that none of the other facilities are rated greatly and does not want patient to go to a facility that is not going to care for him properly. CM asked if [facility] is still being considered, spouse stated [facility] is about
an hour away. CM explained to spouse that unfortunately if there are facilities that can accept they would have to be considered even if they are not geographically desirable as not all facilities accept HD patients or can accommodate. Spouse still
upset but understood this and agreed to [facility] once patient is medically stable.
Spoke w/ Terri[facility] liaison, at this time there are no HD chairs available. Will check in w/ her [facility] team to see when they will have one available and call CM back
Plan: Eventual SNF w/ HD
--- NOTE | 2025-02-14 11:08 | W.PN.NEPH.PH ---
Today's Communication / Plan
-
HD tomorrow
Assessment/Plan
-
Impression:
Chronic limb threatening ischemia of the right lower extremity.
Right femoral endarterectomy with interposition common femoral to femoral bifurcation artery bypass with nonreversed ipsilateral greater saphenous vein conduit. 01/29/2025 Dr. Mahoney
Peripheral arterial disease
ESRD on dialysis [facility] (formerly [facility]
Right carotid stenosis
Type 2 diabetes
Hyperlipidemia
Hypertension
Nonischemic cardiomyopathy with EF of 30%
History of ventricular tachycardia/ICD
History of DVT
Atrial fibrillation-status post cardioversion in 2022.
Previous history of cardiac ablation
Gout
COPD
Right UE AVF 10/2024
Hyperphosphatemia
Plan
A/w CLI s/p elective right femoral endarterectomy 01/29
s/p wash out 02/06= wound VAC
resting AVF
off entresto
soft BP, accept SBP > 90 on cuff= midodrine
Dialysis to be scheduled for tomorrow, UF is limited by unstable hemodynamics
-
-
Date of Service: February 14, 2025
CC / HPI / ROS
-
Chief Complaint:
ESRD
History of Present Illness:
ESRD on Monday schedule
BP soft on midodrine
s/p wash out of groin
hgb down to 8 point, wbc up at 15
Review of Systems:
no CP/SOB
more interactive
Labs
-
Labs:
WBC 10.9 10^3/uL (4.8-10.8) H 02/14/25 07:12
RBC 2.61 10^6/uL (4.70-6.10) L 02/14/25 07:12
Hgb 9.2 g/dL (13.0-18.0) L 02/14/25 07:12
Hct 26.3 % (39.0-52.0) L 02/14/25 07:12
Plt Count 125 10^3/uL (130-400) L 02/14/25 07:12
Sodium 130 mmol/L (135-145) L 02/14/25 07:12
Potassium 3.5 mmol/L (3.5-5.1) 02/14/25 07:12
Chloride 94 mmol/L (98-107) L 02/14/25 07:12
Carbon Dioxide 24 mmol/L (22-30) 02/14/25 07:12
BUN 33 mg/dl (9-20) H 02/14/25 07:12
Creatinine 3.7 mg/dL (0.7-1.3) H 02/14/25 07:12
eGFR 16.43 02/14/25 07:12
Glucose 97 mg/dl (70-99) 02/14/25 07:12
Calcium 9.3 mg/dl (8.4-10.2) 02/14/25 07:12
Albumin 3.3 g/dl (3.5-5.0) L 02/12/25 03:51
Physical Exam
-
Vital Signs:
Vital Signs
Temp Pulse Resp BP Pulse Ox
98.3 F 84 16 89/38 95
02/14/25 07:35 02/14/25 08:20 02/14/25 07:49 02/14/25 08:20 02/14/25 07:49
Cardiovascular:: Regular rate and rhythm
Respiratory:: Bilateral: Coarse
Lung Excursion:: Normal
Abdomen:: Nontender and Soft
Bowel Sounds:: Normal
Extremity Edema:: +2: Right: and None: Left:
Lawson Catheter: No
Other Findings::
gangrene GT of right foot
[2025-02-14 12:19] LABS: Glucose - Point of Care 101 mg/dl (70-99)
[2025-02-14] MEDS: FLUSH (NSS) 1 FLUSH IV (12:39)
[2025-02-14] MEDS: STERILE WATER FOR INJECTION 10 ML IV (12:39)
[2025-02-14] MEDS: ROCEPHIN 1000 MG IV (12:39)
--- NOTE | 2025-02-14 14:59 | W.PN.UPDATE ---
Update Note
Progress Note Update
Vac change preformed at bedside, patient tolerated well 9cm length, 3cm with, 0.5cm depth. Vac holding suction and CDI. Saqib drain removed, site CDI.
[2025-02-14 16:47] LABS: Glucose - Point of Care 111 mg/dl (70-99)
--- NOTE | 2025-02-14 20:20 | PTCARENOTE ---
late note due to pt care:
Tigertext sent to FINANCIAL MANAGEMENT ANALYST concerning PM dose administration of raisa and metoprolol. SBP in the low 110s and HR in the 70s (see EMR for details). RN concern for frequent SBP below 90 and pt's activity intolerance (GUILLEN and gen weakness with transfer).
Plan to hold raisa and metoprolol at this time and to revisit administration should the HR increase during the shift.
[2025-02-14 21:46] LABS: Glucose - Point of Care 98 mg/dl (70-99)
[2025-02-14] MEDS: XANAX 0.25 MG PO (22:03)
[2025-02-15] VITALS (7 sets, daily range): BP systolic 91–119; BP diastolic 38–49; BMI 28.0
[2025-02-15] MEDS: TYLENOL 650 MG PO (00:58)
--- NOTE | 2025-02-15 06:47 | W.PN.VS ---
Today's Communication / Plan
-
See place plan below.
Assessment/Plan
-
Assessment: 74 year old male s/p Right femoral endarterectomy with interposition common femoral to femoral bifurcation artery bypass with nonreversed ipsilateral greater saphenous vein conduit.
s/p Washout right groin surgical site. Pulse lavage irrigation with 3 L saline solution. Closure of deeper tissues with placement of more superficial wound VAC right groin, and placement of drain in saphenectomy bed.
Plan:
HD per nephrology, appreciate recommendations
Given patient's medical complexities appreciate hospitalist team taking over as primary, will continue to follow
PT/OT/OOB
Case management for SNF placement (difficulties finding placement with HD)
Continue wound VAC, will be changed Monday by our team, remains with roughly 100 mL of serous fluid output within a 24-hour period
Blood cultures remain without growth
Subjective Data
-
Date of Service: February 15, 2025
Patient seen and examined at bedside, offers no complaints. Denies nausea, vomiting, fever, and chills.
Objective Data
-
Vital Signs
Temp Pulse Resp BP Pulse Ox
97.6 F 80 20 94/38 99
02/15/25 02:46 02/15/25 05:20 02/15/25 05:20 02/15/25 05:20 02/15/25 02:46
Intake and Output
02/13/25 02/14/25 02/15/25
06:59 06:59 06:59
Intake Total 400 / 400 300 / 300 1020 / 1020
Output Total 50
Balance 335 / 335 280 / 280 970 / 970
Intake:
Oral fluids 400 / 400 300 / 300 1020 / 1020
Output:
Drain Output (Total) 50 / 50
Right Upper Leg Marco A-Shelley 65 / 65 20 / 20 50 / 50
Lab Results
02/14/25 07:12
02/14/25 07:12
Calcium 9.3 mg/dl (8.4-10.2) 02/14/25 07:12
Magnesium 1.9 mg/dl (1.6-2.3) 02/14/25 07:12
Albumin 3.3 g/dl (3.5-5.0) L 02/12/25 03:51
Physical Exam
-
No apparent distress, resting in bed
No tachycardia
Dyspneic on exertion, currently at rest and with no evidence of dyspnea
Right groin wound VAC holding suction, dressing clean, dry, and intact, no erythema present at prior saphenectomy staple site
Right foot warm, palpable DP, hallux dry gangrene stable
--- NOTE | 2025-02-15 07:42 | W.PN.HOSP.TC ---
Today's Communication/Plan
-
Discharge to short-term rehab when bed available
Assessment / Plan
Assessment / Plan
HPI: 74-year-old male past medical history of PAD/chronic right limb ischemia status post right femoral endarterectomy with common femoral to femoral bifurcation artery bypass on 01/29 and subsequent right groin washout with VAC placement on 02/05
with seroma noted, left subclavian artery stenosis, right carotid artery stenosis, ESRD on hemodialysis Monday, , Monday with right upper extremity fistula, hyperphosphatemia, type 2 diabetes, hyperlipidemia, hypertension, nonischemic
cardiomyopathy with EF of 30%, ventricular tachycardia ICD, history of DVT, atrial fibrillation status post cardioversion in 2022 and ablation, gout, COPD, to be transferred to our service for medical management.
Patient originally came to the hospital on 01/29 for right femoral endarterectomy with interposition of common femoral to femoral bifurcation artery bypass with nonreversed ipsilateral greater saphenous vein conduit. He was being seen by nephrology
for dialysis. He subsequently developed hypotension and was on pressors for some period of time. Blood pressure cuff was placed on the left due to hemodialysis access. He had a prior carotid duplex which suggested left subclavian artery
explaining low blood pressures on that side. He was also seen by cardiology due to history of nonischemic cardiomyopathy. On 02/05 he was noted to have increased pain in the right groin/proximal thigh and redness which is new and had a CT scan
which showed fluid and stranding and patient underwent washout on 02/05 with placement of wound VAC. He was started on Zosyn. He was subsequently seen by infectious disease who noted that cultures from the washout grew Serratia Marcescens. Zosyn
was later changed to Rocephin due to confusion.
Since that time he has had continued hypotension being treated with midodrine prn.
# Chronic PAD/right leg ischemia status post right femoral endarterectomy with common femoral to femoral bifurcation artery bypass on 01/29
- Continue Eliquis
# Subsequent postoperative cellulitis/seroma status post washout on 02/05 with wound VAC
-Operative cultures grew Serratia marcescens on 02/05
-CT chest abdomen pelvis today shows postoperative soft tissue gas in the anterior right groin, no new well-defined fluid collection, circumferential subcutaneous edema about the right thigh, mild abdominal pelvic ascites, small bilateral pleural
effusions,
- Anaerobic cultures negative. Blood cultures negative
- Appreciate ID input, initially on Zosyn currently on ceftriaxone
- Plan to discharge on Cefpodoxime 200mg qpm and Doxycycline 100mg BID through 02/19/2025 as per ID
- Continue oxycodone, tramadol, Dilaudid
- Wound vac changes as per vascular
# Ongoing hypotension in the setting of ESRD/left subclavian artery stenosis
- Clinically well-perfused and tolerating hemodialysis so low blood pressure may not be entirely accurate
- Cardiology recommended continuing Entresto
- Made midodrine standing 5 mg 3 times daily
Left subclavian artery stenosis
Right carotid artery stenosis
ESRD on hemodialysis Monday, , Monday with right upper extremity fistula
Hyperphosphatemia
- Due for dialysis tomorrow
- Continue sevelamer
- Does not make urine
Chronic anemia of renal disease
- Hemoglobin stable
Chronic thrombocytopenia
- Likely reactive from infection
Nonischemic cardiomyopathy/HFrEF
Ventricular tachycardia status post ICD
- 01/31 echo EF 32%, mod-sev TR
- Had 23 beats of V. tach 02/11
- Continue Toprol XL/Entresto as per cardiology, keep magnesium greater than 2, potassium greater than 4
Type 2 diabetes
- Insulin sliding scale
Hyperlipidemia
History of DVT
Atrial fibrillation status post cardioversion/ablation
- Continue Eliquis
COPD
- Continue albuterol, tiotropium, budesonide
- O2 saturation has been 92 to 93%
Gout
Anxiety
-Decreased Xanax dose secondary to somnolence and hypotension
DVT prophylaxis�Eliquis
Full code
Updated at bedside 02/13
Total time spent to see the patient on the floor, examine the patient, review data and lab results, discuss treatment plan with patient, nursing staff around 36 minutes.
Physical Exam
General: No acute distress
HEENT: Normocephalic, Atraumatic, EOMI, MMM
Respiratory: Clear to Auscultation bilaterally
Cardiac: Normal S1/S2, Regular Rate and Rhythm
GI: Soft, Nontender, Nondistended, Normal Bowel Sounds
: Right groin with wound VAC noted
Extremities: No Clubbing, Cyanosis
Bilateral lower extremity edema, right greater than left
Neuro: Nonfocal/Grossly Intact
Anticipated Discharge: 24 - 48 hours
Subjective/Interval History
-
Date of Service: February 15, 2025
Patient reports that his right groin pain is improved. Denies chest pain, denies shortness of breath. No lightheadedness, no dizziness. No fever, no vomiting.
Objective Data
-
Vital Signs:
Vital Signs
Temp Pulse Resp BP Pulse Ox
97.6 F 80 20 94/38 99
02/15/25 02:46 02/15/25 05:20 02/15/25 05:20 02/15/25 05:20 02/15/25 02:46
I&O
02/14/25 02/15/25 02/16/25
06:59 06:59 06:59
Intake Total 300 / 300 1020 / 1020
Output Total 50 / 50
Balance 280 / 280 970 / 970
[2025-02-15] MEDS: SYMBICORT 160/4.5 MCG INHALER 2 PUFF INH ×2 (07:52→18:25)
[2025-02-15] MEDS: SPIRIVA RESPIMAT 2.5 MCG 2 PUFF INH (07:53)
[2025-02-15 08:26] LABS: Glucose - Point of Care 114 mg/dl (70-99)
[2025-02-15] MEDS: NOVOLOG FLEXPEN-MODERATE RESISTANCE SC ×3 (08:26→17:24)
[2025-02-15] MEDS: SENOKOT PO ×3 (08:27→20:12)
[2025-02-15] MEDS: COLACE PO ×3 (08:27→20:12)
[2025-02-15] MEDS: PROTONIX 40 MG PO (08:28)
[2025-02-15] MEDS: NEPHROCAP 1 CAPSULE PO (08:28)
[2025-02-15] MEDS: ZINC 50 MG PO (08:28)
[2025-02-15] MEDS: VITAMIN C 500 MG PO (08:28)
[2025-02-15] MEDS: VITAMIN D3 (cholecalciferol) 50 MCG PO (08:28)
[2025-02-15] MEDS: RENVELA 800 MG PO ×2 (08:31→17:24)
[2025-02-15] MEDS: THERAGRAN 1 TABLET PO (08:31)
[2025-02-15] MEDS: TOPROL XL PO (08:35)
[2025-02-15 11:33] LABS: Glucose - Point of Care 130 mg/dl (70-99)
[2025-02-15] MEDS: ELIQUIS 5 MG PO ×2 (12:45→20:13)
[2025-02-15] MEDS: RENVELA PO (12:47)
[2025-02-15] MEDS: FLEXBUMIN 25% FOR HEMODIALYSIS 12.5 GRAMS IV ×2 (13:10→14:40)
[2025-02-15] MEDS: MANNITOL 25% 12.5 GRAMS IV ×2 (13:15→14:39)
[2025-02-15] MEDS: RETACRIT 10000 UNITS IV (13:21)
[2025-02-15 13:25] LABS: Hematocrit 27.0 % (39.0-52.0); Hemoglobin 9.1 g/dL (13.0-18.0); Mean Corp Hgb Conc. 33.7 g/dL (33.0-37.0); Mean Corpuscular Volume 101.5 fL (80.0-94.0); Platelet Count 129 10^3/uL (130-400); Red Cell Dist. Width 15.6 % (11.5-14.5)
[2025-02-15 13:30] LABS: Blood Urea Nitrogen 48 mg/dl (9-20); Calcium 9.1 mg/dl (8.4-10.2); Carbon Dioxide 23 mmol/L (22-30); Chloride 94 mmol/L (98-107); Estimated Creatinine Clearance 14 ml/min; Glucose 137 mg/dl (70-99); Potassium 3.7 mmol/L (3.5-5.1); Sodium 129 mmol/L (135-145); eGFR 12.02
--- NOTE | 2025-02-15 14:01 | W.PN.NEPH.HD ---
Assessment
-
Patient seen on HD
sbp at 110 at current u/f
Progress Note - Hemodialysis
-
Date of Service: February 15, 2025
Duration: 30 minutes and 3 hours
Potassium Bath: 3
Calcium Bath: 2.5
Opti-Dialyzer: 160
Ultrafiltration: Other (2kg at hemodynamically tolerated)
Blood Flow: 400
Dialysate Flow: 600
Heparin: none
EPO: [id number]
[2025-02-15 15:47] LABS: Glucose - Point of Care 116 mg/dl (70-99)
[2025-02-15] MEDS: ROCEPHIN 1000 MG IV (16:26)
[2025-02-15] MEDS: HEPARIN 3900 UNITS INTRACATH (16:26)
[2025-02-15] MEDS: STERILE WATER FOR INJECTION 10 ML IV (16:26)
[2025-02-15] MEDS: ROXICODONE 5 MG PO (18:35)
[2025-02-15] MEDS: TOPROL XL 25 MG PO (20:13)
[2025-02-15] MEDS: ULTRAM 50 MG PO (20:13)
[2025-02-15] MEDS: XANAX 0.25 MG PO (21:33)
[2025-02-15 21:38] LABS: Glucose - Point of Care 127 mg/dl (70-99)
--- NOTE | 2025-02-15 22:55 | PTCARENOTE ---
Pt's monitor car operator alerted to vfib and PVCs. FABRIC SOURCER notified. VS stable. Continue to monitor.
[2025-02-16] VITALS (7 sets, daily range): BP systolic 91–106; BP diastolic 39–50; BMI 27.7
--- NOTE | 2025-02-16 01:40 | W.PN.UPDATE ---
Update Note
Progress Note Update
Patient had a large bowel movement that mixed with some blood clots and a little bit of liquid blood. Afebrile, BP 92/39 HR 78 SPO2 97%
-Will hold Eliquis
-Stat h&h is 9, previously is 9.1. Will monitor h&h q 6 hrs
-Protonix IV BID
-GI consult placed
[2025-02-16] MEDS: PROTONIX IV 40 MG IV ×2 (02:06→10:03)
[2025-02-16] MEDS: NSS (PRESERVATIVE FREE) 10 ML IV ×2 (02:06→10:02)
--- NOTE | 2025-02-16 02:24 | PTCARENOTE ---
Pt had a large, soft bowel movement with a clot of blood and scant bright red blood. PHONE SPECIALIST notified. New orders given. Eliquis on hold. GI consulted. H&H obtained.
[2025-02-16 02:44] LABS: Hematocrit 26.4 % (39.0-52.0); Hemoglobin 9.0 g/dL (13.0-18.0)
[2025-02-16] MEDS: XANAX 0.25 MG PO ×3 (03:49→19:51)
[2025-02-16] MEDS: ROXICODONE 5 MG PO ×2 (03:49→10:10)
[2025-02-16] MEDS: SPIRIVA RESPIMAT 2.5 MCG 2 PUFF INH (07:22)
[2025-02-16] MEDS: SYMBICORT 160/4.5 MCG INHALER 2 PUFF INH ×2 (07:22→19:51)
--- NOTE | 2025-02-16 08:04 | W.PN.HOSP.TC ---
Today's Communication/Plan
-
Discharge to short-term rehab when bed available
Assessment / Plan
Assessment / Plan
HPI: 74-year-old male past medical history of PAD/chronic right limb ischemia status post right femoral endarterectomy with common femoral to femoral bifurcation artery bypass on 01/29 and subsequent right groin washout with VAC placement on 02/05
with seroma noted, left subclavian artery stenosis, right carotid artery stenosis, ESRD on hemodialysis Monday, , Monday with right upper extremity fistula, hyperphosphatemia, type 2 diabetes, hyperlipidemia, hypertension, nonischemic
cardiomyopathy with EF of 30%, ventricular tachycardia ICD, history of DVT, atrial fibrillation status post cardioversion in 2022 and ablation, gout, COPD, to be transferred to our service for medical management.
Patient originally came to the hospital on 01/29 for right femoral endarterectomy with interposition of common femoral to femoral bifurcation artery bypass with nonreversed ipsilateral greater saphenous vein conduit. He was being seen by nephrology
for dialysis. He subsequently developed hypotension and was on pressors for some period of time. Blood pressure cuff was placed on the left due to hemodialysis access. He had a prior carotid duplex which suggested left subclavian artery
explaining low blood pressures on that side. He was also seen by cardiology due to history of nonischemic cardiomyopathy. On 02/05 he was noted to have increased pain in the right groin/proximal thigh and redness which is new and had a CT scan
which showed fluid and stranding and patient underwent washout on 02/05 with placement of wound VAC. He was started on Zosyn. He was subsequently seen by infectious disease who noted that cultures from the washout grew Serratia Marcescens. Zosyn
was later changed to Rocephin due to confusion.
Since that time he has had continued hypotension being treated with midodrine prn.
# Chronic PAD/right leg ischemia status post right femoral endarterectomy with common femoral to femoral bifurcation artery bypass on 01/29
- Continue Eliquis
# Subsequent postoperative cellulitis/seroma status post washout on 02/05 with wound VAC
-Operative cultures grew Serratia marcescens on 02/05
-CT chest abdomen pelvis today shows postoperative soft tissue gas in the anterior right groin, no new well-defined fluid collection, circumferential subcutaneous edema about the right thigh, mild abdominal pelvic ascites, small bilateral pleural
effusions,
- Anaerobic cultures negative. Blood cultures negative
- Appreciate ID input, initially on Zosyn currently on ceftriaxone
- Plan to discharge on Cefpodoxime 200mg qpm and Doxycycline 100mg BID through 02/19/2025 as per ID
- Continue oxycodone, tramadol, Dilaudid
- Wound vac changes as per vascular
# Ongoing hypotension in the setting of ESRD/left subclavian artery stenosis
- Clinically well-perfused and tolerating hemodialysis so low blood pressure may not be entirely accurate
- Cardiology recommended continuing Entresto
- Made midodrine standing 5 mg 3 times daily
Left subclavian artery stenosis
Right carotid artery stenosis
ESRD on hemodialysis Monday, , Monday with right upper extremity fistula
Hyperphosphatemia
- Continue dialysis as per nephrology
- Continue sevelamer
- Does not make urine
Chronic anemia of renal disease
- Hemoglobin stable
Chronic thrombocytopenia
- Likely reactive from infection
Nonischemic cardiomyopathy/HFrEF
Ventricular tachycardia status post ICD
- 01/31 echo EF 32%, mod-sev TR
- Had 23 beats of V. tach 02/11
- Continue Toprol XL/Entresto as per cardiology, keep magnesium greater than 2, potassium greater than 4
Concern for bloody stools 02/16
- Nursing staff clarified patient has not been having bloody stools and hemoglobin has been stable
- Heme test requested, no GI consult needed for now
Type 2 diabetes
- Insulin sliding scale
Hyperlipidemia
History of DVT
Atrial fibrillation status post cardioversion/ablation
- Continue Eliquis
COPD
- Continue albuterol, tiotropium, budesonide
- O2 saturation has been 92 to 93%
Gout
Anxiety
-Decreased Xanax dose secondary to somnolence and hypotension
DVT prophylaxis�Eliquis
Full code
Updated at bedside 02/13
Total time spent to see the patient on the floor, examine the patient, review data and lab results, discuss treatment plan with patient, nursing staff around 50 minutes.
Physical Exam
General: No acute distress
HEENT: Normocephalic, Atraumatic, EOMI, MMM
Respiratory: Clear to Auscultation bilaterally
Cardiac: Normal S1/S2, Regular Rate and Rhythm
GI: Soft, Nontender, Nondistended, Normal Bowel Sounds
: Right groin with wound VAC noted
Extremities: No Clubbing, Cyanosis
Bilateral lower extremity edema, right greater than left
Neuro: Nonfocal/Grossly Intact
Anticipated Discharge: Within 24 hours
Subjective/Interval History
-
Date of Service: February 16, 2025
Overnight events clarified. Per nursing staff, patient did not have a bloody bowel movement. He has been having mucus bowel movements. He denies chest pain, denies shortness of breath. No fever, no vomiting. His right groin pain is currently
negligible.
Objective Data
-
Labs:
Laboratory Results
02/16/25 02/16/25 02/16/25
02:37 06:00 08:00
WBC Pending
Hgb 9.0 L Pending Pending
Hct 26.4 L Pending Pending
Plt Count Pending
Sodium Pending
Potassium Pending
Chloride Pending
Carbon Dioxide Pending
BUN Pending
Creatinine Pending
Glucose Pending
Calcium Pending
02/16/25 02/16/25
14:00 20:00
WBC
Hgb Pending Pending
Hct Pending Pending
Plt Count
Sodium
Potassium
Chloride
Carbon Dioxide
BUN
Creatinine
Glucose
Calcium
Vital Signs:
Vital Signs
Temp Pulse Resp BP Pulse Ox
98.3 F 78 16 97/45 91
02/16/25 02:57 02/16/25 07:23 02/16/25 07:23 02/16/25 02:57 02/16/25 02:57
I&O
02/15/25 02/16/25 02/17/25
06:59 06:59 06:59
Intake Total 1020 / 1020 720 / 720
Output Total 50 / 50
Balance 970 / 970 720 / 720
[2025-02-16 08:10] LABS: Glucose - Point of Care 130 mg/dl (70-99)
[2025-02-16] MEDS: THERAGRAN 1 TABLET PO (10:01)
[2025-02-16] MEDS: RENVELA 800 MG PO ×3 (10:02→18:25)
[2025-02-16] MEDS: ZINC 50 MG PO (10:03)
[2025-02-16] MEDS: VITAMIN C 500 MG PO (10:03)
[2025-02-16] MEDS: NEPHROCAP 1 CAPSULE PO (10:03)
[2025-02-16] MEDS: VITAMIN D3 (cholecalciferol) 50 MCG PO (10:04)
[2025-02-16] MEDS: TOPROL XL PO (10:04)
[2025-02-16] MEDS: COLACE PO ×2 (10:05→19:50)
[2025-02-16] MEDS: SENOKOT PO ×2 (10:05→19:50)
[2025-02-16] MEDS: ENTRESTO 49 MG/51 MG PO (10:06)
[2025-02-16] MEDS: NOVOLOG FLEXPEN-MODERATE RESISTANCE SC ×3 (10:06→16:50)
[2025-02-16 10:40] LABS: Hematocrit 26.9 % (39.0-52.0); Hemoglobin 9.3 g/dL (13.0-18.0); Mean Corp Hgb Conc. 34.6 g/dL (33.0-37.0); Mean Corpuscular Volume 101.9 fL (80.0-94.0); Platelet Count 142 10^3/uL (130-400); Red Cell Dist. Width 16.2 % (11.5-14.5)
[2025-02-16 10:41] LABS: Hematocrit 28.6 % (39.0-52.0); Hemoglobin 9.3 g/dL (13.0-18.0)
[2025-02-16 11:05] LABS: Blood Urea Nitrogen 27 mg/dl (9-20); Calcium 9.4 mg/dl (8.4-10.2); Carbon Dioxide 25 mmol/L (22-30); Chloride 94 mmol/L (98-107); Estimated Creatinine Clearance 19 ml/min; Glucose 103 mg/dl (70-99); Magnesium 1.9 mg/dl (1.6-2.3); Potassium 3.9 mmol/L (3.5-5.1); Sodium 131 mmol/L (135-145); eGFR 17.56
--- NOTE | 2025-02-16 11:10 | W.PN.NEPH.PH ---
Today's Communication / Plan
-
Dialysis Monday
Assessment/Plan
-
Impression:
Chronic limb threatening ischemia of the right lower extremity.
Right femoral endarterectomy with interposition common femoral to femoral bifurcation artery bypass with nonreversed ipsilateral greater saphenous vein conduit. 01/29/2025 Dr. Mahoney
Peripheral arterial disease
ESRD on dialysis [facility]
Right carotid stenosis
Type 2 diabetes
Hyperlipidemia
Hypertension
Nonischemic cardiomyopathy with EF of 30%
History of ventricular tachycardia/ICD
History of DVT
Atrial fibrillation-status post cardioversion in 2022.
Previous history of cardiac ablation
Gout
COPD
Right UE AVF 10/2024
Hyperphosphatemia
Plan
A/w CLI s/p elective right femoral endarterectomy 01/29
s/p wash out 02/06= wound VAC
Blood in stool this morning Eliquis held
resting AVF
off entresto
soft BP, accept SBP > 90 on cuff= midodrine (patient has subclavian stensosis sbp likely 20 points higher )
Next dialysis will be scheduled for Monday
-
-
Date of Service: February 16, 2025
CC / HPI / ROS
-
Chief Complaint:
ESRD
History of Present Illness:
ESRD on Monday schedule
BP soft on midodrine
s/p wash out of groin
Hemoglobin 9.3 stable
Review of Systems:
no CP/SOB
more interactive
Blood in stool this morning
Labs
-
Labs:
WBC 11.4 10^3/uL (4.8-10.8) H 02/16/25 10:24
RBC 2.64 10^6/uL (4.70-6.10) L 02/16/25 10:24
Plt Count 142 10^3/uL (130-400) 02/16/25 10:24
Sodium 131 mmol/L (135-145) L 02/16/25 10:24
Potassium 3.9 mmol/L (3.5-5.1) 02/16/25 10:24
Chloride 94 mmol/L (98-107) L 02/16/25 10:24
Carbon Dioxide 25 mmol/L (22-30) 02/16/25 10:24
BUN 27 mg/dl (9-20) H 02/16/25 10:24
Creatinine 3.5 mg/dL (0.7-1.3) H 02/16/25 10:24
eGFR 17.56 02/16/25 10:24
Glucose 103 mg/dl (70-99) H 02/16/25 10:24
Calcium 9.4 mg/dl (8.4-10.2) 02/16/25 10:24
Albumin 3.3 g/dl (3.5-5.0) L 02/12/25 03:51
Physical Exam
-
Vital Signs:
Vital Signs
Temp Pulse Resp BP Pulse Ox
97.7 F 79 16 91/44 98
02/16/25 11:00 02/16/25 11:00 02/16/25 11:00 02/16/25 11:00 02/16/25 11:00
Cardiovascular:: Regular rate and rhythm
Respiratory:: Bilateral: Coarse
Lung Excursion:: Normal
Abdomen:: Nontender and Soft
Bowel Sounds:: Normal
Extremity Edema:: +2: Right: and None: Left:
Lawson Catheter: No
Other Findings::
gangrene GT of right foot
[2025-02-16 11:50] LABS: Glucose - Point of Care 136 mg/dl (70-99)
[2025-02-16] MEDS: ELIQUIS 5 MG PO ×2 (12:15→19:49)
[2025-02-16] MEDS: STERILE WATER FOR INJECTION 10 ML IV (12:16)
[2025-02-16] MEDS: ROCEPHIN 1000 MG IV (12:16)
[2025-02-16 16:49] LABS: Glucose - Point of Care 126 mg/dl (70-99)
[2025-02-16] MEDS: TOPROL XL 25 MG PO (19:50)
[2025-02-16] MEDS: ENTRESTO 49 MG/51 MG 1 TAB PO (19:50)
[2025-02-16 22:04] LABS: Glucose - Point of Care 179 mg/dl (70-99)
[2025-02-17 03:10] VITALS: BP 108/45
[2025-02-17] MEDS: XANAX 0.25 MG PO ×2 (05:34→12:37)
[2025-02-17] MEDS: ULTRAM 50 MG PO ×2 (05:34→14:36)
[2025-02-17 06:00] VITALS: BMI 28.0
[2025-02-17 07:15] VITALS: BP 97/53
[2025-02-17] MEDS: SYMBICORT 160/4.5 MCG INHALER 2 PUFF INH ×2 (07:38→20:20)
[2025-02-17] MEDS: SPIRIVA RESPIMAT 2.5 MCG 2 PUFF INH (07:38)
[2025-02-17 07:48] LABS: Glucose - Point of Care 139 mg/dl (70-99)
[2025-02-17 07:50] LABS: Hematocrit 27.5 % (39.0-52.0); Hemoglobin 9.6 g/dL (13.0-18.0); Mean Corp Hgb Conc. 34.9 g/dL (33.0-37.0); Mean Corpuscular Volume 102.2 fL (80.0-94.0); Platelet Count 153 10^3/uL (130-400); Red Cell Dist. Width 16.4 % (11.5-14.5)
[2025-02-17 08:24] LABS: Blood Urea Nitrogen 37 mg/dl (9-20); Calcium 9.8 mg/dl (8.4-10.2); Carbon Dioxide 24 mmol/L (22-30); Chloride 92 mmol/L (98-107); Estimated Creatinine Clearance 15 ml/min; Glucose 114 mg/dl (70-99); Potassium 4.3 mmol/L (3.5-5.1); Sodium 127 mmol/L (135-145); eGFR 13.72
[2025-02-17] MEDS: ENTRESTO 49 MG/51 MG PO ×2 (08:40→19:46)
[2025-02-17] MEDS: COLACE PO ×2 (08:40→19:47)
[2025-02-17] MEDS: NOVOLOG FLEXPEN-MODERATE RESISTANCE SC (08:40)
[2025-02-17] MEDS: ROXICODONE 5 MG PO ×2 (08:40→18:01)
[2025-02-17] MEDS: RENVELA 800 MG PO ×3 (08:41→17:55)
[2025-02-17] MEDS: TOPROL XL 25 MG PO ×2 (08:41→19:48)
[2025-02-17] MEDS: ZINC 50 MG PO (08:41)
[2025-02-17] MEDS: ELIQUIS 5 MG PO ×2 (08:41→19:48)
[2025-02-17] MEDS: SENOKOT PO ×2 (08:41→19:48)
[2025-02-17] MEDS: VITAMIN C 500 MG PO (08:41)
[2025-02-17] MEDS: NEPHROCAP 1 CAPSULE PO (08:41)
[2025-02-17] MEDS: VITAMIN D3 (cholecalciferol) 50 MCG PO (08:42)
[2025-02-17] MEDS: THERAGRAN 1 TABLET PO (08:42)
--- NOTE | 2025-02-17 10:00 | W.PN.VS ---
Today's Communication / Plan
-
Seen and assessed with Dr. Mahoney
Assessment/Plan
-
Assessment: 74 year old male s/p Right femoral endarterectomy with interposition common femoral to femoral bifurcation artery bypass with nonreversed ipsilateral greater saphenous vein conduit.
s/p Washout right groin surgical site. Pulse lavage irrigation with 3 L saline solution. Closure of deeper tissues with placement of more superficial wound VAC right groin, and placement of drain in saphenectomy bed.
Plan:
HD per nephrology, appreciate recommendations
PT/OT/OOB
Case management for SNF placement (difficulties finding placement with HD)
Continue wound VAC, next change Monday. At that time will assess need for further surgery
Subjective Data
-
Date of Service: February 17, 2025
Patient seen at bedside this a.m. with Dr. Mahoney and hospitalist. Patient offers no specific complaints at this time. Complains of pain with wound VAC change. No events overnight.
Objective Data
-
Vital Signs
Temp Pulse Resp BP Pulse Ox
97.9 F 76 16 97/53 99
02/17/25 07:15 02/17/25 07:15 02/17/25 07:45 02/17/25 07:15 02/17/25 07:45
Intake and Output
02/16/25 02/17/25 02/18/25
06:59 06:59 06:59
Intake Total 720 / 720 480 / 480
Balance 720 / 720 480 / 480
Intake:
Oral fluids 720 / 720 480 / 480
Other:
Number of approximated SMALL 1
amounts of urine
Lab Results
02/17/25 06:22
02/17/25 06:22
Calcium 9.8 mg/dl (8.4-10.2) 02/17/25 06:22
Magnesium 1.9 mg/dl (1.6-2.3) 02/16/25 10:24
Albumin 3.3 g/dl (3.5-5.0) L 02/12/25 03:51
Physical Exam
-
No apparent distress, resting in bed
No tachycardia
No tachypnea at this time
Right groin wound VAC holding suction, dressing clean, dry, and intact.
VAC removed at bedside. Wound bed with fibrinous tissue, surrounding skin friable, moderate amount of serous drainage
Right foot warm, palpable DP, hallux dry gangrene stable
--- NOTE | 2025-02-17 10:25 | WOUNDNOTE ---
Maria Ines GRAHAM
--- NOTE | 2025-02-17 10:26 | WOUNDNOTE ---
WON RN NOTE: Followed up on patient today regarding L Achilles wound. Patient reports he has abrasions on both Achilles from rubbing on shoes before he got here. 'I have had them a long time and they just won't heal!' patient states. Silicone foam
dressings in use, pillow under calves. L dressing slightly stuck upon removal, scant bloody drainage. Adaptic and silicone foam applied, called SPD for offloading heel boots(TruVue Lites) for both legs. Patient agreeable to try the fiber filled
boots. Patient turned with assist, Sacrum intact, gluteal cleft distal near rectum slightly less red, Calazime in use. Heels are blanchable red. L dorsal foot and toes with chronic red discoloration, skin warm and dry. Suspect heightened
discoloration on L Achilles due to PAD. Patient is on an air overlay, palm check done with adequate inflation, encouraged turning when in bed. Air cushion under Sacrum per patient's request, uses in chair. Patient repositioned for comfort. Updated
nurse Myah and aware to apply boots when arrives. Will confirm orders with hospitalist/vascular, update care plan and follow as needed.
[2025-02-17 11:20] VITALS: BP 107/43
[2025-02-17 11:20] LABS: Glucose - Point of Care 168 mg/dl (70-99)
--- NOTE | 2025-02-17 11:47 | W.PN.HOSP.TC ---
Addendum entered and electronically signed by Louis Rod MD 02/17/25 11:50:
#Hyponatremia
managed with HD
Original Note:
Today's Communication/Plan
-
cont Abx
possible need in repeated washout
Assessment / Plan
Assessment / Plan
HPI: 74-year-old male past medical history of non-alcoholic liver cirrhosis, PAD/chronic right limb ischemia status post right femoral endarterectomy with common femoral to femoral bifurcation artery bypass on 01/29 and subsequent right groin washout
with VAC placement on 02/05 with seroma noted, left subclavian artery stenosis, right carotid artery stenosis, ESRD on hemodialysis Monday, , Monday with right upper extremity fistula, hyperphosphatemia, type 2 diabetes, hyperlipidemia,
hypertension, nonischemic cardiomyopathy with EF of 30%, ventricular tachycardia ICD, history of DVT, atrial fibrillation status post cardioversion in 2022 and ablation, gout, COPD, came for femoral endarectomy on 01/29/25 for RLE ischemia, developed
worsening pain on 02/05/[address] fluid on CT, so had washout on 02/05/25 and Cx grew Serratia Marcensces. Managed for infection with ID. Initially postOP concern for hypotension, which patient has chronically and that limits ability for
ultrafilration.
A/P:
#R inguinal cellulitit and seroma
on Abx as per ID due to serratia in Cx. Cefpodoxime 200mg qpm and Doxycycline 100mg BID through 02/19/2025
WoundVac mgmt as per vascSx
Healing complicated by extensive exudate due to fluid third spacing, caused by cirrhosis and anuric ESRD with limited ultrafiltration due to chronic cirrhosis induced hypotension
#PAD with LLE ischemia
#R carotid stenosis
#L subclavian stenosis
on ELiquis
s/p ight femoral endarterectomy with interposition of common femoral to femoral bifurcation artery bypass with nonreversed ipsilateral greater saphenous vein conduit
#ESRD on HD TTS
nephro for HD
midodrine for hypothension
#Anemia of chronic disease
folow CBC
#Thrombocytopenia
2/2 liver cirrhosis
follow CBC
#Non-alcoholic liver cirrosis
#CHronic HFrEF
#VT s/p ICD
volume mgmt with HD
Toprol/Entresto
Card consult
#DM type 2 with nephropathy
Insulin SS, dm diet, accuchecks
#Overnight hematochezia reported
as per RN - no recurrence
Hgb stable
FOBT
#Hx of DVT
#Afib s/p CV
on ELiuqis
#COPD not in exacerbation
#Anxiety d/o
cont home meds
DVT ppx Eliquis
Full code
I have spent at least 59min reviewing chart, test results, communication with consultants, family and providing direct patient care
Anticipated Discharge: > 48 hours
Subjective/Interval History
-
Date of Service: February 17, 2025
Objective Data
-
Labs:
Laboratory Results
02/17/25
06:22
WBC 10.4
Hgb 9.6 L
Hct 27.5 L
Plt Count 153
Sodium 127 L
Potassium 4.3
Chloride 92 L
Carbon Dioxide 24
BUN 37 H
Creatinine 4.3 H*
Glucose 114 H
Calcium 9.8
Vital Signs:
Vital Signs
Temp Pulse Resp BP Pulse Ox
98.4 F 79 18 107/43 94
02/17/25 11:20 02/17/25 11:20 02/17/25 11:20 02/17/25 11:20 02/17/25 11:20
I&O
02/16/25 02/17/25 02/18/25
06:59 06:59 06:59
Intake Total 720 / 720 480 / 480 240 / 240
Balance 720 / 720 480 / 480 240 / 240
Review of Systems
-
History Source: Patient
All other systems: Reviewed and negative
Physical Exam
-
General: No Apparent Distress
HEENT: Normocephalic
Cardiac: Regular Rhythm
GI: Soft, Nontender and Nondistended
Neuro: Awake, Alert, Oriented and AO x 3
Psych: Calm and Apparent Dementia
[2025-02-17] MEDS: STERILE WATER FOR INJECTION 10 ML IV (12:31)
[2025-02-17] MEDS: ROCEPHIN 1000 MG IV (12:31)
[2025-02-17] MEDS: NOVOLOG FLEXPEN-MODERATE RESISTANCE 1 UNITS SC ×2 (12:32→17:56)
--- NOTE | 2025-02-17 13:31 | W.PN.NEPH.PH ---
Today's Communication / Plan
-
HD tomorrow
Assessment/Plan
-
Impression:
Chronic limb threatening ischemia of the right lower extremity.
Right femoral endarterectomy with interposition common femoral to femoral bifurcation artery bypass with nonreversed ipsilateral greater saphenous vein conduit. 01/29/2025 Dr. Mahoney
Peripheral arterial disease
ESRD on dialysis [facility]
Right carotid stenosis
Type 2 diabetes
Hyperlipidemia
Hypertension
Nonischemic cardiomyopathy with EF of 30%
History of ventricular tachycardia/ICD
History of DVT
Atrial fibrillation-status post cardioversion in 2022.
Previous history of cardiac ablation
Gout
COPD
Right UE AVF 10/2024
Hyperphosphatemia
Plan
A/w CLI s/p elective right femoral endarterectomy 01/29
s/p wash out 02/06= wound VAC
resting AVF
off entresto
HD tomorrow
-
-
Date of Service: February 17, 2025
CC / HPI / ROS
-
Chief Complaint:
ESRD
History of Present Illness:
ESRD on Monday schedule
tolerated HD monday
BP stable low on midodrine
Hemoglobin 9.6 stable
Review of Systems:
no CP/SOB
Labs
-
Labs:
WBC 10.4 10^3/uL (4.8-10.8) 02/17/25 06:22
RBC 2.69 10^6/uL (4.70-6.10) L 02/17/25 06:22
Hgb 9.6 g/dL (13.0-18.0) L 02/17/25 06:22
Hct 27.5 % (39.0-52.0) L 02/17/25 06:22
Plt Count 153 10^3/uL (130-400) 02/17/25 06:22
Sodium 127 mmol/L (135-145) L 02/17/25 06:22
Potassium 4.3 mmol/L (3.5-5.1) 02/17/25 06:22
Chloride 92 mmol/L (98-107) L 02/17/25 06:22
Carbon Dioxide 24 mmol/L (22-30) 02/17/25 06:22
BUN 37 mg/dl (9-20) H 02/17/25 06:22
Creatinine 4.3 mg/dL (0.7-1.3) H* 02/17/25 06:22
eGFR 13.72 02/17/25 06:22
Glucose 114 mg/dl (70-99) H 02/17/25 06:22
Calcium 9.8 mg/dl (8.4-10.2) 02/17/25 06:22
Albumin 3.3 g/dl (3.5-5.0) L 02/12/25 03:51
Physical Exam
-
Vital Signs:
Vital Signs
Temp Pulse Resp BP Pulse Ox
98.4 F 79 18 107/43 94
02/17/25 11:20 02/17/25 11:20 02/17/25 11:20 02/17/25 11:20 02/17/25 11:20
Cardiovascular:: Regular rate and rhythm
Respiratory:: Bilateral: Coarse
Lung Excursion:: Normal
Abdomen:: Nontender and Soft
Bowel Sounds:: Normal
Extremity Edema:: None: Bilateral:
[2025-02-17 15:02] VITALS: BMI 28.0
--- NOTE | 2025-02-17 15:44 | CM ---
Addendum entered by Jennifer Williamson 02/17/25 15:47:
Call to spouse with update
Original Note:
CM reviewed chart and pt with [facility] SNF/admissions
Bed and HD chair available at [facility]- HD clinicals sent via [facility] for [facility] to process for SNF HD chair
[facility] at [facility]
Pt remains with wound vac needs
Discharge Disposition- [facility] with HD and wound vac
[2025-02-17 15:45] VITALS: BP 106/40
[2025-02-17 16:54] LABS: Glucose - Point of Care 153 mg/dl (70-99)
[2025-02-17 19:43] VITALS: BP 93/41
[2025-02-17 22:03] LABS: Glucose - Point of Care 218 mg/dl (70-99)
[2025-02-17 23:15] VITALS: BP 107/74
[2025-02-18 03:07] VITALS: BP 104/40
[2025-02-18 06:00] VITALS: BMI 27.9
[2025-02-18 07:45] VITALS: BP 107/64
[2025-02-18] MEDS: SPIRIVA RESPIMAT 2.5 MCG 2 PUFF INH (08:25)
[2025-02-18] MEDS: SYMBICORT 160/4.5 MCG INHALER 2 PUFF INH ×2 (08:25→19:45)
[2025-02-18] MEDS: NEPHROCAP 1 CAPSULE PO (08:37)
[2025-02-18] MEDS: COLACE PO (08:38)
[2025-02-18] MEDS: XANAX 0.25 MG PO ×2 (08:40→18:15)
[2025-02-18 08:41] LABS: Glucose - Point of Care 115 mg/dl (70-99)
[2025-02-18] MEDS: NOVOLOG FLEXPEN-MODERATE RESISTANCE SC ×2 (08:41→12:57)
[2025-02-18] MEDS: ZINC 50 MG PO (08:41)
[2025-02-18] MEDS: TOPROL XL 25 MG PO ×2 (08:41→19:48)
[2025-02-18] MEDS: VITAMIN D3 (cholecalciferol) 50 MCG PO (08:42)
[2025-02-18] MEDS: SENOKOT PO (08:42)
[2025-02-18] MEDS: ELIQUIS 5 MG PO (08:42)
[2025-02-18] MEDS: VITAMIN C 500 MG PO (08:42)
[2025-02-18] MEDS: RENVELA 800 MG PO ×3 (08:42→18:11)
[2025-02-18] MEDS: THERAGRAN 1 TABLET PO (08:42)
--- NOTE | 2025-02-18 09:19 | W.PN.HOSP.TC ---
Today's Communication/Plan
-
Eliquis held for Planned for repeated washout and muscle flap on 02/19/25
cont Abx
Assessment / Plan
Assessment / Plan
HPI: 74-year-old male past medical history of non-alcoholic liver cirrhosis, PAD/chronic right limb ischemia status post right femoral endarterectomy with common femoral to femoral bifurcation artery bypass on 01/29 and subsequent right groin washout
with VAC placement on 02/05 with seroma noted, left subclavian artery stenosis, right carotid artery stenosis, ESRD on hemodialysis Monday, , Monday with right upper extremity fistula, hyperphosphatemia, type 2 diabetes, hyperlipidemia,
hypertension, nonischemic cardiomyopathy with EF of 30%, ventricular tachycardia ICD, history of DVT, atrial fibrillation status post cardioversion in 2022 and ablation, gout, COPD, came for femoral enterectomy on 01/29/25 for RLE ischemia, developed
worsening pain on 02/05/[address] with [address] fluid on CT, so had washout on 02/05/25 and Cx grew Serratia Marcensces. Managed for infection with ID. Initially postOP concern for hypotension, which patient has chronically and that limits ability for
ultrafilration.
A/P:
#R inguinal cellulitit and seroma
on Abx as per ID due to serratia in Cx. Cefpodoxime 200mg qpm and Doxycycline 100mg BID through 02/19/2025
WoundVac mgmt as per vascSx
Healing complicated by extensive exudate due to fluid third spacing, caused by cirrhosis and anuric ESRD with limited ultrafiltration due to chronic cirrhosis induced hypotension
Planned for repeated washout and muscle flap on 02/19/25
#PAD with LLE ischemia
#R carotid stenosis
#L subclavian stenosis
on ELiquis
s/p ight femoral endarterectomy with interposition of common femoral to femoral bifurcation artery bypass with nonreversed ipsilateral greater saphenous vein conduit
#ESRD on HD TTS
nephro for HD
midodrine for hypotension
#Anemia of chronic disease
folow CBC
#Thrombocytopenia
2/2 liver cirrhosis
follow CBC
#Non-alcoholic liver cirrosis
#CHronic HFrEF
#VT s/p ICD
volume mgmt with HD
Toprol/Entresto
Card consult
#DM type 2 with nephropathy
Insulin SS, dm diet, accuchecks
#Overnight hematochezia reported
as per RN - no recurrence
Hgb stable
FOBT
#Hx of DVT
#Afib s/p CV
on ELiuqis
#COPD not in exacerbation
#Anxiety d/o
cont home meds
DVT ppx SCDs
Full code
I have spent at least 59min reviewing chart, test results, communication with consultants, family and providing direct patient care
Anticipated Discharge: > 48 hours
Subjective/Interval History
-
Date of Service: February 18, 2025
Objective Data
-
Labs:
Laboratory Results
02/18/25
06:00
WBC Pending
Hgb Pending
Hct Pending
Plt Count Pending
Sodium Pending
Potassium Pending
Chloride Pending
Carbon Dioxide Pending
BUN Pending
Creatinine Pending
Glucose Pending
Calcium Pending
Total Bilirubin Pending
AST Pending
ALT Pending
Alkaline Phosphatase Pending
Vital Signs:
Vital Signs
Temp Pulse Resp BP Pulse Ox
97.7 F 86 15 106/56 94
02/18/25 03:07 02/18/25 08:28 02/18/25 08:28 02/18/25 08:41 02/18/25 08:28
I&O
02/17/25 02/18/25 02/19/25
06:59 06:59 06:59
Intake Total 480 / 480 1680 / 1680
Output Total 150 / 150
Balance 480 / 480 1530 / 1530
[2025-02-18] MEDS: RETACRIT 10000 UNITS IV (10:00)
--- NOTE | 2025-02-18 10:50 | W.PN.UPDATE ---
Update Note
Progress Note Update
Patient with 150 mL in VAC canister since change yesterday a.m. (02/17/2025), updated Surgeon Dr. Jose Martin Mahoney M.D.. Will make patient n.p.o. at midnight and hold oral anticoagulation of Eliquis this evening and tomorrow morning, for possible OR
tomorrow for wound washout and possible muscle flap. Dr. Jose Martin Mahoney M.D. will see patient tomorrow a.m. (02/19/2025), review 24-hour wound VAC output at that point and review all options with patient to then decide whether to proceed with the OR or
stay the course with wound VAC. Updated nurse and hospitalist with plan via [place] text.
[2025-02-18 11:14] LABS: Hematocrit 29.1 % (39.0-52.0); Hemoglobin 9.7 g/dL (13.0-18.0); Mean Corp Hgb Conc. 33.3 g/dL (33.0-37.0); Mean Corpuscular Volume 102.1 fL (80.0-94.0); Nucleated Red Blood Cells % 0 % (-); Platelet Count 155 10^3/uL (130-400); Red Cell Dist. Width 16.3 % (11.5-14.5)
--- NOTE | 2025-02-18 11:36 | W.PN.NEPH.HD ---
Assessment
-
Pt seen on HD. no complaints. VSS, access ok, midodrine on HD
Progress Note - Hemodialysis
-
Date of Service: February 18, 2025
Duration: 30 minutes and 3 hours
Potassium Bath: 2
Calcium Bath: 2.5
Opti-Dialyzer: 160
Ultrafiltration: Other (2.5)
Blood Flow: 400
Dialysate Flow: 600
Heparin: 0
EPO: 14617 units
[2025-02-18 11:42] VITALS: BP 121/36
[2025-02-18 11:52] LABS: ALT (SGPT) 12 U/L (0-50); AST (SGOT) 20 U/L (17-59); Albumin 3.7 g/dl (3.5-5.0); Alkaline Phosphatase 315 U/L (38-126); Blood Urea Nitrogen 49 mg/dl (9-20); Calcium 9.8 mg/dl (8.4-10.2); Carbon Dioxide 22 mmol/L (22-30); Chloride 89 mmol/L (98-107); Estimated Creatinine Clearance 12 ml/min; Glucose 117 mg/dl (70-99); Potassium 4.5 mmol/L (3.5-5.1); Sodium 127 mmol/L (135-145); Total Protein 6.4 g/dl (6.3-8.2); eGFR 9.99
[2025-02-18] MEDS: ROXICODONE 5 MG PO (12:52)
[2025-02-18] MEDS: STERILE WATER FOR INJECTION 10 ML IV (12:53)
[2025-02-18] MEDS: ROCEPHIN 1000 MG IV (12:53)
[2025-02-18 12:58] LABS: Glucose - Point of Care 101 mg/dl (70-99)
--- NOTE | 2025-02-18 15:00 | CM ---
CM spoke with [facility] admissions/[place]
Pt accepted and approved by their HD provider
Per chart review, surgery to eval in the AM for potential OR tomorrow for washout and muscle flap tomorrow
Pt remains with wound vac needs at this time
Per [facility], bed and HD chair will not be held for pt if pt does not dc soon
Admission will reach out tomorrow for surgical update and plan on dc date
Discharge Disposition- [facility] SNF
[2025-02-18 15:15] VITALS: BP 110/69
[2025-02-18 16:33] LABS: Glucose - Point of Care 194 mg/dl (70-99)
[2025-02-18] MEDS: NOVOLOG FLEXPEN-MODERATE RESISTANCE 1 UNITS SC (18:12)
[2025-02-18 19:15] VITALS: BP 105/41
[2025-02-18] MEDS: COLACE 100 MG PO (19:46)
[2025-02-18] MEDS: SENOKOT 8.6 MG PO (19:46)
[2025-02-18] MEDS: ULTRAM 50 MG PO (21:21)
[2025-02-18 21:34] LABS: Glucose - Point of Care 149 mg/dl (70-99)
[2025-02-18 23:27] VITALS: BP 101/43
[2025-02-19] VITALS (7 sets, daily range): BP systolic 93–110; BP diastolic 36–45; PULSE 82; O2SAT 94; BMI 27.2
[2025-02-19] MEDS: XANAX 0.25 MG PO ×2 (01:06→08:22)
[2025-02-19] MEDS: ROXICODONE 5 MG PO ×3 (03:52→17:09)
[2025-02-19 06:32] LABS: Hematocrit 28.3 % (39.0-52.0); Hemoglobin 9.5 g/dL (13.0-18.0); Mean Corp Hgb Conc. 33.6 g/dL (33.0-37.0); Mean Corpuscular Volume 105.2 fL (80.0-94.0); Nucleated Red Blood Cells % 0 % (-); Platelet Count 153 10^3/uL (130-400); Red Cell Dist. Width 17.0 % (11.5-14.5)
[2025-02-19 06:39] LABS: INR 1.58; PT 19.0 Sec (11.4-14.6)
[2025-02-19 06:40] LABS: APTT 53.7 Sec (23.4-35.0)
[2025-02-19 07:02] LABS: ALT (SGPT) 13 U/L (0-50); AST (SGOT) 19 U/L (17-59); Albumin 3.4 g/dl (3.5-5.0); Alkaline Phosphatase 366 U/L (38-126); Calcium 9.7 mg/dl (8.4-10.2); Carbon Dioxide 26 mmol/L (22-30); Chloride 91 mmol/L (98-107); Glucose 122 mg/dl (70-99); Potassium 4.4 mmol/L (3.5-5.1); Sodium 127 mmol/L (135-145); Total Protein 5.9 g/dl (6.3-8.2)
[2025-02-19 07:05] LABS: Glucose - Point of Care 158 mg/dl (70-99)
[2025-02-19 07:13] LABS: Blood Urea Nitrogen 36 mg/dl (9-20); Estimated Creatinine Clearance 15 ml/min; eGFR 13.72
[2025-02-19] MEDS: SYMBICORT 160/4.5 MCG INHALER 2 PUFF INH (07:42)
[2025-02-19] MEDS: SPIRIVA RESPIMAT 2.5 MCG 2 PUFF INH (07:42)
[2025-02-19] MEDS: SENOKOT 8.6 MG PO (08:17)
[2025-02-19] MEDS: TOPROL XL 25 MG PO (08:17)
[2025-02-19] MEDS: COLACE 100 MG PO (08:17)
[2025-02-19] MEDS: RENVELA 800 MG PO ×2 (08:18→17:09)
[2025-02-19] MEDS: ZINC 50 MG PO (08:18)
[2025-02-19] MEDS: NEPHROCAP 1 CAPSULE PO (08:18)
[2025-02-19] MEDS: VITAMIN D3 (cholecalciferol) 50 MCG PO (08:18)
[2025-02-19] MEDS: THERAGRAN PO (08:18)
[2025-02-19] MEDS: VITAMIN C 500 MG PO (08:18)
[2025-02-19] MEDS: ENTRESTO 49 MG/51 MG PO (08:26)
[2025-02-19] MEDS: NOVOLOG FLEXPEN-MODERATE RESISTANCE SC ×3 (08:28→16:27)
--- NOTE | 2025-02-19 09:56 | W.PN.HOSP.TC ---
Addendum entered and electronically signed by Louis Rod MD 02/19/25 15:04:
Please dont bill under this note, use discharge billing instead
Original Note:
Today's Communication/Plan
-
pending washout
last day of Abx today
STR afterwards
Assessment / Plan
Assessment / Plan
HPI: 74-year-old male past medical history of non-alcoholic liver cirrhosis, PAD/chronic right limb ischemia status post right femoral endarterectomy with common femoral to femoral bifurcation artery bypass on 01/29 and subsequent right groin washout
with VAC placement on 02/05 with seroma noted, left subclavian artery stenosis, right carotid artery stenosis, ESRD on hemodialysis Monday, , Monday with right upper extremity fistula, hyperphosphatemia, type 2 diabetes, hyperlipidemia,
hypertension, nonischemic cardiomyopathy with EF of 30%, ventricular tachycardia ICD, history of DVT, atrial fibrillation status post cardioversion in 2022 and ablation, gout, COPD, came for femoral enterectomy on 01/29/25 for RLE ischemia, developed
worsening pain on 02/05/[address] with new fluid on CT, so had washout on 02/05/25 and Cx grew Serratia Marcensces. Managed for infection with ID. Initially postOP concern for hypotension, which patient has chronically and that limits ability for
ultrafilration.
A/P:
#R inguinal cellulitit and seroma
on Abx as per ID due to serratia in Cx. Cefpodoxime 200mg qpm and Doxycycline 100mg BID through 02/19/2025
WoundVac mgmt as per vascSx
Healing complicated by extensive exudate due to fluid third spacing, caused by cirrhosis and anuric ESRD with limited ultrafiltration due to chronic cirrhosis induced hypotension
Planned for repeated washout and muscle flap on 02/19/25
#PAD with LLE ischemia
#R carotid stenosis
#L subclavian stenosis
on ELiquis
s/p ight femoral endarterectomy with interposition of common femoral to femoral bifurcation artery bypass with nonreversed ipsilateral greater saphenous vein conduit
#ESRD on HD TTS
nephro for HD
midodrine for hypotension
#Anemia of chronic disease
folow CBC
#Thrombocytopenia
2/2 liver cirrhosis
follow CBC
#Non-alcoholic liver cirrosis
#CHronic HFrEF
#VT s/p ICD
volume mgmt with HD
Toprol/Entresto
Card consult
#DM type 2 with nephropathy
Insulin SS, dm diet, accuchecks
#Overnight hematochezia reported
as per RN - no recurrence
Hgb stable
FOBT
#Hx of DVT
#Afib s/p CV
on ELiuqis
#COPD not in exacerbation
#Anxiety d/o
cont home meds
DVT ppx SCDs
Full code
I have spent at least 59min reviewing chart, test results, communication with consultants, family and providing direct patient care
Anticipated Discharge: 24 - 48 hours
Subjective/Interval History
-
Date of Service: February 19, 2025
Objective Data
-
Labs:
Laboratory Results
02/19/25
06:05
WBC 9.2
Hgb 9.5 L
Hct 28.3 L
Plt Count 153
PT 19.0 H
INR 1.58
APTT 53.7 H
Sodium 127 L
Potassium 4.4
Chloride 91 L
Carbon Dioxide 26
BUN 36 H
Creatinine 4.3 H*
Glucose 122 H
Calcium 9.7
Total Bilirubin 1.8 H
AST 19
ALT 13
Alkaline Phosphatase 366 H
Vital Signs:
Vital Signs
Temp Pulse Resp BP Pulse Ox
97.5 F 82 18 95/38 94
02/19/25 07:00 02/19/25 08:30 02/19/25 07:51 02/19/25 08:30 02/19/25 07:51
I&O
02/18/25 02/19/25 02/20/25
06:59 06:59 06:59
Intake Total 1680 / 1680 1200 / 1200
Output Total 150 / 150 200 / 200
Balance 1530 / 1530 1000 / 1000
Review of Systems
-
History Source: Patient
All other systems: Reviewed and negative
Physical Exam
-
General: Comfortable
HEENT: Normocephalic
Neuro: Awake, Alert, Oriented and AO x 3
Psych: Calm
--- NOTE | 2025-02-19 10:50 | W.PN.UPDATE ---
Update Note
Progress Note Update
I had an extensive discussion with the patient and his at the bedside just now. Discussed with them that it is a very complex intervention. Discussed his overall frailty. Discussed his medical comorbidities including chronic CHF, diabetes,
end-stage renal disease on hemodialysis, liver cirrhosis. Discussed these are all major factors that are precluding adequate wound healing. In addition he did have some organisms/bacteria growing out of the swabs that we had sent from the OR, and
therefore infection could be playing a role as well. However has not had any purulent drainage or any other overt signs of infection currently. Discussed that for completeness sake at this point I would likely would favor washing out again,
possibly ligating any potentially seeping branches or lymphatics or other, and the likely mobilizing a sartorius flap to cover the vascular graft with subcutaneous VAC placement. Would generally favor that strategy. That extensive questions about
conservative management, likelihood of success of that. I discussed that I cannot really say definitively in this situation. He has multiple medical risk factors against him. I do not know that this would result in absolute healing. Discussed
procedural recovery as well as anticipated risks/outcomes. They understand all will consider their options and let me know. We will loop back after I am done with my next case in the OR.
--- NOTE | 2025-02-19 11:00 | WOUNDNOTE ---
PERIANAL (between coccyx and anus)(posterior thighs toward top of photo)
--- NOTE | 2025-02-19 11:00 | WOUNDNOTE ---
[facility] RN note: Patient seen with dermatologist managing partner Chelle Craft for prevention rounds. Patient sitting in recliner chair with air chair cushion. Patient stood with walker and assistance for sacral/coccyx skin check. Proximal vidal anal skin with small
cluster of dermal ulcers suspect moisture related. He does c/o pain with sitting. Sacral shaped silicone border foam applied (cut notch along distal adhesive border to avoid anus). Skin on heels blanchable red. Protective foam dressing applied to
heels. Le's elevated in recliner. Patient tilted to L side in recliner chair with pillow. t/c SPD and ordered a bariatric air chair cushion. Discussed with FAHAD Miller. Patient has a static air overlay mattress. Encouraged patient to turn frequently in
bed and chair. Patient for possible OR today.
[2025-02-19] MEDS: RENVELA PO (12:08)
[2025-02-19 12:12] LABS: Glucose - Point of Care 126 mg/dl (70-99)
[2025-02-19] MEDS: STERILE WATER FOR INJECTION 10 ML IV (12:17)
[2025-02-19] MEDS: ROCEPHIN 1000 MG IV (12:18)
--- NOTE | 2025-02-19 13:58 | W.PN.UPDATE ---
Update Note
Progress Note Update
Return to discussed with patient and his . They thought about and wished to hold off on surgery. They wish to attempt to continue VAC to see if the wound continues to slowly heal. We changed the VAC at the bedside. Wound is still not fully
healing. There is some granulation especially at the inferior base. The skin edges are a little bit with fibrinous exudate. There is still some clear fluid drainage. No erythema surrounding. No purulence. No increased tenderness. No pulsatile
mass. Foot is stable with palpable weak DP pulse. Therefore since he like to hold off on surgery continue local wound care. Only other thing patient noted to me today was he seems to have weakness in both legs. They feel heavy. He has
difficulty lifting them. He says that he has had the left side weakness for some time. He had seen orthopedist as an outpatient and was awaiting spine surgery for decompression but because of limb-threatening ischemia that superseded. However he
notes now that his right side feels weak as well. (More so heavy than week). He is able to move his feet and legs in the bed. But he notes that lifting his thigh (thigh flexion) bilaterally is weak. I reached out to his orthopedic spine surgeon
to touch base. I also referred the symptoms to his hospitalist.
--- NOTE | 2025-02-19 14:16 | VATNOTE ---
02/19 - IV leaking upon rounds. Pt not agreeable to restart of IV access after receiving his last dose of IV abx. Primary RN made aware. Informed patient if he needs to receive any additional IV medications, we will revisit IV restart. Pt verbalized
understanding.
--- NOTE | 2025-02-19 14:24 | CM ---
Addendum entered [facility] 02/19/25 15:05:
CM later alerted that pt cleared for dc today
Call with SNF admissions and they can accept this evening
Pt will receive HD tomorrow at [facility]- wound vac has been arranged and settings provided to admissions
Bedside update to pt who is in agreement with plan- IMM verbally reviewed and copy left bedside
Transport forms on chart
Call to spouse with update
Discharge Disposition- [facility] with wound vac and HD via BLS
Phone- [phone] ext. [phone] Laura
Fax- [phone]
Addendum entered by [facility] 02/19/25 14:30:
VM left for spouse with update
Original Note:
CM reviewed pt with attending- ADC tomorrow
Call with [facility] admissions
[facility] HD days are Tues/Thrs/Sat; however, pt cannot start new HD at SNF on a Sat
Earliest pt could be on HD at SNF is next Tues
Discussion with attending- potential plan for DC on Sat after HD to SNF
[facility] in agreement with anticipated plan
Discharge Disposition- anticipate dc on Sat after HD to [facility]
--- NOTE | 2025-02-19 14:32 | W.PN.UPDATE ---
Update Note
Progress Note Update
Patient with chronic spinal stenosis and slowly progressive symptoms. Discussed with established spinal orthopedic - no intention to operate in view of comorbidities, especially liver cirrhosis and ESRD. Might need spinal injections down the line
Will proceed with d/c
--- NOTE | 2025-02-19 14:44 | W.DCSUMMARY ---
Discharge Summary
Discharge Data
Date of Admission: 01/29/25
Date of Discharge: 02/19/25
-
Pending Results: No
Hospital Course
74-year-old male past medical history of non-alcoholic liver cirrhosis, PAD/chronic right limb ischemia status post right femoral endarterectomy with common femoral to femoral bifurcation artery bypass on 01/29 and subsequent right groin washout with
VAC placement on 02/05 with seroma noted, left subclavian artery stenosis, right carotid artery stenosis, ESRD on hemodialysis Monday, , Monday with right upper extremity fistula, hyperphosphatemia, type 2 diabetes, hyperlipidemia,
hypertension, nonischemic cardiomyopathy with EF of 30%, ventricular tachycardia ICD, history of DVT, atrial fibrillation status post cardioversion in 2022 and ablation, gout, COPD, came for femoral enterectomy on 01/29/25 for RLE ischemia, developed
worsening pain on 02/05/[address] fluid on CT, so had washout on 02/05/25 and Cx grew Serratia Marcescens. Managed for infection with ID. Initially postOP concern for hypotension, which patient has chronically and that limits ability for
ultrafiltration. Also patient with chronic spinal stenosis and slowly progressive symptoms. Discussed with established spinal orthopedic - no intention to operate in view of comorbidities, especially liver cirrhosis and ESRD. Might need spinal
injections down the line. After shared discussion with Vascular surgeon and family - patient opted out of further surgical intervention. Will cont on WoundVac in attempt to promote healing, if possible, however with comorbidities - very poor
prognosis. Medically stable to be d/c to STR, Referral to GI section laborer provided
I have spent at least 59min reviewing chart, test results, communication with consultants, family and providing direct patient care
As per detailed conversation with - patient was found to have myelopathy due to herniated disk and bone fragment in spinal canal in [facility] appr 2 months ago, deemed not to be a surgical candidate at that time and discharged. Patient went to
see second opinion to [facility] where he was seen by [employer] initially he deemed to possibly be a candidate for surgery. Discussed with spinal orthopedic surgeon : in view of liver cirrhosis, hypotension, VT with ICD and HFrEF - high risk
for surgical intervention and surgery will not be advised at this time. Discussed same with . High risk for progressive myelopathy, cannot exclude worsening ambulatory status due to prolonged 3 weeks hospitalization too. Advised family to ask
for anoither opinion - will provide NeuroSx referral.
Patient was managed for:
#R inguinal cellulitis and seroma
#Chronic spinal stenosis with herniated disk and bone fragment compressing spinal canal
#PAD with LLE ischemia
#R carotid stenosis
#L subclavian stenosis
#ESRD on HD TTS
#Anemia of chronic disease
#Thrombocytopenia
#Non-alcoholic liver cirrhosis
#Chronic HFrEF
#VT s/p ICD
#DM type 2 with nephropathy
#Overnight hematochezia reported
#Hx of DVT
#Afib s/p CV
#COPD not in exacerbation
#Anxiety d/o
Discharge Plan
-
Patient Disposition: Fpc/SNF
Discharge Diagnosis/Procedures: Right femoral endarterectomy with interposition common femoral to femoral bifurcation artery bypass with nonreversed ipsilateral greater saphenous vein conduit.
Condition: Good
Diet: As tolerated and 2 Gram Sodium
Activity: No strenuous activity
Driving Restrictions: Not until seen by your Dr
Bathing Restrictions: OK to Shower
Activity Restrictions/Additional Instructions:
Wound Care Instructions
02/05/25 R groin-Wound vac therapy, use Black foam, Change every 48 - 72 hours (i. e. Pjgihco-Hrdvpkhuyw-Ktgqdmn) and prn if unable to obtain a seal. Low Intensity, Continuous at 125 mmHg. Upon discharge or transfer to another facility, remove VAC
foam and apply NS moistened gauze dressing unless home VAC unit available.
L and R Achilles: clean with saline, (adaptic if sticking) and silicone foam change daily and prn drainage.
R great toe and 3rd toe eschar paint with Betadine daily
Sacral/coccyx-sacral shaped silicone border foam (cut notch along distal adhesive border to avoid anus), change q 3 days and prn loosened dressing. If foam ineffective, apply zinc barrier ointment bid instead.
Offloading heel boots when in bed
air cushion when sitting
air mattress with turning schedule
Follow up with Dr. Mahoney.
Stand Alone Forms: Vascular Surg Discharge Instr
Referrals:
Dara Medrano MD [Family Provider, Internal Medicine]
Mati Newton MD [Active, Neurology]
Referral Note: Neurology office- Please call for a new patient appt
Juve Ugarte MD [Non-Admitting Privileges, Internal Medicine]
Referral Note: Trial Consultant
Additional Discharge Medication Instructions: You can take an [id number] stool softener such as Colace if experiencing difficulty with bowel movements while on pain medicine
Prescriptions:
New
oxycodone 5 mg Tablet
5 mg PO Q8HPRN PRN (Reason: moderate pain) Qty: 10 0RF
Continued
cholecalciferol (vitamin D3) 2,000 UNIT tablet
2,000 unit PO DAILY
albuterol sulfate 2.5 MG/3 ML solution for nebulization
2.5 mg inhalation Q6HPRN PRN (Reason: sob)
ascorbic acid (vitamin C) [Vitamin C] 500 MG tablet
500 mg PO DAILY
Breztri Aerosphere 160-9-4.8 mcg/actuation Hfa Aerosol Inhaler
2 inh INHALATION R BID
Rx Instructions:
about 6 weeks ago
albuterol sulfate 90 mcg/actuation Hfa Aerosol Inhaler
2 puff INHALATION R BID
Eliquis 5 mg Tablet
5 mg PO BID
sacubitril-valsartan [Entresto] 97-103 mg Tablet
1 tab PO BID
metoprolol succinate 50 mg Tablet Extended Release 24 Hr
50 mg PO HS
zinc acetate 50 mg (zinc) Capsule
50 mg PO DAILY
multivitamin Tablet
1 tab PO DAILY
Shira-Hanna 0.8 mg Tablet
1 tab PO DAILY
sevelamer carbonate 800 mg Tablet
800 mg PO TID
Discharge Orders:
Discharge Patient (As Directed); Ordered 02/19/25
Ordered By: Louis Rod
Discharge Date and Time
Print Language: PARAGUAYAN
--- NOTE | 2025-02-19 14:57 | W.PN.NEPH.PH ---
Today's Communication / Plan
-
ok for d/c
Assessment/Plan
-
Impression:
Chronic limb threatening ischemia of the right lower extremity.
Right femoral endarterectomy with interposition common femoral to femoral bifurcation artery bypass with nonreversed ipsilateral greater saphenous vein conduit. 01/29/2025 Dr. Mahoney
Peripheral arterial disease
ESRD on dialysis [facility]
Right carotid stenosis
Type 2 diabetes
Hyperlipidemia
Hypertension
Nonischemic cardiomyopathy with EF of 30%
History of ventricular tachycardia/ICD
History of DVT
Atrial fibrillation-status post cardioversion in 2022.
Previous history of cardiac ablation
Gout
COPD
Right UE AVF 10/2024
Hyperphosphatemia
Plan
A/w CLI s/p elective right femoral endarterectomy 01/29
cont wound VAC
resting AVF
off entresto
HD tomorrow if still here
will follow him at [facility]
-
-
Date of Service: February 19, 2025
CC / HPI / ROS
-
Chief Complaint:
ESRD
History of Present Illness:
ESRD on Monday schedule
tolerated HD yesterday
BP stable low on midodrine
Hemoglobin 9.5 stable
Review of Systems:
no CP/SOB
Labs
-
Labs:
WBC 9.2 10^3/uL (4.8-10.8) 02/19/25 06:05
RBC 2.69 10^6/uL (4.70-6.10) L 02/19/25 06:05
Hgb 9.5 g/dL (13.0-18.0) L 02/19/25 06:05
Hct 28.3 % (39.0-52.0) L 02/19/25 06:05
Plt Count 153 10^3/uL (130-400) 02/19/25 06:05
Sodium 127 mmol/L (135-145) L 02/19/25 06:05
Potassium 4.4 mmol/L (3.5-5.1) 02/19/25 06:05
Chloride 91 mmol/L (98-107) L 02/19/25 06:05
Carbon Dioxide 26 mmol/L (22-30) 02/19/25 06:05
BUN 36 mg/dl (9-20) H 02/19/25 06:05
Creatinine 4.3 mg/dL (0.7-1.3) H* 02/19/25 06:05
eGFR 13.72 02/19/25 06:05
Glucose 122 mg/dl (70-99) H 02/19/25 06:05
Calcium 9.7 mg/dl (8.4-10.2) 02/19/25 06:05
Albumin 3.4 g/dl (3.5-5.0) L 02/19/25 06:05
Physical Exam
-
Vital Signs:
Vital Signs
Temp Pulse Resp BP Pulse Ox
97.5 F 83 16 93/41 94
02/19/25 11:00 02/19/25 11:00 02/19/25 11:00 02/19/25 11:00 02/19/25 07:51
Cardiovascular:: Regular rate and rhythm
Respiratory:: Bilateral: Coarse
Lung Excursion:: Normal
Abdomen:: Nontender and Soft
Bowel Sounds:: Normal
Extremity Edema:: +1: Left: and +3: Right:
Lawson Catheter: No
[2025-02-19 16:23] LABS: Glucose - Point of Care 150 mg/dl (70-99)
--- NOTE | 2025-02-19 23:46 | W.PN.UPDATE ---
Update Note
Progress Note Update
-pt was transferred to [facility] today around 8pm. I got a phone call from Mr Downing's on 02/19 at 10:30 pm saying that wound VAC was taken away by the transfer service and drainage tube is draining into the urinal. She is
very concerned. I confirmed it with the rehab facility, spoke with inside sales supervisor, Marco Antonio ([phone]). He says that they will be able to get a new wound vac tomorrow 02/20.
-discussed it with Dr. Mahoney - he suggested taking off the black sponge dressing tonight and dressing the wound with clean gauze and ABD until the VAC can be placed on again. I called back the rehab facility and passed on the message to Holley Wilson,
RN.
--- NOTE | 2025-02-20 08:43 | WOUNDNOTE ---
WOC RN note: Notified [employer] via [employer] express portal of hospital rental vac ulta pump (serial #[id number]) stop bill date as of 02/19/25 and picket labor union (work order #[id number]).
== END 2025-02-19 18:30 | DRG 263 ==
LOC: 2 SOUTH 08:26
PROVIDERS: Family Medicine; Internal Medicine Nephrology; Nurse Practitioner; Nurse Practitioner Acute Care; Nurse Practitioner Family; Specialist; ADMITTING PHYSICIAN Surgery Vascular Surgery; ATTENDING PHYSICIAN Internal Medicine; CONSULT PHYSICIAN Internal Medicine; CONSULT PHYSICIAN Internal Medicine Critical Care Medicine; CONSULT PHYSICIAN Internal Medicine Infectious Disease; FAMILY PHYSICIAN Student in an Organized Health Care Education/Training Program
PROC: 04CK0ZZ Extirpation of Matter from Right Femoral Artery, Open Approach (ICD-10-PCS; 2025-01-29)
PROC: 041 Lower Arteries, Bypass (ICD-10-PCS; 2025-01-29)
PROC: 06BP0ZZ Excision of Right Saphenous Vein, Open Approach (ICD-10-PCS; 2025-01-29)
PROC: 5A1D70Z Performance of Urinary Filtration, Intermittent, Less than 6 Hours Per Day (ICD-10-PCS; 2025-01-30)
PROC: 0JDC0ZZ Extraction of Pelvic Region Subcutaneous Tissue and Fascia, Open Approach (ICD-10-PCS; 2025-02-05)
DX: E11.52 Type 2 diabetes mellitus with diabetic peripheral angiopathy with gangrene (principal); N18.6 End stage renal disease; I13.2 Hypertensive heart and chronic kidney disease with heart failure and with stage 5 chronic kidney disease, or end stage renal disease; I50.22 Chronic systolic (congestive) heart failure; I48.19 Other persistent atrial fibrillation; I47.20 Ventricular tachycardia, unspecified; L03.314 Cellulitis of groin; E87.1 Hypo-osmolality and hyponatremia; K92.1 Melena; I42.0 Dilated cardiomyopathy; T81.41XA Infection following a procedure, superficial incisional surgical site, initial encounter; L97.518 Non-pressure chronic ulcer of other part of right foot with other specified severity; I70.261 Atherosclerosis of native arteries of extremities with gangrene, right leg; E11.22 Type 2 diabetes mellitus with diabetic chronic kidney disease; J44.9 Chronic obstructive pulmonary disease, unspecified; E78.5 Hyperlipidemia, unspecified; E66.9 Obesity, unspecified; E21.3 Hyperparathyroidism, unspecified; M10.9 Gout, unspecified; I07.1 Rheumatic tricuspid insufficiency; D63.1 Anemia in chronic kidney disease; I65.21 Occlusion and stenosis of right carotid artery; K74.60 Unspecified cirrhosis of liver; M48.00 Spinal stenosis, site unspecified; D75.838 Other thrombocytosis; I95.89 Other hypotension; B96.89 Other specified bacterial agents as the cause of diseases classified elsewhere; F41.9 Anxiety disorder, unspecified; I70.8 Atherosclerosis of other arteries; Y83.8 Other surgical procedures as the cause of abnormal reaction of the patient, or of later complication, without mention of misadventure at the time of the procedure; Y92.239 Unspecified place in hospital as the place of occurrence of the external cause; Z99.2 Dependence on renal dialysis; Z87.891 Personal history of nicotine dependence; Z79.01 Long term (current) use of anticoagulants; Z95.810 Presence of automatic (implantable) cardiac defibrillator; Z86.718 Personal history of other venous thrombosis and embolism; Z88.7 Allergy status to serum and vaccine; Z86.79 Personal history of other diseases of the circulatory system; Z79.899 Other long term (current) drug therapy
CPT/HCPCS: 10140; 35558; 71260; 74178; 75635; 76882; 80048; 80051; 80053; 82040; 82962; 83735; 85014; 85018; 85025; 85027; 85610; 85730; 86850; 86900; 86901; 87040; 87070; 87075; 87077; 87186; 87205; 87340; 88304; 88305; 88311; 93005; 93306; 93880; 93970; 94640; 97116; 97163; 97164; 97167; 97530; 97535; 97607; G0257; P9047; Q5106; Q9967

== ENCOUNTER 2025-02-25 09:57 | Inpatient (IN) | payer MEDICARE, OTHER, SELFPAY ==
[2025-02-25] VITALS (14 sets, daily range): BP systolic 91–119; BP diastolic 45–90; BMI 28.0
--- NOTE | 2025-02-25 06:52 | ED.GENMED ---
History of Present Illness
<Magda Iraheta PA-C - Last Filed: 02/25/25 14:04>
General
Chief Complaint: Skin Problem
Source: patient, records and family
Exam Limitations: none
Time Seen by Provider: 02/25/25 06:13
History of Present Illness
History of Present Illness:
74yoM with a history of ESRD on hemodialysis T/Th/S, atrial fibrillation, peripheral artery disease, CHF with EF of 32%, cirrhosis, ventricular tachycardia s/p ICD, hypertension, hyperlipidemia, type 2 diabetes, and COPD presenting via EMS for wound
check. Patient underwent right femoral endarterectomy on 01/29/[address] Mahoney. He developed worsening pain during his hospitalization and CT showed a fluid collection. He had a washout on 02/05 and cultures grew out Serratia. A second washout
was recommended but patient and family opted to trial conservative management with wound VAC. He was discharged to a nursing facility last week with a wound VAC in place. Family reports that there have been several issues with the wound VAC at the
facility. The facility has run out of canister several times. The wound drainage seems to be increasing over the past 24 hours and the canister has filled several times. custodial did not have a replacement canister so the wound VAC was
removed and a dressing was placed overnight instead. Family called the vascular surgery team and were advised to bring him to the ED for evaluation. He denies any fevers or chills. He is due for dialysis today.
Past History
<Magda Iraheta PA-C - Last Filed: 02/25/25 14:04>
Past History
ED Past Medical History: COPD, HTN, IDDM and Other (Mild cardiomyopathy, arthritis, pneumonia, testicular cancer)
ED Past Surgical History: None
Social History
Tobacco: Former smoker
Alcohol: Occasional
Drug: None
Personal:
Living: with family
Employment: Employed
Family History
Family History: Hypertension
Phy Exam
<Magda Iraheta PA-C - Last Filed: 02/25/25 14:04>
Physical Exam
Physical Exam:
Chronically ill appearing male, no acute distress
General Physical Exam
General Presentation: no apparent distress
General Skin: warm and dry
General Habitus: normal
General Mental: alert
ENT Exam
ENT Exam: normocephalic
Cardiovascular Exam
Cardiovascular Exam: other (3+ pitting edema bilaterally. DP doppler signals present bilaterally)
Pulmonary Exam
Pulmonary Exam: lungs clear, no respiratory distress, no rales, no crackles and no rhonchi
Neurological Exam
Neurological Exam: alert
Sneads Coma Scale
Eye Opening: Spontaneous
Verbal Response: Oriented
Motor Response: Obeys Commands
GCS Total Score: 15
Skin Exam
Skin Exam: warm/dry and other (Open wound noted to R groin with granulation tissue and serous drainage. No fluctuance or surrounding cellulitis. No crepitus or pain out of proportion. )
Psychiatric Exam
Psychiatric Exam: normal mood/affect
Course
<Magda Iraheta PA-C - Last Filed: 02/25/25 14:04>
Orders/Labs/Results
Orders:
Orders
02/25/25 Breakfast
Cholesterol Lowering
At Your Request: Full Participation
Cholesterol Lowering: Sodium, 2 Gram
02/25/25 07:04
Vascular Surgery Consult Urgent
Consulting Provider: Murray Lawson III
Was physician already notified: Yes
02/25/25 07:34
Complete Blood Count/With Diff Urgent
02/25/25 08:04
CefTRIAXone [Rocephin] 1,000 mg IV NOW STA
02/25/25 08:07
Oxycodone [Roxicodone] 5 mg PO NOW STA
02/25/25 08:10
Sterile Water [Sterile Water For Injection] 10 ml .ROUTE .RUST-MED ONE
02/25/25 08:20
Comprehensive Metabolic Panel Urgent
02/25/25 08:35
NEPHROLOGY CONSULT Routine
Consulting Provider: Ej Forbes
Was physician already notified: Yes
02/25/25 09:16
Admit/Transfer Patient As Directed
Co-Sign Provider:
Level of Care: Inpatient admission
Assign to:: Telemetry
Physician / Group: Dr. Shay Whitfield
Diagnosis: Postoperative wound seroma
Reason for Telemetry: Arrhythmia
Date to Stop Telemetry: 02/28/25
Time to Stop Telemetry: 11:00
Reason for Hospitalization: Postoperative wound seroma
Expected length of stay greater than two midnights?: Yes
ELOS- Estimated Length of Stay in days: 2
I certify the patient meets the requirements for IP care: Yes
PRN Pain Medication Management As Directed
May give lesser potent ordered pain med per pt: Yes
preference::
Protocol:: Medication orders for pain may be administered in a
manner that supports deferring to patient preference
when the pt is:
- Requesting an ordered lesser potent pain medication.
Least to most potent pain medications are defined
as: acetaminophen < NSAID < tramadol < opioids
(morphine, oxycodone, hydromorphone).
- Requesting a lesser dose of the same medication IF
ORDERED.
- Requesting a less intrusive route of administration
if both routes are prescribed by the provider (PO <
IV).
02/25/25 09:28
Code Status As Directed
Resuscitation Status: Limited DNR
Limited DNR: -No intubation
02/25/25 11:33
Acetaminophen [Tylenol] 650 mg PO Q4HPRN PRN mild pain
Albuterol Nebs [Ventolin Nebules] 2.5 mg INH R Q6HPRN PRN sob
Albuterol [ProAIR HFA INHALER] 2 puff INH R Q6HPRN PRN sob
Alprazolam [Xanax] 0.25 mg PO BIDPRN PRN anxiety
Artificial Tears (Pf) [Refresh Eye Drops (Pf)] 2 drops BOTH EYES Q4HPRN PRN dry eyes
Magnesium Hydroxide [Milk of Magnesia] 30 ml PO [id number] PRN if no bm by 3rd day give on day 4
Oxycodone [Roxicodone] 5 mg PO Q6HPRN PRN severe pain
Phosphate Enema [Fleet Phosphate Enema-Adult] 118 ml RECTAL DAILYPRN PRN if no bm by 5th day give on day 6
02/25/25 11:33
Activity As Directed
Activity Level: With Assistance
Pneumatic Compression Sleeves As Directed
Type: Knee high
Vital Signs As Directed
Frequency: Per unit guidelines
DX Deep Vein Thrombosis Video Routine
02/25/25 12:15
Sevelamer Carbonate [Renvela] 800 mg PO AC
02/25/25 13:00
Midodrine [ProAmatine] 10 mg PO TID@0800,1300,1800
02/25/25 20:00
Budesonide/Formoterol 160/4.5 [Symbicort 160/4.5 Mcg Inhaler] 2 puff INH R BID
Metoprolol Xl [Toprol Xl] 25 mg PO BID
Sacubitril 97/Valsartan 103 [Entresto 97 mg/103 mg] 1 tab PO BID
02/26/25 06:00
Complete Blood Count/With Diff IN AM
Comprehensive Metabolic Panel IN AM
02/26/25 08:00
Ascorbic Acid [Vitamin C] 500 mg PO DAILY
Cholecalciferol (Vitamin D3) [VITAMIN D3 (cholecalciferol)] 50 mcg PO DAILY
Multivitamin [Theragran] 1 tablet PO DAILY
Renal Cap [Nephrocap] 1 capsule PO DAILY
Zinc 50mg (Zinc Sulfate 220mg) [Zinc] 50 mg PO DAILY
02/28/25 11:00
DC Protocol for Telemetry ONCE
Abnormal Lab Results
02/25/25 02/25/25
07:34 08:20
RBC 2.96 L 10^6/uL
(4.70-6.10)
Hgb 10.1 L g/dL
(13.0-18.0)
Hct 32.0 L %
(39.0-52.0)
MCV 108.1 H fL
(80.0-94.0)
MCH 34.1 H pg
(27.0-31.0)
MCHC 31.6 L g/dL
(33.0-37.0)
RDW 16.4 H %
(11.5-14.5)
MPV 10.6 H fL
(7.4-10.4)
Absolute Neuts (auto) 7.2 H 10^3/uL
(1.4-6.5)
Absolute Lymphs (auto) 0.9 L 10^3/uL
(1.2-3.4)
Absolute Monos (auto) 0.9 H 10^3/uL
(0.1-0.6)
Neutrophils % 79.1 H %
(42.2-75.2)
Lymphocytes % 9.4 L %
(20.5-51.1)
Monocytes % 9.4 H %
(1.7-9.3)
Sodium 126 L mmol/L
(135-145)
Chloride 90 L mmol/L
(98-107)
BUN 55 H mg/dl
(9-20)
Creatinine 5.0 H* mg/dL
(0.7-1.3)
Total Bilirubin 1.6 H mg/dl
(0.2-1.3)
Alkaline Phosphatase 217 H U/L
(38-126)
Total Protein 6.0 L g/dl
(6.3-8.2)
02/25/25 07:34
02/25/25 08:20
Vital Signs
Initial and Last Documented VS:
Initial Vital Signs
BP
118/54
02/25/25 06:15
Last Documented Vital Signs
Temp Pulse Resp BP Pulse Ox
98 F 77 17 109/51 95
02/25/25 13:00 02/25/25 13:00 02/25/25 13:00 02/25/25 13:00 02/25/25 13:00
<Alfred Sears, - Last Filed: 02/25/25 10:38>
Orders/Labs/Results
Orders:
Orders
02/25/25 Breakfast
Cholesterol Lowering
At Your Request: Full Participation
Cholesterol Lowering: Sodium, 2 Gram
02/25/25 07:04
Vascular Surgery Consult Urgent
Consulting Provider: Murray Lawson III
Was physician already notified: Yes
02/25/25 07:34
Complete Blood Count/With Diff Urgent
02/25/25 08:04
CefTRIAXone [Rocephin] 1,000 mg IV NOW STA
02/25/25 08:07
Oxycodone [Roxicodone] 5 mg PO NOW STA
02/25/25 08:10
Sterile Water [Sterile Water For Injection] 10 ml .ROUTE .STK-MED ONE
02/25/25 08:20
Comprehensive Metabolic Panel Urgent
02/25/25 08:35
NEPHROLOGY CONSULT Routine
Consulting Provider: Ej Forbes
Was physician already notified: Yes
02/25/25 09:16
Admit/Transfer Patient As Directed
Co-Sign Provider:
Level of Care: Inpatient admission
Assign to:: Telemetry
Physician / Group: Dr. Shay Whitfield
Diagnosis: Postoperative wound seroma
Reason for Telemetry: Arrhythmia
Date to Stop Telemetry: 02/28/25
Time to Stop Telemetry: 11:00
Reason for Hospitalization: Postoperative wound seroma
Expected length of stay greater than two midnights?: Yes
ELOS- Estimated Length of Stay in days: 2
I certify the patient meets the requirements for IP care: Yes
PRN Pain Medication Management As Directed
May give lesser potent ordered pain med per pt: Yes
preference::
Protocol:: Medication orders for pain may be administered in a
manner that supports deferring to patient preference
when the pt is:
- Requesting an ordered lesser potent pain medication.
Least to most potent pain medications are defined
as: acetaminophen < NSAID < tramadol < opioids
(morphine, oxycodone, hydromorphone).
- Requesting a lesser dose of the same medication IF
ORDERED.
- Requesting a less intrusive route of administration
if both routes are prescribed by the provider (PO <
IV).
02/25/25 09:28
Code Status As Directed
Resuscitation Status: Limited DNR
Limited DNR: -No intubation
02/25/25 11:33
Acetaminophen [Tylenol] 650 mg PO Q4HPRN PRN mild pain
Albuterol Nebs [Ventolin Nebules] 2.5 mg INH R Q6HPRN PRN sob
Albuterol [ProAIR HFA INHALER] 2 puff INH R Q6HPRN PRN sob
Alprazolam [Xanax] 0.25 mg PO BIDPRN PRN anxiety
Artificial Tears (Pf) [Refresh Eye Drops (Pf)] 2 drops BOTH EYES Q4HPRN PRN dry eyes
Magnesium Hydroxide [Milk of Magnesia] 30 ml PO [id number] PRN if no bm by 3rd day give on day 4
Oxycodone [Roxicodone] 5 mg PO Q6HPRN PRN severe pain
Phosphate Enema [Fleet Phosphate Enema-Adult] 118 ml RECTAL DAILYPRN PRN if no bm by 5th day give on day 6
02/25/25 11:33
Activity As Directed
Activity Level: With Assistance
Pneumatic Compression Sleeves As Directed
Type: Knee high
Vital Signs As Directed
Frequency: Per unit guidelines
DX Deep Vein Thrombosis Video Routine
02/25/25 12:15
Sevelamer Carbonate [Renvela] 800 mg PO AC
02/25/25 13:00
Midodrine [ProAmatine] 10 mg PO TID@0800,1300,1800
02/25/25 20:00
Budesonide/Formoterol 160/4.5 [Symbicort 160/4.5 Mcg Inhaler] 2 puff INH R BID
Metoprolol Xl [Toprol Xl] 25 mg PO BID
Sacubitril 97/Valsartan 103 [Entresto 97 mg/103 mg] 1 tab PO BID
02/26/25 06:00
Complete Blood Count/With Diff IN AM
Comprehensive Metabolic Panel IN AM
02/26/25 08:00
Ascorbic Acid [Vitamin C] 500 mg PO DAILY
Cholecalciferol (Vitamin D3) [VITAMIN D3 (cholecalciferol)] 50 mcg PO DAILY
Multivitamin [Theragran] 1 tablet PO DAILY
Renal Cap [Nephrocap] 1 capsule PO DAILY
Zinc 50mg (Zinc Sulfate 220mg) [Zinc] 50 mg PO DAILY
02/28/25 11:00
DC Protocol for Telemetry ONCE
Abnormal Lab Results
02/25/25 02/25/25
07:34 08:20
RBC 2.96 L 10^6/uL
(4.70-6.10)
Hgb 10.1 L g/dL
(13.0-18.0)
Hct 32.0 L %
(39.0-52.0)
MCV 108.1 H fL
(80.0-94.0)
MCH 34.1 H pg
(27.0-31.0)
MCHC 31.6 L g/dL
(33.0-37.0)
RDW 16.4 H %
(11.5-14.5)
MPV 10.6 H fL
(7.4-10.4)
Absolute Neuts (auto) 7.2 H 10^3/uL
(1.4-6.5)
Absolute Lymphs (auto) 0.9 L 10^3/uL
(1.2-3.4)
Absolute Monos (auto) 0.9 H 10^3/uL
(0.1-0.6)
Neutrophils % 79.1 H %
(42.2-75.2)
Lymphocytes % 9.4 L %
(20.5-51.1)
Monocytes % 9.4 H %
(1.7-9.3)
Sodium 126 L mmol/L
(135-145)
Chloride 90 L mmol/L
(98-107)
BUN 55 H mg/dl
(9-20)
Creatinine 5.0 H* mg/dL
(0.7-1.3)
Total Bilirubin 1.6 H mg/dl
(0.2-1.3)
Alkaline Phosphatase 217 H U/L
(38-126)
Total Protein 6.0 L g/dl
(6.3-8.2)
02/25/25 07:34
02/25/25 08:20
Vital Signs
Initial and Last Documented VS:
Initial Vital Signs
BP
118/54
02/25/25 06:15
Last Documented Vital Signs
Temp Pulse Resp BP Pulse Ox
98 F 77 17 109/51 95
02/25/25 13:00 02/25/25 13:00 02/25/25 13:00 02/25/25 13:00 02/25/25 13:00
<Magda Iraheta PA-C - Last Filed: 02/25/25 14:04>
MDM/Problems Addressed
Differential Diagnosis Includes:
74yoM here with increased drainage from R groin wound. Recent vascular surgery earlier this month with postop seroma s/p washout. Discharged to skilled nursing last week with wound VAC. Wound VAC removed overnight and dressing in place on arrival.
Open wound noted with serous drainage. Peripheral edema noted bilaterally. Patient is a dialysis patient and does not make urine. Differential diagnosis includes but is not limited to: Residual seroma, postoperative infection, nonhealing wound.
Vascular surgery consulted and patient evaluated at bedside. Vascular planning for washout tomorrow in the OR. White count within normal limits. IV Rocephin ordered and patient admitted for further management.
<Magda Iraheta PA-C - Last Filed: 02/25/25 14:04>
*Pulse Oximetry
SaO2: 99
Oxygen Mode of Delivery: Room air
Patient hypoxic: no
*Critical Care Note
Total Time (30-74mins, 75-104mins- exclusive of procedures): Not Applicable
ED Attending Note
<Magda Iraheta PA-C - Last Filed: 02/25/25 14:04>
-
Portions of this chart may have been created with voice recognition software.� Occasional wrong word or��sound alike� substitutions may have occurred due to the inherent limitations of voice recognition software.
<Alfred Sears DO - Last Filed: 02/25/25 10:38>
ED Attending Note
Patient seen and examined by attending physician: Yes
I performed the substantive portion of visit, reviewed & personally made and approve the management plan that is documented in note by myself or ARTI.: Yes
ED Attending Note:
Seen with PA examined independently agree with assessment and plan
Discharge Plan
Departure
Patient Disposition: Admit
Date of Disposition: 02/25/25
Time of Disposition: 08:06
Presentation/result/management discussed w/ accepting MD/DO: Hospitalist
Discharge Problem:
Postoperative wound seroma
Interventions
Interventions:
*Risk Screen - Suicide Last Done: 02/25/25 06:17
*General Assessment Last Done: 02/25/25 06:17
*Neglect/Abuse Screening Last Done: 02/25/25 06:17
*ED- Fall Risk Assessment Last Done: 02/25/25 06:17
*ED COVID-19 Vaccine History Last Done: 02/25/25 06:17
*ED Influenza Vaccine History Last Done: 02/25/25 06:17
ED-Skin Assessment Last Done: 02/25/25 08:02
[2025-02-25 07:44] LABS: Hematocrit 32.0 % (39.0-52.0); Hemoglobin 10.1 g/dL (13.0-18.0); Mean Corp Hgb Conc. 31.6 g/dL (33.0-37.0); Mean Corpuscular Volume 108.1 fL (80.0-94.0); Nucleated Red Blood Cells % 0 % (-); Platelet Count 170 10^3/uL (130-400); Red Cell Dist. Width 16.4 % (11.5-14.5)
--- NOTE | 2025-02-25 07:52 | PTCARENOTE ---
All ED charting made at 0705 or after under KUSUM RUSSELL RN on 02/25/25 in [facility]' chart was made by this RN Deni Limon (Kusum was unfortunatley working nights and still signed in computer inadvertently).
[2025-02-25] MEDS: ROXICODONE 5 MG PO ×2 (08:12→11:51)
[2025-02-25] MEDS: ROCEPHIN 1000 MG IV (08:13)
--- NOTE | 2025-02-25 08:24 | HPS.HSE ---
Addendum entered and electronically signed by Shay Whitfield MD 02/25/25 14:25:
I saw and examined the patient.
The Residents note was reviewed and I agree with the note.
Comment:
74 yo female w/ extensive med hx as stated below, underwent right femoral endarterectomy on 01/29/[address] Mahoney. Patient continued to have worsening pain during hospitalization, imaging with evidence of seroma status post washout on 02/05 with
cultures growing out Serratia. Second washout was recommended but patient and family opted for conservative management and wound VAC. Drainage seems to have increased over the last 24 hours with gastric filled several times. Facility did not have
replacement canisters so wound VAC was removed and dressing was placed overnight. It was directed that patient come to the hospital for evaluation. Otherwise denies any fever, chills, nausea, vomiting. Remains afebrile. Evidence of serous fluid
at surgical site. No elevation of white count, sodium 126, creatinine 5.0. Mental status intact. Total bilirubin 1.6. [facility], vascular consulted for possible intervention tomorrow. Can continue to antibiotics for now,
follow cultures. Nephro consulted for dialysis. N.p.o. at midnight.
Original Note:
Family Physician
-
Family Physician: Kendell Chase DO
Chief Complaint
-
Postoperative wound
History of Present Illness
74yo male from [facility], with a history of ESRD on hemodialysis T//, ventricular tachycardia ICD, history of DVT, atrial fibrillation status post cardioversion/ ablation , on Eliquis, gout, COPD, peripheral artery disease,
CHF( EF 32%), cirrhosis, hypertension, hyperlipidemia, type 2 diabetes, presenting via EMS for wound check. Patient underwent right femoral endarterectomy on 01/29/[address] Mahoney. He developed worsening pain during his hospitalization and CT
showed a seroma s/p washout on 02/05. cultures grew out Serratia. A second washout was recommended but patient and family opted for conservative management with wound VAC and was discharged to nursing facility, family reports that there have been
several issues with the wound VAC at the facility. The wound drainage seems to be increasing over the past 24 hours and the canister has filled several times. [facility] did not have a replacement canister so the wound VAC was removed and a
dressing was placed overnight instead. Family called the vascular surgery team and were advised to bring him to the ED for evaluation. He denies any fevers or chills, lightheadedness, abdominal pain, chest pain, SOB. He is due for dialysis today.
ED course-BP 105/90, HR�85, patient afebrile saturating on room air at 98%. Hb�10.1, HCT�32, platelets�170, sodium�126, chloride�90, creatinine 5, total bili�1.6, ALP�217. Patient received a dose of Rocephin, and oxycodone for pain.
Medical History
Past Medical History
Past Medical History: Reports Other (ESRD on hemodialysis T//, ventricular tachycardia ICD, history of DVT, atrial fibrillation status post cardioversion/ ablation , on Eliquis, gout, COPD, peripheral artery disease, CHF( EF 32%), cirrhosis,
hypertension, hyperlipidemia, type 2 diabetes, and COPD)
Past Surgical History: Reports Other (PAD/chronic right limb ischemia status post right femoral endarterectomy with common femoral to femoral bifurcation artery bypass on 01/29 and subsequent right groin washout with VAC placement on 02/05, fistula,
ICD)
Social History
Tobacco: Non-smoker
Alcohol: None
Drug: None
Living: Assisted Living
Family History
Family History: Not pertinent
Allergies / Home Medications
Allergies reflects when Allergies were last updated in [facility]
Home Medications with original date entered in [facility])
Allergy/Medication List:
Allergies
Allergy/AdvReac Type Severity Reaction Status Date / Time
vaccinations Allergy Severe Rash Uncoded 02/25/25 06:17
Home Medications
cholecalciferol (vitamin D3) 50 mcg (2,000 unit) tablet 2,000 unit PO DAILY Supplement 07/28/14
albuterol sulfate 2.5 mg/3 mL (0.083 %) solution for nebulization 2.5 mg inhalation R Q6HPRN PRN sob 08/07/20
ascorbic acid (vitamin C) 500 mg tablet (Vitamin C) 500 mg PO DAILY Supplement 08/07/20
budesonide 160 mcg-glycopyr 9 mcg-formot 4.8 mcg/actuation HFA inhaler (Breztri Aerosphere) 2 inh inhalation R BID Lung/Breathing Issues 08/19/22
apixaban 5 mg tablet (Eliquis) 5 mg PO BID Blood Clot Prevention/Tx 04/04/24
sacubitril 97 mg-valsartan 103 mg tablet (Entresto) 1 tab PO BID Heart Failure 04/04/24
zinc acetate 50 mg (zinc) capsule 50 mg PO DAILY Supplement 10/10/24
sevelamer carbonate 800 mg tablet 800 mg PO AC Kidney Disease 01/29/25
vitamin B complex-vitamin C-folic acid 0.8 mg tablet (Shira-Hanna) 1 tab PO DAILY Supplement 01/29/25
oxycodone 5 mg tablet 5 mg PO Q6HPRN PRN severe pain #9 tabs 02/19/25
acetaminophen 325 mg tablet (Tylenol) 650 mg PO Q4HPRN PRN mild pain 02/25/25
albuterol sulfate 90 mcg/actuation aerosol inhaler 2 puff inhalation R Q6HPRN PRN sob 02/25/25
alprazolam 0.25 mg tablet (Xanax) 0.25 mg PO BIDPRN PRN anxiety 02/25/25
magnesium hydroxide 400 mg/5 mL oral suspension (Milk of Magnesia) 2,400 mg PO [id number] PRN if no bm by 3rd day give on day 4 02/25/25
metoprolol succinate 25 mg tablet,extended release 24 hr 25 mg PO BID Blood Pressure 02/25/25
midodrine 5 mg tablet 10 mg PO TID@0800,1300,1800 Blood Pressure 02/25/25
polyvinyl alcohol-povidone (PF) 1.4 %-0.6 % eye drops in a dropperette (Refresh Classic (PF)) 2 drp BOTH EYES Q4HPRN PRN dry eyes 02/25/25
sodium phosphates 19 gram-7 gram/118 mL enema (Fleet Enema) 118 ml [place] DAILYPRN PRN if no bm by 5th day give on day 6 02/25/25
therapeutic multivitamin 1 tab PO DAILY Supplement 02/25/25
Review of Systems
-
A 12 point ROS was completed and negative except as noted: Yes
Physical Exam
Vital Signs
Vital Signs
Temp Pulse Resp BP Pulse Ox
97.5 F 74 12 111/53 97
02/25/25 07:42 02/25/25 07:00 02/25/25 07:00 02/25/25 06:57 02/25/25 06:57
Physical Exam
General: No Apparent Distress
HEENT: NormoCephalic and Atraumatic
Respiratory: Clear
Cardiac: S1/S2 and Regular Rhythm
GI: Soft, Non Tender, Non Distended and Normal Bowel Sounds
Musculoskeletal: Edema, Left Lower Extremity and Edema, Right Lower Extremity
Skin: Warm, IV/Catheter Site (HD access site ) and Other (Right groin wound with purulence slough, TTp around the wound, no surrounding erythema. Right greater toe with dark eschar)
Neuro: Awake, Alert, Oriented and AO x 3
Psych: Calm
Laboratory Results
-
02/25/25 07:34
Laboratory Results
Total Bilirubin Cancelled 02/25/25 07:34
AST Cancelled 02/25/25 07:34
ALT Cancelled 02/25/25 07:34
Alkaline Phosphatase Cancelled 02/25/25 07:34
Impression/Plan
-
IMPRESSION:
74-year-old male with history of ESRD on hemodialysis, atrial fibrillation s/p ablation/cardioversion on Eliquis, peripheral arterial disease, CHF, cirrhosis, ventricular tachycardia s/p ICD, hypertension, hyperlipidemia, type 2 diabetes, COPD
presenting via EMS from [facility] via EMS for right groin wound.
PLAN:
# Chronic PAD/right leg ischemia s/p right femoral endarterectomy with common femoral to femoral bifurcation artery bypass on 01/29
# Subsequent postoperative seroma status post washout on 02/05 with wound VAC
Operative cultures grew Serratia marcescens on 02/05
Vascular already consulted
Plan for OR tomorrow
Continue Rocephin
Hold Eliquis
Adequate pain control
#ESRD
On hemodialysis Monday, , Monday
Hyperphosphatemia
Chronic hyponatremia
Nephrology consult
Dialysis today
Does not make urine
Continue sevelamer
#Chronic hypotension
Continue midodrine
#Nonischemic cardiomyopathy/HFrEF
Echo�01/31/2025 , EF of 30
Continue Entresto with hold parameters
Continue metoprolol
Monitor I/os, weights
#Atrial fibrillation s/p cardioversion, ablation
Continue metoprolol
Hold Eliquis
Monitor telemetry
#Essential hypertension
Continue metoprolol
Continue Entresto
#COPD
Not in acute exacerbation
Continue albuterol, Breztri
#Anxiety
Continue alprazolam as needed
#Chronic wounds
Wound care
Diet�cardiac, low cholesterol, low sodium.
DNI
--- NOTE | 2025-02-25 08:52 | CON.VAS ---
Addendum entered and electronically signed by Murrya Lawson III, MD 02/25/25 20:42:
Late entry:
This patient was seen and examined in the emergency department in collaboration with USHA Ly. I agree with the history and physical exam as well as the assessment and plan. I have the following additions:
Recent right femoral artery interposition grafting
Postoperative course complicated by wound dehiscence
Now returns with copious serous drainage from the right groin
On exam he is in no acute distress
Fibrinous exudate covering most of the right groin wound
Serous drainage present
Right leg edema
Plan for operative debridement, washout with Dr. Mahoney 02/26/2025
Dialysis today
Signed:
Murray Lawson III, MD
Vascular Surgery
[facility]
Original Note:
Consultation
Consultation Request
Date/Time Consultation Performed: 02/25/2025 0830
Requesting Provider: Hospitalist
Performing Provider: Laura Smyth NP-C for Murray Lawson III, MD
Reason for Consultation: Right groin surgical incision with increased drainage
Medical History
-
Chief Complaint: Right groin surgical incision drainage
History of Present Illness:
This is a 74-year-old male with significant past medical history for atrial fibrillation, COPD, anxiety, diabetes, ventricular tachycardia status post ICD, chronic heart failure, nonalcoholic liver cirrhosis, thrombocytopenia, anemia of chronic
disease, end-stage renal disease on HD, left subclavian stenosis, right carotid stenosis, peripheral arterial disease, and chronic spinal stenosis with herniated disc and bone fragment compressing spinal canal. Patient was recently admitted in the ""hospital from 01/30/2012/11/2024 to 02/19/2025 for management of his peripheral arterial disease leading to chronic left lower extremity ischemia and dry gangrene of left hallux. During that admission he underwent right femoral endarterectomy with
interposition common femoral to femoral bifurcation artery bypass with nonreversed ipsilateral greater saphenous vein conduit on 01/29/2025. Unfortunately he developed fluid collection at right groin status post femoral endarterectomy with
interposition graft placement leading to washout of right groin surgical site and placement of wound VAC. His wound healing progression was complicated by continued serous output and multiple medical comorbidities including chronic CHF, diabetes,
end-stage renal disease, and liver cirrhosis on 02/19/2025 a second washout with possible muscle flap placement was offered to family but after they had family discussion they opted for medical management and continued VAC therapy. He was then
subsequently discharged on same day. He presents back from rehab facility with increased drainage and reports of difficulty with VAC holding suction due to increased output. He also endorses increased pain at right groin site. Otherwise he denies
fever, chills, nausea, and vomiting.
Past Medical History
Past Medical History: Other (atrial fibrillation, COPD, anxiety, diabetes, ventricular tachycardia status post ICD, chronic heart failure, nonalcoholic liver cirrhosis, thrombocytopenia, anemia of chronic disease, end-stage renal disease on HD, left
subclavian stenosis, right carotid stenosis, peripheral arterial disease)
Past Surgical History: Other (right femoral endarterectomy with common femoral to femoral bifurcation artery bypass on 01/29 and subsequent right groin washout with VAC placement on 02/05, fistula, ICD)
Social History
Tobacco: Non-Smoker
Alcohol: None
Drug: None
Personal:
Allergies / Home Medications
Allergy/AdvReac Type Severity Reaction Status Date / Time
vaccinations Allergy Severe Rash Uncoded 02/25/25 06:17
�Medication �Instructions �Recorded �Confirmed �Type
cholecalciferol (vitamin D3) 50 2,000 unit PO DAILY Supplement 07/28/14 02/25/25 History
mcg (2,000 unit) tablet
albuterol sulfate 2.5 mg/3 mL 2.5 mg inhalation R Q6HPRN PRN sob 08/07/20 02/25/25 History
(0.083 %) solution for nebulization
ascorbic acid (vitamin C) 500 mg 500 mg PO DAILY Supplement 08/07/20 02/25/25 History
tablet (Vitamin C)
budesonide 160 mcg-glycopyr 9 2 inh inhalation R BID 08/19/22 02/25/25 History
mcg-formot 4.8 mcg/actuation HFA Lung/Breathing Issues
inhaler (Breztri Aerosphere)
apixaban 5 mg tablet (Eliquis) 5 mg PO BID Blood Clot 04/04/24 02/25/25 History
Prevention/Tx
sacubitril 97 mg-valsartan 103 mg 1 tab PO BID Heart Failure 04/04/24 02/25/25 History
tablet (Entresto)
zinc acetate 50 mg (zinc) capsule 50 mg PO DAILY Supplement 10/10/24 02/25/25 History
sevelamer carbonate 800 mg tablet 800 mg PO AC Kidney Disease 01/29/25 02/25/25 History
vitamin B complex-vitamin C-folic 1 tab PO DAILY Supplement 01/29/25 02/25/25 History
acid 0.8 mg tablet (Shira-Hanna)
oxycodone 5 mg tablet 5 mg PO Q6HPRN PRN severe pain #9 02/19/25 02/25/25 Rx
tabs
acetaminophen 325 mg tablet 650 mg PO Q4HPRN PRN mild pain 02/25/25 02/25/25 History
(Tylenol)
albuterol sulfate 90 mcg/actuation 2 puff inhalation R Q6HPRN PRN sob 02/25/25 02/25/25 History
aerosol inhaler
alprazolam 0.25 mg tablet (Xanax) 0.25 mg PO BIDPRN PRN anxiety 02/25/25 02/25/25 History
magnesium hydroxide 400 mg/5 mL 2,400 mg PO [id number] PRN if no bm 02/25/25 02/25/25 History
oral suspension (Milk of Magnesia) by 3rd day give on day 4
metoprolol succinate 25 mg 25 mg PO BID Blood Pressure 02/25/25 02/25/25 History
tablet,extended release 24 hr
midodrine 5 mg tablet 10 mg PO TID@0800,1300,1800 Blood 02/25/25 02/25/25 History
Pressure
polyvinyl alcohol-povidone (PF) 2 drp BOTH EYES Q4HPRN PRN dry eyes 02/25/25 02/25/25 History
1.4 %-0.6 % eye drops in a
dropperette (Refresh Classic (PF))
sodium phosphates 19 gram-7 118 ml [place] DAILYPRN PRN if no bm by 02/25/25 02/25/25 History
gram/118 mL enema (Fleet Enema) 5th day give on day 6
therapeutic multivitamin 1 tab PO DAILY Supplement 02/25/25 02/25/25 History
Review of Systems
-
History Source: Patient
Constitutional: Reports No Symptoms
EENT: Reports No Symptoms
Respiratory: Reports No Symptoms
Cardiac: Reports No Symptoms
Abdomen/GI: Reports No Symptoms
: Reports No Symptoms
Musculoskeletal: Reports No Symptoms
Skin: Reports Other (Right groin surgical site with increased serous output and pain)
Neurological: Reports No Symptoms
Endocrine: Reports No Symptoms
Physical Exam
Vital Signs
Temp Pulse Resp BP Pulse Ox
97.5 F 74 12 111/53 97
02/25/25 07:42 02/25/25 07:00 02/25/25 07:00 02/25/25 06:57 02/25/25 06:57
Lab Results
02/25/25 07:34
Physical Exam
General: No Apparent Distress
HEENT: Normocephalic, Anicteric and Atraumatic
Respiratory: Non Labored Respirations
Cardiac: Negative JVD
GI: Soft and Non Tender
Musculoskeletal: Edema (Bilateral lower extremities with +2 edema)
Skin: Warm and Other (Right groin surgical incision with fibrinous tissue, no evidence of purulent drainage or malodor, serous drainage. Right DP and PT by Doppler)
Neuro: AO x 3
Assessment / Plan
-
Assessment: 74-year-old male with peripheral arterial disease and nonhealing right groin incision
Plan:
Will plan to washout right groin, possible sartorius muscle flap, and possible wound VAC placement in OR tomorrow (02/26/2025) with vascular surgeon Dr. Jose Martin Mahoney M.D.. Patient and family now agreeable to proceed with surgical plan at this time now.
N.p.o. at midnight
Agree with continued antibiotics
Patient seen and examined at bedside with Dr. Murray Lawson III, who agrees with above plan
[2025-02-25 09:01] LABS: ALT (SGPT) 12 U/L (0-50); AST (SGOT) 19 U/L (17-59); Albumin 3.6 g/dl (3.5-5.0); Alkaline Phosphatase 217 U/L (38-126); Blood Urea Nitrogen 55 mg/dl (9-20); Calcium 9.8 mg/dl (8.4-10.2); Carbon Dioxide 23 mmol/L (22-30); Chloride 90 mmol/L (98-107); Estimated Creatinine Clearance 13 ml/min; Glucose 96 mg/dl (70-99); Potassium 4.4 mmol/L (3.5-5.1); Sodium 126 mmol/L (135-145); Total Protein 6.0 g/dl (6.3-8.2); eGFR 11.45
[2025-02-25] MEDS: XANAX 0.25 MG PO (11:51)
[2025-02-25 12:56] LABS: Glucose - Point of Care 133 mg/dl (70-99)
[2025-02-25] MEDS: RENVELA 800 MG PO ×2 (13:34→17:09)
--- NOTE | 2025-02-25 14:08 | EDCM ---
CM reviewed chart and met with pt bedside in ED. Pt was at [facility] for STR following admission 01/29 to 02/19.
Needs assistance with ADLs and personal care. Was Ambulating with walker, had not yet started PT.
Pt receives HD, T-TH-Sat, due for treatment today.
Prior to last admission, pt lived with his , son and DIL on 2 story home, has in law suite in basement, no BELLA from back of house.
Has rollator, walker and 4 prong cane.
He was receiving outpatient dialysis at [facility] prior to last admission.
Pt does not want to return to [facility] at discharge.
hx [facility].
Discharge planning pending ongoing medical evauation, CM will continue to follow for all discharge planning needs.
[2025-02-25] MEDS: TYLENOL 650 MG PO (16:39)
--- NOTE | 2025-02-25 16:44 | W.CON.NEPH ---
Consultation
-
Date/Time Consultation Requested: February 25, 2025 at 4 PM
Date/Time Consultation Performed: February 25, 2025 at 4:30 PM
Requesting Provider: Jin Mcmanus
Performing Provider: Dr. Forbes
Reason for Consultation: End-stage renal disease
Medical History
-
Chief Complaint: ESRD
History of Present Illness:
Mr. Downing is a 74 yo male with longstanding HFrEF from a nonischemic dilated cardiomyopathy on enteresto,h/o VT s/p ICD, persistent atrial fibrillation on Eliquis (he did not tolerate Amiodarone), ESRD on HD TTS through CVC at [facility] unit,
sellervdonell, new AVF 3m old, COPD (former smoker), status post revascularization of right leg CLI. right femoral endarterectomy 01/29/2025y Dr. Mahoney. Presents to [facility] with drainage of wound where wound VAC is present
Consultation for incisional disease
Past Medical History
ESRD
COPD
Atrial fibrillation
Gout
Nonischemic cardiomyopathy with EF of 35 percent
History of ventricular tachycardia
Diabetes
PVD
Hyperphosphatemia
Past Surgical History: Other (AVF r UE, s/p Right femoral endarterectomy with interposition common femoral to femoral bifurcation artery bypass with nonreversed ipsilateral greater saphenous vein conduit. 01/29/2025 Dr. Mahoney)
Social History
Tobacco: Former Smoker
Alcohol: None
Drug: None
Living: With Family
Family History
No CKD
Allergies / Home Medications
Allergy/AdvReac Type Severity Reaction Status Date / Time
vaccinations Allergy Severe Rash Uncoded 02/25/25 06:17
�Medication �Instructions �Recorded �Confirmed �Type
cholecalciferol (vitamin D3) 50 2,000 unit PO DAILY Supplement 07/28/14 02/25/25 History
mcg (2,000 unit) tablet
albuterol sulfate 2.5 mg/3 mL 2.5 mg inhalation R Q6HPRN PRN sob 08/07/20 02/25/25 History
(0.083 %) solution for nebulization
ascorbic acid (vitamin C) 500 mg 500 mg PO DAILY Supplement 08/07/20 02/25/25 History
tablet (Vitamin C)
budesonide 160 mcg-glycopyr 9 2 inh inhalation R BID 08/19/22 02/25/25 History
mcg-formot 4.8 mcg/actuation HFA Lung/Breathing Issues
inhaler (Breztri Aerosphere)
apixaban 5 mg tablet (Eliquis) 5 mg PO BID Blood Clot 04/04/24 02/25/25 History
Prevention/Tx
sacubitril 97 mg-valsartan 103 mg 1 tab PO BID Heart Failure 04/04/24 02/25/25 History
tablet (Entresto)
zinc acetate 50 mg (zinc) capsule 50 mg PO DAILY Supplement 10/10/24 02/25/25 History
sevelamer carbonate 800 mg tablet 800 mg PO AC Kidney Disease 01/29/25 02/25/25 History
vitamin B complex-vitamin C-folic 1 tab PO DAILY Supplement 01/29/25 02/25/25 History
acid 0.8 mg tablet (Shira-Hanna)
oxycodone 5 mg tablet 5 mg PO Q6HPRN PRN severe pain #9 02/19/25 02/25/25 Rx
tabs
acetaminophen 325 mg tablet 650 mg PO Q4HPRN PRN mild pain 02/25/25 02/25/25 History
(Tylenol)
albuterol sulfate 90 mcg/actuation 2 puff inhalation R Q6HPRN PRN sob 02/25/25 02/25/25 History
aerosol inhaler
alprazolam 0.25 mg tablet (Xanax) 0.25 mg PO BIDPRN PRN anxiety 02/25/25 02/25/25 History
magnesium hydroxide 400 mg/5 mL 2,400 mg PO [id number] PRN if no bm 02/25/25 02/25/25 History
oral suspension (Milk of Magnesia) by 3rd day give on day 4
metoprolol succinate 25 mg 25 mg PO BID Blood Pressure 02/25/25 02/25/25 History
tablet,extended release 24 hr
midodrine 5 mg tablet 10 mg PO TID@0800,1300,1800 Blood 02/25/25 02/25/25 History
Pressure
polyvinyl alcohol-povidone (PF) 2 drp BOTH EYES Q4HPRN PRN dry eyes 02/25/25 02/25/25 History
1.4 %-0.6 % eye drops in a
dropperette (Refresh Classic (PF))
sodium phosphates 19 gram-7 118 ml [place] DAILYPRN PRN if no bm by 02/25/25 02/25/25 History
gram/118 mL enema (Fleet Enema) 5th day give on day 6
therapeutic multivitamin 1 tab PO DAILY Supplement 02/25/25 02/25/25 History
Review of Systems
-
No chest pain or shortness of breath no fever
All other systems: Negative unless noted
Physical Exam
Vital Signs
Vital Signs
Temp Pulse Resp BP Pulse Ox
97.8 F 72 20 109/47 98
02/25/25 16:15 02/25/25 16:15 02/25/25 16:15 02/25/25 16:15 02/25/25 16:15
Lab Results
WBC 9.2 10^3/uL (4.8-10.8) 02/25/25 07:34
RBC 2.96 10^6/uL (4.70-6.10) L 02/25/25 07:34
Hgb 10.1 g/dL (13.0-18.0) L 02/25/25 07:34
Hct 32.0 % (39.0-52.0) L 02/25/25 07:34
Plt Count 170 10^3/uL (130-400) 02/25/25 07:34
Sodium 126 mmol/L (135-145) L 02/25/25 08:20
Potassium 4.4 mmol/L (3.5-5.1) 02/25/25 08:20
Chloride 90 mmol/L (98-107) L 02/25/25 08:20
Carbon Dioxide 23 mmol/L (22-30) 02/25/25 08:20
BUN 55 mg/dl (9-20) H 02/25/25 08:20
Creatinine 5.0 mg/dL (0.7-1.3) H* 02/25/25 08:20
eGFR 11.45 02/25/25 08:20
Glucose 96 mg/dl (70-99) 02/25/25 08:20
Calcium 9.8 mg/dl (8.4-10.2) 02/25/25 08:20
Albumin 3.6 g/dl (3.5-5.0) 02/25/25 08:20
Physical Exam
General no acute distress
HEENT no cephalic atraumatic extraocular muscle intact no scleral icterus no JVD neck supple
lungs clear to auscultation bilateral
heart regular S1-S2 positive
abdomen soft nontender positive bowel sounds
extremities +3 edema pulses present bilateral
Neurologically nonfocal alert and oriented x 3
Skin no lesions no abrasions no petechiae
Psych normal affect no bizarre behavior
Data Reviewed
-
Labs: Labs Reviewed by me, Discussed with Physician, Discussed with Nurse and Discussed with Patient
Assessment/Plan
-
Mr. Downing is a 74 yo male with longstanding HFrEF from a nonischemic dilated cardiomyopathy on enteresto,h/o VT s/p ICD, persistent atrial fibrillation on Eliquis (he did not tolerate Amiodarone), ESRD on HD TTS through CVC at [facility] unit,
[place] AVF 3m old, COPD (former smoker), status post revascularization of right leg CLI. right femoral endarterectomy 01/29/2025y Dr. Mahoney. Presents to [facility] with drainage of wound where wound VAC is present
Consultation for end-stage renal l disease
Impression
ESRD TTS
Anemia of chronic disease
Wound infection
Vasculopath status post femoral endarterectomy with wound VAC
Chronic hypotension
CHF
Hyponatremia
Plan
Dialysis today ultrafiltration 3 L as blood pressure tolerates with the midodrine as patient has a chronically low blood pressure
Epogen for hemoglobin less than 10
Renal dose of medications appropriate for ESRD
See orders
[2025-02-25 16:51] LABS: Glucose - Point of Care 99 mg/dl (70-99)
[2025-02-25] MEDS: FLEXBUMIN 25% FOR HEMODIALYSIS 12.5 GRAMS IV ×2 (17:35→19:00)
[2025-02-25] MEDS: MANNITOL 25% 12.5 GRAMS IV ×2 (17:37→19:04)
--- NOTE | 2025-02-25 17:57 | W.PN.NEPH.HD ---
Assessment
-
Seen on dialysis tolerating treatment so far and ultrafiltration
Progress Note - Hemodialysis
-
Date of Service: February 25, 2025
Duration: 30 minutes and 3 hours
Potassium Bath: 2
Calcium Bath: 2.5
Opti-Dialyzer: 160
Ultrafiltration: Other (2.5)
Blood Flow: 400
Dialysate Flow: 600
Heparin: 0
EPO: 39089 units
[2025-02-25] MEDS: SYMBICORT 160/4.5 MCG INHALER 2 PUFF INH (19:46)
[2025-02-25 21:30] LABS: Glucose - Point of Care 104 mg/dl (70-99)
--- NOTE | 2025-02-25 22:00 | PTCARENOTE ---
0: Pt's BP after HD was 98/70, HR 75. Pt due for evening doses of entresto and toprol XL. Pt lethargic but verbally arousable. DEMETRIS Langston notified, will hold BP meds and recheck BP in one hour.
~ 0000: BP now at 111/47, HR 67. DEMETRIS Langston notified - will give entresto and toprol XL and continue to monitor BP.
[2025-02-26] VITALS (14 sets, daily range): BP systolic 95–141; BP diastolic 36–73
[2025-02-26] MEDS: ENTRESTO 97 MG/103 MG 1 TAB PO ×3 (00:24→19:42)
[2025-02-26] MEDS: TOPROL XL 25 MG PO ×3 (00:24→19:42)
--- NOTE | 2025-02-26 00:30 | PTCARENOTE ---
Pt had an 11-beat run of v-tach at 0029 this AM, then returned to AV-paced with BBB. DEMETRIS Langston notified that v-tach episode was 6.2 seconds long. No further orders.
[2025-02-26 06:27] LABS: Glucose - Point of Care 113 mg/dl (70-99)
[2025-02-26] MEDS: SPIRIVA RESPIMAT 2.5 MCG 2 PUFF INH (08:00)
[2025-02-26] MEDS: SYMBICORT 160/4.5 MCG INHALER 2 PUFF INH ×2 (08:00→19:15)
[2025-02-26] MEDS: ROXICODONE 5 MG PO ×2 (08:17→18:10)
[2025-02-26] MEDS: ZINC 50 MG PO (08:19)
[2025-02-26] MEDS: VITAMIN C 500 MG PO (08:19)
[2025-02-26] MEDS: THERAGRAN 1 TABLET PO (08:20)
[2025-02-26] MEDS: VITAMIN D3 (cholecalciferol) 50 MCG PO (08:20)
[2025-02-26] MEDS: NEPHROCAP 1 CAPSULE PO (08:20)
[2025-02-26] MEDS: RENVELA 800 MG PO ×2 (08:21→18:08)
[2025-02-26 08:28] LABS: Hematocrit 29.2 % (39.0-52.0); Hemoglobin 9.6 g/dL (13.0-18.0); Mean Corp Hgb Conc. 32.9 g/dL (33.0-37.0); Mean Corpuscular Volume 105.0 fL (80.0-94.0); Nucleated Red Blood Cells % 0 % (-); Platelet Count 145 10^3/uL (130-400); Red Cell Dist. Width 16.1 % (11.5-14.5)
[2025-02-26 08:53] LABS: ALT (SGPT) 11 U/L (0-50); AST (SGOT) 16 U/L (17-59); Albumin 3.6 g/dl (3.5-5.0); Alkaline Phosphatase 214 U/L (38-126); Blood Urea Nitrogen 32 mg/dl (9-20); Calcium 9.7 mg/dl (8.4-10.2); Carbon Dioxide 27 mmol/L (22-30); Chloride 91 mmol/L (98-107); Estimated Creatinine Clearance 17 ml/min; Glucose 97 mg/dl (70-99); Potassium 3.8 mmol/L (3.5-5.1); Sodium 128 mmol/L (135-145); Total Protein 6.0 g/dl (6.3-8.2); eGFR 15.91
[2025-02-26] MEDS: TYLENOL 650 MG PO ×2 (09:39→22:17)
[2025-02-26 10:13] LABS: Glycohemoglobin (HgbA1c) 5.7 % (4.0-5.9)
--- NOTE | 2025-02-26 10:36 | W.PN.UPDATE ---
Update Note
Progress Note Update
Seen and evaluated with DEMETRIS Smyth. Right groin wound with continued serous drainage. More fibrinous exudate on the superior aspect than prior. Still not healing as a whole. We had a very extensive discussion with the patient and his at the
bedside. Discussed that we could try to washout again, squelch any seromatous drainage sites, and possible sartorius flap coverage if feasible (if not feasible would bring back for repeated washout and asked plastic surgery to assist). However,
this is all extensive surgery potentially. And he has multiple medical comorbidities which are noncurative. We frankly discussed that with him. We also broached the subject of palliative care with the patient and his . We were clear and that
many of the medical issues he has are noncurative (end-stage renal disease, congestive heart failure, likely cirrhosis). Based on all this, no matter what we do in terms of wound healing, he may not heal. He also is completely bedbound. He has
weakness in both legs. He is not a candidate for a spine surgery. After extensive discussion, they wish for 1 more attempt at washing out the wound and potentially muscle flap closure to see if we can quell the drainage so that he can get out of
the hospital either to rehab/palliative care etc. Will proceed with washout and possible sartorius flap today. Consider palliative care team evaluation. I reached out to hospitalist and awaiting callback.
--- NOTE | 2025-02-26 10:40 | WOUNDNOTE ---
RIGHT GREAT TOE
--- NOTE | 2025-02-26 10:41 | WOUNDNOTE ---
BILATERAL LOWER EXTREMITIES
--- NOTE | 2025-02-26 10:41 | WOUNDNOTE ---
RIGHT POSTERIOR ANKLE
--- NOTE | 2025-02-26 10:43 | WOUNDNOTE ---
LEFT POSTERIOR HEEL
--- NOTE | 2025-02-26 10:44 | WOUNDNOTE ---
BILATERAL LOWER EXTREMITIES
--- NOTE | 2025-02-26 10:46 | CM ---
telephonic case manager reviewed patient's chart and met with patient and spouse this am, plan is for possible washout today, patient with wound vac, and patient also requires HD, plan will be for skilled placement, list of medicare.gov facilities provided to
patient's spouse.
Plan; Skilled placement facility will need to be able to Manage wound vac and provide HD.
--- NOTE | 2025-02-26 10:48 | WOUNDNOTE ---
WON RN note: Patient admitted for R groin postoperative seroma.
See H&P for complete history. Lives with at home.
PMH: PAD, smoker, COPD, A Fib, CHF, DVT, Arterial ulcers, RLE endarterectomy with post op wound vac recently.
Wound Location and type/assessment: Patient known to service, last seen on 02/17/25. Now admitted with: R groin surgical site seroma, base davis, large drainage and foul odor. For OR washout today per vascular team. Mild MASD on buttocks and skin
folds. Distal gluteal cleft,(close to rectum) with stage 3 PI mixed with MASD. Wounds deeper compared to last seen and more painful, barrier cream in use. R great toe tip with same dry necrotic area, tiny necrotic tip on 3rd toe, both arterial.
Posterior Achilles with chronic ulcers patient said were from rubbing against sneakers. Suspect arterial related as well. Heels are non blanchable red, stage 1 PI. Patient refused offer of offloading fiber filled boots, accepted air cushion on
pillow to offload heels.
Appetite: NPO for OR today.
Pressure redistribution devices in place: On air overlay, palm check done with adequate inflation. Pressure ulcer prevention measures reviewed with patient and spouse at bedside, states they understand. Using air cushion.
Plan: Calazime placed on gluteal cleft wounds, too close to rectum for a foam dressing. Repositioned patient to R side lying position. Foams on Achilles in use, assessed wounds under foams. Painted necrotic areas on R toes with Betadine. Adhesive
foams applied to both Heels and offloaded. Will confirm orders with hospitalist and update nurse/care plan.
Defer to vascular for R groin post op dressing, will assist as needed.
Note to case management of equipment requested for discharge: TBD
Recommend follow up with vascular upon discharge.
[2025-02-26] MEDS: XANAX 0.25 MG PO ×2 (10:58→21:37)
[2025-02-26] MEDS: BACTROBAN 2% OINTMENT 1 APPLIC NASAL (11:07)
[2025-02-26] MEDS: PERIDEX 0.12% ORAL RINSE 15 ML PO (11:07)
[2025-02-26] MEDS: RENVELA PO (12:03)
[2025-02-26 12:40] LABS: Glucose - Point of Care 90 mg/dl (70-99)
--- NOTE | 2025-02-26 13:50 | OR.RPT ---
Operative Report
Operative Report
PROCEDURE DATE: 02/26/2025
Preoperative diagnosis:
1. Severe peripheral arterial disease/critical limb ischemia status post extensive femoral endarterectomy with interposition common femoral to femoral bifurcation bypass with saphenous vein conduit.
2. Continued serous drainage from wound and nonhealing groin wound with extensive fibrinous exudate.
Postoperative diagnosis: Same
Procedure:
1. Reexploration right groin.
2. Sharp excisional debridement of fibrinous exudate subcutaneous edges of wound and skin edges with scissor.
3. Pulse lavage irrigation right groin with 3 L of normal saline solution.
4. Sartorius muscle rotational flap/coverage of vein bypass graft conduit/femoral bifurcation.
5. Placement of wound VAC.
Surgeon: Denzel
Cylinder Machine Operator: DEMETRIS Smyth, required for all aspects of procedure including assistance with traction/countertraction.
Complications: None
Anesthesia: General
Indications for procedure:
As above. Underwent above procedures and continued nonhealing of the wound. Multiple medical risk factors also contributing and likely causative. Risk/benefits/alternatives of the above procedure were fully discussed. He understood all and
wished to proceed.
Description of procedure:
Patient was identified brought to the operating room placed on the table in supine position. After the adequate administration of anesthesia he was prepped and draped in the standard surgical fashion. A standard preoperative timeout was undertaken
and everybody was in agreement the plan. I cut out the sutures in the subcutaneous tissue. None of the tissues had really well-healed. There was some islands of granulation, but a lot of fibrinous exudate. The skin edges also had some edge skin
necrosis/fibrinous exudate. Once I cut out the subcutaneous suture, I noted that the deeper tissues had not healed. The bypass graft was exposed there. It looked well and was nicely pulsatile. There is no signs of infection of the bypass graft.
No evidence of pseudoaneurysm. Using a scissor, I sharply debrided the skin edges as well as the subcutaneous tissue edges. Some fibrinous tissue was also debrided overlying the superficial femoral artery (the superficial femoral artery itself was
reasonably incorporated). I noted that the saphenous vein skip incision undermined and connected in the subcutaneous plane to this incision site. I therefore then extended the incision slightly so as to better expose that area. I now pulse
lavaged the entirety of the wound including the saphenectomy undermined area (inserting the pulse lavage salesperson stereo equipment into that channel) with 3 L of saline solution. After this I noted much better granulation beds. Tissues were all clean. I now
inspected the tissues for some time and I did not note any active serous drainage at this point. Therefore, at this point using the electrocautery I dissected through the scar tissue in the lateral aspect of the wound and was able to identify the
sartorius muscle. I then fully mobilized the anterior surface of the sartorius out to the lateral edge. And then I dissected it cephalad back to near its origin. Only 1 perforating small vein branch had to be clipped and divided. Once I had
sufficient mobilization circumferentially of the muscle, I then divided the muscle near its insertion/origin at the ASIS or just distal to that. The muscle was now free and I was able to rotated over. I confirmed hemostasis of the wound bed in the
vicinity of the exposed bypass graft. I now made the muscle on top, and affixed it to the surrounding scar tissue/subcutaneous tissues with interrupted 2-0 Vicryl ranruc-fy-eggny type suture. Once satisfied, I inspected the sartorius mobilization
bed and noted slight oozing of the venous branch just anterior to the transected muscle edge. This was clipped. Hemostasis was now noted. Now we placed a wound VAC within the wound (and this allowed suctioning of the mobilized sartorius bed as
well as the saphenectomy site as well). The dimensions of the wound that were covered with the wound VAC were 13 cm in length, 6.5 cm in width, 2 cm depth. The patient tolerated the procedure well.
[2025-02-26 14:02] LABS: Glucose - Point of Care 116 mg/dl (70-99)
--- NOTE | 2025-02-26 14:13 | W.PN.HOSP.TC ---
Addendum entered and electronically signed by Shay Whitfield MD 02/26/25 17:22:
Distal gluteal cleft,(close to rectum) with stage 3 PI mixed with MASD.... Heels are non blanchable red, stage 1 PI
Original Note:
Today's Communication/Plan
-
OR today for open debridement and washout
Palliative Care
Assessment / Plan
Assessment / Plan
Physical Exam
General: No Apparent Distress
HEENT: NormoCephalic and Atraumatic
Respiratory: Clear
Cardiac: S1/S2 and Regular Rhythm
GI: Soft, Non Tender, Non Distended and Normal Bowel Sounds
Musculoskeletal: Edema, Left Lower Extremity and Edema, Right Lower Extremity
Skin: Warm, IV/Catheter Site (HD access site ) and Other (Right groin wound with purulence slough, TTp around the wound, no surrounding erythema. Right greater toe with dark eschar)
Neuro: Awake, Alert, Oriented and AO x 3
Psych: Calm
IMPRESSION:
74-year-old male with history of ESRD on hemodialysis, atrial fibrillation s/p ablation/cardioversion on , peripheral arterial disease, CHF, cirrhosis, ventricular tachycardia s/p ICD, hypertension, hyperlipidemia, type 2 diabetes, COPD
presenting via EMS from [facility] via EMS for right groin wound.
PLAN:
# Chronic PAD/right leg ischemia s/p right femoral endarterectomy with common femoral to femoral bifurcation artery bypass on 01/29
# Subsequent postoperative seroma status post washout on 02/05 with wound VAC
Operative cultures grew Serratia marcescens on 02/05
Vascular already consulted
Plan for OR today
Continue Rocephin
Hold Eliquis
Adequate pain control
#ESRD
On hemodialysis Monday, , Monday
Hyperphosphatemia
Chronic hyponatremia
Nephrology consult
Dialysis as per renal
Continue sevelamer
#Chronic hypotension
Continue midodrine
#Nonischemic cardiomyopathy/HFrEF
Echo�01/31/2025 , EF of 30
Continue Entresto with hold parameters
Continue metoprolol
Monitor I/os, weights
#Atrial fibrillation s/p cardioversion, ablation
Continue metoprolol
Hold Eliquis
Monitor telemetry
#Essential hypertension
Continue metoprolol
Continue Entresto
#COPD
Not in acute exacerbation
Continue albuterol, Breztri
#Anxiety
Continue alprazolam as needed
#Chronic wounds
Wound care
Diet�cardiac, low cholesterol, low sodium.
DNI; Palliative Care Consulted
Anticipated Discharge: 24 - 48 hours
Subjective/Interval History
-
Date of Service: February 26, 2025
no acute events overnight
Objective Data
-
Labs:
Laboratory Results
02/26/25
07:53
WBC 7.7
Hgb 9.6 L
Hct 29.2 L
Plt Count 145
Sodium 128 L
Potassium 3.8
Chloride 91 L
Carbon Dioxide 27
BUN 32 H
Creatinine 3.8 H
Glucose 97
Calcium 9.7
Total Bilirubin 1.6 H
AST 16 L
ALT 11
Alkaline Phosphatase 214 H
Vital Signs:
Vital Signs
Temp Pulse Resp BP Pulse Ox
97.9 F 79 20 108/50 100
02/26/25 11:00 02/26/25 11:00 02/26/25 11:00 02/26/25 11:00 02/26/25 11:00
I&O
02/25/25 02/26/25 02/27/25
06:59 06:59 06:59
Intake Total 700 / 700
Balance 700 / 700
Review of Systems
-
History Source: Patient
All other systems: Reviewed and negative
Data Reviewed
-
Labs: Labs Reviewed by me
[2025-02-26] MEDS: DILAUDID 0.25 MG IV ×2 (14:33→14:53)
--- NOTE | 2025-02-26 14:48 | PN.CDI ---
CDI
- -
CDI:
Physician Documentation Request
Admit Date: 02/25/25 09:57
Dear Doctor,
Please review the following and provide your response in the progress notes.
Clinical Indicators:
Pt admitted for postoperative seroma.
02/26 WO RN : ' Distal gluteal cleft,(close to rectum) with stage 3 PI mixed with MASD.... Heels are non blanchable red, stage 1 PI.'
Physician documentation of the type and location of wounds is required for compliant documentation. Based on the above clinical findings and your assessment, please provide the following in your progress note:
1. Location of the ulcer/wound, including laterality.
2. Type (etiology) of ulcer/wound:
Stage 3 gluteal cleft and stage 1 bilateral heels pressure injury POA
Gluteal cleft and bilateral heels non-pressure injury POA
Other
Use of terms such as suspected, likely, concern for, or probable (associated with a specific diagnosis that is being evaluated, monitored, or treated as if it exists) are acceptable and can be coded in the inpatient setting, when documented at the
time of discharge.
Thank you,
Shanice Wolf RN, BSN
CDI Specialist
[employer]
Please use your independent medical judgment in providing your response.
*Source: National Pressure Ulcer Advisory Panel (NPUAP)
--- NOTE | 2025-02-26 16:32 | W.PN.NEPH.PH ---
Today's Communication / Plan
-
HD tomorrow
Assessment/Plan
-
Mr. Downing is a 74 yo male with longstanding HFrEF from a nonischemic dilated cardiomyopathy on enteresto,h/o VT s/p ICD, persistent atrial fibrillation on Eliquis (he did not tolerate Amiodarone), ESRD on HD TTS through [facility] at [facility] [place] [place] [facility]m old, COPD (former smoker), status post revascularization of right leg CLI. right femoral endarterectomy 01/29/2025y Dr. Mahoney. Presents to [facility] with drainage of wound where wound VAC is present
Impression
ESRD TTS
Anemia of chronic disease
Wound infection
Vasculopath status post femoral endarterectomy with wound VAC
Chronic hypotension
CHF
Hyponatremia
Plan
HD tomorrow
-
-
Date of Service: February 26, 2025
CC / HPI / ROS
-
Chief Complaint:
ESRD
History of Present Illness:
tolerated HD yesterday
BP stable
s/p washout right groin, VAC placement
Review of Systems:
no CP/SOB
Labs
-
Labs:
WBC 7.7 10^3/uL (4.8-10.8) 02/26/25 07:53
RBC 2.78 10^6/uL (4.70-6.10) L 02/26/25 07:53
Hgb 9.6 g/dL (13.0-18.0) L 02/26/25 07:53
Hct 29.2 % (39.0-52.0) L 02/26/25 07:53
Plt Count 145 10^3/uL (130-400) 02/26/25 07:53
Sodium 128 mmol/L (135-145) L 02/26/25 07:53
Potassium 3.8 mmol/L (3.5-5.1) 02/26/25 07:53
Chloride 91 mmol/L (98-107) L 02/26/25 07:53
Carbon Dioxide 27 mmol/L (22-30) 02/26/25 07:53
BUN 32 mg/dl (9-20) H 02/26/25 07:53
Creatinine 3.8 mg/dL (0.7-1.3) H 02/26/25 07:53
eGFR 15.91 02/26/25 07:53
Glucose 97 mg/dl (70-99) 02/26/25 07:53
Calcium 9.7 mg/dl (8.4-10.2) 02/26/25 07:53
Albumin 3.6 g/dl (3.5-5.0) 02/26/25 07:53
Physical Exam
-
Vital Signs:
Vital Signs
Temp Pulse Resp BP Pulse Ox
97.3 F 74 18 105/60 97
02/26/25 15:46 02/26/25 15:46 02/26/25 15:46 02/26/25 15:46 02/26/25 15:46
Cardiovascular:: Regular rate and rhythm
Respiratory:: Bilateral: Coarse
Lung Excursion:: Normal
Abdomen:: Nontender and Soft
Bowel Sounds:: Normal
Extremity Edema:: +1: Bilateral:
Other Findings::
RUE AVF thrill
[2025-02-26 16:47] LABS: Glucose - Point of Care 116 mg/dl (70-99)
[2025-02-26] MEDS: NOVOLOG FLEXPEN-LOW RESISTANCE SC (18:09)
[2025-02-26 21:09] LABS: Glucose - Point of Care 215 mg/dl (70-99)
[2025-02-26] MEDS: ROXICODONE 2.5 MG PO (23:53)
[2025-02-27] MEDS: ROXICODONE 5 MG PO ×2 (02:04→09:12)
[2025-02-27 03:00] VITALS: BP 118/47
[2025-02-27 04:42] VITALS: BMI 28.5
[2025-02-27 06:30] LABS: Hematocrit 26.9 % (39.0-52.0); Hemoglobin 9.1 g/dL (13.0-18.0); Mean Corp Hgb Conc. 33.8 g/dL (33.0-37.0); Mean Corpuscular Volume 103.5 fL (80.0-94.0); Platelet Count 127 10^3/uL (130-400); Red Cell Dist. Width 15.9 % (11.5-14.5)
[2025-02-27 07:10] LABS: Blood Urea Nitrogen 45 mg/dl (9-20); Calcium 9.9 mg/dl (8.4-10.2); Carbon Dioxide 24 mmol/L (22-30); Chloride 89 mmol/L (98-107); Estimated Creatinine Clearance 14 ml/min; Glucose 157 mg/dl (70-99); Potassium 4.8 mmol/L (3.5-5.1); Sodium 129 mmol/L (135-145); eGFR 12.33
[2025-02-27 07:42] LABS: Glucose - Point of Care 171 mg/dl (70-99)
[2025-02-27] MEDS: SYMBICORT 160/4.5 MCG INHALER 2 PUFF INH ×2 (07:54→19:32)
[2025-02-27] MEDS: SPIRIVA RESPIMAT 2.5 MCG 2 PUFF INH (07:54)
[2025-02-27 08:00] VITALS: BP 92/59
[2025-02-27] MEDS: RENVELA 800 MG PO ×3 (09:14→18:02)
[2025-02-27] MEDS: TYLENOL 650 MG PO (09:48)
[2025-02-27] MEDS: XANAX 0.25 MG PO ×2 (09:48→23:06)
[2025-02-27] MEDS: NOVOLOG FLEXPEN-LOW RESISTANCE 1 UNITS SC ×2 (09:50→15:35)
--- NOTE | 2025-02-27 10:02 | W.PN.VS ---
Addendum entered and electronically signed by Jose Martin Mahoney MD 02/27/25 15:20:
Seen and examined with SENIOR ANALYST earlier this a.m. Agree with findings and plan as discussed and noted below.
Original Note:
Today's Communication / Plan
-
Patient seen and examined at bedside with Dr. Jose Martin Mahoney M.D., below plan reviewed with attending.
Assessment/Plan
-
Assessment: 74-year-old male POD #1 Reexploration right groin. Sharp excisional debridement of fibrinous exudate subcutaneous edges of wound and skin edges with scissor. Pulse lavage irrigation right groin with 3 L of normal saline solution.
Sartorius muscle rotational flap/coverage of vein bypass graft conduit/femoral bifurcation. Placement of wound VAC.
Plan:
Will liberalize head of bed restriction to max of 45 degrees
Continue bedrest
Continue wound VAC
Will change wound VAC tomorrow, if evidence of viable muscle could possibly be cleared for discharge to rehab from a vascular surgical perspective
Appreciate palliative care consultation and evaluation for goals of care discussion
Subjective Data
-
Date of Service: February 27, 2025
Patient seen examined at bedside, reports nerve like shooting pain down front of upper thigh similar to prior postoperative pain experience. Otherwise endorses pain is well-controlled. Tolerating p.o. diet. Does endorse frustration with max head
of bed 30 degree restriction.
Objective Data
-
Vital Signs
Temp Pulse Resp BP Pulse Ox
98.3 F 82 18 92/59 96
02/27/25 08:00 02/27/25 08:00 02/27/25 08:00 02/27/25 08:00 02/27/25 08:00
Intake and Output
02/26/25 02/27/25 02/28/25
06:59 06:59 06:59
Intake Total 700 / 700 1010 / 1010
Output Total 200 / 200
Balance 700 / 700 810 / 810
Intake:
Oral fluids 700 / 700 960 / 960
IV fluids (Total) 50 / 50
Normosal 50 / 50
Output:
Drain Output (Total) 200 / 200
Right Leg Wound Vac 200 / 200
Lab Results
02/27/25 05:58
02/27/25 05:58
Calcium 9.9 mg/dl (8.4-10.2) 02/27/25 05:58
Total Bilirubin 1.6 mg/dl (0.2-1.3) H 02/26/25 07:53
AST 16 U/L (17-59) L 02/26/25 07:53
ALT 11 U/L (0-50) 02/26/25 07:53
Alkaline Phosphatase 214 U/L (38-126) H 02/26/25 07:53
Total Protein 6.0 g/dl (6.3-8.2) L 02/26/25 07:53
Albumin 3.6 g/dl (3.5-5.0) 02/26/25 07:53
Physical Exam
-
No apparent distress, resting in bed
No tachycardia
No tachypnea at this time
Right groin wound VAC holding suction, dressing clean, dry, and intact.
Right foot warm, palpable DP, hallux dry gangrene stable, +2 edema bilateral lower extremities
[2025-02-27 10:26] VITALS: BMI 28.5
--- NOTE | 2025-02-27 10:29 | WOUNDNOTE ---
COCCYX/MAXIM ANAL
--- NOTE | 2025-02-27 10:30 | WOUNDNOTE ---
R HEEL (posterior lateral)
--- NOTE | 2025-02-27 10:31 | WOUNDNOTE ---
[facility] RN note: Patient c/o coccyx pain. Patient had a small soft stool. Annelise care given by FAHAD Harris. Coccyx stage 3 along with MASD cleansed with saline, sacral shaped silicone border foam applied after cutting a notch along distal adhesive border to
avoid anal area. Waffle air overlay inflated. Patient turned to L semi side lying position with help from FAHAD Harris and ESA Slaughter. Heel foams intact. Patient declined heel elevation at this time. He stated he feels better in the current position he
is in. t/c SPD and ordered a bariatric air chair cushion. Patient has a regular air chair cushion. Instructed patient importance of heel off loading to prevent a pressure injury. Patient's appetite good for breakfast today as per FAHAD Harris. R groin
vac dressing intact. Vascular's note stated they will change vac dressing tomorrow.
--- NOTE | 2025-02-27 10:32 | W.CON.PAL ---
Consultation
-
Date/Time Consultation Requested: 02/26/25
Date/Time Consultation Performed: 02/27/25
Requesting Provider: Dr Day
Performing Provider: Dr Donna Murrell
Reason for Consult: Goals of Care Discussion and Symptom & Pain Management
Primary Diagnosis: CHF, ESRD
Related Diagnosis: PAD,Liver Cirrhosis
Consult Requested By: Patient's Physician and Other (Vascular surgery)
Reason for Admission
Illness Course/HPI
Pt is a 74-year-old male with history of ESRD on hemodialysis, atrial fibrillation s/p ablation/cardioversion on Eliquis, peripheral arterial disease, CHF, cirrhosis, ventricular tachycardia s/p ICD, hypertension, hyperlipidemia, type 2 diabetes,
COPD presenting who presented from [facility] via EMS on account of worsened pain and need for greater level of care for his groin wound, of note Pt has a hx of PAD with right leg ischemia s/p right femoral endarterectomy with
common femoral to femoral bifurcation artery bypass on 01/29 but procedure complicated by postoperative seroma status post washout on 02/05 with wound VAC placed, Operative cultures grew Serratia marcescens on 02/05. Pt had opted for conservative mgt
and was discharged to rehab. He was in rehab but continued with increasing drainage from the op site as well as pain, since admission Vascular surgery has seen and he was taken to OR yesterday for a wash out,Pt has also been seen by Nephro on
account of his ESRD and is getting HD.
Functional Status
Prior to going to rehab Pt lived with in basement of son's house with one floor set up for everything, he walked with a walker and was able to do his own grooming, clean up after himself in restroom, had accidents with defecation and no longer
makes urine, he was unable to do house work and he and relied on wheels on meals, he was able to do the 3 stairs into house and required a stair chair into basement, he managed his finances with help from and Son as he was becoming more
forgetful which usually worsened with anxiety. He and share a gradual decline since starting HD however, he has had 4 falls in last year and the most decline since the procedure in Jan, he is now bedbound with sacral and heel pressure injuries.
Goals of Care Discussion
-
Individuals Present for Discussion & Relationship to Patient:
Pt, , Palliative care physician
Patient able to participate in discussion at time of visit: Yes
Patient's Information Preferences: Fully Involved/Able to Participate
Patient Goals
Pt has a living will but he and cannot really share details of the will completed years ago, does not know where it is in the house but se knows and he confirmed that she is listed as the medical power of deputy attorney general. We discussed what Pt
wishes are with his clinical decline and what he would like, Pt stated at first 'he was done', when asked to shed more light, he is obviously frustrated with his present bed-bound status and focuses more on talking about short term goals of pain
control and ' to be able to get back to walk', He shared his goals for now are to get CPR, intubation if needed, continue HD and be sent to ICU if needed, I shared that he might not be able to get off life support with his co-morbidities if he got
Intubated and sent to ICU and he responded with saying he would like to get ' everything' till it is demonstrated that it was futile. I explained that ' we are no longer where we used to be regarding medical condition' and he acknowledges, he
however feels 'trapped on this bed', he stated he ' I think I can get better if helped', could improve and get to walking again like he did before the procedure, i shared the possible clinical trajectory based on vascular surgery documentation and
he denied being told that, he believes that he can get ' the wound healed and I go back to what life I had before of having cardiac, renal and liver chronic problems, but you see I lived with all these and I understand that my options might run out
with their treatments, but I was able to walk and that is quality of life for me'. I shared that these systems did not work independently of each other and that his present condition was complicated by fact that each of these chronic co-morbidities
took a hit on his overall clinical picture, he at this point wanted to focus on short term goal of demonstrating he can walk and I shared we would ask Vascular if he can have PT demonstrate to him what he could do, at this point shares her
fears of situation where he is bed-bound and needing to get to dialyses 3 times a week and I again used the opportunity to explain to him that all conditions were related to his overall QOL, vascular surgery team came on rounds and it was a great
opportunity to ask what the surgeon assessment after the procedure yesterday, this was explained to him by team and he was told no stretches for today, Pt is accepting and is hopeful he can continue this discussions at a later time when it has been
demonstrated if he can walk and when his pain control was better so he can make informed decisions.
Pain & Symptom Assessment
Patient Symptoms
Patient Symptoms: Pain (Pain is worst in Rt thigh and groin, sharp, burning, radiates, constant in thigh and intermittent in Rt groin and 5/10 at time of visit, can get worse, pain medications ' don't touch the constant pain' and don't last for the
intermittent pain, ), Dyspnea, Anxiety, Agitation, Insomnia and Fatigue
[place] Symptom Scale 0=none, 10=worst
Pain: 5
Nausea: 0
Appetite: 0
Objective Data
-
Objective Data:
Vital Signs
Temp Pulse Resp BP Pulse Ox
98.3 F 82 18 92/59 96
02/27/25 08:00 02/27/25 08:00 02/27/25 08:00 02/27/25 08:00 02/27/25 08:00
Laboratory Results
02/27/25 05:58
02/27/25 05:58
Hemoglobin A1c 5.7 % (4.0-5.9) 02/26/25 07:53
Total Protein 6.0 g/dl (6.3-8.2) L 02/26/25 07:53
Albumin 3.6 g/dl (3.5-5.0) 02/26/25 07:53
Palliative Performance Scale
Palliative Performance Scale:
PPS Level Ambulation Activity & Evidence of Disease Self Care Intake Conscious Level
100% Full Normal Activity & Work; Full Intake Full
No Evidence of Disease
90% Full Normal Activity & Work; Full Normal Full
Some Evidence of Disease
80% Full Normal Activity with Effort Full Normal or Full
Some Evidence of Disease Reduced
70% Reduced Unable Normal Job/Work Full Normal or Full
Significant Disease Reduced
60% Reduced Unable Hobby/Housework Occasional Normal or Full or Confusion
Significant Disease Assistance Reduced
50% Mainly Sit/Lie Unable to do Any Work Considerable Normal or Full or Confusion
Extensive Disease Assistance Req'd Reduced
40% Mainly in Bed Unable to do Most Activity Mainly Assistance Normal or Full or Drowsy;
Extensive Disease Reduced +/- Confusion
30% Totally Bed Unable to do Any Activity Total Care Normal or Full or Drowsy;
Bound Extensive Disease Reduced +/- Confusion
20% Totally Bed Bound Unable to do Any Activity Total Care Minimal to Full or Drowsy;
Extensive Disease Sips +/- Confusion
10% Totally Bed Bound Unable to do Any Activity Total Care Mouth Care Drowsy or Coma;
Extensive Disease Only +/- Confusion
0%
PPS Score Level:
Palliative Performance Score Response
Palliative Performance Score Response: 40%
Physical Exam
-
General: Appears in Distress, Pain, Conversant and Appears Chronically Ill
HEENT: Normocephalic and Atraumatic
Respiratory: Clear to Auscultation
Cardiac: Regular Rhythm and S1/S2
Peripheral Vascular: Edema, Right Lower Extremity, Edema, Left Lower Extremity and Other (chronic vascular dermatitis and Rt first toe with black eschar)
GI: Soft, Nontender (globally but some tenderness at vidal-op site.) and Other (Rt groin with wound vac in place, dressing clean and dry)
Musculoskeletal: Other
Skin: Dry
Neuro: Awake, Alert, Oriented and Tremors
Psych: Anxious and Other (able to maintain eye contact, mood and affect congruent)
Assessment / Plan
-
Assessment/Plan:
74 YO M with multiple co-morbidities including Hx of CHF, ESRD, Liver Cirrhosis and severe PAD with critical limb ischemia s/p extensive femoral endarterectomy with interposition femoral to femoral bifurcarion bypass with saphenous vein conduit who
has a palliative care consult placed on account of his complex medical problems to discuss goals of care and help with symptom management.
Extensive supportive discussion with pt and , both emotional during visit when present clinical situation shared, Pt at this time focused on short term goals of pain control and wants demonstrated he is able to or unable to walk, he would like '
everything done' to get him back to the functional status he had prior to procedure in January, despite explaining the progressive nature of his illness and possible clinical trajectory with his multiple co-morbidities he shared he would want CPR,
intubation,HD, sent to ICU. I think the challenge here is the fact that the decline he is able to appreciate and is concerned with the most is being bed-bound and this appears to have coincided with post-op period, he is therefore not interested in
setting any limitations at this time. I offered him and that we can re-appraise his goals after he has had opportunity to see if he can get any progress with PT.
Symptom baxter he would benefit from increasing dose of prn oxycodone to 7.5mg q4h prn and schedule long acting opioid if he is requiring multiple doses even with adjustments, if IV opioids indicated, can increase dose of IV Dilaudid to 0.5mg q4h prn.
Pt also has sacral pressure injury and requesting a wound consult, I collaborated with his bedside RN regarding exploring options for pressure re-distribution.
Care Reviewed
Data Reviewed
Medical Tests: I reviewed
Reviewed with: Patient, Family, Physician and Nurse
[2025-02-27 11:56] LABS: Glucose - Point of Care 171 mg/dl (70-99)
[2025-02-27 11:58] VITALS: BP 110/49
[2025-02-27] MEDS: MANNITOL 25% 12.5 GRAMS IV ×2 (13:10→14:20)
--- NOTE | 2025-02-27 13:14 | W.PN.HOSP.TC ---
Today's Communication/Plan
-
Wound Vac
Pal consult
Pain regimen
Resume eliquis once cleared by Vascular
Assessment / Plan
Assessment / Plan
Physical Exam
General: No Apparent Distress
HEENT: NormoCephalic and Atraumatic
Respiratory: Clear
Cardiac: S1/S2 and Regular Rhythm
GI: Soft, Non Tender, Non Distended and Normal Bowel Sounds
Musculoskeletal: Edema, Left Lower Extremity and Edema, Right Lower Extremity
Skin: Warm, IV/Catheter Site (HD access site ) and Other (Right groin wound with purulence slough, TTp around the wound, no surrounding erythema. Right greater toe with dark eschar)
Neuro: Awake, Alert, Oriented and AO x 3
Psych: Calm
IMPRESSION:
74-year-old male with history of ESRD on hemodialysis, atrial fibrillation s/p ablation/cardioversion on , peripheral arterial disease, CHF, cirrhosis, ventricular tachycardia s/p ICD, hypertension, hyperlipidemia, type 2 diabetes, COPD
presenting via EMS from [facility] via EMS for right groin wound.
PLAN:
# Chronic PAD/right leg ischemia s/p right femoral endarterectomy with common femoral to femoral bifurcation artery bypass on 01/29
# Subsequent postoperative seroma status post washout on 02/05 with wound VAC
-POD #1 Reexploration right groin. Sharp excisional debridement of fibrinous exudate subcutaneous edges of wound and skin edges with scissor. Pulse lavage irrigation right groin with 3 L of normal saline solution. Sartorius muscle rotational
flap/coverage of vein bypass graft conduit/femoral bifurcation. Placement of wound VAC.
Continue Rocephin
F/u cultures
Eliquis once cleared by Vascular
Adequate pain control
Palliative Care consult
#ESRD
On hemodialysis Monday, , Monday
Hyperphosphatemia
Chronic hyponatremia
Nephrology consult
Dialysis as per renal
Continue sevelamer
#Chronic hypotension
Continue midodrine
#Nonischemic cardiomyopathy/HFrEF
Echo�01/31/2025 , EF of 30
Continue Entresto with hold parameters
Continue metoprolol
Monitor I/os, weights
#Atrial fibrillation s/p cardioversion, ablation
Continue metoprolol
Hold Eliquis- resume once cleared by surgery
Monitor telemetry
#Essential hypertension
Continue metoprolol
Continue Entresto
#COPD
Not in acute exacerbation
Continue albuterol, Breztri
#Anxiety
Continue alprazolam as needed
#Chronic wounds
Wound care
Diet�cardiac, low cholesterol, low sodium.
DNI
Anticipated Discharge: 24 - 48 hours
Subjective/Interval History
-
Date of Service: February 27, 2025
no acute events
Objective Data
-
Labs:
Laboratory Results
02/27/25
05:58
WBC 6.4
Hgb 9.1 L
Hct 26.9 L
Plt Count 127 L
Sodium 129 L
Potassium 4.8 D
Chloride 89 L
Carbon Dioxide 24
BUN 45 H
Creatinine 4.7 H*
Glucose 157 H
Calcium 9.9
Vital Signs:
Vital Signs
Temp Pulse Resp BP Pulse Ox
97.5 F 74 20 110/49 96
02/27/25 11:58 02/27/25 11:58 02/27/25 11:58 02/27/25 11:58 02/27/25 11:34
I&O
02/26/25 02/27/25 02/28/25
06:59 06:59 06:59
Intake Total 700 / 700 1010 / 1010
Output Total 200 / 200
Balance 700 / 700 810 / 810
Review of Systems
-
History Source: Patient
All other systems: Not reviewed unless documented
Data Reviewed
-
Labs: Labs Reviewed by me
[2025-02-27] MEDS: FLEXBUMIN 25% FOR HEMODIALYSIS 12.5 GRAMS IV ×2 (13:25→14:10)
[2025-02-27] MEDS: RETACRIT 10000 UNITS IV (13:26)
--- NOTE | 2025-02-27 13:36 | W.PN.NEPH.HD ---
Assessment
-
Pt seen on HD. no complaints. VSS, access ok
Progress Note - Hemodialysis
-
Date of Service: February 27, 2025
Duration: 30 minutes and 3 hours
Potassium Bath: 2
Opti-Dialyzer: 160
Ultrafiltration: Other (2kg)
Blood Flow: 400
Dialysate Flow: 600
Heparin: 0
EPO: 0
[2025-02-27] MEDS: DILAUDID 0.5 MG IV ×2 (15:36→19:27)
[2025-02-27 15:43] VITALS: BP 105/46
[2025-02-27] MEDS: HEPARIN 4300 UNITS INTRACATH (16:26)
[2025-02-27 16:57] LABS: Glucose - Point of Care 135 mg/dl (70-99)
[2025-02-27] MEDS: TOPROL XL PO ×2 (17:50→20:26)
[2025-02-27] MEDS: THERAGRAN 1 TABLET PO (17:51)
[2025-02-27] MEDS: VITAMIN D3 (cholecalciferol) 50 MCG PO (17:51)
[2025-02-27] MEDS: ZINC 50 MG PO (17:51)
[2025-02-27] MEDS: ENTRESTO 97 MG/103 MG PO ×2 (17:52→20:26)
[2025-02-27] MEDS: VITAMIN C 500 MG PO (17:52)
[2025-02-27] MEDS: NEPHROCAP 1 CAPSULE PO (17:52)
[2025-02-27] MEDS: NOVOLOG FLEXPEN-LOW RESISTANCE SC (17:54)
[2025-02-27] MEDS: PROTONIX 40 MG PO (18:15)
[2025-02-27 19:00] VITALS: BP 91/44
[2025-02-27] MEDS: ELIQUIS 5 MG PO (20:25)
[2025-02-27 21:33] LABS: Glucose - Point of Care 113 mg/dl (70-99)
[2025-02-27 23:05] VITALS: BP 100/51
[2025-02-28 03:15] VITALS: BP 102/43
[2025-02-28] MEDS: DILAUDID 0.5 MG IV ×2 (03:48→14:45)
--- NOTE | 2025-02-28 04:09 | PTCARENOTE ---
Patient self removed part of wound vac dressing and disconnected tubing. This nurse attempted to reconnect tubing and seal dressing site but was unable to do so and leak continued. Provider notified. Would vac dressing removed and wet to dry
dressing placed per protocol. Plan of care ongoing.
[2025-02-28 06:00] VITALS: BMI 27.8
[2025-02-28 07:10] VITALS: BP 96/49
[2025-02-28] MEDS: SPIRIVA RESPIMAT 2.5 MCG 2 PUFF INH (08:08)
[2025-02-28] MEDS: SYMBICORT 160/4.5 MCG INHALER 2 PUFF INH (08:08)
--- NOTE | 2025-02-28 08:14 | CM ---
Addendum entered by Lacho Ontiveros 02/28/25 14:57:
Both pt and pt's spouse confirmed that they preferred [facility].
CM spoke to [facility] patient care director Sonia [phone] and she confirmed they will have a bed available for pt possibly on Monday and they will order wound vac.
For onsite [facility] HD treatment, CM faxed a referral with Flow sheet to [phone]. Hep panel requested.
D/C plan: [facility] with [facility] HD treatment onsite possibly on Monday
Original Note:
CM following re: discharge planning.
Late note from yesterday
CM met with pt late yesterday. Pt's spouse, their son, daughter and grandson at bedside. Pt's family expressed their sever negative feelings regarding providing a list of SNFs from [employer] and not explaining which SNFs have HD onsite. Pt's
spouse stated she was calling all SNFs and she was told they do not have HD onsite. Emotional support offered and provided. CM provided pt and his family with a list of SNFs with HD treatment onsite and following SNFs preferred: [facility] and
[facility]. A referral to above SNFs made. Awaiting for determination.
D/C plan: preferred SNF
CM will follow to assist pt with discharge to a preferred SNF with HD treatment onsite
[2025-02-28 08:25] LABS: Glucose - Point of Care 93 mg/dl (70-99)
[2025-02-28 08:30] LABS: Hematocrit 30.2 % (39.0-52.0); Hemoglobin 9.8 g/dL (13.0-18.0); Mean Corp Hgb Conc. 32.5 g/dL (33.0-37.0); Mean Corpuscular Volume 106.0 fL (80.0-94.0); Platelet Count 140 10^3/uL (130-400); Red Cell Dist. Width 16.2 % (11.5-14.5)
[2025-02-28] MEDS: ENTRESTO 97 MG/103 MG 1 TAB PO (09:03)
[2025-02-28] MEDS: NEPHROCAP 1 CAPSULE PO (09:03)
[2025-02-28] MEDS: RENVELA 800 MG PO ×3 (09:04→17:01)
[2025-02-28] MEDS: TOPROL XL 25 MG PO (09:04)
[2025-02-28] MEDS: PROTONIX 40 MG PO (09:04)
[2025-02-28] MEDS: ELIQUIS 5 MG PO ×2 (09:04→20:55)
[2025-02-28] MEDS: THERAGRAN 1 TABLET PO (09:04)
[2025-02-28] MEDS: VITAMIN C 500 MG PO (09:05)
[2025-02-28] MEDS: ZINC 50 MG PO (09:05)
[2025-02-28] MEDS: VITAMIN D3 (cholecalciferol) 50 MCG PO (09:05)
[2025-02-28] MEDS: NOVOLOG FLEXPEN-LOW RESISTANCE SC ×3 (09:06→17:01)
--- NOTE | 2025-02-28 09:11 | W.PN.VS ---
Today's Communication / Plan
-
Seen and assessed with Dr Mahoney
Assessment/Plan
-
Assessment: 74-year-old male POD #2 Reexploration right groin. Sharp excisional debridement of fibrinous exudate subcutaneous edges of wound and skin edges with scissor. Pulse lavage irrigation right groin with 3 L of normal saline solution.
Sartorius muscle rotational flap/coverage of vein bypass graft conduit/femoral bifurcation. Placement of wound VAC.
Plan:
Bedrest ends after lunch, then may get oob to chair
I will replace VAC today
Appreciate palliative care consultation and evaluation for goals of care discussion
Nutrition consult
Subjective Data
-
Date of Service: February 28, 2025
Patient seen at bedside this a.m. Patient offers no complaints this time. VAC was accidentally removed overnight by patient. Wet-to-dry dressing applied. No other events overnight.
Objective Data
-
Vital Signs
Temp Pulse Resp BP Pulse Ox
97.8 F 70 16 96/49 95
02/28/25 07:10 02/28/25 08:13 02/28/25 08:13 02/28/25 07:10 02/28/25 08:13
Intake and Output
02/27/25 02/28/25 03/01/25
06:59 06:59 06:59
Intake Total 1010 / 1010 440 / 440 240 / 240
Output Total 200 / 200 200 / 200
Balance 810 / 810 440 / 440 40 / 40
Intake:
Oral fluids 960 / 960 440 / 440 240 / 240
IV fluids (Total) 50 / 50
Normosal 50 / 50
Output:
Drain Output (Total) 200 / 200 200 / 200
Right Leg Wound Vac 200 / 200 200 / 200
Lab Results
02/28/25 07:23
02/27/25 05:58
Calcium 9.9 mg/dl (8.4-10.2) 02/27/25 05:58
Total Bilirubin 1.6 mg/dl (0.2-1.3) H 02/26/25 07:53
AST 16 U/L (17-59) L 02/26/25 07:53
ALT 11 U/L (0-50) 02/26/25 07:53
Alkaline Phosphatase 214 U/L (38-126) H 02/26/25 07:53
Total Protein 6.0 g/dl (6.3-8.2) L 02/26/25 07:53
Albumin 3.6 g/dl (3.5-5.0) 02/26/25 07:53
Physical Exam
-
No apparent distress, resting in bed
No tachycardia
No tachypnea at this time
Right groin site muscle flap pink appearing, skin edge with mild fibrinous tissue, serous drainage
Right foot warm, palpable DP, hallux dry gangrene stable, +2 edema bilateral lower extremities
[2025-02-28 11:28] LABS: Glucose - Point of Care 124 mg/dl (70-99)
[2025-02-28] MEDS: ROXICODONE 7.5 MG PO ×2 (11:29→19:30)
[2025-02-28] MEDS: XANAX 0.25 MG PO (11:29)
--- NOTE | 2025-02-28 12:41 | W.PN.UPDATE ---
Update Note
Progress Note Update
VAC changed at bedside, pt tolerated well.
12x6x2 black foam
--- NOTE | 2025-02-28 13:27 | WOUNDNOTE ---
WOC RN note: Confirmed with ROSA Monk that he is aware that patient will need a R groin vac at SNF.
--- NOTE | 2025-02-28 13:38 | W.PN.HOSP.TC ---
Today's Communication/Plan
-
wound vac
nutrition consult
Assessment / Plan
Assessment / Plan
Physical Exam
General: No Apparent Distress
HEENT: NormoCephalic and Atraumatic
Respiratory: Clear
Cardiac: S1/S2 and Regular Rhythm
GI: Soft, Non Tender, Non Distended and Normal Bowel Sounds
Musculoskeletal: Edema, Left Lower Extremity and Edema, Right Lower Extremity
Skin: Warm, IV/Catheter Site (HD access site ) and Other (Right groin wound with purulence slough, TTp around the wound, no surrounding erythema. Right greater toe with dark eschar)
Neuro: Awake, Alert, Oriented and AO x 3
Psych: Calm
IMPRESSION:
74-year-old male with history of ESRD on hemodialysis, atrial fibrillation s/p ablation/cardioversion on qu, peripheral arterial disease, CHF, cirrhosis, ventricular tachycardia s/p ICD, hypertension, hyperlipidemia, type 2 diabetes, COPD
presenting via EMS from [facility] via EMS for right groin wound.
PLAN:
# Chronic PAD/right leg ischemia s/p right femoral endarterectomy with common femoral to femoral bifurcation artery bypass on 01/29
# Subsequent postoperative seroma status post washout on 02/05 with wound VAC
-POD #2 Reexploration right groin. Sharp excisional debridement of fibrinous exudate subcutaneous edges of wound and skin edges with scissor. Pulse lavage irrigation right groin with 3 L of normal saline solution. Sartorius muscle rotational
flap/coverage of vein bypass graft conduit/femoral bifurcation. Placement of wound VAC.
No obvious infection, can discontinue antibiotics and monitor
F/u cultures
Eliquis once cleared by Vascular
Adequate pain control
Palliative Care consult, pain control
Nutrition consult
Pain control
#ESRD
On hemodialysis Monday, , Monday
Hyperphosphatemia
Chronic hyponatremia
Nephrology consult
Dialysis as per renal
Continue sevelamer
#Chronic hypotension
Continue midodrine
#Nonischemic cardiomyopathy/HFrEF
Echo�01/31/2025 , EF of 30
Continue Entresto with hold parameters
Continue metoprolol
Monitor I/os, weights
#Atrial fibrillation s/p cardioversion, ablation
Continue metoprolol
Resume Eliquis
Monitor telemetry
#Essential hypertension
Continue metoprolol
Continue Entresto
#COPD
Not in acute exacerbation
Continue albuterol, Breztri
#Anxiety
Continue alprazolam as needed
#Chronic wounds
Wound care
Diet�cardiac, low cholesterol, low sodium.
DNI
Anticipated Discharge: 24 - 48 hours
Subjective/Interval History
-
Date of Service: February 28, 2025
No acute events overnight
Objective Data
-
Labs:
Laboratory Results
02/28/25
07:23
WBC 9.1
Hgb 9.8 L
Hct 30.2 L
Plt Count 140
Vital Signs:
Vital Signs
Temp Pulse Resp BP Pulse Ox
97.8 F 70 16 96/49 94
02/28/25 07:10 02/28/25 08:13 02/28/25 08:13 02/28/25 07:10 02/28/25 09:10
I&O
02/27/25 02/28/25 03/01/25
06:59 06:59 06:59
Intake Total 1010 / 1010 440 / 440 240 / 240
Output Total 200 / 200 200 / 200
Balance 810 / 810 440 / 440 40 / 40
Review of Systems
-
History Source: Patient
All other systems: Not reviewed unless documented
Data Reviewed
-
Labs: Labs Reviewed by me
--- NOTE | 2025-02-28 14:03 | W.PN.NEPH.PH ---
Today's Communication / Plan
-
Dialysis tomorrow no acute need today
Assessment/Plan
-
Mr. Downing is a 74 yo male with longstanding HFrEF from a nonischemic dilated cardiomyopathy on enteresto,h/o VT s/p ICD, persistent atrial fibrillation on Eliquis (he did not tolerate Amiodarone), ESRD on HD TTS through [facility] at [facility] unit,
jane, new AVF 3m old, COPD (former smoker), status post revascularization of right leg CLI. right femoral endarterectomy 01/29/2025y Dr. Mahoney. Presents to [facility] with drainage of wound where wound VAC is present
Impression
ESRD TTS
Anemia of chronic disease
Wound infection
Vasculopath status post femoral endarterectomy with wound VAC
Chronic hypotension
CHF
Hyponatremia
Plan
HD tomorrow
-
-
Date of Service: February 28, 2025
CC / HPI / ROS
-
Chief Complaint:
ESRD
History of Present Illness:
tolerated HD yesterday
BP stable
s/p washout right groin, VAC placement
Review of Systems:
no CP/SOB
Labs
-
Labs:
WBC 9.1 10^3/uL (4.8-10.8) 02/28/25 07:23
RBC 2.85 10^6/uL (4.70-6.10) L 02/28/25 07:23
Hgb 9.8 g/dL (13.0-18.0) L 02/28/25 07:23
Hct 30.2 % (39.0-52.0) L 02/28/25 07:23
Plt Count 140 10^3/uL (130-400) 02/28/25 07:23
Sodium 129 mmol/L (135-145) L 02/27/25 05:58
Potassium 4.8 mmol/L (3.5-5.1) D 02/27/25 05:58
Chloride 89 mmol/L (98-107) L 02/27/25 05:58
Carbon Dioxide 24 mmol/L (22-30) 02/27/25 05:58
BUN 45 mg/dl (9-20) H 02/27/25 05:58
Creatinine 4.7 mg/dL (0.7-1.3) H* 02/27/25 05:58
eGFR 12.33 02/27/25 05:58
Glucose 157 mg/dl (70-99) H 02/27/25 05:58
Calcium 9.9 mg/dl (8.4-10.2) 02/27/25 05:58
Albumin 3.6 g/dl (3.5-5.0) 02/26/25 07:53
Physical Exam
-
Vital Signs:
Vital Signs
Temp Pulse Resp BP Pulse Ox
97.8 F 70 16 96/49 94
02/28/25 07:10 02/28/25 08:13 02/28/25 08:13 02/28/25 07:10 02/28/25 09:10
Cardiovascular:: Regular rate and rhythm
Respiratory:: Bilateral: Coarse
Lung Excursion:: Normal
Abdomen:: Nontender and Soft
Bowel Sounds:: Normal
Extremity Edema:: +1: Bilateral:
Other Findings::
RUE AVF thrill
[2025-02-28 15:00] VITALS: BP 91/45
[2025-02-28 16:51] LABS: Glucose - Point of Care 118 mg/dl (70-99)
[2025-02-28] MEDS: SYMBICORT 160/4.5 MCG INHALER INH (18:22)
[2025-02-28 19:00] VITALS: BP 104/55
[2025-02-28] MEDS: ENTRESTO 97 MG/103 MG PO (20:55)
[2025-02-28] MEDS: TOPROL XL PO (20:55)
[2025-02-28 21:34] LABS: Glucose - Point of Care 152 mg/dl (70-99)
[2025-02-28 23:05] VITALS: BP 107/49
[2025-03-01] MEDS: TYLENOL 650 MG PO (03:02)
[2025-03-01 03:24] VITALS: BP 111/45
[2025-03-01] MEDS: XANAX 0.25 MG PO (04:19)
[2025-03-01 05:12] VITALS: BMI 28.1
[2025-03-01 06:24] LABS: Hematocrit 30.8 % (39.0-52.0); Hemoglobin 9.9 g/dL (13.0-18.0); Mean Corp Hgb Conc. 32.1 g/dL (33.0-37.0); Mean Corpuscular Volume 105.8 fL (80.0-94.0); Platelet Count 151 10^3/uL (130-400); Red Cell Dist. Width 15.9 % (11.5-14.5)
[2025-03-01 06:53] LABS: ALT (SGPT) < 10 U/L (0-50); AST (SGOT) 17 U/L (17-59); Albumin 3.9 g/dl (3.5-5.0); Alkaline Phosphatase 190 U/L (38-126); Blood Urea Nitrogen 46 mg/dl (9-20); Calcium 9.7 mg/dl (8.4-10.2); Carbon Dioxide 24 mmol/L (22-30); Chloride 91 mmol/L (98-107); Estimated Creatinine Clearance 14 ml/min; Glucose 102 mg/dl (70-99); Potassium 4.0 mmol/L (3.5-5.1); Sodium 131 mmol/L (135-145); Total Protein 6.1 g/dl (6.3-8.2); eGFR 12.99
[2025-03-01 07:05] VITALS: BP 93/40
[2025-03-01 07:19] LABS: Glucose - Point of Care 162 mg/dl (70-99)
[2025-03-01] MEDS: SPIRIVA RESPIMAT 2.5 MCG 2 PUFF INH (07:24)
[2025-03-01] MEDS: SYMBICORT 160/4.5 MCG INHALER 2 PUFF INH ×2 (07:25→17:47)
[2025-03-01] MEDS: NOVOLOG FLEXPEN-LOW RESISTANCE 1 UNITS SC (07:44)
[2025-03-01] MEDS: RENVELA 800 MG PO ×3 (07:51→17:28)
[2025-03-01] MEDS: MANNITOL 25% 12.5 GRAMS IV ×2 (08:44→09:55)
[2025-03-01] MEDS: FLEXBUMIN 25% FOR HEMODIALYSIS 12.5 GRAMS IV ×2 (08:44→09:54)
[2025-03-01] MEDS: RETACRIT 6000 UNITS IV (08:45)
[2025-03-01] MEDS: ROXICODONE 7.5 MG PO ×3 (09:17→20:27)
[2025-03-01 11:05] VITALS: BP 108/41
[2025-03-01] MEDS: HEPARIN 4300 UNITS INTRACATH (11:50)
--- NOTE | 2025-03-01 12:49 | W.PN.NEPH.HD ---
Assessment
-
Tolerating HD is seen on dialysis blood pressure stable with mannitol and albumin/midodrine ultrafiltration 2.5 L
Progress Note - Hemodialysis
-
Date of Service: March 01, 2025
Duration: 30 minutes and 3 hours
Potassium Bath: 2
Opti-Dialyzer: 160
Ultrafiltration: Other (2kg)
Blood Flow: 400
Dialysate Flow: 600
Heparin: 0
EPO: Yes
--- NOTE | 2025-03-01 12:50 | W.PN.HOSP.TC ---
Today's Communication/Plan
-
Wound VAC
Vascular recommendations
Monitor white count, fever curve
Assessment / Plan
Assessment / Plan
Physical Exam
General: No Apparent Distress
HEENT: NormoCephalic and Atraumatic
Respiratory: Clear
Cardiac: S1/S2 and Regular Rhythm
GI: Soft, Non Tender, Non Distended and Normal Bowel Sounds
Musculoskeletal: Edema, Left Lower Extremity and Edema, Right Lower Extremity
Skin: Warm, IV/Catheter Site (HD access site ) and Other (Right groin wound with purulence slough, TTp around the wound, no surrounding erythema. Right greater toe with dark eschar)
Neuro: Awake, Alert, Oriented and AO x 3
Psych: Calm
IMPRESSION:
74-year-old male with history of ESRD on hemodialysis, atrial fibrillation s/p ablation/cardioversion on , peripheral arterial disease, CHF, cirrhosis, ventricular tachycardia s/p ICD, hypertension, hyperlipidemia, type 2 diabetes, COPD
presenting via EMS from [facility] via EMS for right groin wound.
PLAN:
# Chronic PAD/right leg ischemia s/p right femoral endarterectomy with common femoral to femoral bifurcation artery bypass on 01/29
# Subsequent postoperative seroma status post washout on 02/05 with wound VAC
-POD #3 Reexploration right groin. Sharp excisional debridement of fibrinous exudate subcutaneous edges of wound and skin edges with scissor. Pulse lavage irrigation right groin with 3 L of normal saline solution. Sartorius muscle rotational
flap/coverage of vein bypass graft conduit/femoral bifurcation. Placement of wound VAC.
No obvious infection, can discontinue antibiotics and monitor
F/u cultures
Eliquis once cleared by Vascular
Adequate pain control
Palliative Care consult, pain control
Nutrition consult
Pain control
Leukocytosis
�
� Monitor fever curve, white count
� No obvious vaginal infection at this time
#ESRD
On hemodialysis Monday, , Monday
Hyperphosphatemia
Chronic hyponatremia
Nephrology consult
Dialysis as per renal
Continue sevelamer
#Chronic hypotension
Continue midodrine
#Nonischemic cardiomyopathy/HFrEF
Echo�01/31/2025 , EF of 30
Continue Entresto with hold parameters
Continue metoprolol
Monitor I/os, weights
#Atrial fibrillation s/p cardioversion, ablation
Continue metoprolol
Resume Eliquis
Monitor telemetry
#Essential hypertension
Continue metoprolol
Continue Entresto
#Transaminitis
Mildly elevated bilirubin, alk phos
No abdominal pain
Follow-up outpatient
#COPD
Not in acute exacerbation
Continue albuterol, Breztri
#Anxiety
Continue alprazolam as needed
#Chronic wounds
Wound care
Diet�cardiac, low cholesterol, low sodium.
DNI
Anticipated Discharge: 24 - 48 hours
Subjective/Interval History
-
Date of Service: March 01, 2025
No acute events overnight
Objective Data
-
Labs:
Laboratory Results
03/01/25
05:51
WBC 13.2 H
Hgb 9.9 L
Hct 30.8 L
Plt Count 151
Sodium 131 L
Potassium 4.0
Chloride 91 L
Carbon Dioxide 24
BUN 46 H
Creatinine 4.5 H*
Glucose 102 H
Calcium 9.7
Total Bilirubin 1.5 H
AST 17
ALT < 10
Alkaline Phosphatase 190 H
Vital Signs:
Vital Signs
Temp Pulse Resp BP Pulse Ox
97.9 F 65 16 108/41 96
03/01/25 11:05 03/01/25 11:05 03/01/25 11:05 03/01/25 11:05 03/01/25 11:05
I&O
02/28/25 03/01/25 03/02/25
06:59 06:59 06:59
Intake Total 440 / 440 770 / 770
Output Total 400 / 400 150 / 150
Balance 440 / 440 370 / 370 -150 / -150
Review of Systems
-
History Source: Patient
All other systems: Not reviewed unless documented
Data Reviewed
-
Labs: Labs Reviewed by me
[2025-03-01 13:07] LABS: Glucose - Point of Care 111 mg/dl (70-99)
[2025-03-01] MEDS: PROTONIX 40 MG PO (13:15)
[2025-03-01] MEDS: ZINC 50 MG PO (13:15)
[2025-03-01] MEDS: NEPHROCAP 1 CAPSULE PO (13:15)
[2025-03-01] MEDS: ELIQUIS 5 MG PO ×2 (13:15→20:23)
[2025-03-01] MEDS: VITAMIN D3 (cholecalciferol) 50 MCG PO (13:15)
[2025-03-01] MEDS: VITAMIN C 500 MG PO (13:15)
[2025-03-01] MEDS: THERAGRAN 1 TABLET PO (13:15)
[2025-03-01] MEDS: TOPROL XL PO ×2 (13:17→20:23)
[2025-03-01] MEDS: NOVOLOG FLEXPEN-LOW RESISTANCE SC ×2 (13:17→17:36)
[2025-03-01] MEDS: ENTRESTO 97 MG/103 MG PO ×2 (13:17→20:23)
[2025-03-01 15:00] VITALS: BP 98/41
[2025-03-01 16:49] LABS: Glucose - Point of Care 120 mg/dl (70-99)
[2025-03-01 19:00] VITALS: BP 107/38
[2025-03-01 20:34] LABS: Glucose - Point of Care 103 mg/dl (70-99)
[2025-03-01 23:00] VITALS: BP 96/36
[2025-03-02] MEDS: DILAUDID 0.5 MG IV (02:51)
[2025-03-02] MEDS: ATARAX 10 MG PO ×3 (02:53→23:58)
[2025-03-02 03:03] VITALS: BP 115/43
[2025-03-02 06:00] VITALS: BMI 26.3
[2025-03-02] MEDS: ROXICODONE 7.5 MG PO ×2 (06:30→10:30)
[2025-03-02 06:47] LABS: Hematocrit 31.1 % (39.0-52.0); Hemoglobin 9.6 g/dL (13.0-18.0); Mean Corp Hgb Conc. 30.9 g/dL (33.0-37.0); Mean Corpuscular Volume 111.1 fL (80.0-94.0); Red Cell Dist. Width 16.3 % (11.5-14.5)
[2025-03-02 07:18] LABS: Glucose - Point of Care 148 mg/dl (70-99)
[2025-03-02 07:23] LABS: ALT (SGPT) < 10 U/L (0-50); AST (SGOT) 16 U/L (17-59); Albumin 3.5 g/dl (3.5-5.0); Alkaline Phosphatase 179 U/L (38-126); Blood Urea Nitrogen 27 mg/dl (9-20); Calcium 9.4 mg/dl (8.4-10.2); Carbon Dioxide 27 mmol/L (22-30); Chloride 93 mmol/L (98-107); Estimated Creatinine Clearance 19 ml/min; Glucose 103 mg/dl (70-99); Potassium 3.8 mmol/L (3.5-5.1); Sodium 129 mmol/L (135-145); Total Protein 5.7 g/dl (6.3-8.2); eGFR 17.56
[2025-03-02 07:27] LABS: Platelet Count 119 10^3/uL (130-400)
[2025-03-02] MEDS: SPIRIVA RESPIMAT 2.5 MCG 2 PUFF INH (07:29)
[2025-03-02] MEDS: SYMBICORT 160/4.5 MCG INHALER 2 PUFF INH ×2 (07:30→19:47)
[2025-03-02 07:45] VITALS: BP 94/32
[2025-03-02] MEDS: ELIQUIS 5 MG PO ×2 (08:14→19:44)
[2025-03-02] MEDS: VITAMIN D3 (cholecalciferol) 50 MCG PO (08:14)
[2025-03-02] MEDS: TYLENOL 650 MG PO (08:14)
[2025-03-02] MEDS: ZINC 50 MG PO (08:15)
[2025-03-02] MEDS: VITAMIN C 500 MG PO (08:15)
[2025-03-02] MEDS: PROTONIX 40 MG PO (08:15)
[2025-03-02] MEDS: ENTRESTO 97 MG/103 MG PO ×2 (08:15→21:09)
[2025-03-02] MEDS: NEPHROCAP 1 CAPSULE PO (08:15)
[2025-03-02] MEDS: THERAGRAN 1 TABLET PO (08:15)
[2025-03-02] MEDS: TOPROL XL PO ×2 (08:15→21:09)
[2025-03-02] MEDS: RENVELA 800 MG PO ×3 (08:15→16:15)
[2025-03-02] MEDS: NOVOLOG FLEXPEN-LOW RESISTANCE SC ×3 (08:21→16:15)
[2025-03-02] MEDS: XANAX 0.25 MG PO (11:19)
[2025-03-02 11:22] LABS: Glucose - Point of Care 147 mg/dl (70-99)
[2025-03-02 11:52] VITALS: BP 108/46
--- NOTE | 2025-03-02 12:48 | W.PN.HOSP.TC ---
Today's Communication/Plan
-
Vascular recs, cont wound vac
monitor fever curve, wbc
pain control
Assessment / Plan
Assessment / Plan
Physical Exam
General: No Apparent Distress
HEENT: NormoCephalic and Atraumatic
Respiratory: Clear
Cardiac: S1/S2 and Regular Rhythm
GI: Soft, Non Tender, Non Distended and Normal Bowel Sounds
Musculoskeletal: Edema, Left Lower Extremity and Edema, Right Lower Extremity
Skin: Warm, IV/Catheter Site (HD access site ) and Other (Right groin - Wound vac in place, no surrounding erythema. Right greater toe with dark eschar)
Neuro: Awake, Alert, Oriented and AO x 3
Psych: Calm
IMPRESSION:
74-year-old male with history of ESRD on hemodialysis, atrial fibrillation s/p ablation/cardioversion on , peripheral arterial disease, CHF, cirrhosis, ventricular tachycardia s/p ICD, hypertension, hyperlipidemia, type 2 diabetes, COPD
presenting via EMS from [facility] via EMS for right groin wound.
PLAN:
# Chronic PAD/right leg ischemia s/p right femoral endarterectomy with common femoral to femoral bifurcation artery bypass on 01/29
# Subsequent postoperative seroma status post washout on 02/05 with wound VAC
-POD #4 Reexploration right groin. Sharp excisional debridement of fibrinous exudate subcutaneous edges of wound and skin edges with scissor. Pulse lavage irrigation right groin with 3 L of normal saline solution. Sartorius muscle rotational
flap/coverage of vein bypass graft conduit/femoral bifurcation. Placement of wound VAC.
No obvious infection, can discontinue antibiotics and monitor
Eliquis cleared by Vascular
Adequate pain control
Palliative Care consult, pain control
Nutrition consult
Pain control
Leukocytosis
�Improved today
� Monitor fever curve, white count
� No obvious infection at this time
#ESRD
On hemodialysis Monday, , Monday
Hyperphosphatemia
Chronic hyponatremia
Nephrology consult
Dialysis as per renal
Continue sevelamer
#Chronic hypotension
Continue midodrine
#Nonischemic cardiomyopathy/HFrEF
Echo�01/31/2025 , EF of 30
Continue Entresto with hold parameters
Continue metoprolol
Monitor I/os, weights
#Atrial fibrillation s/p cardioversion, ablation
Continue metoprolol
Resume Eliquis
Monitor telemetry
#Essential hypertension
Continue metoprolol
Continue Entresto
#Transaminitis
Mildly elevated bilirubin, alk phos
No abdominal pain
Follow-up outpatient
#COPD
Not in acute exacerbation
Continue albuterol, Breztri
#Anxiety
Continue alprazolam as needed
#Chronic wounds
Wound care
Diet�cardiac, low cholesterol, low sodium.
DNI
Anticipated Discharge: Within 24 hours
Subjective/Interval History
-
Date of Service: March 02, 2025
no acute events
Objective Data
-
Labs:
Laboratory Results
03/02/25
05:57
WBC 9.5
Hgb 9.6 L
Hct 31.1 L
Plt Count 119 L D
Sodium 129 L
Potassium 3.8
Chloride 93 L
Carbon Dioxide 27
BUN 27 H
Creatinine 3.5 H
Glucose 103 H
Calcium 9.4
Total Bilirubin 1.6 H
AST 16 L
ALT < 10
Alkaline Phosphatase 179 H
Vital Signs:
Vital Signs
Temp Pulse Resp BP Pulse Ox
97.5 F 83 18 108/46 94
03/02/25 11:52 03/02/25 11:52 03/02/25 11:52 03/02/25 11:52 03/02/25 11:52
I&O
03/01/25 03/02/25 03/03/25
06:59 06:59 06:59
Intake Total 770 / 770 680 / 680 120 / 120
Output Total 400 / 400 650 / 650
Balance 370 / 370 30 / 30 120 / 120
Review of Systems
-
History Source: Patient
All other systems: Not reviewed unless documented
Data Reviewed
-
Labs: Labs Reviewed by me
--- NOTE | 2025-03-02 13:44 | W.PN.NEPH.PH ---
Today's Communication / Plan
-
Monday dialysis
Assessment/Plan
-
Mr. Downing is a 74 yo male with longstanding HFrEF from a nonischemic dilated cardiomyopathy on enteresto,h/o VT s/p ICD, persistent atrial fibrillation on Eliquis (he did not tolerate Amiodarone), ESRD on HD TTS through [facility]VC at [facility] unit,
[facility], new AVF 3m old, COPD (former smoker), status post revascularization of right leg CLI. right femoral endarterectomy 01/29/2025y Dr. Mahoney. Presents to [facility] with drainage of wound where wound VAC is present
Impression
ESRD TTS
Anemia of chronic disease
Wound infection
Vasculopath status post femoral endarterectomy with wound VAC
Chronic hypotension
CHF
Hyponatremia
Plan
Continue TTS
Epogen for hemoglobin less than 10
No acute need for dialysis today
-
-
Date of Service: March 02, 2025
CC / HPI / ROS
-
Chief Complaint:
ESRD
History of Present Illness:
tolerated HD yesterday
BP stable
s/p washout right groin, VAC placement
Review of Systems:
no CP/SOB
Labs
-
Labs:
WBC 9.5 10^3/uL (4.8-10.8) 03/02/25 05:57
RBC 2.80 10^6/uL (4.70-6.10) L 03/02/25 05:57
Hgb 9.6 g/dL (13.0-18.0) L 03/02/25 05:57
Hct 31.1 % (39.0-52.0) L 03/02/25 05:57
Plt Count 119 10^3/uL (130-400) L D 03/02/25 05:57
Sodium 129 mmol/L (135-145) L 03/02/25 05:57
Potassium 3.8 mmol/L (3.5-5.1) 03/02/25 05:57
Chloride 93 mmol/L (98-107) L 03/02/25 05:57
Carbon Dioxide 27 mmol/L (22-30) 03/02/25 05:57
BUN 27 mg/dl (9-20) H 03/02/25 05:57
Creatinine 3.5 mg/dL (0.7-1.3) H 03/02/25 05:57
eGFR 17.56 03/02/25 05:57
Glucose 103 mg/dl (70-99) H 03/02/25 05:57
Calcium 9.4 mg/dl (8.4-10.2) 03/02/25 05:57
Albumin 3.5 g/dl (3.5-5.0) 03/02/25 05:57
Physical Exam
-
Vital Signs:
Vital Signs
Temp Pulse Resp BP Pulse Ox
97.5 F 83 18 108/46 94
03/02/25 11:52 03/02/25 11:52 03/02/25 11:52 03/02/25 11:52 03/02/25 11:52
Cardiovascular:: Regular rate and rhythm
Respiratory:: Bilateral: Coarse
Lung Excursion:: Normal
Abdomen:: Nontender and Soft
Bowel Sounds:: Normal
Extremity Edema:: +1: Bilateral:
Other Findings::
RUE AVF thrill
[2025-03-02 15:00] VITALS: BP 99/42
[2025-03-02 16:15] LABS: Glucose - Point of Care 116 mg/dl (70-99)
[2025-03-02 19:46] VITALS: BP 108/44
[2025-03-02 21:48] LABS: Glucose - Point of Care 150 mg/dl (70-99)
[2025-03-02 23:12] VITALS: BP 105/41
[2025-03-02] MEDS: ROXICODONE 5 MG PO (23:57)
[2025-03-03] VITALS (7 sets, daily range): BP systolic 89–107; BP diastolic 31–54; PULSE 85; BMI 26.7
[2025-03-03] MEDS: DILAUDID 0.5 MG IV (04:29)
[2025-03-03] MEDS: XANAX 0.25 MG PO ×2 (05:14→12:31)
[2025-03-03 07:33] LABS: Glucose - Point of Care 102 mg/dl (70-99)
--- NOTE | 2025-03-03 07:38 | WOUNDNOTE ---
WOC RN note: Clarified with Laura Smyth [facility] INTERVENTIONAL PHYSIATRIST that is patient is not discharged to SNF today, the vascular team will be changing his vac dressing today.
[2025-03-03] MEDS: SPIRIVA RESPIMAT 2.5 MCG 2 PUFF INH (07:41)
[2025-03-03] MEDS: SYMBICORT 160/4.5 MCG INHALER 2 PUFF INH ×2 (07:41→17:48)
[2025-03-03 07:49] LABS: Hematocrit 32.7 % (39.0-52.0); Hemoglobin 10.1 g/dL (13.0-18.0); Mean Corp Hgb Conc. 30.9 g/dL (33.0-37.0); Mean Corpuscular Volume 110.1 fL (80.0-94.0); Platelet Count 148 10^3/uL (130-400); Red Cell Dist. Width 16.0 % (11.5-14.5)
[2025-03-03 08:24] LABS: ALT (SGPT) < 10 U/L (0-50); AST (SGOT) 21 U/L (17-59); Albumin 3.9 g/dl (3.5-5.0); Alkaline Phosphatase 215 U/L (38-126); Blood Urea Nitrogen 43 mg/dl (9-20); Calcium 9.6 mg/dl (8.4-10.2); Carbon Dioxide 25 mmol/L (22-30); Chloride 91 mmol/L (98-107); Estimated Creatinine Clearance 15 ml/min; Glucose 97 mg/dl (70-99); Potassium 4.3 mmol/L (3.5-5.1); Sodium 128 mmol/L (135-145); Total Protein 6.3 g/dl (6.3-8.2); eGFR 13.72
[2025-03-03] MEDS: NOVOLOG FLEXPEN-LOW RESISTANCE SC ×3 (08:40→17:25)
[2025-03-03] MEDS: NEPHROCAP 1 CAPSULE PO (08:41)
[2025-03-03] MEDS: ENTRESTO 97 MG/103 MG PO ×2 (08:41→19:44)
[2025-03-03] MEDS: PROTONIX 40 MG PO (08:42)
[2025-03-03] MEDS: RENVELA 800 MG PO ×3 (08:42→17:25)
[2025-03-03] MEDS: VITAMIN D3 (cholecalciferol) 50 MCG PO (08:42)
[2025-03-03] MEDS: VITAMIN C 500 MG PO (08:42)
[2025-03-03] MEDS: ZINC 50 MG PO (08:42)
[2025-03-03] MEDS: ELIQUIS 5 MG PO ×2 (08:42→19:45)
[2025-03-03] MEDS: TOPROL XL PO ×2 (08:43→19:44)
[2025-03-03] MEDS: THERAGRAN 1 TABLET PO (08:43)
[2025-03-03] MEDS: ROXICODONE 5 MG PO (09:26)
[2025-03-03] MEDS: TYLENOL 650 MG PO ×2 (12:21→17:31)
[2025-03-03 12:25] LABS: Glucose - Point of Care 130 mg/dl (70-99)
--- NOTE | 2025-03-03 12:36 | W.PN.HOSP.TC ---
Today's Communication/Plan
-
dispo planning to SNF with HD
pending hepatitis panel per outpt HD request
Assessment / Plan
Assessment / Plan
HPI: 74-year-old male with history of ESRD on hemodialysis, atrial fibrillation s/p ablation/cardioversion on Eliquis, peripheral arterial disease, CHF, cirrhosis, ventricular tachycardia s/p ICD, hypertension, hyperlipidemia, type 2 diabetes, COPD,
from [facility]; p/w right groin wound.
A/P:
# Chronic PAD/right leg ischemia s/p right femoral endarterectomy with common femoral to femoral bifurcation artery bypass on 01/29
# Subsequent postoperative seroma status post washout on 02/05 with wound VAC
s/p Reexploration right groin with sharp excisional debridement of fibrinous exudate subcutaneous edges of wound and skin edges with scissor, 02/26
Placement of wound VAC- management of vac per vascular surgery team
No obvious infection, discontinued antibiotics and monitor
resumed Eliquis
Palliative Care consult, pain control
Dispo to SNF
# Leukocytosis, resolved
No fever
# ESRD on hemodialysis Monday, , Monday
# Hyperphosphatemia
# Chronic hyponatremia
Nephrology on board, Dialysis per renal
Continue sevelamer
hepatitis panel sent per outpt HD request, follow up
# Chronic hypotension
Continue midodrine
# Nonischemic cardiomyopathy/HFrEF
Echo 01/31/2025, EF of 30 %
Continue Entresto, metoprolol with hold parameters
Monitor I/os, weights
# Atrial fibrillation s/p cardioversion, ablation
Continue metoprolol with hold parameters
Resumed Eliquis
Monitor telemetry
# Essential hypertension
Continue Entresto, metoprolol with hold parameters
# Transaminitis
Mildly elevated bilirubin, alk phos
No abdominal pain
Follow-up outpatient
# COPD
Not in acute exacerbation
Continue albuterol, Breztri
# Anxiety
Continue alprazolam as needed
# Chronic wounds
Wound care
DVT ppx: REGIONAL CLINICAL DIRECTOR Eliquis
DNI
updated on the phone
DW RN
DW CM
total time 51 min
Anticipated Discharge: 24 - 48 hours
Subjective/Interval History
-
Date of Service: March 03, 2025
Objective Data
-
Labs:
Laboratory Results
03/03/25
06:47
WBC 9.4
Hgb 10.1 L
Hct 32.7 L
Plt Count 148 D
Sodium 128 L
Potassium 4.3
Chloride 91 L
Carbon Dioxide 25
BUN 43 H
Creatinine 4.3 H*
Glucose 97
Calcium 9.6
Total Bilirubin 1.6 H
AST 21
ALT < 10
Alkaline Phosphatase 215 H
Vital Signs:
Vital Signs
Temp Pulse Resp BP Pulse Ox
36.8 C 70 18 107/54 98
03/03/25 08:06 03/03/25 08:43 03/03/25 08:06 03/03/25 08:43 03/03/25 07:45
I&O
03/02/25 03/03/25 03/04/25
06:59 06:59 06:59
Intake Total 680 / 680 120 / 120
Output Total 650 / 650 500 / 500
Balance 30 / 30 -380 / -380
Review of Systems
-
History Source: Patient
All other systems: Reviewed and negative
Physical Exam
-
General: Well Developed, No Apparent Distress, Comfortable and Appears Chronically Ill
HEENT: Normocephalic and Atraumatic
Respiratory: Clear to Auscultation and Non Labored Respirations; Negative Accessory Resp Muscle Use
Cardiac: Regular Rhythm and S1/S2
Musculoskeletal: Edema, Right Lower Extrem and Edema, Left Lower Extrem
Skin: Other (wound vac)
Neuro: Awake and Alert
Psych: Calm and Intact Judgement/Insight (somewhat)
Data Reviewed
-
Labs: Labs Reviewed by me
--- NOTE | 2025-03-03 13:43 | W.PN.VS ---
Addendum entered and electronically signed by Jose Martin Mahoney MD 03/03/25 14:05:
Seen and examined with DEMETRIS Villeda. Agree with findings as noted below. We changed his VAC at the bedside. Unfortunately his muscle appears pale. The skin edges again with 'soupy' appearing tissues (soft yellow fibrinous exudate). There is
continued serous drainage from the subcutaneous tissues. I discussed with him (and I called his and discussed with her as well) all these findings. I discussed that I am dejected and disappointed to hear that the muscle flap is not healing
well. None of his tissues are demonstrating any healing potential whatsoever. As I have noted in my prior notes and in my discussions with the patient and his family, he has multiple comorbidities (multiple systems are failing: CHF, cirrhosis,
end-stage renal disease on hemodialysis, etc.). I am not sure that this will be a treatable/curative condition. I discussed that the only other option would be to ask plastic surgery for a more extensive muscle flap procedure. However I do not
know of that they will even consider him a candidate for this due to the morbidity of such an operation in him given poor wound healing in this case. Will continue the VAC for now. Will reassess it on Monday. I did discuss with the patient's
consideration for more palliative/hospice type level care.
Original Note:
Today's Communication / Plan
-
Seen and assessed with Dr. Mahoney
Assessment/Plan
-
Assessment: 74-year-old male s/p Reexploration right groin. Sharp excisional debridement of fibrinous exudate subcutaneous edges of wound and skin edges with scissor. Pulse lavage irrigation right groin with 3 L of normal saline solution. Sartorius
muscle rotational flap/coverage of vein bypass graft conduit/femoral bifurcation. Placement of wound VAC.
Plan:
Out of bed/ambulate/PT/OT
Next VAC change Monday--if VAC has leak/becomes dislodged Place wet-to-dry dressing
Appreciate palliative care consultation and evaluation for goals of care discussion
Plan for family discussion
Subjective Data
-
Date of Service: March 03, 2025
Patient seen at bedside this afternoon with Dr. Mahoney. Patient sitting up to the chair. Wound VAC was removed overnight for a leak and replaced.
Objective Data
-
Vital Signs
Temp Pulse Resp BP Pulse Ox
98.2 F 72 20 100/31 96
03/03/25 12:48 03/03/25 13:32 03/03/25 12:48 03/03/25 13:32 03/03/25 12:48
Intake and Output
03/02/25 03/03/25 03/04/25
06:59 06:59 06:59
Intake Total 680 / 680 120 / 120
Output Total 650 / 650 500 / 500
Balance 30 / 30 -380 / -380
Intake:
Oral fluids 680 / 680 120 / 120
Output:
Drain Output (Total) 650 / 650 500 / 500
Right Leg Wound Vac 650 / 650 500 / 500
Lab Results
03/03/25 06:47
03/03/25 06:47
Calcium 9.6 mg/dl (8.4-10.2) 03/03/25 06:47
Total Bilirubin 1.6 mg/dl (0.2-1.3) H 03/03/25 06:47
AST 21 U/L (17-59) 03/03/25 06:47
ALT < 10 U/L (0-50) 03/03/25 06:47
Alkaline Phosphatase 215 U/L (38-126) H 03/03/25 06:47
Total Protein 6.3 g/dl (6.3-8.2) 03/03/25 06:47
Albumin 3.9 g/dl (3.5-5.0) 03/03/25 06:47
Physical Exam
-
No apparent distress, was resting in the chair. Got patient back to bed for VAC change, transfer with 2 assist went well
No tachycardia
No tachypnea at this time
Right groin site muscle flap pale appearing, skin edge with fibrinous tissue, serous drainage
Right foot warm, palpable DP, hallux dry gangrene stable, +2 edema right lower extremities
[2025-03-03] MEDS: ATARAX 10 MG PO (14:11)
[2025-03-03] MEDS: ROXICODONE 7.5 MG PO (14:12)
--- NOTE | 2025-03-03 14:39 | CM ---
CM following re: discharge planning.
Reviewed pt's chart, met with pt and spoke to pt's spouse over the phone to update on discharge plan progress.
Both pt and pt's spouse confirmed that they preferred [facility].
CM spoke to [facility] director of corporate sponsorships Sonia [phone] and she confirmed they will have a bed available and they will order wound vac.
For onsite [facility] HD treatment, CM faxed a referral with Flow sheet to [phone]. Hep panel pending. Admission to [facility] onsite HD treatment still pending and not confirmed.
D/C plan: [facility] with [facility] HD treatment onsite.
--- NOTE | 2025-03-03 16:56 | W.PN.NEPH.PH ---
Today's Communication / Plan
-
HD tomorrow
Assessment/Plan
-
Mr. Downing is a 74 yo male with longstanding HFrEF from a nonischemic dilated cardiomyopathy on enteresto,h/o VT s/p ICD, persistent atrial fibrillation on Eliquis (he did not tolerate Amiodarone), ESRD on HD TTS through CVC at [facility] unit,
[place], new AVF 3m old, COPD (former smoker), status post revascularization of right leg CLI. right femoral endarterectomy 01/29/2025y Dr. Mahoney. Presents to [facility] with drainage of wound where wound VAC is present
Impression
ESRD TTS
Anemia of chronic disease
Wound infection
Vasculopath status post femoral endarterectomy with wound VAC
Chronic hypotension
CHF
Hyponatremia
Plan
noted vasc eval, relook on Monday of wound with poor healing and remains in wound vac
will cont HD TTS
sig edema , try UF as much possible
but soft Bps despite on midodrine
Epogen for hemoglobin less than 10
d/w pt and son on phone who had [facility] 1 m ago
He has AVF may need to eval if can be accessed
note dpotential plan to [facility] HD schedule -will need to transition this week
-
-
Date of Service: March 03, 2025
CC / HPI / ROS
-
Chief Complaint:
ESRD
History of Present Illness:
tolerated HD monday
BP stable but soft
s/p washout right groin, VAC placement this admit02/26
Review of Systems:
no CP/SOB at rest
Labs
-
Labs:
WBC 9.4 10^3/uL (4.8-10.8) 03/03/25 06:47
RBC 2.97 10^6/uL (4.70-6.10) L 03/03/25 06:47
Hgb 10.1 g/dL (13.0-18.0) L 03/03/25 06:47
Hct 32.7 % (39.0-52.0) L 03/03/25 06:47
Plt Count 148 10^3/uL (130-400) D 03/03/25 06:47
Sodium 128 mmol/L (135-145) L 03/03/25 06:47
Potassium 4.3 mmol/L (3.5-5.1) 03/03/25 06:47
Chloride 91 mmol/L (98-107) L 03/03/25 06:47
Carbon Dioxide 25 mmol/L (22-30) 03/03/25 06:47
BUN 43 mg/dl (9-20) H 03/03/25 06:47
Creatinine 4.3 mg/dL (0.7-1.3) H* 03/03/25 06:47
eGFR 13.72 03/03/25 06:47
Glucose 97 mg/dl (70-99) 03/03/25 06:47
Calcium 9.6 mg/dl (8.4-10.2) 03/03/25 06:47
Albumin 3.9 g/dl (3.5-5.0) 03/03/25 06:47
Physical Exam
-
Vital Signs:
Vital Signs
Temp Pulse Resp BP Pulse Ox
98.2 F 80 18 104/40 94
03/03/25 16:06 03/03/25 16:06 03/03/25 16:06 03/03/25 16:06 03/03/25 16:06
Cardiovascular:: Regular rate and rhythm
Respiratory:: Bilateral: CTA (decreased)
Lung Excursion:: Normal
Abdomen:: Nontender and Soft
Bowel Sounds:: Normal
Extremity Edema:: +3: Bilateral:
Lawson Catheter: No
Other Findings::
RUE AVF thrill
[2025-03-03 17:26] LABS: Glucose - Point of Care 137 mg/dl (70-99)
[2025-03-03 18:39] LABS: Hepatitis B Surface Antigen Negative (Negative)
[2025-03-03 18:56] LABS: Hepatitis C Antibody Negative (Negative)
[2025-03-03 21:08] LABS: Glucose - Point of Care 150 mg/dl (70-99)
[2025-03-04] VITALS (7 sets, daily range): BP systolic 94–117; BP diastolic 32–54; BMI 26.9
[2025-03-04] MEDS: ROXICODONE 5 MG PO ×3 (01:59→21:57)
[2025-03-04] MEDS: XANAX 0.25 MG PO ×3 (01:59→20:08)
[2025-03-04 07:05] LABS: Glucose - Point of Care 122 mg/dl (70-99)
[2025-03-04] MEDS: SPIRIVA RESPIMAT 2.5 MCG 2 PUFF INH (07:24)
[2025-03-04] MEDS: SYMBICORT 160/4.5 MCG INHALER 2 PUFF INH ×2 (07:25→19:10)
[2025-03-04] MEDS: TYLENOL 650 MG PO ×3 (07:40→17:28)
[2025-03-04] MEDS: FLEXBUMIN 25% FOR HEMODIALYSIS 12.5 GRAMS IV ×2 (08:29→09:45)
[2025-03-04] MEDS: RETACRIT 2000 UNITS IV (08:29)
[2025-03-04] MEDS: MANNITOL 25% 12.5 GRAMS IV ×2 (08:30→09:46)
[2025-03-04 09:03] LABS: Hematocrit 29.0 % (39.0-52.0); Hemoglobin 9.7 g/dL (13.0-18.0); Mean Corp Hgb Conc. 33.4 g/dL (33.0-37.0); Mean Corpuscular Volume 103.9 fL (80.0-94.0); Platelet Count 140 10^3/uL (130-400); Red Cell Dist. Width 15.4 % (11.5-14.5)
--- NOTE | 2025-03-04 09:25 | W.PN.NEPH.HD ---
Assessment
-
pt seen during HD
vitals noted, BP low dsepite midodrine , extra dose ordered for UF
still with sig edema
CVC functions fine
possible hospice eval ongoing
If pt to d/c SNF need MWF schedule-will reeval in am
Progress Note - Hemodialysis
-
Date of Service: March 04, 2025
Duration: 45 minutes and 3 hours
Potassium Bath: 2
Calcium Bath: 2.5
Opti-Dialyzer: 160
Ultrafiltration: Other (2.5-3.5kg)
Blood Flow: 400
Dialysate Flow: 600
Heparin: no
EPO: 2000
[2025-03-04 09:29] LABS: Blood Urea Nitrogen 58 mg/dl (9-20); Calcium 9.4 mg/dl (8.4-10.2); Carbon Dioxide 23 mmol/L (22-30); Chloride 91 mmol/L (98-107); Estimated Creatinine Clearance 12 ml/min; Glucose 118 mg/dl (70-99); Magnesium 1.9 mg/dl (1.6-2.3); Potassium 4.6 mmol/L (3.5-5.1); Sodium 128 mmol/L (135-145); eGFR 9.99
[2025-03-04] MEDS: NOVOLOG FLEXPEN-LOW RESISTANCE SC ×3 (10:24→17:28)
[2025-03-04] MEDS: RENVELA PO (10:24)
[2025-03-04] MEDS: TOPROL XL PO ×2 (10:25→20:02)
--- NOTE | 2025-03-04 10:53 | W.PN.HOSP.TC ---
Today's Communication/Plan
-
see A/P
GOC discussion ongoing
Assessment / Plan
Assessment / Plan
HPI: 74-year-old male with history of ESRD on hemodialysis, atrial fibrillation s/p ablation/cardioversion on Eliquis, peripheral arterial disease, CHF, cirrhosis, ventricular tachycardia s/p ICD, hypertension, hyperlipidemia, type 2 diabetes, COPD,
from [facility]; p/w right groin wound.
A/P:
# Chronic PAD/right leg ischemia s/p right femoral endarterectomy with common femoral to femoral bifurcation artery bypass on 01/29
# Subsequent postoperative seroma status post washout on 02/05 with wound VAC
s/p Reexploration right groin with sharp excisional debridement of fibrinous exudate subcutaneous edges of wound and skin edges with scissor, 02/26
Placement of wound VAC- management of vac per vascular surgery team
Per vascular, poor wound healing in setting of multiple comorbidities, and unclear if the wound is treatable at this stage. Vascular team recc hospice since doing more procedure poses high risk of worsening current skin lesion (risk greater than
benefit).
Noted Abx was discontinued with no obvious infection.
resumed Eliquis
Current dispo is to SNF
# Leukocytosis, resolved
No fever
# ESRD on hemodialysis Monday, , Monday
# Hyperphosphatemia
# Chronic hyponatremia
Nephrology on board, Dialysis per renal
Continue sevelamer
hepatitis panel negative (was sent per outpt HD request)
# Chronic hypotension
Continue midodrine
# Nonischemic cardiomyopathy/HFrEF
Echo 01/31/2025, EF of 30 %
Continue Entresto, metoprolol with hold parameters
Monitor I/os, weights
# Atrial fibrillation s/p cardioversion, ablation
Continue metoprolol with hold parameters
Resumed Eliquis
Monitor telemetry
# Essential hypertension
Continue Entresto, metoprolol with hold parameters
# Transaminitis
Mildly elevated bilirubin, alk phos
No abdominal pain
Follow-up outpatient
# COPD
Not in acute exacerbation
Continue albuterol, Breztri
# Anxiety
Continue alprazolam as needed
# Chronic wounds
Wound care
DVT ppx: BIN PACKER Eliquis
DNI
Dispo: SNF vs hospice. GOC discussion ongoing. CXR ordered per outpt SNF request
DW vacular ALIS Hernandez yesterday 03/[address]oney today 03/04. Vascular team recc hospice.
Discussed goals of care with on the phone. Informed about the philosophy of hospice (focus on quality, not quantity, of life). We discussed about his HD needs, and that typically patients on hospice would not start or continue dialysis.
However, given he is a chronic dialysis patient, there is the possibility that he could be an exception, although this also implies prolonging his suffering unnecessarily. is receptive of the idea of hospice. She is also emotional, hence we
will proceed the conversation tomorrow to give her time to digest her emotions.
Also updated son on the phone and discussed goals of care. Son is agreeing with hospice, and is asking about details of home hospice versus hospice at facility. I informed son that I will continue GOC discussion with patient's again tomorrow,
and after that, we we can formally consult hospice massage therapist to provide more information.
Dr. Mahoney and continuous pillowcase cutter informed of my conversations with and son.
Total time spent, greater than 50 minutes
Anticipated Discharge: 24 - 48 hours
Subjective/Interval History
-
Date of Service: March 04, 2025
Objective Data
-
Labs:
Laboratory Results
03/04/25
07:40
WBC 9.1
Hgb 9.7 L
Hct 29.0 L
Plt Count 140
Sodium 128 L
Potassium 4.6
Chloride 91 L
Carbon Dioxide 23
BUN 58 H
Creatinine 5.6 H*
Glucose 118 H
Calcium 9.4
Vital Signs:
Vital Signs
Temp Pulse Resp BP Pulse Ox
36.5 C 77 16 111/45 99
03/04/25 07:32 03/04/25 07:32 03/04/25 07:32 03/04/25 07:32 03/04/25 07:32
I&O
03/03/25 03/04/25 03/05/25
06:59 06:59 06:59
Intake Total 120 / 120
Output Total 500 / 500
Balance -380 / -380
Review of Systems
-
History Source: Patient
All other systems: Reviewed and negative
Physical Exam
-
General: Well Developed, No Apparent Distress, Comfortable and Appears Chronically Ill
HEENT: Normocephalic and Atraumatic
Respiratory: Clear to Auscultation and Non Labored Respirations; Negative Accessory Resp Muscle Use
Cardiac: Regular Rhythm and S1/S2
Musculoskeletal: Edema, Right Lower Extrem and Edema, Left Lower Extrem
Skin: Other (wound vac)
Neuro: Awake
Psych: Calm; Negative Intact Judgement/Insight
Data Reviewed
-
Labs: Labs Reviewed by me
--- NOTE | 2025-03-04 11:05 | VATNOTE ---
Dressing and Biopatch over dialysis catheter changed by dialysis nurse.
[2025-03-04 11:10] LABS: Glucose - Point of Care 121 mg/dl (70-99)
[2025-03-04] MEDS: ELIQUIS 5 MG PO ×2 (12:41→20:02)
[2025-03-04] MEDS: THERAGRAN 1 TABLET PO (12:41)
[2025-03-04] MEDS: PROTONIX 40 MG PO (12:41)
[2025-03-04] MEDS: VITAMIN C 500 MG PO (12:42)
[2025-03-04] MEDS: RENVELA 800 MG PO ×2 (12:42→17:28)
[2025-03-04] MEDS: NEPHROCAP 1 CAPSULE PO (12:42)
[2025-03-04] MEDS: VITAMIN D3 (cholecalciferol) 50 MCG PO (12:42)
[2025-03-04] MEDS: ZINC 50 MG PO (12:42)
[2025-03-04] MEDS: ENTRESTO 97 MG/103 MG PO ×2 (12:42→20:02)
--- NOTE | 2025-03-04 14:26 | CM ---
CM following re: discharge planning.
Reviewed pt's chart, met with pt and spoke to pt's spouse over the phone to update on discharge plan progress.
Per MD GOC initiated with the family.
CM spoke to [facility] student admissions clerk Sonia [phone] and she confirmed they will have a bed available and they will order wound vac.
For onsite [facility] HD treatment, CM faxed a referral with Flow sheet to [phone]. Hep panel results faxed to [facility]. Admission to [facility] onsite HD treatment still pending and not confirmed. Chest X ray requested.
D/C plan: [facility] with [facility] HD treatment onsite. GOC discussion ongoing
--- NOTE | 2025-03-04 14:37 | PTCARENOTE ---
Patient OOb to chair with min assist and walker. Patient repositioning self frequently, air sandra placed on chair. Patient refused to have any pillows under his legs, because it is too uncomfortable.
--- NOTE | 2025-03-04 14:38 | PTCARENOTE ---
Patient is refusing SCD, because they are too painful to legs. Patient's legs are red, warm and tender. Physician made aware. Benefits and risks explained to patient.
[2025-03-04] MEDS: MILK OF MAGNESIA 30 ML PO (15:01)
[2025-03-04 17:03] LABS: Glucose - Point of Care 128 mg/dl (70-99)
[2025-03-04 21:40] LABS: Glucose - Point of Care 145 mg/dl (70-99)
[2025-03-05] VITALS (7 sets, daily range): BP systolic 91–116; BP diastolic 37–57; BMI 25.6
[2025-03-05] MEDS: XANAX 0.25 MG PO ×3 (02:02→21:34)
[2025-03-05] MEDS: TYLENOL 650 MG PO ×2 (02:02→13:06)
[2025-03-05 07:03] LABS: Hematocrit 33.5 % (39.0-52.0); Hemoglobin 10.5 g/dL (13.0-18.0); Mean Corp Hgb Conc. 31.3 g/dL (33.0-37.0); Mean Corpuscular Volume 110.2 fL (80.0-94.0); Platelet Count 138 10^3/uL (130-400); Red Cell Dist. Width 16.2 % (11.5-14.5)
[2025-03-05 07:35] LABS: Blood Urea Nitrogen 34 mg/dl (9-20); Calcium 9.7 mg/dl (8.4-10.2); Carbon Dioxide 28 mmol/L (22-30); Chloride 91 mmol/L (98-107); Estimated Creatinine Clearance 19 ml/min; Glucose 111 mg/dl (70-99); Potassium 3.8 mmol/L (3.5-5.1); Sodium 132 mmol/L (135-145); eGFR 17.56
[2025-03-05] MEDS: ENTRESTO 97 MG/103 MG PO ×2 (07:47→20:40)
[2025-03-05] MEDS: TOPROL XL PO ×2 (07:47→20:40)
[2025-03-05 07:50] LABS: Glucose - Point of Care 121 mg/dl (70-99)
[2025-03-05] MEDS: NOVOLOG FLEXPEN-LOW RESISTANCE SC ×3 (07:53→17:47)
[2025-03-05] MEDS: SYMBICORT 160/4.5 MCG INHALER 2 PUFF INH ×2 (08:06→19:23)
[2025-03-05] MEDS: SPIRIVA RESPIMAT 2.5 MCG 2 PUFF INH (08:06)
[2025-03-05] MEDS: VITAMIN C 500 MG PO (08:09)
[2025-03-05] MEDS: NEPHROCAP 1 CAPSULE PO (08:09)
[2025-03-05] MEDS: ELIQUIS 5 MG PO ×2 (08:09→20:39)
[2025-03-05] MEDS: VITAMIN D3 (cholecalciferol) 50 MCG PO (08:09)
[2025-03-05] MEDS: PROTONIX 40 MG PO (08:09)
[2025-03-05] MEDS: THERAGRAN 1 TABLET PO (08:09)
[2025-03-05] MEDS: ZINC 50 MG PO (08:09)
[2025-03-05] MEDS: RENVELA 800 MG PO ×3 (08:10→17:38)
[2025-03-05] MEDS: ROXICODONE 7.5 MG PO ×2 (09:14→21:34)
--- NOTE | 2025-03-05 10:21 | CM ---
Spoke to [facility] director of operations Sonia [phone] and she confirmed they will have a bed available
CXR , labs, progress note ,PT lina faxed to [phone] as requested.
[facility] chair available to patient .
[facility].address [address] [facility] [address]
report [phone]
fax [phone]
PLAN : [facility] with [facility]
--- NOTE | 2025-03-05 10:23 | W.PN.HOSP.TC ---
Today's Communication/Plan
-
DW in person. She states that pt has an estranged daughter who would be visiting him today. She would like to hold GOC discussion until after the pt meets the daughter. We can plan to continue GOC discussion tmr.
Assessment / Plan
Assessment / Plan
HPI: 74-year-old male with history of ESRD on hemodialysis, atrial fibrillation s/p ablation/cardioversion on Eliquis, peripheral arterial disease, CHF, cirrhosis, ventricular tachycardia s/p ICD, hypertension, hyperlipidemia, type 2 diabetes, COPD,
from [facility]; p/w right groin wound.
A/P:
# Chronic PAD/right leg ischemia s/p right femoral endarterectomy with common femoral to femoral bifurcation artery bypass on 01/29
# Subsequent postoperative seroma status post washout on 02/05 with wound VAC
s/p Reexploration right groin with sharp excisional debridement of fibrinous exudate subcutaneous edges of wound and skin edges with scissor, 02/26
Placement of wound VAC- management of vac per vascular surgery team
Per vascular, poor wound healing in setting of multiple comorbidities, and unclear if the wound is treatable at this stage. Vascular team recc hospice since doing more procedure poses high risk of worsening current skin lesion (risk greater than
benefit).
Noted Abx was discontinued with no obvious infection.
resumed Eliquis
Current dispo is to SNF
# Leukocytosis, resolved
No fever
# ESRD on hemodialysis Monday, , Monday
# Hyperphosphatemia
# Chronic hyponatremia
Nephrology on board, Dialysis per renal
Continue sevelamer
hepatitis panel negative (was sent per outpt HD request)
# Chronic hypotension
Continue midodrine
# Nonischemic cardiomyopathy/HFrEF
Echo 01/31/2025, EF of 30 %
Continue Entresto, metoprolol with hold parameters
Monitor I/os, weights
# Atrial fibrillation s/p cardioversion, ablation
Continue metoprolol with hold parameters
Resumed Eliquis
Monitor telemetry
# Essential hypertension
Continue Entresto, metoprolol with hold parameters
# Transaminitis
Mildly elevated bilirubin, alk phos
No abdominal pain
Follow-up outpatient
# COPD
Not in acute exacerbation
Continue albuterol, Breztri
# Anxiety
Continue alprazolam as needed
# Chronic wounds
Wound care
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
DNI
Dispo: SNF vs hospice. GOC discussion ongoing.
DW RN
DW in person. She states that pt has an estranged daughter who would be visiting him today. She would like to hold GOC discussion until after the pt meets the daughter. We can plan to continue GOC discussion tmr.
Anticipated Discharge: 24 - 48 hours
Subjective/Interval History
-
Date of Service: March 05, 2025
Objective Data
-
Labs:
Laboratory Results
03/05/25
06:27
WBC 8.1
Hgb 10.5 L
Hct 33.5 L
Plt Count 138
Sodium 132 L
Potassium 3.8
Chloride 91 L
Carbon Dioxide 28
BUN 34 H
Creatinine 3.5 H
Glucose 111 H
Calcium 9.7
Vital Signs:
Vital Signs
Temp Pulse Resp BP Pulse Ox
36.4 C 89 19 98/45 92
03/05/25 07:51 03/05/25 08:09 03/05/25 08:09 03/05/25 08:10 03/05/25 08:09
I&O
03/04/25 03/05/25 03/06/25
06:59 06:59 06:59
Intake Total 900 / 900
Balance 900 / 900
Review of Systems
-
History Source: Patient
All other systems: Reviewed and negative
Physical Exam
-
General: Well Developed, No Apparent Distress, Comfortable and Appears Chronically Ill
HEENT: Normocephalic and Atraumatic
Respiratory: Clear to Auscultation and Non Labored Respirations; Negative Accessory Resp Muscle Use
Cardiac: Regular Rhythm and S1/S2
Musculoskeletal: Edema, Right Lower Extrem and Edema, Left Lower Extrem
Skin: Other (wound vac)
Neuro: Awake
Psych: Calm
Data Reviewed
-
Labs: Labs Reviewed by me
--- NOTE | 2025-03-05 10:55 | W.PN.UPDATE ---
Update Note
Progress Note Update
Patient's wound VAC changed, muscle flap continues to appear pale with fibrinous tissue around skin edges and malodor. Patient tolerated wound VAC change. Wound VAC holding suction and site clean, dry, and intact. Updated attending Dr. Jose Martin Mahoney,
M.D. on appearance of wound bed, no new orders. approached me in hallway expressing desire to avoid any further goals of Care discussion with patient today as his estranged daughter will be visiting and she did not want any discussion to
distract from this visit. Respected patient's wishes. Next wound VAC change Monday03/07/2025.
[2025-03-05 11:54] LABS: Glucose - Point of Care 141 mg/dl (70-99)
--- NOTE | 2025-03-05 13:45 | W.PN.NEPH.HD ---
Assessment
-
Tolerating abbreviated treatment as this is [id number] to get him on schedule for discharge Monday going forward
Progress Note - Hemodialysis
-
Date of Service: March 05, 2025
Duration: 2 hours
Potassium Bath: 2
Calcium Bath: 2.5
Opti-Dialyzer: 160
Ultrafiltration: Other (2.5-3.5kg)
Blood Flow: 400
Dialysate Flow: 600
Heparin: no
EPO: 2000
[2025-03-05] MEDS: FLEXBUMIN 25% FOR HEMODIALYSIS 12.5 GRAMS IV ×2 (13:51→14:30)
[2025-03-05] MEDS: MANNITOL 25% 12.5 GRAMS IV ×2 (13:54→14:29)
[2025-03-05 17:10] LABS: Glucose - Point of Care 154 mg/dl (70-99)
[2025-03-05] MEDS: COLACE 100 MG PO (21:37)
[2025-03-05 21:57] LABS: Glucose - Point of Care 144 mg/dl (70-99)
[2025-03-05] MEDS: DILAUDID 0.5 MG IV (23:40)
--- NOTE | 2025-03-06 02:35 | PTCARENOTE ---
Wound vac noted to be alarming, inspected the site and reinforced dressing with tegaderm to ensure seal, inspected tubing and changed canister. Care ongoing.
[2025-03-06 03:03] VITALS: BP 105/49
[2025-03-06] MEDS: ROXICODONE 5 MG PO (04:55)
[2025-03-06] MEDS: ATARAX 10 MG PO (04:59)
--- NOTE | 2025-03-06 05:00 | PTCARENOTE ---
Wound vac alarming, unable to restore function, wound vac replaced with new one. Wound vac continued to alarm. Dressing on patient assessed and dressing changed. pt given pain meds prior to dressing change, see MAR. Wound vac function restored. Care
ongoing.
[2025-03-06 05:20] VITALS: BP 106/51
[2025-03-06] MEDS: DILAUDID 0.5 MG IV (05:26)
[2025-03-06 06:00] VITALS: BMI 25.6
[2025-03-06 06:42] LABS: Hematocrit 30.6 % (39.0-52.0); Hemoglobin 9.6 g/dL (13.0-18.0); Mean Corp Hgb Conc. 31.4 g/dL (33.0-37.0); Mean Corpuscular Volume 110.1 fL (80.0-94.0); Platelet Count 124 10^3/uL (130-400); Red Cell Dist. Width 16.1 % (11.5-14.5)
[2025-03-06 07:06] LABS: Blood Urea Nitrogen 33 mg/dl (9-20); Calcium 9.8 mg/dl (8.4-10.2); Carbon Dioxide 27 mmol/L (22-30); Chloride 96 mmol/L (98-107); Estimated Creatinine Clearance 17 ml/min; Glucose 105 mg/dl (70-99); Potassium 4.2 mmol/L (3.5-5.1); Sodium 134 mmol/L (135-145); eGFR 15.91
[2025-03-06 07:10] VITALS: BP 94/50
[2025-03-06] MEDS: SPIRIVA RESPIMAT 2.5 MCG 2 PUFF INH (07:48)
[2025-03-06] MEDS: SYMBICORT 160/4.5 MCG INHALER 2 PUFF INH (07:48)
[2025-03-06 08:11] LABS: Glucose - Point of Care 98 mg/dl (70-99)
[2025-03-06] MEDS: VITAMIN D3 (cholecalciferol) 50 MCG PO (08:12)
[2025-03-06] MEDS: COLACE 100 MG PO (08:12)
[2025-03-06] MEDS: ELIQUIS 5 MG PO (08:12)
[2025-03-06] MEDS: THERAGRAN 1 TABLET PO (08:12)
[2025-03-06] MEDS: NOVOLOG FLEXPEN-LOW RESISTANCE SC ×3 (08:12→16:16)
[2025-03-06] MEDS: PROTONIX 40 MG PO (08:12)
[2025-03-06] MEDS: VITAMIN C 500 MG PO (08:13)
[2025-03-06] MEDS: NEPHROCAP 1 CAPSULE PO (08:13)
[2025-03-06] MEDS: ZINC 50 MG PO (08:13)
[2025-03-06] MEDS: RENVELA 800 MG PO ×3 (08:14→16:38)
[2025-03-06] MEDS: ENTRESTO 97 MG/103 MG PO (08:16)
[2025-03-06] MEDS: TOPROL XL PO (08:16)
--- NOTE | 2025-03-06 08:46 | W.PN.HOSP.TC ---
Addendum entered and electronically signed by Heather Rojas MD 03/06/25 10:36:
Per jewelry sales coordinator, pt and are 'not ready to stop dialysis and proceed with hospice. They would like him to go to [facility] with their preferred palliative and transition to hospice through there when they are ready'
Informed Vascular team, recc to cont vac to contain all the drainage
Original Note:
Today's Communication/Plan
-
see A/P
Assessment / Plan
Assessment / Plan
HPI: 74-year-old male with history of ESRD on hemodialysis, atrial fibrillation s/p ablation/cardioversion on qu, peripheral arterial disease, CHF, cirrhosis, ventricular tachycardia s/p ICD, hypertension, hyperlipidemia, type 2 diabetes, COPD,
from [facility]; p/w right groin wound.
A/P:
# Chronic PAD/right leg ischemia s/p right femoral endarterectomy with common femoral to femoral bifurcation artery bypass on 01/29
# Subsequent postoperative seroma status post washout on 02/05 with wound VAC
s/p Reexploration right groin with sharp excisional debridement of fibrinous exudate subcutaneous edges of wound and skin edges with scissor, 02/26
Placement of wound VAC- management of vac per vascular surgery team
Per vascular, poor wound healing in setting of multiple comorbidities, and unclear if the wound is treatable at this stage. Vascular team recc hospice since doing more procedure poses high risk of worsening current skin lesion (risk greater than
benefit).
Wound vac change per vascular, next change Mon03/07/2025.
Noted Abx was discontinued with no obvious infection.
resumed Eliquis
GOC discussion initiated with pt and family ( and son). Hospice dispo tricky as he is a HD patient and at this stage, unsure if he wants to stop dialysis.
Hospice consulted for provide additional information to pt and family
Continue ongoing GOC discussion
# Leukocytosis, resolved
No fever
# ESRD on hemodialysis Monday, , Monday
# Hyperphosphatemia
# Chronic hyponatremia
Nephrology on board, Dialysis per renal
Continue sevelamer
hepatitis panel negative (was sent per outpt HD request)
# Chronic hypotension
Continue midodrine
# Nonischemic cardiomyopathy/HFrEF
Echo 01/31/2025, EF of 30 %
Continue Entresto, metoprolol with hold parameters
Monitor I/os, weights
# Atrial fibrillation s/p cardioversion, ablation
Continue metoprolol with hold parameters
Resumed Eliquis
Monitor telemetry
# Essential hypertension
Continue Entresto, metoprolol with hold parameters
# Transaminitis
Mildly elevated bilirubin, alk phos
No abdominal pain
Follow-up outpatient
# COPD
Not in acute exacerbation
Continue albuterol, Breztri
# Anxiety
Continue alprazolam as needed
# Chronic wounds
Wound care
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
DNI
Dispo: SNF vs hospice. GOC discussion ongoing.
DW on the phone.
DW patient with on the phone re GOC.
DW CM
Hospice CS
Anticipated Discharge: 24 - 48 hours
Subjective/Interval History
-
Date of Service: March 06, 2025
Objective Data
-
Labs:
Laboratory Results
03/06/25
06:23
WBC 7.9
Hgb 9.6 L
Hct 30.6 L
Plt Count 124 L
Sodium 134 L
Potassium 4.2
Chloride 96 L
Carbon Dioxide 27
BUN 33 H
Creatinine 3.8 H
Glucose 105 H
Calcium 9.8
Vital Signs:
Vital Signs
Temp Pulse Resp BP Pulse Ox
36.6 C 81 16 94/50 95
11/13/25 07:10 03/06/25 07:52 03/06/25 07:52 03/06/25 08:16 03/06/25 07:52
I&O
03/05/25 03/06/25 03/07/25
06:59 06:59 06:59
Intake Total 900 / 900 960 / 960
Output Total 200 / 200
Balance 900 / 900 760 / 760
Review of Systems
-
History Source: Patient
All other systems: Reviewed and negative
Physical Exam
-
General: Well Developed, No Apparent Distress, Comfortable and Appears Chronically Ill
HEENT: Normocephalic and Atraumatic
Respiratory: Clear to Auscultation and Non Labored Respirations; Negative Accessory Resp Muscle Use
Cardiac: Regular Rhythm and S1/S2
Musculoskeletal: Edema, Right Lower Extrem and Edema, Left Lower Extrem
Skin: Other (R groin wound vac )
Neuro: Awake
Psych: Calm and Intact Judgement/Insight (somewhat)
Data Reviewed
-
Labs: Labs Reviewed by me
--- NOTE | 2025-03-06 11:21 | W.DCSUMMARY ---
Discharge Summary
Discharge Data
Date of Admission: 02/25/25
Date of Discharge: 03/06/25
Total time spent discharging patient (in min): 40
-
Pending Results: No
Hospital Course
Principal Diagnosis:
Worsening right groin wound, in setting of recent right femoral endarterectomy with common femoral to femoral bifurcation artery bypass on 01/29.
Chronic Diagnoses:�
Chronic PAD/right leg ischemia s/p right femoral endarterectomy with common femoral to femoral bifurcation artery bypass on 01/29
Subsequent washout of seroma on 02/05 with wound VAC placement
ESRD on hemodialysis Monday, , Monday, with chronic hyperphosphatemia and hyponatremia
Chronic hypotension
Continue midodrine
Nonischemic cardiomyopathy/HFrEF, EF of 30 %
Atrial fibrillation s/p cardioversion, ablation
Essential hypertension
COPD
Anxiety
Chronic wounds
Consultations:�
Vascular surgery
Nephrology
Procedures:�
Reexploration right groin with sharp excisional debridement of fibrinous exudate subcutaneous edges of wound and skin edges with scissor, 02/26
Replacement of wound VAC by vascular.
Clinical course:�
This is a 74-year-old male with past medical history as stated above, who presented with worsening right groin wound.
The patient has chronic PAD/right leg ischemia and is s/p right femoral endarterectomy with common femoral to femoral bifurcation artery bypass on 01/29.
He subsequently underwent washout of seroma on 02/05 with wound VAC placement.
He presented with worsening right groin wound.
Problem 1:
Worsening right groin wound.
The patient underwent reexploration of right groin with sharp excisional debridement of fibrinous exudate subcutaneous edges of wound and skin edges with scissor on 02/26.
Wound VAC was replaced following the procedure.
Per vascular, there is poor wound healing (in setting of current multiple comorbidities), and unclear if the wound is treatable at this stage.
Vascular team recc hospice since doing more procedure poses high risk of worsening current wound.
Goals of care was discussed with the patient and family, they have not formally decided to pursue hospice yet.
They would like to be discharged to SNF to continue hemodialysis, and likely be transitioned to hospice following that.
Per vascular, the patient can continue wound VAC following discharge to contain his drainage.
As for the rest of his medical problems, they were stable during his hospital stay.
Discharge Plan
-
Patient Disposition: Care Home/SNF
Discharge Diagnosis/Procedures: Chronic PAD/right leg ischemia s/p right femoral endarterectomy with common femoral to femoral bifurcation artery bypass on 01/29;
Subsequent postoperative seroma status post washout on 02/05;
Reexploration right groin with sharp excisional debridement and placement of wound VAC 02/26;
Per vascular, poor wound healing in setting of multiple comorbidities, and unclear if the wound is treatable at this stage- hence recommend hospice
Condition: Fair
Diet: As tolerated, Low Fat, Low Cholesterol and Low Sodium
Activity: As tolerated
Driving Restrictions: Not until seen by your Dr
Wound Care: Wound Care Instructions
R groin-wound vac therapy, use black foam, Change every 48 - 72 hours (i. e. [id number]-Sspdiyzyic-[id number]) and prn if unable to obtain a seal. Low Intensity, Continuous at 125 mmHg. Upon discharge or transfer to another facility, remove VAC foam and
apply NS moistened gauze dressing unless home VAC unit available.
Distal coccyx ulcer-clean with soap and water, silicone border foam (trim distal adhesive border to avoid anal area), change q 3 days and prn loosened dressing. If bordered foam ineffective, apply zinc barrier ointment and cover with abd pad or non
adhesive foam daily and prn soilage instead.
B/L Achilles: clean with saline, silicone bordered foam change q other day and prn soilage. If foam sticks can add adaptic under foam.
R great toe: [place] necrotic area with Betadine daily.
Heels: skin prep and Adhesive foams change q 3 days and prn soilage.
R groin: saline wet to dry dressing until further orders from vascular post OR
Air chair cushion can take upon discharge
air mattress if going to SNF
Follow up with vascular
Referrals:
Lila Servin PA-C [Specified Professional Personl, Vascular Surgery] - 03/14/25 10:00 am
Referral Note: Vascular surgery follow-up
Kendell Chase DO [Family Provider] - in less than 1 week
Prescriptions:
Continued
cholecalciferol (vitamin D3) 2,000 UNIT tablet
2,000 unit PO DAILY
albuterol sulfate 2.5 MG/3 ML solution for nebulization
2.5 mg inhalation R Q6HPRN PRN (Reason: sob)
ascorbic acid (vitamin C) [Vitamin C] 500 MG tablet
500 mg PO DAILY
Breztri Aerosphere 160-9-4.8 mcg/actuation Hfa Aerosol Inhaler
2 inh INHALATION R BID
Eliquis 5 mg Tablet
5 mg PO BID
sacubitril-valsartan [Entresto] 97-103 mg Tablet
1 tab PO BID
zinc acetate 50 mg (zinc) Capsule
50 mg PO DAILY
Shira-Hanna 0.8 mg Tablet
1 tab PO DAILY
sevelamer carbonate 800 mg Tablet
800 mg PO AC
acetaminophen [Tylenol] 325 mg Tablet
650 mg PO Q4HPRN PRN (Reason: mild pain)
therapeutic multivitamin Tablet
1 tab PO DAILY
magnesium hydroxide [Milk of Magnesia] 400 mg/5 mL Suspension
2,400 mg PO D01QTBL PRN (Reason: if no bm by 3rd day give on day 4)
Fleet Enema 19-7 gram/118 mL Enema
118 ml NV DAILYPRN PRN (Reason: if no bm by 5th day give on day 6)
albuterol sulfate 90 mcg/actuation Hfa Aerosol Inhaler
2 puff INHALATION R Q6HPRN PRN (Reason: sob)
Refresh Classic (PF) 1.4-0.6 % Dropperette
2 drp BOTH EYES Q4HPRN PRN (Reason: dry eyes)
midodrine 5 mg tablet
10 mg PO TID@0800,1300,1800
metoprolol succinate 25 mg tablet extended release 24 hr
25 mg PO BID
alprazolam [Xanax] 0.25 mg Tablet
0.25 mg PO BIDPRN PRN (Reason: anxiety) Qty: 2 0RF
oxycodone 5 mg Tablet
5 mg PO Q6HPRN PRN (Reason: severe pain) Qty: 5 0RF
Discharge Orders:
Discharge Patient (As Directed); Ordered 03/06/25
Ordered By: Heather Rojas
Discharge Date and Time
Print Language: VINCENTIAN
[2025-03-06 11:29] VITALS: BP 110/53
[2025-03-06 11:40] LABS: Glucose - Point of Care 122 mg/dl (70-99)
--- NOTE | 2025-03-06 12:37 | HOSPNOTE ---
Hospice referral received. Spoke to patient and spouse. They are not ready for hospice services at this time. They wish to proceed with SNF at [facility]. Hospice will sign off at this time.
--- NOTE | 2025-03-06 12:40 | CM ---
CM following re: discharge planning.
Reviewed pt's chart, met with pt. Pt's spouse and daughter at bedside.
Both pt and his family declined hospice care recommendations at this time and they preferred continue aggressive care with Palliative approach at [facility].
Discharge order noted. Both pt and his family are aware, expressed their agreement. IMM reviewed, placed on chart, pt has a copy.
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
[facility] to arrange ambulance transport with requested fruit picker machine operator time. [facility] completed and left with [facility] address [address] [place] [id number]
report [phone]
fax [phone]
D/C plan: [facility] with HD onsite.
[2025-03-06] MEDS: TYLENOL 650 MG PO (14:02)
--- NOTE | 2025-03-06 14:32 | PTCARENOTE ---
discharge planned to SNF today. telemetry removed at this time
[2025-03-06 15:15] VITALS: BP 107/49
[2025-03-06 16:17] LABS: Glucose - Point of Care 112 mg/dl (70-99)
--- NOTE | 2025-03-06 16:32 | W.PN.NEPH.PH ---
Today's Communication / Plan
-
Dialysis tomorrow outpatient
Assessment/Plan
-
Mr. Downing is a 74 yo male with longstanding HFrEF from a nonischemic dilated cardiomyopathy on enteresto,h/o VT s/p ICD, persistent atrial fibrillation on Eliquis (he did not tolerate Amiodarone), ESRD on HD TTS through [facility] at [facility] 3m old, COPD (former smoker), status post revascularization of right leg CLI. right femoral endarterectomy 01/29/2025y Dr. Mahoney. Presents to [facility] with drainage of wound where wound VAC is present
Impression
ESRD TTS
Anemia of chronic disease
Wound infection
Vasculopath status post femoral endarterectomy with wound VAC
Chronic hypotension
CHF
Hyponatremia
Plan
sig edema , try UF as much possible
but soft Bps despite on midodrine
Epogen for hemoglobin less than 10
Pending discharge today we will do dialysis outpatient rehab Monday continue
No acute need for dialysis today
-
-
Date of Service: March 06, 2025
CC / HPI / ROS
-
Chief Complaint:
ESRD
History of Present Illness:
BP stable but soft
s/p washout right groin, VAC placement this admit02/26
Review of Systems:
no CP/SOB at rest
Labs
-
Labs:
WBC 7.9 10^3/uL (4.8-10.8) 03/06/25 06:23
RBC 2.78 10^6/uL (4.70-6.10) L 03/06/25 06:23
Hgb 9.6 g/dL (13.0-18.0) L 03/06/25 06:23
Hct 30.6 % (39.0-52.0) L 03/06/25 06:23
Plt Count 124 10^3/uL (130-400) L 03/06/25 06:23
Sodium 134 mmol/L (135-145) L 03/06/25 06:23
Potassium 4.2 mmol/L (3.5-5.1) 03/06/25 06:23
Chloride 96 mmol/L (98-107) L 03/06/25 06:23
Carbon Dioxide 27 mmol/L (22-30) 03/06/25 06:23
BUN 33 mg/dl (9-20) H 03/06/25 06:23
Creatinine 3.8 mg/dL (0.7-1.3) H 03/06/25 06:23
eGFR 15.91 03/06/25 06:23
Glucose 105 mg/dl (70-99) H 03/06/25 06:23
Calcium 9.8 mg/dl (8.4-10.2) 03/06/25 06:23
Albumin 3.9 g/dl (3.5-5.0) 03/03/25 06:47
Physical Exam
-
Vital Signs:
Vital Signs
Temp Pulse Resp BP Pulse Ox
97.8 F 81 16 107/49 95
03/06/25 15:15 03/06/25 15:15 03/06/25 15:15 03/06/25 15:15 03/06/25 15:15
Cardiovascular:: Regular rate and rhythm
Respiratory:: Bilateral: CTA (decreased)
Lung Excursion:: Normal
Abdomen:: Nontender and Soft
Bowel Sounds:: Normal
Extremity Edema:: +3: Bilateral:
Lawson Catheter: No
Other Findings::
RUE AVF thrill
[2025-03-06] MEDS: ROXICODONE 7.5 MG PO (16:58)
[2025-03-06] MEDS: XANAX 0.25 MG PO (16:58)
--- NOTE | 2025-03-10 08:15 | WOUNDNOTE ---
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
== END 2025-03-06 17:35 | DRG 901 ==
LOC: 2 SOUTH 09:57
PROVIDERS: Internal Medicine; Nurse Practitioner; Physician Assistant; Specialist; Student in an Organized Health Care Education/Training Program; Surgery Vascular Surgery; ADMITTING PHYSICIAN Internal Medicine; ATTENDING PHYSICIAN Internal Medicine; CONSULT PHYSICIAN Internal Medicine Nephrology; CONSULT PHYSICIAN Student in an Organized Health Care Education/Training Program; CONSULT PHYSICIAN Surgery Vascular Surgery; EMERGENCY PHYSICIAN Emergency Medicine; FAMILY PHYSICIAN Student in an Organized Health Care Education/Training Program
PROC: 5A1D70Z Performance of Urinary Filtration, Intermittent, Less than 6 Hours Per Day (ICD-10-PCS; 2025-02-25)
PROC: 0KX Muscles, Transfer (ICD-10-PCS; 2025-02-26)
PROC: 0JDL0ZZ Extraction of Right Upper Leg Subcutaneous Tissue and Fascia, Open Approach (ICD-10-PCS; 2025-02-26)
PROC: 0JBC0ZZ Excision of Pelvic Region Subcutaneous Tissue and Fascia, Open Approach (ICD-10-PCS; 2025-02-26)
PROC: F08L5AZ Wound Management Treatment of Musculoskeletal System - Lower Back / Lower Extremity using Negative Pressure Therapy (ICD-10-PCS; 2025-02-26)
DX: L76.34 Postprocedural seroma of skin and subcutaneous tissue following other procedure (principal); L89.893 Pressure ulcer of other site, stage 3; N18.6 End stage renal disease; E11.52 Type 2 diabetes mellitus with diabetic peripheral angiopathy with gangrene; E87.1 Hypo-osmolality and hyponatremia; I42.8 Other cardiomyopathies; I50.22 Chronic systolic (congestive) heart failure; I48.19 Other persistent atrial fibrillation; I47.29 Other ventricular tachycardia; I13.2 Hypertensive heart and chronic kidney disease with heart failure and with stage 5 chronic kidney disease, or end stage renal disease; J44.0 Chronic obstructive pulmonary disease with (acute) lower respiratory infection; E11.22 Type 2 diabetes mellitus with diabetic chronic kidney disease; D63.8 Anemia in other chronic diseases classified elsewhere; L89.611 Pressure ulcer of right heel, stage 1; L89.621 Pressure ulcer of left heel, stage 1; Z79.01 Long term (current) use of anticoagulants; Z79.4 Long term (current) use of insulin; Z87.891 Personal history of nicotine dependence; Z99.2 Dependence on renal dialysis
CPT/HCPCS: 11042; 11045; 15734; 71045; 80048; 80053; 82962; 83036; 83735; 85025; 85027; 86706; 86803; 86850; 86900; 86901; 87070; 87340; 94640; 96374; 97163; 97608; 99284; P9047; Q5106

== ENCOUNTER 2025-03-11 17:27 | Inpatient (IN) | payer MEDICARE, OTHER, SELFPAY ==
[2025-03-11] VITALS (17 sets, daily range): BP systolic 51–139; BP diastolic 25–124; BMI 29.3; BMI 27.0
--- NOTE | 2025-03-11 15:26 | HPS.HSE ---
Addendum entered and electronically signed by Nadia Coombs MD 03/11/25 20:01:
This is an addendum to the H&P written by Frannie Hahn on 03/11/2025. �Patient seen and examined independently with PA.
74-year-old male past medical history of ESRD on hemodialysis Monday, , Monday, atrial fibrillation status post ablation/cardioversion on , peripheral arterial disease, chronic PAD status post right femoral endarterectomy with
common femoral to femoral bifurcation artery bypass on 01/29, CHF, chronic HFrEF EF of 30%, cirrhosis, ventricular tachycardia status post ICD, hypertension, hyperlipidemia, type 2 diabetes, COPD, chronic hyponatremia, anxiety, chronic wounds,
presenting as transfer from [facility].
Patient underwent right femoral endarterectomy with common femoral to femoral bifurcation artery bypass on 01/29. �He subsequently developed postoperative seroma status post washout on 02/05 with wound VAC. �He was discharged and was readmitted again
for reexploration of right groin with sharp excisional debridement of fibrinous exudate subcutaneous edges of wound and skin edges with scissors on 02/26 with muscle flap. �He was noted to have poorly healing muscle flap during last admission.
Patient later went to rehab with discontinuation of wound VAC.
Patient with fever yesterday at rehab and went to [facility] and was transferred here. �He received Allises yesterday.
Vital signs show tachycardia. �On examination there is purulent foul-smelling material coming from the right groin, with breakdown of the muscle flap.
Patient with septic shock secondary to right groin infection. �Patient requiring Levophed. �Vancomycin/Zosyn. Vascular surgery discussed with patient and that there are no other surgical options for treatment of this postoperative infection and
chance of recovery is slim to none. �Patient and are agreeable to be DNR/DNI. �They would like to have 1 more day of dialysis if possible so that other family members can visit and they would be interested in hospice if patient could survive
for such evaluation.
Original Note:
Family Physician
-
Family Physician:
Chief Complaint
-
Fever
History of Present Illness
Patient is a 74 y/o male past medical history of ESRD on HD, ventricular tachycardia, atrial fibrillation, peripheral artery disease, diabetes mellitus, and chronic hypotension who sent from [facility] due to fever and worsening right groin
wound. Patient was recently hospitalized from February 25 to March 06 for a post operative seroma and non-healing wound requiring wound vac. According to the facility stopped using the wound vac and were trying another type of dressing to
dry up the wound. Patient developed fever yesterday and sent to [facility] ED. It is unclear what may have been down there, possibly a CT scan as mentions some kind imaging that showed necrotizing infection. Patient was transferred to
[facility] for continuity of care. Patient arrives after just completing a dose of Zosyn, and on norepinephrine infusion for blood pressure support.
Medical History
Past Medical History
Past Medical History: Reports Other
Additional Past Medical History:
ESRD on HD Tu[facility]Sa
Ventricular Tachycardia s/p ICD
Paroxysmal Atrial Fibrillation s/p Cardioversion / Ablation
Chronic HFrEF
Peripheral Artery Disease
Diabetes Mellitus, Type II
Chronic Hypotension
Hyperlipidemia
Cirrhosis
COPD
Gout
DVT
Past Surgical History: Reports Other
Additional Past Surgical History:
Right Femoral Endarterectomy with Common Femoral to Femoral Bifurcation Artery Bypass
Right Groin Washout with VAC placement
Right Upper Extremity Fistula
Social History
Tobacco: Non-smoker
Alcohol: None
Drug: None
Family History
Family History: Not pertinent
Allergies / Home Medications
Allergies reflects when Allergies were last updated in [employer].
Home Medications with original date entered in [employer]
Allergy/Medication List:
Vital Signs
Temp Pulse Resp BP Pulse Ox
99.9 F 115 16 120/50 94
03/11/25 15:27 03/11/25 15:27 03/11/25 15:27 03/11/25 15:27 03/11/25 15:48
Review of Systems
-
Unable to obtain full review of systems at this time due to: Acuity
Physical Exam
Vital Signs
Selected Entries
03/11/25
15:27
Temp 99.9 F
Pulse 115
Resp Rate 16
Blood pressure 120/50
Physical Exam
General: Well Developed, Well Nourished and Other (Appears acute ill)
HEENT: Anicteric, Moist mucous membranes and Oxygen (Nasal Cannula)
Respiratory: Clear and Non Labored Respirations
Cardiac: S1/S2, Regular Rhythm and Tachycardia
GI: Soft and Non Tender
Rectal: Deferred by Provider
Musculoskeletal: No Clubbing and No Cyanosis
Skin: Other (Open right groin wound with apparent failure of muscle flap closure with large amount of foul smelling drainage)
Neuro: Other (Slightly lethargic but easily arousable)
Data Reviewed
-
Old Records: Reviewed
Impression/Plan
-
Septic Shock secondary to Infected Right Groin Wound
-Appears prior muscle flap has failed, and infection has worsened
-Patient evaluated by vascular surgery who indicates there are no other surgical options, and recommends hospice care
-Patient and Family are now agreeable to hospice - Case Management consult for Hospice evaluation
-Patient and Family would like to keep all current until family is able to arrive tomorrow
-Continue norepinephrine for blood pressure support
-Continue Vancomycin and Zosyn
Peripheral Artery Disease / Right Leg Ischemia
-s/p Right Femoral Endarterectomy with Common Femoral to Femoral Bifurcation Artery Bypass on January 29
-s/p Washout and Closure of deeper tissues with placement of superficial wound vac on February 05
-s/p Excisional Debridement of wound and Sartorius Muscle Flap/coverage of Vein Bypass Graft on February 26
ESRD on HD
-Consult Nephrology - Patient would like one additional dialysis treatment prior to stopping dialysis
-Continue sevelamer
Paroxysmal Atrial Fibrillation s/p Cardioversion / Ablation
-Hold Eliquis due to high risk of bleeding
-Hold metoprolol due to hypotension
Chronic HFrEF
-Volume managed with dialysis
-Hold Entresto due to hypotension
-Monitor daily weights
Chronic Hypotension
-Continue midodrine as prior to admission
-Patient is currently on Levophed for additional blood pressure support
COPD, no acute exacerbation
-Continue albuterol PRN
-Continue Breztri (or pharmacy equivalent)
Hx Ventricular Tachycardia s/p ICD
Code Status: DNR
--- NOTE | 2025-03-11 16:24 | W.PN.UPDATE ---
Update Note
Progress Note Update
Patient seen and examined in the ED on arrival from OSH. at beside.
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 Post op groin wound breakdown requiring washout and sartorius flap.
Multiple advanced medical comorbidities including ESRD on HD
Returns as a txfr from [facility] ED
Ongoing right groin wound issues
Sacral pressure wounds
Unable to be cared for at outside facility
He is chronically ill appearing
Labored breathing
Tachycardic
Sartorius muscle flap is not viable
Wound is malodorous and contains necrotic tissue and copious amounts of seropurulent fluid.
No bleeding
Groin wound is tender to the touch
Necrotic right hallux tip (dry)
I had a conversation with the patient and his in the presence of Mary KERR and the ED staff. Explained that the likelihood of recovery for him at this point is slim to none. There are no additional surgical options that will result in
an improved likelihood of recovery. At some point if he survives this ordeal long enough I expect that he will suffer a catastrophic exsanguination from his right femoral artery reconstruction given the extensive nature of the wound and associated
necrotic tissue and infection. I explained how this would lead to additional pain and suffering and would be traumatic for his family to witness. I explained that a reasonable option at this point, given that he is still in control of his decisions,
would be to transition to hospice and stop HD. He agrees and is willing to move in this direction now.
Call with additional questions concerns.
[id number]
Vascular Surgery [facility]
--- NOTE | 2025-03-11 17:03 | W.CON.NEPH ---
Consultation
-
Date/Time Consultation Requested: March 11, 2025 4:00 PM
Date/Time Consultation Performed: March 11, 2025 5:00 PM
Requesting Provider: Dr. Coombs
Performing Provider: Dr. Teague
Reason for Consultation: End-stage renal disease
Medical History
-
Chief Complaint: End-stage renal disease
History of Present Illness:
Mr. Downing is a 74 yo male with longstanding HFrEF from a nonischemic dilated cardiomyopathy on enteresto,h/o VT s/p ICD, persistent atrial fibrillation on Eliquis (he did not tolerate Amiodarone), ESRD on HD MWF at rehab following discharge on
03/06/25., via through CVC new AVF 3m old, COPD (former smoker), status post revascularization of right leg CLI. right femoral endarterectomy 01/29/[address] Mahoney. Presents to [facility] via transfer from [facility] with
drainage of right groin wound from previous R DAYCARE PROVIDER interposition grafting.. He presented with sepsis and pressor dependent hypotension.
Nephrology was consulted for his ESRD management
Past Medical History
ESRD recently MWF at rehab
Chronic PAD/right leg ischemia s/p right femoral endarterectomy with common femoral to femoral bifurcation artery bypass on 01/29
Subsequent washout of seroma on 02/05 with wound VAC placement
COPD
Atrial fibrillation
Gout
Nonischemic cardiomyopathy with EF of 35 percent
History of ventricular tachycardia
Diabetes
PVD
Hyperphosphatemia
Past Surgical History: Other (AVF r UE, s/p Right femoral endarterectomy with interposition common femoral to femoral bifurcation artery bypass with nonreversed ipsilateral greater saphenous vein conduit. 01/29/2025 Dr. Mahoney)
Social History
Tobacco: Former Smoker
Alcohol: None
Drug: None
Living: With Family
Family History
No CKD
Allergies / Home Medications
Allergy/AdvReac Type Severity Reaction Status Date / Time
vaccinations Allergy Shakes, Uncoded 03/11/25 15:54
nausea,
vomiting
�Medication �Instructions �Recorded �Confirmed �Type
cholecalciferol (vitamin D3) 50 2,000 unit PO DAILY Supplement 07/28/14 03/11/25 History
mcg (2,000 unit) tablet
albuterol sulfate 2.5 mg/3 mL 2.5 mg inhalation R Q6HPRN PRN sob 08/07/20 03/11/25 History
(0.083 %) solution for nebulization
ascorbic acid (vitamin C) 500 mg 500 mg PO DAILY Supplement 08/07/20 03/11/25 History
tablet (Vitamin C)
budesonide 160 mcg-glycopyr 9 2 inh inhalation R BID 08/19/22 03/11/25 History
mcg-formot 4.8 mcg/actuation HFA Lung/Breathing Issues
inhaler (Breztri Aerosphere)
apixaban 5 mg tablet (Eliquis) 5 mg PO BID Blood Clot 04/04/24 03/11/25 History
Prevention/Tx
sacubitril 97 mg-valsartan 103 mg 1 tab PO BID Heart Failure 04/04/24 03/11/25 History
tablet (Entresto)
zinc acetate 50 mg (zinc) capsule 50 mg PO DAILY Supplement 10/10/24 03/11/25 History
sevelamer carbonate 800 mg tablet 800 mg PO AC Kidney Disease 01/29/25 03/11/25 History
vitamin B complex-vitamin C-folic 1 tab PO DAILY Supplement 01/29/25 03/11/25 History
acid 0.8 mg tablet (Shira-Hanna)
acetaminophen 325 mg tablet 650 mg PO Q4HPRN PRN mild pain 02/25/25 03/11/25 History
(Tylenol)
albuterol sulfate 90 mcg/actuation 2 puff inhalation R Q6HPRN PRN sob 02/25/25 03/11/25 History
aerosol inhaler
metoprolol succinate 25 mg 25 mg PO BID Blood Pressure 02/25/25 03/11/25 History
tablet,extended release 24 hr
midodrine 5 mg tablet 10 mg PO TID@0800,1300,1800 Blood 02/25/25 03/11/25 History
Pressure
polyvinyl alcohol-povidone (PF) 2 drp BOTH EYES Q4HPRN PRN dry eyes 02/25/25 03/11/25 History
1.4 %-0.6 % eye drops in a
dropperette (Refresh Classic (PF))
therapeutic multivitamin 1 tab PO DAILY Supplement 02/25/25 03/11/25 History
alprazolam 0.25 mg tablet (Xanax) 0.25 mg PO BIDPRN PRN anxiety #2 03/06/25 03/11/25 Rx
tabs
oxycodone 5 mg tablet 5 mg PO Q6HPRN PRN severe pain #5 03/06/25 03/11/25 Rx
tabs
fentanyl 12 mcg/hr transdermal 1 patch transdermal Q72H 03/11/25 03/11/25 History
patch
Review of Systems
-
Unable to obtain full review of systems at this time due to: Acuity
All other systems: Negative unless noted
Constitutional: Fatigue
Skin: Other ( right groin wound is malodorous and contains necrotic tissue and copious amounts of seropurulent fluid. )
Physical Exam
Vital Signs
Vital Signs
Temp Pulse Resp BP Pulse Ox
99.9 F 115 16 120/50 94
03/11/25 15:27 03/11/25 15:27 03/11/25 15:27 03/11/25 15:27 03/11/25 15:48
Lab Results
WBC 9.2 10^3/uL (4.8-10.8) 02/25/25 07:34
RBC 2.96 10^6/uL (4.70-6.10) L 02/25/25 07:34
Hgb 10.1 g/dL (13.0-18.0) L 02/25/25 07:34
Hct 32.0 % (39.0-52.0) L 02/25/25 07:34
Plt Count 170 10^3/uL (130-400) 02/25/25 07:34
Sodium 126 mmol/L (135-145) L 02/25/25 08:20
Potassium 4.4 mmol/L (3.5-5.1) 02/25/25 08:20
Chloride 90 mmol/L (98-107) L 02/25/25 08:20
Carbon Dioxide 23 mmol/L (22-30) 02/25/25 08:20
BUN 55 mg/dl (9-20) H 02/25/25 08:20
Creatinine 5.0 mg/dL (0.7-1.3) H* 02/25/25 08:20
eGFR 11.45 02/25/25 08:20
Glucose 96 mg/dl (70-99) 02/25/25 08:20
Calcium 9.8 mg/dl (8.4-10.2) 02/25/25 08:20
Albumin 3.6 g/dl (3.5-5.0) 02/25/25 08:20
Physical Exam
General appears acutely ill, poorly responsive but does answer questions, lethargic
HEENT no cephalic atraumatic extraocular muscle intact no scleral icterus
Neck: No JVD neck supple
lungs clear to auscultation bilateral
heart regular S1-S2 positive
abdomen soft nontender positive bowel sounds
extremities +3 edema , right groin abscess noted
Neurologically nonfocal alert and oriented x 2
Skin no lesions no abrasions no petechiae right groin wound is malodorous and contains necrotic tissue and copious amounts of seropurulent fluid.
Psych lethargic and withdrawn
Vascular: Right tunneled IJ catheter inspected
Chest wall exam notable for left anterior cardiac device
Data Reviewed
-
Radiology: Image Personally Visualized and interpreted (Chest x-ray personally reviewed notes presence of right IJ catheter AICD device no overt congestive heart failure on chest x-ray)
Labs: Labs Reviewed by me (BMP CBC to be reviewed)
Old Records: Reviewed (Reviewed previous nephrology consultation for ESRD in the setting of right groin wound from 02/25/25)
Assessment/Plan
-
Mr. Downing is a 74 yo male with longstanding HFrEF from a nonischemic dilated cardiomyopathy on enteresto,h/o VT s/p ICD, persistent atrial fibrillation on Eliquis (he did not tolerate Amiodarone), ESRD on HD TTS through [facility]VC at [facility] unit,
jane, new AVF 3m old, COPD (former smoker), status post revascularization of right leg CLI. right femoral endarterectomy 01/29/2025y Dr. Mahoney. Presents to [facility] with drainage of wound where wound VAC is present
Impression
ESRD MWF
sepsis:
Anemia of chronic disease
Right groin Wound infection
Vasculopath status post femoral endarterectomy with wound VAC
Chronic hypotension
CHF
Hyponatremia
Plan
Vascular surgery consult reviewed
Vascular does not think there are any more viable options and have spoken with the family who will now wish to pursue hospice care
They do wish for 1 more dialysis treatment tomorrow so that family can arrive to see the patient
Pressor support with Levophed currently utilize to maintain hemodynamics in setting of sepsis
Midodrine continued with pressor support to maintain MAP of 60 or greater
Withhold all antihypertensives including Entresto
I will arrange dialysis for the patient tomorrow one last time
[2025-03-11 17:07] LABS: INR 2.08; PT 23.5 Sec (11.4-14.6)
[2025-03-11 17:08] LABS: APTT 49.7 Sec (23.4-35.0)
[2025-03-11 17:14] LABS: ALT (SGPT) 13 U/L (0-50); AST (SGOT) 24 U/L (17-59); Albumin 3.9 g/dl (3.5-5.0); Alkaline Phosphatase 248 U/L (38-126); Blood Urea Nitrogen 41 mg/dl (9-20); Calcium 10.0 mg/dl (8.4-10.2); Carbon Dioxide 21 mmol/L (22-30); Chloride 96 mmol/L (98-107); Estimated Creatinine Clearance 16 ml/min; Glucose 106 mg/dl (70-99); Magnesium 1.8 mg/dl (1.6-2.3); Potassium 4.3 mmol/L (3.5-5.1); Sodium 132 mmol/L (135-145); Total Protein 6.4 g/dl (6.3-8.2); eGFR 14.96
[2025-03-11] MEDS: LEVOPHED 250 IV (17:17)
[2025-03-11 17:22] LABS: Hematocrit 33.7 % (39.0-52.0); Hemoglobin 10.5 g/dL (13.0-18.0); Mean Corp Hgb Conc. 31.2 g/dL (33.0-37.0); Mean Corpuscular Volume 107.0 fL (80.0-94.0); Platelet Count 179 10^3/uL (130-400); Red Cell Dist. Width 15.1 % (11.5-14.5)
[2025-03-11 17:34] LABS: Nucleated Red Blood Cells % 0 % (-)
--- NOTE | 2025-03-11 18:21 | PTCARENOTE ---
Received patient from ER. Patient is able to state name and birthday, unsure of place. Patient is on 4L nasal cannula. He is AV paced on monitor and on 14mcgs of Levophed. CHG bath completed. Tunnelled HD cath is not sutured and no dressing.
Patient also has two prehospital lines where Levophed is running into. IVT notified. Patient has multiple wounds, will document in worklist, right groin, purulent, malodorous. left forearm skin tear. stage 3 on gluteal cleft, stage two behind
left calf and necrotic toes. Patient is anuric, will assess mentation for PO intake. will review orders and family present at bedside.
--- NOTE | 2025-03-11 19:04 | W.PN.UPDATE ---
Update Note
Progress Note Update
1900 Patient bleeding from post op groin wound breakdown; (hemodynamically unstable). Discussed plan of care with family and decision made to transition to comfort care.
[2025-03-11] MEDS: DILAUDID 0.5 MG IV (19:06)
--- NOTE | 2025-03-11 19:09 | PTCARENOTE ---
Was at shift change and patient started to bleed from right groin. SURVEILLANCE MANAGER and family present at bedside. Decision made to withdrawal and go comfort care.
[2025-03-11] MEDS: DILAUDID IV (19:15)
[2025-03-11] MEDS: DILAUDID 1 MG IV ×4 (19:17→23:31)
--- NOTE | 2025-03-11 20:09 | PTCARENOTE ---
Received patient in bed and bleeding from his right groin. Pressure held. PELLETIZER at the bedside.Patient made comfort care. AV paced on the monitor with HR 117. Levophed turned off. Pain management per end of life protocol. Patient intermittently opens
his eyes to verbal commands. Mumbles but does not follow simple commands. Diminished breath sounds. SpO2 at 100% on 2L/o2 nc. Family at the bedside.
[2025-03-11] MEDS: DILAUDID 50 IV (20:51)
--- NOTE | 2025-03-11 21:00 | PTCARENOTE ---
end of life Dilaudid drip initiated per protocol.
--- NOTE | 2025-03-11 21:08 | PTCARENOTE ---
Fentanyl patch is not on the patient. Pt's spouse asked and she states that patch was not placed. COLOR ROOM ATTENDANT and pharmacist are aware.
--- NOTE | 2025-03-12 00:31 | PTCARENOTE ---
Patient reassessed. Pain management per end of life protocol. Patient cleansed and right groin wound site redressed with ABD pads. HR 85-94, BP 55/25. Temp 101. RR 17, SpO2 at 100% on 2L/o2. Patient cleansed and full linen change completed. Pt's
spouse is at the bedside.
[2025-03-12 03:09] VITALS: BP 59/18
--- NOTE | 2025-03-12 03:13 | DOWNTIME ---
There was a [employer] Client Medical File Clerk Downtime on 03/12/2025 from 0100 to 03/12/2025 at 0255. Downtime documentation of patient's care, including medication administrations, has been reconciled in the electronic record per guidelines. Refer to the
patient's paper chart under the miscellaneous tab to see printed paper medication records and downtime forms.
No changes with the patient's assessment from the previous since downtime.
[2025-03-12 06:00] VITALS: BMI 26.5
[2025-03-12 06:59] VITALS: BP 60/22
[2025-03-12 07:45] VITALS: BP 61/20
--- NOTE | 2025-03-12 09:00 | PTCARENOTE ---
Patient remains on comfort measures only/end-of-life care. Spoke with hospitalist about patient's ICD. Order placed for RN to place magnet on ICD until med[employer] rep can get here to deactivate ICD. Discussed with before placing.
[2025-03-12 10:24] VITALS: BP 62/25
--- NOTE | 2025-03-12 10:50 | CHAP ---
Emotional and spiritual support provided, prayers shared, prayer blanket given, stories shared. Will follow.
--- NOTE | 2025-03-12 11:33 | W.PN.HOSP.TC ---
Today's Communication/Plan
-
comfort measures
Assessment / Plan
Assessment / Plan
Septic Shock likely secondary to Chronic Infected Right Groin Wound
Chronic Peripheral Artery Disease / Right Leg Ischemia
s/p Right Femoral Endarterectomy with Common Femoral to Femoral Bifurcation Artery Bypass on January 29
s/p Washout and Closure of deeper tissues with placement of superficial wound vac on February 05
s/p Excisional Debridement of wound and Sartorius Muscle Flap/coverage of Vein Bypass Graft on February 26
ESRD on HD
Paroxysmal Atrial Fibrillation s/p Cardioversion / Ablation
Chronic HFrEF
Chronic Hypotension
COPD, no acute exacerbation
Hx Ventricular Tachycardia s/p ICD
Plan
Pt was made comfort measures overnight as remain with significant bleeding currently with pressure dressing
Vascular surgery evaluated patient and recommended hospice/comfort measures
Currently on dilaudid gtt. SBP 60s
Code Status: DNR
d/w with spouse at bedside in details.
Anticipated Discharge: > 48 hours
Subjective/Interval History
-
Date of Service: March 12, 2025
overnight pt was made comfort care
now on dilaudid gtt
hypotensive
seems comfortable
Objective Data
-
Vital Signs:
Vital Signs
Temp Pulse Resp BP Pulse Ox
99.8 F 90 9 98
03/12/25 08:11 03/12/25 10:30 03/12/25 10:30 03/12/25 10:24 03/12/25 09:30
I&O
03/11/25 03/12/25 03/13/25
06:59 06:59 06:59
Intake Total 7 / 8 2 / 2
Output Total 0 / 0
Balance 7 / 8 2 / 2
Physical Exam
-
General: No Apparent Distress and Comfortable
HEENT: Nose Appears Normal and Ears Appear Normal
Respiratory: Accessory Resp Muscle Use
Neuro: Sedated
--- NOTE | 2025-03-12 12:35 | HOSPNOTE ---
Patient was started on a dilaudid drip and appears comfortable at this time. I will continue to follow and support.
--- NOTE | 2025-03-12 12:54 | PTCARENOTE ---
pt received from previous rn, assessment unchanged. pt with cpot 0, RDOS of 0. report given to Mayda VÁSQUEZ on 2N. and family aware of transfer. emotional support provided to family. pastoral care at bedside.
[2025-03-12 13:07] VITALS: BP 68/31
--- NOTE | 2025-03-12 14:26 | CM ---
Patient comfort care with hospice following, Mariano luciano. Transferred to [address] [place] [address]
[2025-03-12] MEDS: DILAUDID 1 MG IV (15:10)
[2025-03-12 19:43] VITALS: BP 86/48
--- NOTE | 2025-03-12 20:23 | W.PN.DEATH ---
Addendum entered and electronically signed by USHA Terrell 03/12/25 22:12:
Time of was incorrectly entered.
correct time of is: 1944
Original Note:
Pronouncement of
-
Called to see patient to pronounce.
No spontaneous heart tones or respirations noted.
Patient not responsive to verbal stimuli.
Patient is pronounced .
Time of : 20:23
Date of : 03/12/25
Cause of : septic shock secondary to right groin infection
Family Notified: Yes
--- NOTE | 2025-03-12 23:33 | PTCARENOTE ---
Spouse called RN to room. She was tearful and stated patient had passed. Patient confirmed to be breathless and pulseless. [employer], covering floor, in to pronounce. Family came in. [facility] called. Patient is not a candidate for donation.
Family took belongings home. Post mortem care done. [place] [facility] [place]
--- NOTE | 2025-03-13 08:04 | W.DCSUMMARY ---
Discharge Summary
Discharge Data
Date of Admission: 03/11/25
Date of Discharge: 03/12/25
-
Pending Results: No
Hospital Course
74-year-old male past medical history of chronic peripheral arterial disease/right leg ischemia s/p Right Femoral Endarterectomy with Common Femoral to Femoral Bifurcation Artery Bypass on January 29 s/p Washout and Closure of deeper tissues with
placement of superficial wound vac on February 05 s/p Excisional Debridement of wound and Sartorius Muscle Flap/coverage of Vein Bypass Graft on February 26, ESRD on HD, Paroxysmal Atrial Fibrillation s/p Cardioversion / Ablation, Chronic HFrEF,
Chronic Hypotension, COPD, no acute exacerbation, Hx Ventricular Tachycardia s/p ICD who is presenting from outside hospital. Patient was transferred to outside hospital from the ER where he had fevers. Patient was found to have infected right
groin wound. Patient also in shock and was started on pressors. Patient was transferred to medical ICU. Patient was started on broad-spectrum antibiotics. Patient with severe right groin wound bleeding. Patient was evaluated by his primary
vascular surgeon Dr. Murray Lawson. Please see vascular surgery correspondence noted. In summary no further surgical option that will improve likelihood of recovery. Risk outweighs benefits and hospice was recommended. Patient was transition to
comfort measures. Patient was started on comfort measures and he on 03/12/2025 at 1945.
Discharge Plan
-
Patient Disposition:
Date/Time
Date/Time: 03/12/25 23:40
Discharge Date and Time
Discharge Date/Time: 03/12/25 23:40
Print Language: VENEZUELAN
== END 2025-03-12 23:40 | disposition expired | DRG 871 ==
LOC: 2 NORTH 17:27
PROVIDERS: Physician Assistant Medical; ADMITTING PHYSICIAN Hospitalist; ATTENDING PHYSICIAN Hospitalist; CONSULT PHYSICIAN Specialist; FAMILY PHYSICIAN Internal Medicine
DX: A41.9 Sepsis, unspecified organism (principal); N18.6 End stage renal disease; R65.21 Severe sepsis with septic shock; I48.19 Other persistent atrial fibrillation; I50.22 Chronic systolic (congestive) heart failure; I13.2 Hypertensive heart and chronic kidney disease with heart failure and with stage 5 chronic kidney disease, or end stage renal disease; E87.1 Hypo-osmolality and hyponatremia; I42.0 Dilated cardiomyopathy; E11.22 Type 2 diabetes mellitus with diabetic chronic kidney disease; E11.51 Type 2 diabetes mellitus with diabetic peripheral angiopathy without gangrene; J44.9 Chronic obstructive pulmonary disease, unspecified; Z99.2 Dependence on renal dialysis; I95.89 Other hypotension; Z86.79 Personal history of other diseases of the circulatory system; Z66 Do not resuscitate; Z95.810 Presence of automatic (implantable) cardiac defibrillator; D63.1 Anemia in chronic kidney disease; E78.5 Hyperlipidemia, unspecified; E83.39 Other disorders of phosphorus metabolism; Z79.01 Long term (current) use of anticoagulants; Z87.891 Personal history of nicotine dependence; F41.9 Anxiety disorder, unspecified
CPT/HCPCS: 71045; 80053; 80202; 83735; 84100; 85025; 85610; 85730; 87040; 93005; 96365; 96366; 99284